=== PATIENT | male | born 1945 | race Caucasian/White ===

== ENCOUNTER → 2016-05-19 | Outpatient (CLI) | payer OTHER ==
[~2016-05-19] MED LIST: ALBU0.08 NEB; AMLO5TAB22 PO; BEDSMIS4; BISA10SU8 PR; CARV25TA PO; CLON0.2T PO; CORE25TA PO; DUONI NEB; FLEEENE3 RE; FURO1TAB62 PO; FURO20 PO; HYDR-3533 PO; LEVO500T3 PO; LISI-586 PO; LISI20TA PO; LOVA40TA PO; MEVA40TA PO; NEBULIZER1 MI1; OXYGENTANK NAS.CANULA; PERI8.6T PO; PRED20 PO; RIVA10 PO; TAMS0.4C67 PO; TIOT1AER2 INH
--- NOTE | 2016-05-21 12:08 | RSPPFT ---
DATE OF PROCEDURE: 05/19/16 COMMENTS: Spirometry shows FVC of 1.7 at 36% of predicted, FEV1 of 0.6 at 19%, FEV1/FVC ratio is decreased. Flow is decreased at FEF 25, FEF 50, FEF 75 and FEF 25-75. There is a good response after bronchodilator treatment. Lung volumes show residual volume is increased. TLC is normal. Diffusion capacity is decreased. Flow volume loop indicates an obstructive pattern. IMPRESSION: 1. Very severe obstructive lung disease. 2. Good response after bronchodilator treatment. 3. Lung volumes show hyperinflation. 4. Moderate loss in diffusion capacity.
== END ==
LOC: HRSP 09:28
PROVIDERS: ATTEND Internal Medicine Interventional Cardiology
DX: I50.1 Left ventricular failure, unspecified (principal); R07.9 Chest pain, unspecified; J44.9 Chronic obstructive pulmonary disease, unspecified
CPT/HCPCS: 94060; 94726; 94729

== ENCOUNTER 2016-06-07 15:30 | Inpatient (IN) | payer OTHER, MEDICARE ==
[~2016-06-07] VITALS: Ht 185.4 cm; Wt 145.0 kg
[2016-06-07] VITALS (9 sets, daily range): BP systolic 132–176; BP diastolic 72–98; PULSE 67–86; RESP 18–28; TEMP 97.1–98.3; O2SAT 87–97
[~2016-06-07 15:30] MED LIST changes: -ALBU0.08 NEB; -CARV25TA PO; -CLON0.2T PO; -FURO1TAB62 PO; -LEVO500T3 PO; -LISI20TA PO; -LOVA40TA PO; -NEBULIZER1 MI1; -OXYGENTANK NAS.CANULA; -TIOT1AER2 INH
[2016-06-07] MEDS ORDERED: methylPREDNISolone SOD SUCC 125 MG/2 ML VIAL IVP ONE (16:00)
[2016-06-07] MEDS ORDERED: CARV25TA PO (16:02)
[2016-06-07] MEDS ORDERED: FURO1TAB62 PO (16:02)
[2016-06-07] MEDS ORDERED: CLON0.2T PO (16:02)
[2016-06-07] MEDS ORDERED: LISI20TA PO (16:02)
[2016-06-07] MEDS ORDERED: LOVA40TA PO (16:02)
--- NOTE | 2016-06-07 16:06 | PD ---
HPI Chief Complaint: Respiratory Symptoms Time Seen by Provider: 15:48 Travel History International Travel<30 days: No Contact w/Intl Traveler<30days: No Traveled to known affect area: No History of Present Illness HPI 70-year-old male complains of shortness of breath. Patient states that he started having persistent cough congestion 2 weeks ago. Patient was seen by personal physician 4 days ago and was given prescription for Z-Dejan. Patient states that the cough got better with the medication. Patient however has increasing shortness of breath for the past 3 days. Patient states that he has wheezing also. Patient has history of COPD and has been using inhaler at home. Patient denies any headache. Patient denies any chest pain. Patient denies abdominal pain. Patient denies any nausea vomiting diarrhea. Patient denies any fever chills. Patient was seen by personal physician today and advised to go to ED for evaluation. PFSH Past Medical History Hx Anticoagulant Therapy: Yes AAA: Yes Arthritis: Yes Atrial Fibrillation: Yes Heart Rhythm Problems: Yes Cancer: No Cardiovascular Problems: Yes High Cholesterol: Yes COPD: Yes Coronary Artery Disease: Yes Diverticulitis: Yes Endocrine: No GERD: Yes Genitourinary: Yes (ENLARGED CKD STAGE II ) Hepatitis: No Hiatal Hernia: No Hypertension: Yes Immune Disorder: No Medical other: Yes (EDEMA,ED) Musculoskeletal: Yes (RIGHT HIP PAIN; ARTHRITIS ) Neurologic: No Psychiatric: No Reproductive: No Respiratory: Yes Myocardial Infarction: Yes Thyroid Disease: Yes Tetanus Vaccination: > 5 Years Influenza Vaccination: Yes Past Surgical History Abdominal Surgery: No AICD: No Body Medical Devices: JACKELIN KNEES; RIGHT HIP Cardiac Surgery: No Ear Surgery: No Endocrine Surgery: No Eye Surgery: Yes (JACKELIN CATARACT EXTRACTION WITH LENS IMPLANT ) Genitourinary Surgery: No Joint Replacement: Yes (JACKELIN KNEES; RIGHT HIP ) Oral Surgery: No Pacemaker: No Thoracic Surgery: No Other Surgery: Yes Social History Alcohol Use: No (FORMER) Tobacco Use: No (QUIT 2011) Substance Use: No Allergies-Medications (Allergen,Severity, Reaction): Coded Allergies: No Known Allergies (Verified , 06/07/16) Reported Meds & Prescriptions Reported Meds & Active Scripts Active Reported Carvedilol 25 Mg Tab 25 Mg PO BID Clonidine (Clonidine HCl) 0.2 Mg Tab 0.2 Mg PO BID Lasix (Furosemide) 20 Mg Tab 20 Mg PO DAILY Lovastatin 40 Mg Tab 40 Mg PO DAILY Lisinopril-Hctz 20-12.5 Mg Tab 1 Tab PO DAILY Review of Systems General / Constitutional: No: Fever Eyes: No: Visual changes HENT: No: Headaches Cardiovascular: No: Chest Pain or Discomfort Respiratory: Positive: Cough, Shortness of Breath, Wheezing Gastrointestinal: No: Abdominal Pain Genitourinary: No: Dysuria Musculoskeletal: No: Pain Skin: No Rash Neurologic: No: Weakness Psychiatric: No: Depression Endocrine: No: Polydipsia Hematologic/Lymphatic: No: Easy Bruising Physical Exam Narrative GENERAL: Well-nourished, well-developed patient. SKIN: Warm and dry. HEAD: Normocephalic. EYES: No scleral icterus. No injection or drainage. NECK: Supple, trachea midline. No JVD or lymphadenopathy. CARDIOVASCULAR: Regular rate and rhythm without murmurs, gallops, or rubs. RESPIRATORY: Diminished breath sounds bilaterally with mild expiratory wheezes bilaterally. Few rhonchi at the bases. GASTROINTESTINAL: Abdomen soft, non-tender, nondistended. MUSCULOSKELETAL: No cyanosis, or edema. BACK: Nontender without obvious deformity. No CVA tenderness. Data Data Last Documented VS Vital Signs Date Time Temp Pulse Resp B/P Pulse Ox O2 Delivery O2 Flow Rate FiO2 06/07/16 16:16 96 Nasal Cannula 2.00 06/07/16 16:00 86 26 170/98 06/07/16 15:37 98.3 Orders Electrocardiogram (06/07/16 15:58) Complete Blood Count With Diff (06/07/16 15:58) Comprehensive Metabolic Panel (06/07/16 15:58) Creatine Kinase (Cpk) (06/07/16 15:58) Troponin I (06/07/16 15:58) B-Type Natriuretic Peptide (06/07/16 15:58) Prothrombin Time / Inr (Pt) (06/07/16 15:58) Act Partial Throm Time (Ptt) (06/07/16 15:58) Blood Culture (06/07/16 15:58) Influenzae A/B Antigen (06/07/16 15:58) Chest, Single Ap (06/07/16 15:58) Iv Access Insert/Monitor (06/07/16 15:58) Ecg Monitoring (06/07/16 15:58) Oximetry (06/07/16 15:58) Methylprednisolone So Succ Inj (Solumedr (06/07/16 16:00) Albuterol-Ipratropium Neb (Duoneb Neb) (06/07/16 16:00) Labs Laboratory Tests Test 06/07/16 16:05 White Blood Count 14.0 TH/MM3 Red Blood Count 4.43 MIL/MM3 Hemoglobin 13.6 GM/DL Hematocrit 43.0 % Mean Corpuscular Volume 97.0 FL Mean Corpuscular Hemoglobin 30.6 PG Mean Corpuscular Hemoglobin 31.6 % Concent Red Cell Distribution Width 13.6 % Platelet Count 394 TH/MM3 Mean Platelet Volume 9.4 FL Neutrophils (%) (Auto) 76.5 % Lymphocytes (%) (Auto) 8.8 % Monocytes (%) (Auto) 10.5 % Eosinophils (%) (Auto) 0.7 % Basophils (%) (Auto) 3.5 % Neutrophils # (Auto) 10.7 TH/MM3 Lymphocytes # (Auto) 1.2 TH/MM3 Monocytes # (Auto) 1.5 TH/MM3 Eosinophils # (Auto) 0.1 TH/MM3 Basophils # (Auto) 0.5 TH/MM3 CBC Comment AUTO DIFF Differential Comment AUTO DIFF CONFIRMED Prothrombin Time 12.1 SEC Prothromb Time International 1.1 RATIO Ratio Activated Partial 31.1 SEC Thromboplast Time Sodium Level 135 MEQ/L Potassium Level 4.3 MEQ/L Chloride Level 96 MEQ/L Carbon Dioxide Level 31.4 MEQ/L Anion Gap 8 MEQ/L Blood Urea Nitrogen 28 MG/DL Creatinine 1.10 MG/DL Estimat Glomerular Filtration 67 ML/MIN Rate Random Glucose 107 MG/DL Calcium Level 8.8 MG/DL Total Bilirubin 0.6 MG/DL Aspartate Amino Transf 46 U/L (AST/SGOT) Alanine Aminotransferase 51 U/L (ALT/SGPT) Alkaline Phosphatase 206 U/L Total Creatine Kinase 123 U/L Troponin I 0.04 NG/ML B-Type Natriuretic Peptide 334 PG/ML Total Protein 7.8 GM/DL Albumin 3.2 GM/DL [facility] Medical Decision Making Medical Screen Exam Complete: Yes Emergency Medical Condition: Yes Interpretation(s) 1716 p.m. EKG shows sinus rhythm with PACs. Right bundle-branch block. Chest x-ray shows compensated cardiomegaly. CBC with WBC 14.0. Hemoglobin 13.6 hematocrit 43.0. 76 neutrophil. Sodium 135. BUN 28. Creatinine 1.10. AST 46. Alkaline phosphatase 206. BNP 334. Influenza AB antigen negative. Differential Diagnosis Differential diagnosis including acute exacerbation COPD, bronchitis, pneumonia , PE, pneumothorax. Narrative Course 70-year-old male with coughing shortness of breath wheezing. History of COPD. Albuterol with Atrovent unit dose treatment 3. Solu-Medrol 125 mg IV. Rocephin 1 g IV. Zithromax 500 mg IV. 1722 PM. Reexamination patient still has a lot of wheezes bilaterally. Diagnosis Primary Impression: COPD with acute exacerbation Admitting Information Admitting Physician Requests: Alonzo Lopez MD Jun 07, 2016 16:06
[2016-06-07] MEDS: RESP: ALBUTEROL 2.5 MG/IPRATROPIUM 0.5 MG NEB (SCH) INH ×2 (16:15→16:16)
[2016-06-07 16:24] LABS: CHLORIDE 96 MEQ/L (98-107); POTASSIUM 4.3 MEQ/L (3.5-5.1); SODIUM (NA) 135 MEQ/L (136-145)
[2016-06-07 16:28] LABS: ANION GAP 8 MEQ/L (5-15); APTT (PATIENT) 31.1 SEC (24.3-30.1); BICARBONATE 31.4 MEQ/L (21.0-32.0); BLOOD UREA NITROGEN 28 MG/DL (7-18); INTERNATIONAL NORMALIZED RATIO 1.1 RATIO; PROTHROMBIN TIME - PATIENT 12.1 SEC (9.8-11.6)
[2016-06-07 16:30] LABS: AUTOMATED NEUTROPHIL # 10.7 TH/MM3 (1.8-7.7); BASOPHIL # 0.5 TH/MM3 (0-0.2); BASOPHIL % 3.5 % (0.0-2.0); EOSINOPHIL # 0.1 TH/MM3 (0-0.4); EOSINOPHIL % 0.7 % (0.0-4.0); LYMPH % 8.8 % (9.0-44.0); LYMPHOCYTE # 1.2 TH/MM3 (1.0-4.8); MEAN CORPUSCULAR HEMOGLOBIN 30.6 PG (27.0-34.0); MEAN CORPUSCULAR HGB CONC 31.6 % (32.0-36.0); MONO % 10.5 % (0.0-8.0); NEUT % 76.5 % (16.0-70.0); PLATELET COUNT 394 TH/MM3 (150-450); RED BLOOD COUNT 4.43 MIL/MM3 (4.50-5.90); RED CELL DISTRIBUTION WIDTH 13.6 % (11.6-17.2)
[2016-06-07 16:31] LABS: ALT (GPT) 51 U/L (12-78); AST (GOT) 46 U/L (15-37); GLOMERULAR FILTRATION RATE 67 ML/MIN (>89)
[2016-06-07 16:33] LABS: HEMO FLAGS AUTO DIFF; TOTAL BILIRUBIN ADULT 0.6 MG/DL (0.2-1.0)
[2016-06-07 16:34] LABS: ALKALINE PHOSPHATASE 206 U/L (45-117); CREATINE KINASE 123 U/L (39-308)
--- NOTE | 2016-06-07 16:46 | RADHPO ---
EXAM DATE/TIME: 06/07/2016 16:15 [facility] COMPARISON: CHEST SINGLE AP, February 20, 2015, 13:29. INDICATIONS : Short of breath. MEDICAL HISTORY : Chronic obstructive pulmonary disease. SURGICAL HISTORY : None. ENCOUNTER: Initial ACUITY: >1 year PAIN SCORE: 0/10 LOCATION: Bilateral chest FINDINGS: The lungs are clear. The heart is minimally enlarged. The pulmonary vascularity is normal. There is n o evidence for infiltrate or failure. The portion of the bony skeleton visualized is unremarkable. CONCLUSION: Compensated cardiomegaly otherwise negative. Sid Bazan MD FACR on June 07, 2016 at 16:44 Board Certified Radiologist. This report was verified electronically.
[2016-06-07 16:55] LABS: SCAN/DIFF AUTO DIFF CONFIRMED
[2016-06-07] MEDS ORDERED: cefTRIAXone INJ 1,000 MG in SODIUM CHLORIDE 0.9% INJ 100 ML IV ONE (17:30)
[2016-06-07] MEDS ORDERED: AZITHROMYCIN INJ 500 MG in SODIUM CHLOR 0.9% 250 ML INJ 250 ML IV ONE (17:30)
[2016-06-07] MEDS ORDERED: ONDANSETRON HCL 4 MG/2 ML VIAL IV PRN (17:45)
[2016-06-07] MEDS ORDERED: RESP: ALBUTEROL 2.5 MG/IPRATROPIUM 0.5 MG NEB (PRN) NEB (17:45)
[2016-06-07] MEDS ORDERED: ACETAMINOPHEN 325 MG TAB PO PRN (17:45)
[2016-06-07] MEDS ORDERED: SODIUM CHLORIDE 0.9% FLUSH 5 ML FLUSH IVF PRN (17:45)
[2016-06-07] MEDS: RESP: ALBUTEROL 2.5 MG/IPRATROPIUM 0.5 MG NEB (SCH) NEB ×2 (20:00→23:55)
[2016-06-07] MEDS: CARVEDILOL 12.5 MG TAB PO SCH (22:14)
[2016-06-07] MEDS: cloNIDine HCL 0.2 MG TAB PO SCH ×2 (22:14→23:30)
[2016-06-07] MEDS: SODIUM CHLORIDE 0.9% FLUSH 5 ML FLUSH IVF SCH (22:15)
[2016-06-07] MEDS: methylPREDNISolone SOD SUCC 40 MG/1 ML VIAL IV PUSH SCH ×2 (22:15→23:53)
[2016-06-08] VITALS (7 sets, daily range): BP systolic 131–154; BP diastolic 62–71; PULSE 67–77; RESP 16–18; TEMP 96–97.8; O2SAT 92–96
[2016-06-08] MEDS: RESP: ALBUTEROL 2.5 MG/IPRATROPIUM 0.5 MG NEB (SCH) NEB ×4 (03:55→15:26)
[2016-06-08] MEDS: methylPREDNISolone SOD SUCC 40 MG/1 ML VIAL IV PUSH SCH ×3 (05:35→17:48)
[2016-06-08] MEDS ORDERED: FUROSEMIDE 20 MG TAB PO SCH (09:00)
[2016-06-08] MEDS: cloNIDine HCL 0.2 MG TAB PO SCH ×2 (09:00→09:20)
[2016-06-08] MEDS ORDERED: HYDROCHLOROTHIAZIDE 12.5 MG CAP PO SCH (09:00)
[2016-06-08] MEDS: LISINOPRIL 20 MG TAB PO SCH ×2 (09:19→09:27)
[2016-06-08] MEDS: CARVEDILOL 12.5 MG TAB PO SCH (09:20)
[2016-06-08] MEDS: SODIUM CHLORIDE 0.9% FLUSH 5 ML FLUSH IVF SCH (09:23)
[2016-06-08] MEDS ORDERED: PNEUMOCOCCAL POLYVALENT INJ 25 MCG/0.5 ML SYR IM ONE (10:00)
[2016-06-08] MEDS ORDERED: cloNIDine HCL 0.1 MG TAB PO PRN (11:17)
--- NOTE | 2016-06-08 14:59 | HHI.HP ---
[facility] Service [facility] Primary Care Physician Marcos Walton MD Admission Diagnosis acute exacerbation COPD Diagnoses: (1) COPD with acute exacerbation (2) Hypoxemia Travel History International Travel<30 Days: No Contact w/Intl Traveler <30 Da: No Traveled to Known Affected Are: No History of Present Illness This is a pleasant 70 year-old female who was recently diagnosed with COPD who presents to the ER last night complaining of shortness of breath, cough , congestion and wheezing. The patient states that he has been chronically short of breath for some time and had been seeing his paper mill superintendent Dr. Falk for this. He states he had a nuclear stress test which was negative and then she referred him for pulmonary function tests which diagnosed him with COPD. He does have a [id number] history of smoking tobacco and quit about 5 years ago. He has been referred to a digital pre press operator and will see Dr. Pablo mcfarland and about 10 days for the first time. The patient was prescribed a Z-Dejan by his primary care physician but did not improve with this. He was presented to the ER last night. He received Solu-Medrol multiple breathing treatments but was still wheezing. This morning the patient states that he feels "1000% better." Review of Systems Constitutional: DENIES: Fever, Chills Ears, nose, mouth, throat: DENIES: Throat pain, Hoarseness Respiratory: COMPLAINS OF: Cough, Sputum production, Shortness of breath Cardiovascular: COMPLAINS OF: Dyspnea on Exertion, DENIES: Chest pain, Palpitations, Syncope Gastrointestinal: DENIES: Abdominal pain, Vomiting Genitourinary: DENIES: Urgency, Dysuria Musculoskeletal: DENIES: Back pain, Neck pain Integumentary: DENIES: Rash Neurologic: DENIES: Abnormal gait, Headache Psychiatric: DENIES: Anxiety, Confusion Past Family Social History Past Medical History Hypertension COPD recently diagnosed History of postoperative A. fib for which she takes a baby aspirin daily. Hyperlipidemia Past Surgical History Bilateral knee replacements, right hip replacement and revision Reported Medications Allergies Coded Allergies Type Severity Reaction Last Updated Verified No Known Allergies 06/07/16 Yes Active Scripts Medications Dose Route/Sig Days Date Category Carvedilol 25 Mg Tab 25 Mg PO BID 06/07/16 Reported Clonidine (Clonidine HCl) 0.2 Mg Tab 0.2 Mg PO BID 06/07/16 Reported Lasix (Furosemide) 20 Mg Tab 20 Mg PO DAILY 06/07/16 Reported Lovastatin 40 Mg Tab 40 Mg PO DAILY 06/07/16 Reported Lisinopril-Hctz 20-12.5 Mg Tab 1 Tab PO DAILY 06/07/16 Reported Allergies: Coded Allergies: No Known Allergies (Verified , 06/07/16) Family History Negative for coronary artery disease Social History As per history of present illness. Physical Exam Vital Signs Vital Signs Date Time Temp Pulse Resp B/P Pulse Ox O2 Delivery O2 Flow Rate FiO2 06/08/16 12:05 96.0 77 16 154/71 94 06/08/16 08:15 96.4 68 17 151/67 92 06/08/16 07:19 96 Nasal Cannula 2.00 06/08/16 04:00 97.8 68 18 140/64 93 06/08/16 00:00 96.5 67 16 131/62 92 06/07/16 22:44 76 06/07/16 20:27 74 18 96 2 06/07/16 20:18 95 Nasal Cannula 2.00 06/07/16 20:18 97.1 78 20 176/84 95 06/07/16 20:06 74 18 141/78 06/07/16 19:05 72 18 132/72 96 Nasal Cannula 2 06/07/16 17:33 67 20 148/86 97 Nasal Cannula 2 06/07/16 16:16 96 Nasal Cannula 2.00 06/07/16 16:04 97 Nasal Cannula 2 06/07/16 16:00 86 26 170/98 97 Nasal Cannula 2 06/07/16 15:54 82 97 Nasal Cannula 2 06/07/16 15:37 98.3 80 28 148/98 87 Physical Exam GENERAL: Well-nourished, well-developed very pleasant obese male patient. SKIN: Warm and dry. HEAD: Normocephalic. EYES: No scleral icterus. No injection or drainage. NECK: Supple, trachea midline. No JVD or lymphadenopathy. CARDIOVASCULAR: Regular rate and rhythm without murmurs, gallops, or rubs. RESPIRATORY: Lung sounds are clear to auscultation bilaterally without wheezing. Nonlabored breathing on nasal cannula. GASTROINTESTINAL: Abdomen soft, non-tender, nondistended. EXTREMITIES: No cyanosis, or edema. NEUROLOGICAL: Awake, alert, and oriented x 3. Non-focal. Laboratory Laboratory Tests Test 06/07/16 16:05 White Blood Count 14.0 Red Blood Count 4.43 Hemoglobin 13.6 Hematocrit 43.0 Mean Corpuscular Volume 97.0 Mean Corpuscular Hemoglobin 30.6 Mean Corpuscular Hemoglobin 31.6 Concent Red Cell Distribution Width 13.6 Platelet Count 394 Mean Platelet Volume 9.4 Neutrophils (%) (Auto) 76.5 Lymphocytes (%) (Auto) 8.8 Monocytes (%) (Auto) 10.5 Eosinophils (%) (Auto) 0.7 Basophils (%) (Auto) 3.5 Neutrophils # (Auto) 10.7 Lymphocytes # (Auto) 1.2 Monocytes # (Auto) 1.5 Eosinophils # (Auto) 0.1 Basophils # (Auto) 0.5 CBC Comment AUTO DIFF Differential Comment AUTO DIFF CONFIRMED Prothrombin Time 12.1 Prothromb Time International 1.1 Ratio Activated Partial 31.1 Thromboplast Time Sodium Level 135 Potassium Level 4.3 Chloride Level 96 Carbon Dioxide Level 31.4 Anion Gap 8 Blood Urea Nitrogen 28 Creatinine 1.10 Estimat Glomerular Filtration 67 Rate Random Glucose 107 Calcium Level 8.8 Total Bilirubin 0.6 Aspartate Amino Transf 46 (AST/SGOT) Alanine Aminotransferase 51 (ALT/SGPT) Alkaline Phosphatase 206 Total Creatine Kinase 123 Troponin I 0.04 B-Type Natriuretic Peptide 334 Total Protein 7.8 Albumin 3.2 Date/Time Procedure Status Source Growth 06/07/16 16:15 Aerobic Blood Culture - Preliminary Resulted Blood Peripheral NO GROWTH IN 1 DAY 06/07/16 16:15 Anaerobic Blood Culture - Preliminary Resulted Blood Peripheral NO GROWTH IN 1 DAY 06/07/16 16:10 Influenza Types A,B Antigen (BROWN) - Final Complete Nasal Washing NEGATIVE FOR FLU A AND B ANTIGEN.... Result Diagram: 06/07/16 1605 06/07/16 1605 Imaging Last Impressions Chest X-Ray 06/07/16 6185 Signed Impressions: Service Date/Time: Tuesday, June 07, 2016 16:15 - CONCLUSION: Compensated cardiomegaly otherwise negative. Sid Bazan MD FACR Assessment and Plan Assessment and Plan -COPD exacerbation. Clinically much improved. He had not had a course of steroids as an outpatient. He states he feels much better today and would like to go home. He has no wheezing on exam. He does have an appointment to establish with a digital pre press operator Dr. Pablo Sears in about 10 days. He states gives a long-standing history of dyspnea. I will check a walk test and arrange home oxygen if needed. We will arrange a nebulizer machine. He can be discharged home with a prednisone taper. I will also initiate him on Spiriva and prescribed bronchodilators as well as Levaquin. He will follow-up with Dr. mcfarland in about 10 days. For his high blood pressure will continue his home medications. Riya Chaparro MD Jun 08, 2016 14:59
[2016-06-08] MEDS ORDERED: OXYGENTANK NAS.CANULA (15:23)
[2016-06-08] MEDS ORDERED: PRED20 PO (15:23)
[2016-06-08] MEDS ORDERED: NEBULIZER1 MI1 (15:23)
[2016-06-08] MEDS ORDERED: ALBU0.08 NEB (15:23)
[2016-06-08] MEDS ORDERED: TIOT1AER2 INH (15:23)
[2016-06-08] MEDS ORDERED: LEVO500T3 PO (15:23)
--- NOTE | 2016-06-08 17:41 | EKG ---
Date Performed: 06/07/2016 Time Performed: 16:18:32 PTAGE: 70 years EKG: Sinus rhythm with PAC(s) Left axis deviation RBBB with left anterior fascicular block Since previous tracing, no significant change noted Abnormal ECG PREVIOUS TRACING : 09/17/2004 10.09 DOCTOR: Saravanan Gardner Interpretating Date/Time 06/08/2016 17:39:47
[2016-06-08] MEDS ORDERED: DOCUSATE SODIUM 100 MG CAP PO SCH (21:00)
== END 2016-06-08 18:30 | disposition home or self-care (01) | DRG 192 ==
LOC: PHED 15:30 → PHEDA 17:35 → PH3A 20:18
PROVIDERS: ADMIT Hospitalist; ATTEND Hospitalist
PROC: 3E0F7GC Introduction of Other Therapeutic Substance into Respiratory Tract, Via Natural or Artificial Opening (ICD-10-PCS; principal; 2016-06-07)
DX: J44.1 Chronic obstructive pulmonary disease with (acute) exacerbation (principal); I48.91 Unspecified atrial fibrillation; I45.10 Unspecified right bundle-branch block; I25.10 Atherosclerotic heart disease of native coronary artery without angina pectoris; N18.2 Chronic kidney disease, stage 2 (mild); I12.9 Hypertensive chronic kidney disease with stage 1 through stage 4 chronic kidney disease, or unspecified chronic kidney disease; K21.9 Gastro-esophageal reflux disease without esophagitis; E78.00 Pure hypercholesterolemia, unspecified; M19.90 Unspecified osteoarthritis, unspecified site; I25.2 Old myocardial infarction; E07.9 Disorder of thyroid, unspecified; R09.02 Hypoxemia; E78.5 Hyperlipidemia, unspecified; I71.4 Abdominal aortic aneurysm, without rupture; Z87.891 Personal history of nicotine dependence; Z96.641 Presence of right artificial hip joint; Z96.653 Presence of artificial knee joint, bilateral; Z23 Encounter for immunization
CPT/HCPCS: 71010; 80053; 82550; 83880; 84484; 85025; 85610; 85730; 87040; 87804; 90471; 90732; 93005; 94620; 94640; 94664; 96374; 96375; G0009; J0456; J0696; J2920; J2930; J7050

== ENCOUNTER 2017-05-12 11:53 | Emergency (ER) | payer MEDICARE, OTHER ==
[~2017-05-12 11:53] MED LIST changes: +ALBU0.08 NEB; -AMLO5TAB22 PO; -BEDSMIS4; -BISA10SU8 PR; +CARV25TA PO; +CLON0.2T PO; -CORE25TA PO; -DUONI NEB; -FLEEENE3 RE; +FURO1TAB62 PO; -FURO20 PO; -HYDR-3533 PO; +LEVO500T3 PO; -LISI-586 PO; +LISI20TA PO; +LOVA40TA PO; -MEVA40TA PO; +NEBULIZER1 MI1; +OXYGENTANK NAS.CANULA; -PERI8.6T PO; -RIVA10 PO; -TAMS0.4C67 PO; +TIOT1AER2 INH
--- NOTE | 2017-05-12 11:59 | PD ---
HPI Chief Complaint: shortness of breath Time Seen by Provider: 11:56 Travel History International Travel<30 days: No Contact w/Intl Traveler<30days: No Traveled to known affect area: No History of Present Illness HPI 71-year-old male came to the emergency room brought by EMS for shortness of breath. Patient says he has been short of breath for many weeks but for past 4- 5 days is progressively worsening. Patient denies of any chest pain. He has history of COPD and requires 2 L of oxygen at home. She of fever or chills. He is not bringing out any expectorant. Patient was oxygen saturation of 91% on the 2 L of oxygen. He does appear to be in moderate distress. Patient is morbidly obese. Patient has seen industrial relations worker Dr. Garcia and has followed his recommendations for the shortness of breath but has not improved. [facility] Past Medical History Narrative Medical List of his past medical, surgical, social and family history is reviewed from the nursing note. Hx Anticoagulant Therapy: Yes AAA: Yes Arthritis: Yes Asthma: No Atrial Fibrillation: Yes Heart Rhythm Problems: Yes Cancer: No Cardiovascular Problems: Yes High Cholesterol: Yes Chest Pain: No Congestive Heart Failure: Yes COPD: Yes Coronary Artery Disease: Yes Diabetes: No Diverticulitis: Yes Endocrine: No GERD: No Genitourinary: Yes (ENLARGED CKD STAGE II ) Hepatitis: No Hiatal Hernia: No Hypertension: Yes Immune Disorder: No Kidney Stones: No Musculoskeletal: Yes (RIGHT HIP PAIN; ARTHRITIS ) Neurologic: No Psychiatric: No Reproductive: No Respiratory: Yes Myocardial Infarction: Yes Renal Failure: No Sleep Apnea: No Thyroid Disease: Yes Ulcer: No Past Surgical History Abdominal Surgery: No AICD: No Body Medical Devices: JACKELIN KNEES; RIGHT HIP Cardiac Surgery: No Ear Surgery: No Endocrine Surgery: No Eye Surgery: Yes (JACKELIN CATARACT EXTRACTION WITH LENS IMPLANT ) Genitourinary Surgery: No Joint Replacement: Yes (JACKELIN KNEES; RIGHT HIP ) Oral Surgery: No Pacemaker: No Thoracic Surgery: No Other Surgery: Yes Social History Alcohol Use: No (FORMER) Tobacco Use: No (QUIT 2011) Substance Use: No Allergies-Medications (Allergen,Severity, Reaction): Coded Allergies: No Known Allergies (Verified Adverse Reaction, Unknown, 05/12/17) Comments No known drug allergies. Reported Meds & Prescriptions Reported Meds & Active Scripts Active Oxygen tank (Oxygen) 1 Ea Tank 2 Liter [employer] CONTINUOUS Oxygen Concentrator Portable Gaseous 2 L/min via Nasal Cannula Continuous For 99 months Spiriva Respimat Inh (Tiotropium Inh) 1.25 Mcg/Act Aero 2 Puff INH DAILY 1.25 mcg = 1 inhalation Albuterol Neb (Albuterol Sulfate) 2.5 Mg/3 Ml Neb 2.5 Mg NEB Q4HR NEB PRN Reported Zyloprim (Allopurinol) 100 Mg Tab 100 Mg PO DAILY Carvedilol 25 Mg Tab 25 Mg PO BID Clonidine (Clonidine HCl) 0.2 Mg Tab 0.2 Mg PO BID Lasix (Furosemide) 20 Mg Tab 20 Mg PO DAILY Lovastatin 40 Mg Tab 40 Mg PO HS Lisinopril-Hctz 20-12.5 Mg Tab 1 Tab PO DAILY Narrative Medication List of his home medications reviewed from the nursing note. Review of Systems Except as stated in HPI: all other systems reviewed are Neg Respiratory: Positive: Shortness of Breath Physical Exam Narrative GENERAL: Awake, alert, morbidly obese, moderate distress SKIN: Focused skin assessment warm/dry. HEAD: Atraumatic. Normocephalic. EYES: Pupils equal and round. No scleral icterus. No injection or drainage. ENT: No nasal bleeding or discharge. Mucous membranes pink and moist. NECK: Trachea midline. No JVD. CARDIOVASCULAR: Regular rate and rhythm. No murmur appreciated. RESPIRATORY: Decreased air entry bilaterally, tachypnea, using accessory muscles of respiration. GASTROINTESTINAL: Abdomen soft, non-tender, nondistended. Hepatic and splenic margins not palpable. MUSCULOSKELETAL: No obvious deformities. No clubbing. No cyanosis. Bilateral pedal edema 2+. NEUROLOGICAL: Awake and alert. No obvious cranial nerve deficits. Motor grossly within normal limits. Normal speech. PSYCHIATRIC: Appropriate mood and affect; insight and judgment normal. Data Data Last Documented VS Vital Signs Date Time Temp Pulse Resp B/P (MAP) Pulse Ox O2 Delivery O2 Flow Rate FiO2 05/12/17 14:30 76 18 116/78 (91) 98 Nasal Cannula 2.00 05/12/17 12:10 98.3 Orders Orders Electrocardiogram (05/12/17 ) Complete Blood Count With Diff (05/12/17 12:11) Basic Metabolic Panel (Bmp) (05/12/17 12:11) B-Type Natriuretic Peptide (05/12/17 12:11) Prothrombin Time / Inr (Pt) (05/12/17 12:11) Troponin I (05/12/17 12:11) Iv Access Insert/Monitor (05/12/17 12:11) Ecg Monitoring (05/12/17 12:11) Oximetry (05/12/17 12:11) Oxygen Administration (05/12/17 12:11) Chest, Single Ap (05/12/17 12:11) Sodium Chloride 0.9% Flush (Ns Flush) (05/12/17 12:15) Methylprednisolone So Succ Inj (Solumedr (05/12/17 12:15) Albuterol-Ipratropium Neb (Duoneb Neb) (05/12/17 12:15) Labs Laboratory Tests Test 05/12/17 12:25 White Blood Count 9.1 TH/MM3 Red Blood Count 3.86 MIL/MM3 Hemoglobin 12.9 GM/DL Hematocrit 39.0 % Mean Corpuscular Volume 100.9 FL Mean Corpuscular Hemoglobin 33.5 PG Mean Corpuscular Hemoglobin Concent 33.2 % Red Cell Distribution Width 14.5 % Platelet Count 210 TH/MM3 Mean Platelet Volume 9.7 FL Neutrophils (%) (Auto) 78.5 % Lymphocytes (%) (Auto) 10.1 % Monocytes (%) (Auto) 9.8 % Eosinophils (%) (Auto) 1.1 % Basophils (%) (Auto) 0.5 % Neutrophils # (Auto) 7.2 TH/MM3 Lymphocytes # (Auto) 0.9 TH/MM3 Monocytes # (Auto) 0.9 TH/MM3 Eosinophils # (Auto) 0.1 TH/MM3 Basophils # (Auto) 0.0 TH/MM3 CBC Comment DIFF FINAL Differential Comment Prothrombin Time 12.0 SEC Prothromb Time International Ratio 1.2 RATIO Blood Urea Nitrogen 19 MG/DL Creatinine 1.26 MG/DL Random Glucose 98 MG/DL Calcium Level 9.0 MG/DL Sodium Level 131 MEQ/L Potassium Level 4.4 MEQ/L Chloride Level 89 MEQ/L Carbon Dioxide Level 38.3 MEQ/L Anion Gap 4 MEQ/L Estimat Glomerular Filtration Rate 57 ML/MIN Troponin I 0.05 NG/ML B-Type Natriuretic Peptide 184 PG/ML MDM Medical Decision Making Medical Screen Exam Complete: Yes Emergency Medical Condition: Yes Medical Record Reviewed: Yes Interpretation(s) Twelve-lead EKG was reviewed by me. Atrial fibrillation, flutter, right bundle branch block, left axis deviation. Heart rate of 79 bpm. Differential Diagnosis COPD exacerbation, pleural effusion, congestive heart failure Narrative Course 1:52 PM patient was given 3 duo nebs, IV Solumedrol and IV Lasix. Chest x-ray is read negative. Awaiting for blood test to be resulted. I'll reassess him in a bit. 2:18 PM patient's air entry slightly improved. However given the fact that this is progressively worsening at home and patient has been trying to take the bronchodilator without much relief I have decided to admit him. Also his A. fib is paroxysmal and he did not have it last time. Awaiting for the hospitalist call back. 2:48 PM I was told by the nurse that patient did not want to stay since he wanted to go to his room and didn't want to stay in the room in the emergency room. He is in full capacity to make decisions for himself. His is there as well. He understands the risks of leaving and the benefits of staying and getting treated. He will sign AMA. Procedures EKG Prior to Arrival: Yes Diagnosis Primary Impression: Respiratory distress Additional Impressions: COPD exacerbation Failure of outpatient treatment Morbid obesity Disposition: 07 AGAINST MEDICAL ADVICE Condition: Serious Jabari Payne MD May 12, 2017 11:59
[2017-05-12 12:05] VITALS: RESP 20; O2SAT 91
[2017-05-12 12:10] VITALS: BP 125/81; PULSE 79; RESP 16; TEMP 98.3; O2SAT 98
[2017-05-12] MEDS ORDERED: SODIUM CHLORIDE 0.9% FLUSH 10 ML FLUSH IVF PRN (12:15)
[2017-05-12] MEDS ORDERED: methylPREDNISolone SOD SUCC 125 MG/2 ML VIAL IV PUSH ONE (12:15)
[2017-05-12 12:20] VITALS: O2SAT 97
[2017-05-12] MEDS: RESP: ALBUTEROL 2.5 MG/IPRATROPIUM 0.5 MG NEB (SCH) INH ×2 (12:21→12:22)
[2017-05-12] MEDS ORDERED: ALLO100 PO (12:49)
[2017-05-12 13:14] LABS: AUTOMATED NEUTROPHIL # 7.2 TH/MM3 (1.8-7.7); BASOPHIL % 0.5 % (0.0-2.0); EOSINOPHIL # 0.1 TH/MM3 (0-0.4); EOSINOPHIL % 1.1 % (0.0-4.0); HEMOGLOBIN 12.9 GM/DL (13.0-17.0); LYMPH % 10.1 % (9.0-44.0); LYMPHOCYTE # 0.9 TH/MM3 (1.0-4.8); MEAN CELL VOLUME 100.9 FL (80.0-100.0); MEAN CORPUSCULAR HEMOGLOBIN 33.5 PG (27.0-34.0); MEAN CORPUSCULAR HGB CONC 33.2 % (32.0-36.0); MEAN PLATELET VOLUME 9.7 FL (7.0-11.0); MONO % 9.8 % (0.0-8.0); MONOCYTE # 0.9 TH/MM3 (0-0.9); NEUT % 78.5 % (16.0-70.0); PLATELET COUNT 210 TH/MM3 (150-450); RED BLOOD COUNT 3.86 MIL/MM3 (4.50-5.90); RED CELL DISTRIBUTION WIDTH 14.5 % (11.6-17.2); WHITE BLOOD COUNT 9.1 TH/MM3 (4.0-11.0)
--- NOTE | 2017-05-12 13:17 | RADRPT ---
EXAM DATE/TIME: 05/12/2017 13:04 [facility] COMPARISON: No previous studies available for comparison. INDICATIONS : Short of breath. MEDICAL HISTORY : Chronic obstructive pulmonary disease. Hypertension SURGICAL HISTORY : None. ENCOUNTER: Subsequent ACUITY: 2 days PAIN SCORE: 0/10 LOCATION: Bilateral chest FINDINGS: A single view of the chest demonstrates the lungs to be symmetrically aerated without evidence of mas s, infiltrate or effusion. The cardiomediastinal contours are unremarkable. Osseous structures are intact. CONCLUSION: Normal examination. Jim Drummond MD on May 12, 2017 at 13:16 Board Certified Radiologist. This report was verified electronically.
[2017-05-12 13:23] LABS: INTERNATIONAL NORMALIZED RATIO 1.2 RATIO
[2017-05-12 13:30] LABS: BICARBONATE 38.3 MEQ/L (21.0-32.0); CREATININE 1.26 MG/DL (0.60-1.30)
[2017-05-12 13:33] LABS: TROPONIN I 0.05 NG/ML (0.02-0.05)
[2017-05-12 14:30] VITALS: BP 116/78; PULSE 76; RESP 18; O2SAT 98
--- NOTE | 2017-05-13 16:30 | EKG ---
Date Performed: 05/12/2017 Time Performed: 13:05:18 PTAGE: 71 years EKG: ATRIAL FIBRILLATION MARKED LEFT AXIS DEVIATION RIGHT BUNDLE BRANCH BLOCK POSSIBLE ANTEROSEP YOUSUF MYOCARDIAL INFARCTION ABNORMAL ECG PREVIOUS TRACING : 06/07/2016 16.18 Since previous tracing, no significant change noted DOCTOR: Saravanan Gardner Interpretating Date/Time 05/13/2017 16:28:39
== END 2017-05-12 15:00 | disposition left against medical advice (07) ==
LOC: NEPE 11:53
DX: J44.1 Chronic obstructive pulmonary disease with (acute) exacerbation (principal); E66.01 Morbid (severe) obesity due to excess calories; R94.31 Abnormal electrocardiogram [ECG] [EKG]; I48.91 Unspecified atrial fibrillation; I13.0 Hypertensive heart and chronic kidney disease with heart failure and stage 1 through stage 4 chronic kidney disease, or unspecified chronic kidney disease; I50.9 Heart failure, unspecified; N18.2 Chronic kidney disease, stage 2 (mild); I25.10 Atherosclerotic heart disease of native coronary artery without angina pectoris; Z87.891 Personal history of nicotine dependence
CPT/HCPCS: 71045; 80048; 83880; 84484; 85025; 85610; 93005; 94640; 94664; 96374; 99285; J2930

== ENCOUNTER 2017-05-24 14:30 | Inpatient (IN) | payer OTHER, MEDICARE ==
[2017-05-24] VITALS (14 sets, daily range): BP systolic 156–204; BP diastolic 81–112; PULSE 90–138; RESP 24–36; TEMP 96.7–98.6; O2SAT 90–98
[~2017-05-24] VITALS: Ht 185.4 cm; Wt 151.7 kg
[~2017-05-24 14:30] MED LIST changes: +ALLO100 PO; -LEVO500T3 PO; -NEBULIZER1 MI1; -PRED20 PO
[2017-05-24] MEDS ORDERED: FUROSEMIDE 40 MG/4 ML VIAL IVP ONE (14:45)
[2017-05-24] MEDS ORDERED: SODIUM CHLORIDE 0.9% FLUSH 10 ML FLUSH IVF PRN (14:45)
[2017-05-24] MEDS ORDERED: SYMB160A INH (15:16)
--- NOTE | 2017-05-24 15:28 | RADRPT ---
EXAM DATE/TIME: 05/24/2017 14:57 [facility] COMPARISON: CHEST SINGLE AP, May 12, 2017, 13:04. INDICATIONS : Short of breath. Leg swelling. Unable to urinate. MEDICAL HISTORY : Chronic obstructive pulmonary disease. Hypertension SURGICAL HISTORY : None. ENCOUNTER: Subsequent ACUITY: 1 week PAIN SCORE: 0/10 LOCATION: Bilateral chest FINDINGS: Mild bibasilar airspace disease, left greater than right. Cardiomediastinal contours are stable. Bony thorax is intact. CONCLUSION: 1. Mild bibasilar airspace disease, left greater than right, presumably atelectasis. Jeyson Juarez MD on May 24, 2017 at 15:24 Board Certified Radiologist. This report was verified electronically.
[2017-05-24 15:44] LABS: AUTOMATED NEUTROPHIL # 10.4 TH/MM3 (1.8-7.7); BASOPHIL % 0.2 % (0.0-2.0); HEMATOCRIT 40.9 % (39.0-51.0); HEMOGLOBIN 13.3 GM/DL (13.0-17.0); LYMPH % 4.9 % (9.0-44.0); LYMPHOCYTE # 0.6 TH/MM3 (1.0-4.8); MEAN CELL VOLUME 100.2 FL (80.0-100.0); MEAN CORPUSCULAR HEMOGLOBIN 32.7 PG (27.0-34.0); MEAN CORPUSCULAR HGB CONC 32.6 % (32.0-36.0); MEAN PLATELET VOLUME 8.7 FL (7.0-11.0); MONO % 2.9 % (0.0-8.0); MONOCYTE # 0.3 TH/MM3 (0-0.9); PLATELET COUNT 251 TH/MM3 (150-450); RED BLOOD COUNT 4.08 MIL/MM3 (4.50-5.90); RED CELL DISTRIBUTION WIDTH 14.1 % (11.6-17.2); WHITE BLOOD COUNT 11.3 TH/MM3 (4.0-11.0)
[2017-05-24 15:59] LABS: INTERNATIONAL NORMALIZED RATIO 1.3 RATIO; PROTHROMBIN TIME - PATIENT 13.3 SEC (9.8-11.6)
[2017-05-24 16:08] LABS: ALBUMIN 3.9 GM/DL (3.4-5.0); AST (GOT) 21 U/L (15-37); BICARBONATE 34.9 MEQ/L (21.0-32.0); BLOOD UREA NITROGEN 24 MG/DL (7-18); CALCIUM 8.8 MG/DL (8.5-10.1); CHLORIDE 79 MEQ/L (98-107); CREATININE 1.12 MG/DL (0.60-1.30); GLOMERULAR FILTRATION RATE 65 ML/MIN (>89); GLUCOSE,RANDOM 120 MG/DL (74-106); SODIUM (NA) 125 MEQ/L (136-145)
[2017-05-24 16:13] LABS: ALKALINE PHOSPHATASE 89 U/L (45-117); ALT (GPT) 36 U/L (12-78); TOTAL BILIRUBIN ADULT 1.4 MG/DL (0.2-1.0); TROPONIN I 0.04 NG/ML (0.02-0.05)
--- NOTE | 2017-05-24 16:56 | PD ---
HPI Chief Complaint: Respiratory Distress Time Seen by Provider: 14:40 Travel History International Travel<30 days: No Contact w/Intl Traveler<30days: No Traveled to known affect area: No History of Present Illness HPI 71-year-old male day history of hypertension hyperlipidemia A. fib COPD CHF coronary artery disease complains of shortness of breath. He arrives by EMS. At home his O2 sat was in the 80s. He uses home oxygen 2 L as needed and for nebulizer treatments daily. EMS administered Solu-Medrol administered breathing treatments and the O2 sat increased to the mid 90s here. The patient denies chest pain or shortness of breath however reports swelling of the lower extremities associated with leakage of fluid. He reports compliance Lasix. PFSH Past Medical History Hx Anticoagulant Therapy: Yes AAA: Yes Arthritis: Yes Asthma: No Atrial Fibrillation: Yes Heart Rhythm Problems: Yes Cancer: No Cardiovascular Problems: Yes (HTN) High Cholesterol: Yes Chest Pain: No Congestive Heart Failure: Yes COPD: Yes Coronary Artery Disease: Yes Diabetes: No Diminished Hearing: No Diverticulitis: Yes Endocrine: No GERD: No Genitourinary: Yes (ENLARGED CKD STAGE II ) Hepatitis: No Hiatal Hernia: No Hypertension: Yes Immune Disorder: No Implanted Vascular Access Dvce: Yes Kidney Stones: No Musculoskeletal: Yes (RIGHT HIP PAIN; ARTHRITIS ) Neurologic: No Psychiatric: No Reproductive: No Respiratory: Yes (COPD) Myocardial Infarction: Yes Renal Failure: No Sleep Apnea: No Thyroid Disease: Yes Ulcer: No Tetanus Vaccination: Unknown Influenza Vaccination: Yes Past Surgical History Abdominal Surgery: No AICD: No Body Medical Devices: JACKELIN KNEES; RIGHT HIP Cardiac Surgery: No Ear Surgery: No Endocrine Surgery: No Eye Surgery: Yes (JACKELIN CATARACT EXTRACTION WITH LENS IMPLANT ) Genitourinary Surgery: No Joint Replacement: Yes (JACKELIN KNEES; RIGHT HIP ) Oral Surgery: No Pacemaker: No Thoracic Surgery: No Other Surgery: Yes Social History Alcohol Use: No (FORMER) Tobacco Use: No (QUIT 2011) Substance Use: No Allergies-Medications (Allergen,Severity, Reaction): Coded Allergies: No Known Allergies (Verified Adverse Reaction, Unknown, 05/24/17) Reported Meds & Prescriptions Reported Meds & Active Scripts Active Oxygen tank (Oxygen) 1 Ea Tank 2 Liter [employer] CONTINUOUS Oxygen Concentrator Portable Gaseous 2 L/min via Nasal Cannula Continuous For 99 months Spiriva Respimat Inh (Tiotropium Inh) 1.25 Mcg/Act Aero 2 Puff INH DAILY 1.25 mcg = 1 inhalation Albuterol Neb (Albuterol Sulfate) 2.5 Mg/3 Ml Neb 2.5 Mg NEB Q4HR NEB PRN Reported Symbicort Inh (Budesonide/Formoterol Fumarate) 160-4.5 Mcg/Act Aero 1 Puff INH Q12HR Zyloprim (Allopurinol) 100 Mg Tab 100 Mg PO DAILY Carvedilol 25 Mg Tab 25 Mg PO BID Clonidine (Clonidine HCl) 0.2 Mg Tab 0.2 Mg PO BID Lasix (Furosemide) 20 Mg Tab 20 Mg PO DAILY Lovastatin 40 Mg Tab 40 Mg PO HS Lisinopril-Hctz 20-12.5 Mg Tab 1 Tab PO DAILY Review of Systems Except as stated in HPI: all other systems reviewed are Neg Physical Exam Narrative GENERAL: 71-year-old male pleasant well-nourished well-developed SKIN: Warm and dry. HEAD: Atraumatic. Normocephalic. EYES: Pupils equal and round. No scleral icterus. No injection or drainage. ENT: No nasal bleeding or discharge. Mucous membranes pink and moist. NECK: Trachea midline. No JVD. CARDIOVASCULAR: Tachycardic to about 100 beats a minute. Irregular RESPIRATORY: Breath sounds are diminished throughout. There is significant work of breathing. GASTROINTESTINAL: Abdomen soft, non-tender, nondistended. Hepatic and splenic margins not palpable. MUSCULOSKELETAL: There is 3+ pitting edema of the bilateral lower extremities. The edema appears symmetric. No gross deformity. NEUROLOGICAL: Awake and alert. No obvious cranial nerve deficits. Motor grossly within normal limits. Five out of 5 muscle strength in the arms and legs. Normal speech. PSYCHIATRIC: Appropriate mood and affect; insight and judgment normal. Data Data Last Documented VS Vital Signs Date Time Temp Pulse Resp B/P (MAP) Pulse Ox O2 Delivery O2 Flow Rate FiO2 05/24/17 16:00 98 25 167/111 (129) Nasal Cannula 3.00 05/24/17 15:11 97 05/24/17 14:50 100 05/24/17 14:45 98.6 Orders Orders Complete Blood Count With Diff (05/24/17 14:40) Comprehensive Metabolic Panel (05/24/17 14:40) B-Type Natriuretic Peptide (05/24/17 14:40) Act Partial Throm Time (Ptt) (05/24/17 14:40) Prothrombin Time / Inr (Pt) (05/24/17 14:40) Magnesium (Mg) (05/24/17 14:40) Ckmb (Isoenzyme) Profile (05/24/17 14:40) Troponin I (05/24/17 14:40) Iv Access Insert/Monitor (05/24/17 14:40) Electrocardiogram (05/24/17 14:40) Ecg Monitoring (05/24/17 14:40) Oximetry (05/24/17 14:40) Oxygen Administration (05/24/17 14:40) Chest, Single Ap (05/24/17 14:40) Sodium Chloride 0.9% Flush (Ns Flush) (05/24/17 14:45) Furosemide Inj (Lasix Inj) (05/24/17 14:45) Admit Order (Ed Use Only) (05/24/17 ) Customer Experience Manager / Telemetry [email or web address] (05/24/17 17:02) Vital Signs (Adult) Q4H (05/24/17 17:02) Diet Heart Healthy (05/24/17 Dinner) Activity Bed Rest (05/24/17 17:02) Labs Laboratory Tests Test 05/24/17 15:05 White Blood Count 11.3 TH/MM3 Red Blood Count 4.08 MIL/MM3 Hemoglobin 13.3 GM/DL Hematocrit 40.9 % Mean Corpuscular Volume 100.2 FL Mean Corpuscular Hemoglobin 32.7 PG Mean Corpuscular Hemoglobin Concent 32.6 % Red Cell Distribution Width 14.1 % Platelet Count 251 TH/MM3 Mean Platelet Volume 8.7 FL Neutrophils (%) (Auto) 92.0 % Lymphocytes (%) (Auto) 4.9 % Monocytes (%) (Auto) 2.9 % Eosinophils (%) (Auto) 0.0 % Basophils (%) (Auto) 0.2 % Neutrophils # (Auto) 10.4 TH/MM3 Lymphocytes # (Auto) 0.6 TH/MM3 Monocytes # (Auto) 0.3 TH/MM3 Eosinophils # (Auto) 0.0 TH/MM3 Basophils # (Auto) 0.0 TH/MM3 CBC Comment DIFF FINAL Differential Comment Prothrombin Time 13.3 SEC Prothromb Time International Ratio 1.3 RATIO Activated Partial Thromboplast Time 26.4 SEC Blood Urea Nitrogen 24 MG/DL Creatinine 1.12 MG/DL Random Glucose 120 MG/DL Total Protein 7.0 GM/DL Albumin 3.9 GM/DL Calcium Level 8.8 MG/DL Magnesium Level 2.0 MG/DL Alkaline Phosphatase 89 U/L Aspartate Amino Transf (AST/SGOT) 21 U/L Alanine Aminotransferase (ALT/SGPT) 36 U/L Total Bilirubin 1.4 MG/DL Sodium Level 125 MEQ/L Potassium Level 4.7 MEQ/L Chloride Level 79 MEQ/L Carbon Dioxide Level 34.9 MEQ/L Anion Gap 11 MEQ/L Estimat Glomerular Filtration Rate 65 ML/MIN Total Creatine Kinase 75 U/L Troponin I 0.04 NG/ML B-Type Natriuretic Peptide 289 PG/ML MDM Medical Decision Making Medical Screen Exam Complete: Yes Emergency Medical Condition: Yes Medical Record Reviewed: Yes Differential Diagnosis COPD CHF renal failure anemia pneumonia Narrative Course CBC & BMP Diagram 05/24/17 15:05 Total Protein 7.0, Albumin 3.9, Calcium Level 8.8, Magnesium Level 2.0, Alkaline Phosphatase 89, Aspartate Amino Transf (AST/SGOT) 21, Alanine Aminotransferase (ALT/SGPT) 36, Total Bilirubin 1.4 H Troponin 0.04 BNP is 289 EKG shows atrial fibrillation with a rate of 93 left axis deviation is present widened QRS as noted overall morphology similar to approximately 11 months prior Last Impressions Chest X-Ray 05/24/17 1440 Signed Impressions: Service Date/Time: Wednesday, May 24, 2017 14:57 - CONCLUSION: 1. Mild bibasilar airspace disease, left greater than right, presumably atelectasis. Jeyson Juarez MD Patient reassessed at 4:30 PM and was found resting on the bed sitting upright with the facemask on at 6 L. The O2 sat was about 96%. I turned the oxygen off and the O2 sat decreased to about 90 and the patient became increasingly short of breath. After turning the oxygen back on 26 the O2 sat increased to 95. The patient has received 40 mg of IV Lasix however has yet to produce urine. Admission will be due to hypoxia presumably secondary to COPD exacerbation with or without CHF exacerbation. case d/w Dr Yeboah of [facility]. Critical Care Narrative Aggregate critical care time was 35 minutes. Time to perform other separately billable procedures was not included in the critical care time. My time did not include minutes spent treating any other patients simultaneously or on activities that did not directly contribute to the patient's treatment. The services I provided to this patient were to treat and/or prevent clinically significant deterioration that could result in: cardiopulmonary arrest I provided critical care services requiring my management, as noted below: Chart data review, documentation time, medication orders and management, vital sign assessments/reviewing monitor data, ordering and reviewing lab tests, ordering and interpreting/reviewing x-rays and diagnostic studies, care of the patient and discussion of the patient with the admitting physicians. Diagnosis Primary Impression: COPD with acute exacerbation Additional Impression: CHF (congestive heart failure) Qualified Codes: I50.9 - Heart failure, unspecified Admitting Information Admitting Physician Requests: Laurent Duval MD May 24, 2017 16:56
[2017-05-24] MEDS ORDERED: SODIUM CHLORIDE 0.9% FLUSH 10 ML FLUSH IV FLUSH PRN (17:45)
[2017-05-24] MEDS ORDERED: NALOXONE HCL 0.4 MG/ML AMP IV PUSH PRN (17:45)
--- NOTE | 2017-05-24 17:51 | HHI.HP ---
[facility] Marcos Walton MD Admission Diagnosis CHF, COPD, Hypoxia Diagnoses: Travel History International Travel<30 Days: No Contact w/Intl Traveler <30 Da: No Traveled to Known Affected Are: No History of Present Illness History of patient, ER physician to medication, and review of medical records. Patient's was also present at the bedside. The time of my arrival to emergency room, patient was in acute respiratory distress. RR 40s, BP 194/100 He was using respiratory accessory muscle, and is not able to complete sentences. Patient was immediately placed on BiPAP. History is obtained after placing him on BiPAP and talking to his at the bedside. Short of breath wirse in aweek no fever legs swelling - both, but worse on left could not walk, legs started oozing - never had that before no cough no sputum when he had attack of short of breath, had chest tightness, and took albuterol no fever no nasuea/ no vomiting no diarrhea no ruirnary symptoms no blood in urine or stool states now it is getting hard even to eat because of dyspnea was here last week on 05/12/17 with similar issues, but was so busy in ER that day, and was discharged home according to him and was told nothing was wrong with him on home oxygen 2L Review of Systems Except as stated in HPI: all other systems reviewed are Neg Past Family Social History Past Medical History htn obesity \ denies cad hx, chf- but sees DR Olson and as told he is canddiate for chf hx of afib per patient- but not on blood thinners now- was on coumadin prior- stopped a few years ago, but states it was because he was non compliant with blood tests and doc was mad copd on home oxygen hereditary tremors Past Surgical History knee replacement bilateral hip replacement right side 20ys ago, and redo last yr, right hip Allergies: Coded Allergies: No Known Allergies (Verified Adverse Reaction, Unknown, 05/24/17) Family History mom- copd/emphysema- at age 59 yo Social History used to smoke- quit 10-15yrs ago no etoh no drugs lives with , no longer driving Physical Exam Vital Signs Vital Signs Date Time Temp Pulse Resp B/P (MAP) Pulse Ox O2 Delivery O2 Flow Rate FiO2 05/24/17 16:00 98 25 167/111 (129) Nasal Cannula 3.00 05/24/17 15:11 97 156/93 (114) 97 Nasal Cannula 3.00 05/24/17 14:50 96 30 204/106 (138) 96 Aerosol Mask 100 05/24/17 14:45 96 Aerosol Mask 05/24/17 14:45 98.6 112 28 194/112 (139) 92 05/24/17 14:45 100 Aerosol Mask 100 05/24/17 14:45 98.6 138 32 194/112 (139) 96 Aerosol Mask 100 Physical Exam GENERAL: This is morbidly obese patient, was in acute respiratory distress at the time of my arrival. Using respiratory accessory muscles. Was trying to use the urinal with the help of his . SKIN: Had multiple superficial ecchymoses with superficial ulcerations and bilateral lower extremity due to severe edema in his legs. HEAD: Atraumatic. Normocephalic. No temporal or scalp tenderness. EYES: . No scleral icterus. No injection or drainage. ENT: Nose without bleeding, purulent drainage or septal hematoma. Airway patent. NECK: Trachea midline. No JVD Supple, nontender, no meningeal signs. CARDIOVASCULAR: Regular rate and rhythm without murmurs, gallops, or rubs. RESPIRATORY: Bilaterally decreased air entry. Tight air entry. No rales. GASTROINTESTINAL: Abdomen soft, non-tender, nondistended. No guarding. MUSCULOSKELETAL: Extremities without clubbing, cyanosis. No calf tenderness. Bilateral lower extremity 3+ pitting edema up to thighs. NEUROLOGICAL: Awake and alert. Motor and sensory grossly within normal limits. Normal speech. Laboratory Laboratory Tests Test 05/24/17 15:05 White Blood Count 11.3 Red Blood Count 4.08 Hemoglobin 13.3 Hematocrit 40.9 Mean Corpuscular Volume 100.2 Mean Corpuscular Hemoglobin 32.7 Mean Corpuscular Hemoglobin Concent 32.6 Red Cell Distribution Width 14.1 Platelet Count 251 Mean Platelet Volume 8.7 Neutrophils (%) (Auto) 92.0 Lymphocytes (%) (Auto) 4.9 Monocytes (%) (Auto) 2.9 Eosinophils (%) (Auto) 0.0 Basophils (%) (Auto) 0.2 Neutrophils # (Auto) 10.4 Lymphocytes # (Auto) 0.6 Monocytes # (Auto) 0.3 Eosinophils # (Auto) 0.0 Basophils # (Auto) 0.0 CBC Comment DIFF FINAL Differential Comment Prothrombin Time 13.3 Prothromb Time International Ratio 1.3 Activated Partial Thromboplast Time 26.4 Blood Urea Nitrogen 24 Creatinine 1.12 Random Glucose 120 Total Protein 7.0 Albumin 3.9 Calcium Level 8.8 Magnesium Level 2.0 Alkaline Phosphatase 89 Aspartate Amino Transf (AST/SGOT) 21 Alanine Aminotransferase (ALT/SGPT) 36 Total Bilirubin 1.4 Sodium Level 125 Potassium Level 4.7 Chloride Level 79 Carbon Dioxide Level 34.9 Anion Gap 11 Estimat Glomerular Filtration Rate 65 Total Creatine Kinase 75 Troponin I 0.04 B-Type Natriuretic Peptide 289 Result Diagram: 05/24/17 1505 05/24/17 1505 Imaging Last 48 hours Impressions Chest X-Ray 05/24/17 1440 Signed Impressions: Service Date/Time: Wednesday, May 24, 2017 14:57 - CONCLUSION: 1. Mild bibasilar airspace disease, left greater than right, presumably atelectasis. Jeyson Juarez MD Lower Extremity Ultrasound 05/24/17 0000 Signed Impressions: Service Date/Time: Wednesday, May 24, 2017 18:29 - CONCLUSION: 1. Negative for deep venous thrombosis. MD Amaury Ivan VTE Risk Assessment Caprini VTE Risk Assessment: Mod/High Risk (score >= 2) Caprini Risk Assessment Model Point Value = 1 Point Value = 2 Point Value = 3 Point Value = 5 Age 41-60 Minor surgery BMI > 25 kg/m2 Swollen legs Varicose veins or History of unexplained or recurrent spontaneous Oral contraceptives or hormone replacement Sepsis (< 1 month) Serious lung disease, including pneumonia (< 1 month) Abnormal pulmonary function Acute myocardial infarction Congestive heart failure (< 1 month) History of inflammatory bowel disease Medical patient at bed rest Age 61-74 Arthroscopic surgery Major open surgery (> 45 min) Laparoscopic surgery (> 45 min) Malignancy Confined to bed (> 72 hours) Immobilizing plaster cast Central venous access Age >= 75 History of VTE Family history of VTE Factor V Leiden Prothrombin [id number] Lupus anticoagulant Anticardiolipin antibodies Elevated serum homocysteine Heparin-induced thrombocytopenia Other congenital or acquired thrombophilia Stroke (< 1 month) Elective arthroplasty Hip, pelvis, or leg fracture Acute spinal cord injury (< 1 month) Prophylaxis Regimen Total Risk Factor Score Risk Level Prophylaxis Regimen 0-1 Low Early ambulation 2 Moderate Order ONE of the following: *Sequential Compression Device (SCD) *Heparin 5000 units SQ BID 3-4 Higher Order ONE of the following medications: *Heparin 5000 units SQ TID *Enoxaparin/Lovenox 40 mg SQ daily (WT < 150 kg, CrCl > 30 mL/min) *Enoxaparin/Lovenox 30 mg SQ daily (WT < 150 kg, CrCl > 10-29 mL/min) *Enoxaparin/Lovenox 30 mg SQ BID (WT < 150 kg, CrCl > 30 mL/min) AND/OR *Sequential Compression Device (SCD) 5 or more Highest Order ONE of the following medications: *Heparin 5000 units SQ TID (Preferred with Epidurals) *Enoxaparin/Lovenox 40 mg SQ daily (WT < 150 kg, CrCl > 30 mL/min) *Enoxaparin/Lovenox 30 mg SQ daily (WT < 150 kg, CrCl > 10-29 mL/min) *Enoxaparin/Lovenox 30 mg SQ BID (WT < 150 kg, CrCl > 30 mL/min) AND *Sequential Compression Device (SCD) Assessment and Plan Assessment and Plan Impression: Acute hypoxemic respiratory failure COPD exacerbation Suspects untreated sleep apnea Hypertensive emergency secondary to respiratory distress Chest pain. Likely secondary to respiratory problem. However patient is high risk. Therefore would rule out ACS. Plan: Stat BiPAP administration. Patient is much improved after the BiPAP. Solu-Medrol 125 mg IV stat. I was told that patient received Solu-Medrol by ambulance personnel as well. Continue Solu-Medrol at 40 mg IV every 6 hours. We'll taper off. Nebulizers scheduled and when necessary. Patient was given Lasix 40 mg IV. His respiratory status did not improve with that much. Echocardiogram in a.m. Ultrasound of bilateral lower extremity to rule out DVT. Start patient on heparin drip for both history of A. fib and possible DVT. Patient may not be able to undergo further testing with CT or ultrasound due to his respiratory status overnight. Consult patient's learning and development analyst Dr. Garcia for further recommendation. Patient likely needs C Pap at home. Consult patient's carton repairer Dr. Falk for further recommendations regarding anticoagulation. This patient is likely a candidate for Eliquis pending echo results. Resume home meds. DVT prophylaxis on heparin drip. GI prophylaxis on ranitidine Admit patient to ICU for close monitoring. Critical care time 40 minutes Discussed Condition With patient, , ER physician, nursing staff Physician Certification 2 Midnight Certification Type: Admission for Inpatient Services Order for Inpatient Services The services are ordered in accordance with Medicare regulations or non- Medicare payer requirements, as applicable. In the case of services not specified as inpatient-only, they are appropriately provided as inpatient services in accordance with the 2-midnight benchmark. Estimated LOS (days): 4 days is the estimated time the patient will need to remain in the hospital, assuming treatment plan goals are met and no additional complications. Post-Hospital Plan: Home Gilma Yeboah MD May 24, 2017 17:51
[2017-05-24] MEDS ORDERED: methylPREDNISolone SOD SUCC 125 MG/2 ML VIAL IV PUSH ONE (18:00)
[2017-05-24] MEDS ORDERED: HEPARIN SODIUM - IV 10,000 UNITS/10 ML VIAL IV PUSH ONE (18:30)
[2017-05-24] MEDS ORDERED: RESP: IPRATROPIUM 0.5 MG/2.5 ML NEB NEB PRN (18:45)
--- NOTE | 2017-05-24 19:24 | RADRPT ---
EXAM DATE/TIME: 05/24/2017 18:29 [facility] COMPARISON: No previous studies available for comparison. INDICATIONS : Bilateral leg swelling. MEDICAL HISTORY : Hypertension. Congestive heart failure. Aneurysm, abdominal. Thyroid disease. Hypercholestrolemia. An ticoagulant therapy. Atrial fibrillation. Hypertension. COPD. Dyspnea. Arthritis. SURGICAL HISTORY : Bilateral cataract surgery. Bilateral knee replacement. Right hip replacement. ENCOUNTER: Initial ACUITY: 4 - 6 months PAIN SCORE: 3/10 LOCATION: Bilateral legs. TECHNIQUE: Venous ultrasound of the left and right leg was performed from the inguinal ligament to the proximal calf. Real-time, color Doppler and spectral tracing, compression and augmentation techniques were us ed. FINDINGS: RIGHT LEG: There is normal compressibility of the deep venous system from the inguinal region to the proximal ca lf. No echogenic clot is seen in the lumen of the common femoral, femoral, popliteal, and posterior tibial veins. There is a normal response of the venous system to proximal and distal augmentation an d respiration. LEFT LEG: There is normal compressibility of the deep venous system from the inguinal region to the proximal ca lf. No echogenic clot is seen in the lumen of the common femoral, femoral, popliteal, and posterior tibial veins. There is a normal response of the venous system to proximal and distal augmentation an d respiration. CONCLUSION: 1. Negative for deep venous thrombosis. Arnie Oswald MD on May 24, 2017 at 19:21 Board Certified Radiologist. This report was verified electronically.
[2017-05-24] MEDS: HEPARIN-D5W 25,000 U/250 ML 250 ML IV PRN (19:44)
[2017-05-24] MEDS: RESP: IPRATROPIUM 0.5 MG/2.5 ML NEB NEB SCH (20:44)
[2017-05-24] MEDS ORDERED: CHLORHEXIDINE GLUCONATE 2 % 1 PACK (2 CLOTHS)(extra cloths) TOPICAL PRN (20:45)
[2017-05-24] MEDS ORDERED: CARVEDILOL 12.5 MG TAB PO SCH (21:00)
--- NOTE | 2017-05-24 21:29 | EKG ---
Date Performed: 05/24/2017 Time Performed: 15:03:51 PTAGE: 71 years EKG: ATRIAL FIBRILLATION MARKED LEFT AXIS DEVIATION RIGHT BUNDLE BRANCH BLOCK LAFB ABNORMAL ECG PREVIOUS TRACING : 05/12/2017 13.05 Since previous tracing, no significant change noted DOCTOR: Jannet Alonzo Interpretating Date/Time 05/24/2017 21:27:40
[2017-05-24] MEDS: FAMOTIDINE 20 MG TAB PO SCH (21:45)
[2017-05-24] MEDS: PRAVASTATIN SOD 40 MG TAB PO SCH (21:45)
[2017-05-24] MEDS: SODIUM CHLORIDE 0.9% FLUSH 10 ML FLUSH IV FLUSH SCH (21:46)
[2017-05-24] MEDS: cloNIDine HCL 0.2 MG TAB PO SCH (21:46)
[2017-05-24] MEDS: BUDESONIDE-FORMOTEROL 160/4.5 MCG INHALER INH SCH (23:10)
[2017-05-25] VITALS (25 sets, daily range): BP systolic 101–162; BP diastolic 58–120; PULSE 69–90; RESP 15–26; TEMP 97.6–98.7; O2SAT 87–98
[2017-05-25 00:03] LABS: TROPONIN I 0.06 NG/ML (0.02-0.05)
[2017-05-25] MEDS: methylPREDNISolone SOD SUCC 40 MG/1 ML VIAL IV PUSH SCH ×4 (00:43→18:24)
[2017-05-25] MEDS ORDERED: SODIUM CHLORID 0.9% 500 ML INJ 500 ML IV ONE (01:30)
[2017-05-25] MEDS: RESP: IPRATROPIUM 0.5 MG/2.5 ML NEB NEB SCH ×4 (03:50→20:37)
[2017-05-25] MEDS: CHLORHEXIDINE GLUCONATE 2 % 1 PACK (2 CLOTHS)(taper/protocol) TOPICAL SCH (04:00)
[2017-05-25 04:12] LABS: AUTOMATED NEUTROPHIL # 8.8 TH/MM3 (1.8-7.7); BASOPHIL % 0.2 % (0.0-2.0); HEMATOCRIT 38.3 % (39.0-51.0); HEMOGLOBIN 12.4 GM/DL (13.0-17.0); LYMPH % 3.6 % (9.0-44.0); LYMPHOCYTE # 0.3 TH/MM3 (1.0-4.8); MEAN CELL VOLUME 100.2 FL (80.0-100.0); MEAN CORPUSCULAR HEMOGLOBIN 32.6 PG (27.0-34.0); MEAN CORPUSCULAR HGB CONC 32.5 % (32.0-36.0); MEAN PLATELET VOLUME 8.8 FL (7.0-11.0); MONO % 1.1 % (0.0-8.0); MONOCYTE # 0.1 TH/MM3 (0-0.9); NEUT % 95.1 % (16.0-70.0); PLATELET COUNT 213 TH/MM3 (150-450); RED BLOOD COUNT 3.82 MIL/MM3 (4.50-5.90); WHITE BLOOD COUNT 9.2 TH/MM3 (4.0-11.0)
[2017-05-25 04:49] LABS: BICARBONATE 36.5 MEQ/L (21.0-32.0); CALCIUM 8.4 MG/DL (8.5-10.1); CREATININE 1.22 MG/DL (0.60-1.30)
[2017-05-25 04:52] LABS: TROPONIN I 0.06 NG/ML (0.02-0.05)
--- NOTE | 2017-05-25 08:17 | MB ---
cc: MAMTA RENO MD DATE OF CONSULTATION: 05/25/2017 REASON FOR CONSULTATION Atrial fibrillation. HISTORY OF PRESENT ILLNESS Mr. Brown is a 71-year-old man who does have a history of CHF, COPD and resolved cardiomyopathy, as well as atrial fibrillation. The patient reports that he has had 1 week of progressive weeping edema and shortness of breath. He subsequently sought assistance in the emergency room. He was found to be in acute respiratory distress with respiratory rate in the 40s and a blood pressure of 194/100. He was also in atrial fibrillation with RVR. PAST MEDICAL HISTORY Significant for: 1. Hypertension. 2. Hyperlipidemia. 3. Cardiomyopathy with an EF of 35% in 2010. He had a normal stress test with preserved LV function and perfusion in April of 2016. 4. He also has a history of COPD. 5. Gastroesophageal reflux disease. 6. Right bundle-branch block. 7. Morbid obesity. 8. Hyponatremia. 9. Noncompliance. PAST SURGICAL HISTORY His surgical history includes: 1. Bilateral knee replacement. 2. Hip replacement. FAMILY HISTORY COPD. ALLERGIES NO KNOWN DRUG ALLERGIES. SOCIAL HISTORY Former smoker. REVIEW OF SYSTEMS Except as mentioned in the HPI, all 12 systems are negative. PHYSICAL EXAMINATION VITAL SIGNS: Current vital signs are 97.6, 82, 26, 162/120. GENERAL: He is a morbidly obese man who is on BiPAP. He is in no apparent distress. NECK: His neck is difficult to assess. LUNGS: Markedly decreased and I can barely hear any air movement. CARDIOVASCULAR: He has a normal S1 and S2. The rhythm is irregularly, irregular. ABDOMEN: The abdomen is soft. EXTREMITIES: 1+ edema. LABORATORY DATA Lab values significant for a sodium of 126, BUN of 29 and a creatinine of 122. The serial troponins are 0.04/0.06/0.06. The BNP is 289. EKG Shows atrial fibrillation with a right bundle branch block and left anterior fascicular block. IMPRESSION CHF - the chest x-ray did not remark on any CHF. His BNP is under 300. This seems to be a predominantly respiratory event, though there is certainly a CHF component. This would be an acute on chronic and is likely to be diastolic dysfunction. We will have to get an echocardiogram particularly given his history. His lower extremity edema is likely multifactorial and I will add SCDs to help mobilize fluid as he does appear a bit intravascularly depleted. He has been on Coreg which I will switch to metoprolol given his severe COPD. We will consider changing to Cardizem if his COPD status does not improve. History of cardiomyopathy - as above. I will change him to metoprolol and keep the lisinopril. Will increase the lisinopril for his blood pressure. Hyponatremia - I am going to discontinue the hydrochlorothiazide at this point. Severe COPD - this is felt to be the predominant etiology to his current compromise. Atrial fibrillation - He did have some RVR which is likely secondary to his respiratory distress. We will reevaluate oral anticoagulation and likely will lean towards a new oral agent once he is stabilized and out of ICU. Mamta Reno M.D. WILIAM/TLL /7:32 AM /7:55 AM
[2017-05-25] MEDS ORDERED: FUROSEMIDE 20 MG TAB PO SCH (09:00)
[2017-05-25] MEDS ORDERED: RANITIDINE HCL SYRUP 150 MG/10 ML UDC PO SCH (09:00)
[2017-05-25] MEDS ORDERED: NON-FORMULARY DRUG (Lisinopril-Hctz 1 TAB) PO SCH (09:00)
[2017-05-25] MEDS ORDERED: LISINOPRIL 20 MG TAB PO SCH ×2 (09:00)
[2017-05-25] MEDS ORDERED: HYDROCHLOROTHIAZIDE 25 MG TAB PO SCH (09:00)
[2017-05-25] MEDS: cloNIDine HCL 0.2 MG TAB PO SCH ×2 (09:09→21:40)
[2017-05-25] MEDS: FAMOTIDINE 20 MG TAB PO SCH ×2 (09:10→21:40)
[2017-05-25] MEDS: FUROSEMIDE 20 MG/2 ML VIAL IV PUSH SCH ×2 (09:10→18:24)
[2017-05-25] MEDS: METOPROLOL TARTRATE 25 MG TAB PO SCH ×2 (09:10→21:40)
[2017-05-25] MEDS: ALLOPURINOL 100 MG TAB PO SCH (09:10)
[2017-05-25] MEDS: SODIUM CHLORIDE 0.9% FLUSH 10 ML FLUSH IV FLUSH SCH ×2 (09:11→21:40)
[2017-05-25] MEDS: BUDESONIDE-FORMOTEROL 160/4.5 MCG INHALER INH SCH ×2 (09:11→21:40)
--- NOTE | 2017-05-25 10:04 | HHI.PR ---
Subjective Remarks This is a pleasant 71 y/o Male who was brought in to ER due to respiratory distress, Hypertensive Urgency, Emergency placed on BiPAP, has Hypertension, Obesity, CHF by history followed by his Primary integrated marketing specialist Doctor Yuki Falk, history of A Fib, COPD on Home Oxygen, no signs of CHF, respiratory event as per Cardiology, recommended to continue Lasix, switched Coreg to Metoprolol, removed HCTZ due to Hyponatremia, Severe COPD followed by personal protection specialist, awaiting for Echocardiogram, BiPAP as needed, ABGs, Levaquin as infections precipitate COPD. Objective Vital Signs Date Time Temp Pulse Resp B/P (MAP) Pulse Ox O2 Delivery O2 Flow Rate FiO2 05/25/17 09:00 87 05/25/17 08:15 94 50 05/25/17 08:00 98.3 80 17 158/78 (104) 87 05/25/17 08:00 80 05/25/17 07:00 90 05/25/17 06:00 75 05/25/17 04:22 95 50 05/25/17 04:00 97.6 82 26 162/120 (134) 97 05/25/17 04:00 82 05/25/17 02:00 81 05/25/17 01:02 92 50 05/25/17 00:00 69 05/25/17 00:00 97.9 69 17 107/61 (76) 90 05/24/17 23:00 98 50 05/24/17 22:00 92 05/24/17 21:45 98 Nasal Cannula 10.00 05/24/17 21:00 94 05/24/17 21:00 96.7 94 27 159/81 (107) 90 05/24/17 20:17 05/24/17 20:00 92 50 05/24/17 19:53 97 45 05/24/17 19:07 90 24 161/87 (111) 97 BiPAP 45 05/24/17 18:00 97 40 05/24/17 17:54 96 BiPAP 45 05/24/17 17:00 103 36 194/104 (134) 96 Aerosol Mask 3.00 100 05/24/17 16:00 98 25 167/111 (129) Nasal Cannula 3.00 05/24/17 15:11 97 156/93 (114) 97 Nasal Cannula 3.00 05/24/17 14:50 96 30 204/106 (138) 96 Aerosol Mask 100 05/24/17 14:45 96 Aerosol Mask 05/24/17 14:45 98.6 112 28 194/112 (139) 92 05/24/17 14:45 100 Aerosol Mask 100 05/24/17 14:45 98.6 138 32 194/112 (139) 96 Aerosol Mask 100 I/O 05/24/17 05/24/17 05/24/17 05/25/17 05/25/17 05/25/17 07:00 15:00 23:00 07:00 15:00 23:00 Intake Total 980 ml Balance 980 ml Intake Oral 480 ml IV Total 500 ml # Voids 1 Result Diagram: 05/25/17 0323 05/25/17 0323 Imaging Last Impressions Chest X-Ray 05/24/17 1440 Signed Impressions: Service Date/Time: Wednesday, May 24, 2017 14:57 - CONCLUSION: 1. Mild bibasilar airspace disease, left greater than right, presumably atelectasis. Jeyson Juarez MD Lower Extremity Ultrasound 05/24/17 0000 Signed Impressions: Service Date/Time: Wednesday, May 24, 2017 18:29 - CONCLUSION: 1. Negative for deep venous thrombosis. Arnie Oswald MD Procedures BiPAP. Other Results Laboratory Tests Test 05/24/17 15:05 05/24/17 20:30 05/25/17 03:23 05/25/17 07:40 Prothrombin Time 13.3 SEC Prothromb Time International Ratio 1.3 RATIO Blood Urea Nitrogen 24 MG/DL 29 MG/DL Creatinine 1.12 MG/DL 1.22 MG/DL Random Glucose 120 MG/DL 130 MG/DL Total Protein 7.0 GM/DL Albumin 3.9 GM/DL Calcium Level 8.8 MG/DL 8.4 MG/DL Magnesium Level 2.0 MG/DL Alkaline Phosphatase 89 U/L Aspartate Amino Transf (AST/SGOT) 21 U/L Alanine Aminotransferase (ALT/SGPT) 36 U/L Total Bilirubin 1.4 MG/DL Sodium Level 125 MEQ/L 126 MEQ/L Potassium Level 4.7 MEQ/L 4.4 MEQ/L Chloride Level 79 MEQ/L 79 MEQ/L Carbon Dioxide Level 34.9 MEQ/L 36.5 MEQ/L B-Type Natriuretic Peptide 289 PG/ML Nasal Screen MRSA (PCR) MRSA NOT DETECTED White Blood Count 9.2 TH/MM3 Red Blood Count 3.82 MIL/MM3 Hemoglobin 12.4 GM/DL Hematocrit 38.3 % Mean Corpuscular Volume 100.2 FL Mean Corpuscular Hemoglobin 32.6 PG Mean Corpuscular Hemoglobin Concent 32.5 % Red Cell Distribution Width 14.0 % Platelet Count 213 TH/MM3 Mean Platelet Volume 8.8 FL Neutrophils (%) (Auto) 95.1 % Lymphocytes (%) (Auto) 3.6 % Monocytes (%) (Auto) 1.1 % Eosinophils (%) (Auto) 0.0 % Basophils (%) (Auto) 0.2 % Neutrophils # (Auto) 8.8 TH/MM3 Lymphocytes # (Auto) 0.3 TH/MM3 Monocytes # (Auto) 0.1 TH/MM3 Eosinophils # (Auto) 0.0 TH/MM3 Basophils # (Auto) 0.0 TH/MM3 CBC Comment DIFF FINAL Differential Comment Anion Gap 11 MEQ/L Estimat Glomerular Filtration Rate 59 ML/MIN Total Creatine Kinase 53 U/L Troponin I 0.06 NG/ML Activated Partial Thromboplast Time 29.9 SEC Objective Remarks GENERAL: Morbid Obesity. at this time on BiPAP. SKIN: Had multiple superficial ecchymoses with superficial ulcerations and bilateral lower extremity due to severe edema in his legs. HEAD: Atraumatic. Normocephalic. No temporal or scalp tenderness. EYES: . No scleral icterus. No injection or drainage. ENT: Nose without bleeding, purulent drainage or septal hematoma. Airway patent. NECK: Trachea midline. No JVD Supple, nontender, no meningeal signs. CARDIOVASCULAR: Regular rate and rhythm without murmurs, gallops, or rubs. RESPIRATORY: Bilaterally decreased air entry. Tight air entry. No rales. GASTROINTESTINAL: Abdomen soft, non-tender, nondistended. No guarding. MUSCULOSKELETAL: Extremities without clubbing, cyanosis. No calf tenderness. Bilateral lower extremity 3+ pitting edema up to thighs. NEUROLOGICAL: Awake and alert. Motor and sensory grossly within normal limits. Normal speech. Medications and IVs Current Medications Medications (Trade) Dose Ordered Sig/Pratima Route Start Time Stop Time Status Last Admin (NS Flush) 2 ml UNSCH PRN IV FLUSH 05/24/17 17:45 (NS Flush) 2 ml BID IV FLUSH 05/24/17 21:00 05/25/17 09:11 (Narcan Inj) 0.4 mg UNSCH PRN IV PUSH 05/24/17 17:45 (SoluMEDROL INJ) 40 mg Q6HR IV PUSH 05/25/17 00:00 05/25/17 05:34 (Zyloprim) 100 mg DAILY PO 05/25/17 09:00 05/25/17 09:10 (Symbicort 160-4.5 Mcg Inh) 1 puff Q12HR INH 05/24/17 21:00 05/25/17 09:11 (Catapres) 0.2 mg BID PO 05/24/17 21:00 05/25/17 09:09 (Pravachol) 40 mg HS PO 05/24/17 21:00 05/24/17 21:45 Heparin Sodium/ Dextrose 250 ml @ 18 mls/hr TITRATE PRN IV 05/24/17 18:30 05/24/17 19:44 (Atrovent Neb) 0.5 mg Q6HR NEB NEB 05/24/17 22:00 05/25/17 08:13 (Atrovent Neb) 0.5 mg Q2HR NEB PRN NEB 05/24/17 18:45 05/25/17 02:10 (Pepcid) 20 mg Q12HR PO 05/24/17 21:00 05/25/17 09:10 (Lasix Inj) 20 mg BID@18 IV PUSH 05/25/17 09:00 05/25/17 09:10 Miscellaneous Information Patient in critical care unit? Ass... Q361D .XX 05/24/17 20:45 05/24/17 20:45 (Chlorhexidine 2% Cloth) 3 pack DAILY@04 TOPICAL 05/25/17 04:00 05/29/17 04:01 05/25/17 04:00 (Chlorhexidine 2% Cloth) 3 pack UNSCH PRN TOPICAL 05/24/17 20:45 05/29/17 20:34 (Prinivil) 40 mg DAILY PO 05/25/17 09:00 05/25/17 09:10 (Lopressor) 75 mg Q12HR PO 05/25/17 09:00 05/25/17 09:10 A/P Assessment and Plan 1. Acute hypoxemic respiratory failure/Severe COPD exacerbation,followed by his Primary integrated marketing specialist Doctor Yuki Falk, history of A Fib, COPD on Home Oxygen, no signs of CHF, respiratory event as per Cardiology, recommended to continue Lasix, switched Coreg to Metoprolol, removed HCTZ due to Hyponatremia, Severe COPD followed by personal protection specialist, awaiting for Echocardiogram, BiPAP as needed, ABGs, Levaquin as infections precipitate COPD. Steroids. 2. Severe COPD exacerbation read #1 3. suspected sleep apnea will need outpatient Polysomnography 4. Hypertensive Emergency secondary to respiratory distress Improving. 5. Chest pain not found as ACS by integrated marketing specialist 6. Obesity strongly recommended diet and exercise. Resume home meds. DVT prophylaxis on heparin drip. GI prophylaxis on ranitidine Discussed Condition With Nurse Miss Brooks Discharge Planning Once cleared by Specialists. Sal Hammer MD May 25, 2017 10:04
--- NOTE | 2017-05-25 12:09 | EKG ---
Date Performed: 05/24/2017 Time Performed: 23:32:08 PTAGE: 71 years EKG: Atrial fibrillation Left axis deviation RBBB with left anterior fascicular block Lateral T wave changes are nonspecific Low QRS voltages in precordial leads Abnormal ECG Since the prior tracin g, there has been no significant change DOCTOR: Jannet Alonzo Interpretating Date/Time 05/25/2017 12:09:14
[2017-05-25] MEDS ORDERED: PANTOPRAZOLE SODIUM 40 MG VIAL IV PUSH SCH (13:15)
--- NOTE | 2017-05-25 13:31 | MB ---
cc: Amy HENRIQUEZ DATE OF CONSULTATION: 05/25/2017 HISTORY OF PRESENT ILLNESS Mr. Brown is a 71-year-old white male with a known history of very severe COPD, FEV-1 in the range of 35%. He has had gradually increasing lower extremity edema recently despite some adjustment in his diuretics and presented on the with respiratory distress requiring BiPAP. He has been stable on BiPAP but his nurse reports as soon as they take him off he desaturates and develops respiratory difficulty. In light of the marked edema he had ultrasounds on presentation, they were negative for DVT. His chest x-ray reveals some minimal basilar airspace disease. He has been afebrile. White count was mildly elevated at 11.3. He is on bronchodilators at home. He is also morbidly obese and suspected of having YUKI but has refused testing up to this point. He has a prior cardiac history. Dr. Falk has seen him during this hospital stay and there is an element of mild congestive heart failure. He denies chest pain. He has had no purulent sputum. ADDITIONAL PAST MEDICAL HISTORY 1. Hypertension. 2. Hyperlipidemia. 3. CHF. 4. Gastroesophageal reflux disease. 5. Bilateral knee replacements. 6. Hip replacement previously. 7. Atrial fibrillation. ALLERGIES None known. MEDICATION Medications reviewed in the EMR, Lasix has been started today. SOCIAL HISTORY Former smoker, has quit. No excessive alcohol use. and living with his . REVIEW OF SYSTEMS Review of systems other than that noted above, he has had no nausea or vomiting. No abdominal pain. No notable fever at home. Chronic dyspnea, worsening. PHYSICAL EXAMINATION VITAL SIGNS: 98 degrees, blood pressure is 100/60, respirations are 22, O2 sat is 93% on BiPAP. GENERAL: Obese white male, comfortable at rest on BiPAP. NECK: Neck veins are not distended. No palpable adenopathy in the neck. CHEST: Severely diminished throughout but no wheezes or rales. HEART: Distant heart sounds. No harsh murmur. No audible S3. ABDOMEN: Very obese abdomen. EXTREMITIES: [id number] plus peripheral edema with chronic venostasis changes. IMAGING STUDIES Chest x-ray shows mild bibasilar airspace disease. No microbiologic specimens have been obtained. White count today is 9200, hemoglobin 12, BUN is 29, creatinine of 1.2. BNP was 289. Sodium 126. MRSA nasal swab negative. DISCUSSION Mr. Brown presents with increasing shortness of breath, very severe underlying COPD, increasing edema probably cor pulmonale. Dr. Falk has ordered an echo. We will continue him on IV corticosteroids along with aerosolized bronchodilators and BiPAP. ABG has been ordered. In light of the severity of his underlying COPD I am going to put him on Levaquin as infections frequently precipitate these exacerbations. Further diagnostic and/or therapeutic intervention will depend on his ongoing clinical course and response to therapy. R. MD KASSI Ceron/BARB /1:04 PM /1:15 PM
[2017-05-25] MEDS: LEVOFLOXACIN 500 MG PREMIX INJ 100 ML IV SCH (14:44)
[2017-05-25] MEDS: HEPARIN-D5W 25,000 U/250 ML 250 ML IV PRN (18:26)
[2017-05-25] MEDS: PRAVASTATIN SOD 40 MG TAB PO SCH (21:40)
[2017-05-25 21:54] LABS: AMORPHOUS SEDIMENT, URINE RARE; BILIRUBIN, URINE NEG (NEG); BLOOD, URINE SMALL (NEG); GLUCOSE,URINE NEG (NEG); HYALINE CAST, URINE 39 /lpf (RARE); KETONE, URINE NEG (NEG); MUCUS URINE FEW /lpf (OCC); NITRITE,URINE NEG (NEG); PH, URINE 5.5 (5.0-8.5); SQUAMOUS EPITHELIAL CELL URINE 1 /hpf (0-5); URINE COLOR YELLOW (YELLW/STRAW); URINE LEUKOCYTE ESTERASE NEG (NEG)
[2017-05-26] VITALS (20 sets, daily range): BP systolic 87–145; BP diastolic 52–74; PULSE 63–85; RESP 18–25; TEMP 97.8–98.2; O2SAT 65–100
[2017-05-26] MEDS: methylPREDNISolone SOD SUCC 40 MG/1 ML VIAL IV PUSH SCH ×5 (00:11→23:46)
[2017-05-26] MEDS ORDERED: SODIUM CHLOR 0.9% 250 ML INJ 250 ML IV ONE (00:45)
[2017-05-26] MEDS: RESP: IPRATROPIUM 0.5 MG/2.5 ML NEB NEB SCH ×4 (03:41→23:12)
[2017-05-26] MEDS ORDERED: SODIUM CHLOR 0.9% 250 ML INJ 250 ML IV PRN (03:45)
[2017-05-26] MEDS: CHLORHEXIDINE GLUCONATE 2 % 1 PACK (2 CLOTHS)(taper/protocol) TOPICAL SCH (04:00)
--- NOTE | 2017-05-26 07:21 | PD.CARD.PN ---
Subjective Subjective Remarks Pt reports feeling better Objective Medications Current Medications Medications (Trade) Dose Ordered Sig/Pratima Route Start Time Stop Time Status Last Admin (NS Flush) 2 ml UNSCH PRN IV FLUSH 05/24/17 17:45 (NS Flush) 2 ml BID IV FLUSH 05/24/17 21:00 05/25/17 21:40 (Narcan Inj) 0.4 mg UNSCH PRN IV PUSH 05/24/17 17:45 (SoluMEDROL INJ) 40 mg Q6HR IV PUSH 05/25/17 00:00 05/26/17 05:42 (Zyloprim) 100 mg DAILY PO 05/25/17 09:00 05/25/17 09:10 (Symbicort 160-4.5 Mcg Inh) 1 puff Q12HR INH 05/24/17 21:00 05/25/17 21:40 (Catapres) 0.2 mg BID PO 05/24/17 21:00 05/25/17 21:40 (Pravachol) 40 mg HS PO 05/24/17 21:00 05/25/17 21:40 Heparin Sodium/ Dextrose 250 ml @ 18 mls/hr TITRATE PRN IV 05/24/17 18:30 05/25/17 18:26 (Atrovent Neb) 0.5 mg Q6HR NEB NEB 05/24/17 22:00 05/26/17 03:41 (Atrovent Neb) 0.5 mg Q2HR NEB PRN NEB 05/24/17 18:45 05/25/17 02:10 (Pepcid) 20 mg Q12HR PO 05/24/17 21:00 05/25/17 21:40 (Lasix Inj) 20 mg BID@ IV PUSH 05/25/17 09:00 05/25/17 18:24 Miscellaneous Information Patient in critical care unit? Ass... Q361D .XX 05/24/17 20:45 05/24/17 20:45 (Chlorhexidine 2% Cloth) 3 pack DAILY@04 TOPICAL 05/25/17 04:00 05/29/17 04:01 05/26/17 04:00 (Chlorhexidine 2% Cloth) 3 pack UNSCH PRN TOPICAL 05/24/17 20:45 05/29/17 20:34 (Prinivil) 40 mg DAILY PO 05/25/17 09:00 05/25/17 09:10 (Lopressor) 75 mg Q12HR PO 05/25/17 09:00 05/25/17 21:40 Levofloxacin/ Dextrose 100 ml @ 100 mls/hr Q24H IV 05/25/17 14:00 05/25/17 14:44 Sodium Chloride 250 ml @ 250 mls/hr BOLUS PRN IV 05/26/17 03:45 05/26/17 08:00 Vital Signs / I&O Vital Signs Date Time Temp Pulse Resp B/P (MAP) Pulse Ox O2 Delivery O2 Flow Rate FiO2 05/26/17 06:00 74 05/26/17 04:00 97.9 69 19 97/55 (69) 98 05/26/17 04:00 69 05/26/17 03:39 98 65 05/26/17 02:00 66 05/26/17 00:00 97.8 63 18 87/52 (64) 98 05/26/17 00:00 63 05/25/17 23:59 98 65 05/25/17 22:00 77 05/25/17 20:51 97 65 05/25/17 20:00 79 05/25/17 20:00 97.6 79 18 117/62 (80) 97 05/25/17 18:00 86 05/25/17 17:00 79 05/25/17 16:00 98.7 77 23 130/77 (94) 91 05/25/17 16:00 77 05/25/17 15:25 94 50 05/25/17 15:00 78 05/25/17 14:00 69 05/25/17 13:00 73 05/25/17 12:00 98.5 70 15 101/58 (72) 87 05/25/17 12:00 70 05/25/17 11:50 93 50 05/25/17 11:00 72 05/25/17 10:00 73 05/25/17 09:00 87 05/25/17 08:15 94 50 05/25/17 08:00 98.3 80 17 158/78 (104) 87 05/25/17 08:00 80 I/O 05/25/17 05/25/17 05/25/17 05/26/17 05/26/17 05/26/17 07:00 15:00 23:00 07:00 15:00 23:00 Intake Total 980 ml 1350 ml 970 ml Output Total 1550 ml 350 ml Balance 980 ml -200 ml 620 ml Intake Oral 480 ml 1000 ml 720 ml IV Total 500 ml 350 ml 250 ml Output Urine Total 1550 ml 350 ml Stool Total 0 ml # Voids 1 1 Physical Exam GENERAL: Well developed, well nourished. No acute distress. HEENT: Jugular venous pressure is normal. CHEST: Lungs very decreased clear to auscultation bilaterally. Unlabored respiratory effort. CARDIAC: Regular rate and rhythm without S3, S4, or murmur. ABDOMEN: Soft, nontender, no hepatosplenomegaly. Bowel sounds present. EXTREMITIES: No clubbing, cyanosis, + edema. Laboratory Laboratory Tests Test 05/25/17 07:40 05/25/17 14:00 05/25/17 16:19 05/25/17 18:00 Activated Partial Thromboplast Time 29.9 SEC 49.5 SEC Blood Gas Puncture Site LT RADIAL Blood Gas Patient Temperature 98.6 Blood Gas HCO3 36 mmol/L Blood Gas Base Excess 10.9 mmol/L Blood Gas Oxygen Saturation 91 % Arterial Blood pH 7.38 Arterial Blood Partial Pressure CO2 64 mmHg Arterial Blood Partial Pressure O2 72 mmHg Arterial Blood Oxygen Content 15.9 Vol % Arterial Blood Carboxyhemoglobin 1.4 % Arterial Blood Methemoglobin 1.2 % Blood Gas Hemoglobin 12.4 G/DL Oxygen Delivery Device BiPAP Blood Gas Inspired Oxygen 50 % Urine Color YELLOW Urine Turbidity CLEAR Urine pH 5.5 Urine Specific [place] 1.019 Urine Protein TRACE mg/dL Urine Glucose (UA) NEG mg/dL Urine Ketones NEG mg/dL Urine Occult Blood SMALL Urine Nitrite NEG Urine Bilirubin NEG Urine Urobilinogen LESS THAN 2.0 MG/DL Urine Leukocyte Esterase NEG Urine RBC 5 /hpf Urine WBC 4 /hpf Urine Squamous Epithelial Cells 1 /hpf Urine Amorphous Sediment RARE Urine Hyaline Casts 39 /lpf Urine Mucus FEW /lpf Microscopic Urinalysis Comment CATH-CULT NOT IND Test 05/25/17 22:22 05/26/17 03:47 Activated Partial Thromboplast Time 56.6 SEC 45.5 SEC Imaging Last 72 hours Impressions Chest X-Ray 05/24/17 1440 Signed Impressions: Service Date/Time: Wednesday, May 24, 2017 14:57 - CONCLUSION: 1. Mild bibasilar airspace disease, left greater than right, presumably atelectasis. Jeyson Juarez MD Lower Extremity Ultrasound 05/24/17 0000 Signed Impressions: Service Date/Time: Wednesday, May 24, 2017 18:29 - CONCLUSION: 1. Negative for deep venous thrombosis. Arnie Oswald MD Assessment and Plan Problem List: (1) Atrial fibrillation ICD Codes: I48.91 - Unspecified atrial fibrillation Plan: better rate control on metoprolol -on heparin for now (2) hypertension Status: Acute Plan: BP low over night- hold lisinopril today (3) COPD with acute exacerbation ICD Codes: J44.1 - Chronic obstructive pulmonary disease with (acute) exacerbation Status: Acute Plan: primary component of dyspnea (4) CHF (congestive heart failure) ICD Codes: I50.9 - Heart failure, unspecified Status: Acute Plan: ECHO and bmp pending -hold lasix until labs are available (5) Hyponatremia ICD Codes: E87.1 - Hypo-osmolality and hyponatremia Status: Acute Problem Qualifiers (1) CHF (congestive heart failure): Qualified Codes: I50.9 - Heart failure, unspecified Yuki Falk MD May 26, 2017 07:21
[2017-05-26] MEDS: SODIUM CHLORIDE 0.9% FLUSH 10 ML FLUSH IV FLUSH SCH ×2 (07:45→20:54)
[2017-05-26] MEDS: BUDESONIDE-FORMOTEROL 160/4.5 MCG INHALER INH SCH (07:45)
[2017-05-26] MEDS: ALLOPURINOL 100 MG TAB PO SCH (07:45)
[2017-05-26] MEDS: FAMOTIDINE 20 MG TAB PO SCH (07:45)
[2017-05-26] MEDS: cloNIDine HCL 0.2 MG TAB PO SCH ×2 (07:46→20:59)
[2017-05-26] MEDS: METOPROLOL TARTRATE 25 MG TAB PO SCH ×2 (07:46→20:59)
[2017-05-26 10:31] LABS: BICARBONATE 35.1 MEQ/L (21.0-32.0); CALCIUM 8.6 MG/DL (8.5-10.1); CREATININE 1.5 MG/DL (0.60-1.30)
[2017-05-26] MEDS: HEPARIN-D5W 25,000 U/250 ML 250 ML IV PRN (11:09)
[2017-05-26] MEDS: SODIUM CHLOR 0.9% 1000 ML INJ 1,000 ML IV SCH ×2 (12:00→23:48)
[2017-05-26] MEDS ORDERED: PHENYLEPHRINE INJ 160 MG in DEXTROSE 5% IN WATE 500 ML INJ 484 ML IV PRN ×2 (12:45)
[2017-05-26] MEDS ORDERED: TERBUTALINE INJ 1 MG/ML AMP SQ PRN ×2 (12:45→15:30)
[2017-05-26] MEDS ORDERED: ETOMIDATE 40 MG/20 ML VIAL IV PUSH ONE (12:45)
[2017-05-26] MEDS ORDERED: fentaNYL DRIP 250 ML IV PRN (12:45)
[2017-05-26] MEDS ORDERED: ROCURONIUM INJ 100 MG/10 ML VIAL IV ONE (12:45)
[2017-05-26] MEDS ORDERED: ROCURONIUM INJ 50 MG/5 ML VIAL ONE (12:56)
[2017-05-26] MEDS: NOREPINEPHRINE INJ 4 MG in SODIUM CHLOR 0.9% 250 ML INJ 246 ML IV PRN ×2 (13:00→17:55)
[2017-05-26] MEDS: LEVOFLOXACIN 500 MG PREMIX INJ 100 ML IV SCH (14:00)
--- NOTE | 2017-05-26 14:09 | RADRPT ---
EXAM DATE/TIME: 05/26/2017 12:44 [facility] COMPARISON: CHEST SINGLE AP, May 24, 2017, 14:57. INDICATIONS : Post intubation. MEDICAL HISTORY : Chronic obstructive pulmonary disease. Hypertension SURGICAL HISTORY : None. ENCOUNTER: Subsequent ACUITY: 2 weeks PAIN SCORE: Non-responsive. LOCATION: Bilateral chest FINDINGS: A single portable frontal view of the chest is blurred by preemie motion artifact. Tip of the endotra cheal tube is 10 cm proximal to the gurvinder. Patient is lordotic in position. A right lower lobe infil trate and small right effusion identified. Left lung base is grossly clear. Heart enlarged. CONCLUSION: 1. Tip of the endotracheal tube quite cephalad. 2. Unchanged right pleural effusion and right lower lobe infiltrate. 3. Unchanged cardiomegaly. Zia House Jr., MD on May 26, 2017 at 14:05 Board Certified Radiologist. This report was verified electronically.
--- NOTE | 2017-05-26 14:24 | RADRPT ---
EXAM DATE/TIME: 05/26/2017 13:13 [facility] COMPARISON: CHEST SINGLE AP, May 26, 2017, 12:44. INDICATIONS : Adjustment of ETT tube. MEDICAL HISTORY : Chronic obstructive pulmonary disease. Hypertension SURGICAL HISTORY : None. ENCOUNTER: Subsequent ACUITY: 2 weeks PAIN SCORE: Non-responsive. LOCATION: Bilateral chest FINDINGS: A single portable frontal view of the chest is blurred by breathing motion artifact. The endotracheal tube has been positioned further into the trachea. The tip is 6 cm from the gurvinder. A right pleural effusion right lower lobe infiltrate are unchanged. Cardiomegaly is unchanged. Left lung is clear. CONCLUSION: 1. Tip of the endotracheal tube 6 cm from the gurvinder. 2. Unchanged right pleural effusion and right lower lobe infiltrate. Zia House Jr., MD on May 26, 2017 at 14:20 Board Certified Radiologist. This report was verified electronically.
--- NOTE | 2017-05-26 14:37 | PD.PROCEDR ---
Procedure Note Procedure DATE: 05/26/2017 CENTRAL LINE PLACEMENT: Right Internal jugular vein. Ultrasound-guided INDICATION: Central venous access CONSENT Informed consent for procedure was obtained from . DESCRIPTION OF THE PROCEDURE The patient was placed in supine position. The skin was cleansed with Chloraprep. Additional barrier precautions included large sterile drape, sterile gloves, sterile gown, face mask, and hat. 1 % lidocaine was used for local anesthesia. Under direct ultrasound guidance and on each of 3 attempts, the vein was accessed with an introducer needle. The guide wire was advanced however critical back on itself all 3 times. An Angiocath was placed over the guidewire twice despite placing the guidewire from each direction unable to advance past 30 cm. The guidewire was removed and pressure place for 5 minutes. No active bleeding or hematoma was identified. Dr. Mcleod under direct ultrasound guidance and on second attempt, the right internal jugular vein was accessed with an introducer needle. The guidewire was advanced and the tract was dilated. Using Seldinger technique a 7 [place] 20 cm antimicrobial coated triple-lumen catheter was advanced to a depth of 17 centimeters. The guide wire was removed. All ports had good return of dark venous blood and flushed easily with saline. The central line was secured with 2.0 silk. A sterile dressing with antibiotic disc was applied. ESTIMATED BLOOD LOSS: Minimal COMPLICATIONS: No apparent complications. STAT chest x-ray pending at time of dictation Sanket Reilly MD May 26, 2017 14:37
--- NOTE | 2017-05-26 14:38 | PD.PROCEDR ---
Procedure Note Procedure DATE: 05/26/2017 PROCEDURE: Orotracheal intubation INDICATION: Acute hypercapnic respiratory failure DETAILS OF PROCEDURE The patient was placed in optimal position and preoxygenated with 100% FiO2 via bag valve mask. At the start oxygen saturation was 95%. The patient was administered 20 mg etomidate IV and 50 milligrams rocuronium IV. I entered the oropharynx with a size 4 Glidescope blade and obtained a grade 3 view of the airway. On single attempt a size 8.0 cuffed endotracheal tube was passed through the vocal cords. Correct tube location was confirmed with end tidal CO2 detector and by auscultating over bilateral lung ramsey. The endotracheal tube was secured with adhesive tape at a depth of 26 cm at the lips. The patient was connected to the ventilator. The patient tolerated the procedure well without any apparent complications. Oxygen saturations were maintained greater than 95% all times. STAT chest x-ray pending at time of dictation. Sanket Reilly MD May 26, 2017 14:38
--- NOTE | 2017-05-26 14:42 | PD.CONS ---
[facility] Service Critical Care Medicine Consult Requested By Dr. Rene Reason for Consult Acute hypercapnic respiratory failure Primary Care Physician Marcos Walton MD History of Present Illness This is a 71-year-old male. Date of admission 05/24/2017. Date of consultation 05/26/2017. Past medical history includes elevated BMI, hypertension, history of atrial fibrillation, history of COPD with FEV1 35%, right bundle branch block, gastroesophageal reflux disease and according to with likely obstructive sleep apnea. For the past week, patient prior to admission to [place] is complaining of increasing lower extremity edema, dyspnea on exertion with rest affecting his activities of daily life. The night of 05/24 patient was placed on BiPAP is intermittently been on and off this for the past 48 hours. Today, patient was placed on a nonrebreather mask became acutely hypoxic and dyspneic. When I evaluated the patient, he stated "I cannot breathe". Patient was noted be hypotensive. Patient was emergently intubated and placed on vasopressors to maintain a mean arterial pressure of 65. Central line was placed. Review of Systems ROS Limitations: Intubated Past Family Social History Allergies: Coded Allergies: No Known Allergies (Verified Allergy, Unknown, 05/24/17) Past Medical History Hypertension Elevated BMI History of right bundle branch block History of atrial fibrillation COPD with an FEV1 35% Cardiomyopathy with ejection fraction 35% Dyslipidemia Past Surgical History Bilateral total knee replacements Right total hip replacement Reported Medications Albuterol nebulized 2.5 mg 3 mL inhalation every 4 hours Tiotropium 18 mcg inhalation daily Lovastatin 40 mg by mouth daily Clonidine 0.2 mg by mouth twice a day Carvedilol 20 mg by mouth twice a day Lisinopril/hydrochlorothiazide 20/25 one tablet daily Furosemide 20 mg by mouth daily Budesonide/formoterol 160/4.5 2 puffs twice a day Allopurinol 100 mg by mouth daily Active Ordered Medications Reviewed in EMR Family History Mother from COPD/emphysema at age 59 Social History Rare alcohol use. Quit tobacco 15 years ago. No illicit drug use. Physical Exam Vital Signs Vital Signs Date Time Temp Pulse Resp B/P (MAP) Pulse Ox O2 Delivery O2 Flow Rate FiO2 05/26/17 12:25 95 70 05/26/17 12:25 94 BiPAP 70 05/26/17 11:29 100 Partial Rebreather 10.00 05/26/17 10:00 79 05/26/17 08:23 65 05/26/17 08:22 99 BiPAP 65 05/26/17 08:00 74 05/26/17 08:00 98.0 74 19 108/74 (85) 96 05/26/17 06:00 74 05/26/17 04:00 97.9 69 19 97/55 (69) 98 05/26/17 04:00 69 05/26/17 03:39 98 65 05/26/17 02:00 66 05/26/17 00:00 97.8 63 18 87/52 (64) 98 05/26/17 00:00 63 05/25/17 23:59 98 65 05/25/17 22:00 77 05/25/17 20:51 97 65 05/25/17 20:00 79 05/25/17 20:00 97.6 79 18 117/62 (80) 97 05/25/17 18:00 86 05/25/17 17:00 79 05/25/17 16:00 98.7 77 23 130/77 (94) 91 05/25/17 16:00 77 05/25/17 15:25 94 50 05/25/17 15:00 78 Physical Exam GENERAL: 71-year-old male currently orotracheally intubated SKIN: Warm and dry. No rash HEAD: Atraumatic. Normocephalic. EYES: Pupils equal and round about 3 mm bilaterally and reactive. No scleral icterus. No injection or drainage. ENT: No nasal bleeding or discharge. Mucous membranes pink and moist. NECK: Trachea midline. No JVD. CARDIOVASCULAR: IRR. S1, S2 no S4. Distant RESPIRATORY: Ms. breath sounds throughout. Distant. No wheezing GASTROINTESTINAL: Abdomen soft, non-tender, obese. Hypoactive bowel sounds appreciated MUSCULOSKELETAL: Extremities without any significant peripheral edema. No obvious deformities. NEUROLOGICAL: A arousable on the ventilator. Moves all 4 extremities spontaneously. Positive gag and corneal reflex. Laboratory Laboratory Tests Test 05/25/17 16:19 05/25/17 18:00 05/25/17 22:22 05/26/17 03:47 Activated Partial Thromboplast Time 49.5 56.6 45.5 Urine Color YELLOW Urine Turbidity CLEAR Urine pH 5.5 Urine Specific [place] 1.019 Urine Protein TRACE Urine Glucose (UA) NEG Urine Ketones NEG Urine Occult Blood SMALL Urine Nitrite NEG Urine Bilirubin NEG Urine Urobilinogen LESS THAN 2.0 Urine Leukocyte Esterase NEG Urine RBC 5 Urine WBC 4 Urine Squamous Epithelial Cells 1 Urine Amorphous Sediment RARE Urine Hyaline Casts 39 Urine Mucus FEW Microscopic Urinalysis Comment CATH-CULT NOT IND Test 05/26/17 09:40 Blood Urea Nitrogen 46 Creatinine 1.50 Random Glucose 120 Calcium Level 8.6 Sodium Level 118 Potassium Level 4.7 Chloride Level 76 Carbon Dioxide Level 35.1 Anion Gap 7 Estimat Glomerular Filtration Rate 46 Result Diagram: 05/25/17 0323 05/26/17 0940 Imaging Last Impressions Chest X-Ray 05/26/17 0000 Signed Impressions: Service Date/Time: May 13:13 - CONCLUSION: 1. Tip of the endotracheal tube 6 cm from the gurvinder. 2. Unchanged right pleural effusion and right lower lobe infiltrate. Zia House Jr., MD Lower Extremity Ultrasound 05/24/17 0000 Signed Impressions: Service Date/Time: Wednesday, May 24, 2017 18:29 - CONCLUSION: 1. Negative for deep venous thrombosis. Arnie Oswald MD Septic Shock Reassessment Septic shock perfusion: reassessment completed Assessment and Plan Assessment and Plan Neuro/Psych: Currently on propofol/fentanyl drips for sedation/analgesia while intubated Goal of RA SS -2 Daily sedation vacation Acetaminophen 650 mg by tube every 6 hours when necessary fever CV: History of cardiopathy ejection fraction 35% Right bundle-branch block Atrial fibrillation rate controlled Hypertension/essential Dyslipidemia Elevated troponin Evaluated by Dr. Falk/cardiology 2-D echocardiogram pending Currently on norepinephrine at 12 mics grams per minute to maintain mean arterial pressure greater than 65 Holding clonidine 0.2 mg twice a day and metoprolol 75 mg by mouth twice a day in light of hypotension Home medications clonidine 0.2 mg twice a day, carvedilol 25 mg twice a day, lisinopril/hydrochlorothiazide 20/25 one tablet daily Troponin 0.06. On lovastatin 40 mg by mouth daily at home for dyslipidemia. Currently on Pravachol Resp: Acute hypercapnic respiratory failure with CO2 retention NC COPD/oxygen dependent Likely YUKI PRVC 20/600/05/07/89 Ventilator bundle Albuterol aerosols 1.25 mg/ipratropium 0.5 mg nebs every 4 hours with ipratropium aerosols every 2 hours. Dyspnea per pulmonology - Dr. Garcia Methylprednisolone succinate 40 mg IV every 6 hours Follow-up ABG Home medications tiotropium 18 mcg daily held. Home medication budesonide/ formoterol 160/4.5 held while intubated GI: Elevated BMI Nepro goal 50 cc an hour Lansoprazole for GI prophylaxis Docusate sodium/senna 1 tablet twice a day for bowel regimen : Vance catheter for accurate I's and O's in a critically ill patient Endo: Sliding scale insulin Accu-Cheks every 6 hours to maintain euglycemia Novulin R medium regimen Check TSH Continue allopurinol 100 mg by mouth daily for elevated uric acid Renal: Acute kidney injury Check renal ultrasound, urine eosinophils and electrolytes Gentle hydration. Does not appear volume overloaded Heme: Macrocytic anemia Monitor CBC daily. Follow trends Continue with heparin drip for A. fib ID: Currently on vancomycin, piperacillin/tazobactam and levofloxacin for possible infectious etiology Pancultured including blood, sputum, urine, Legionella pneumococcal antigens and influenza. MSK: PT evaluate and treat FEN: Hyponatremia Serum/Urine osm, Cesar, TSH, cortisol, uric acid and triglycerides are pending Replace electrolytes as clinically indicated Serial sodiums every 6 hours. No Greater than 8 and 24 hours Access -Right IJ CVL day 1 Prophylaxis - GI - lansoprazole - DVT - SCD/heparin drip Critical Care: The total critical care time was 35 minutes. Time to perform other separately billable procedures was not included in the critical care time. Code Status Full code Discussed Condition With .. Plan discussed all questions answered. Sanket Reilly MD May 26, 2017 14:42
[2017-05-26] MEDS ORDERED: SODIUM CHLORIDE 0.9% FLUSH 10 ML FLUSH IV FLUSH PRN (14:45)
[2017-05-26] MEDS: PROPOFOL 1000 MG/100 ML INJ 100 ML IV PRN ×4 (15:07→22:48)
[2017-05-26] MEDS ORDERED: Vancomycin Consult Pharmacy 1 EA OTHER SCH (15:15)
--- NOTE | 2017-05-26 15:15 | HHI.PR ---
Subjective Remarks This is a pleasant 71 y/o Male who was brought in to ER due to respiratory distress, Hypertensive Urgency, Emergency placed on BiPAP, has Hypertension, Obesity, CHF by history followed by his Primary learning support specialist Doctor Yuki Falk, history of A Fib, COPD on Home Oxygen, no signs of CHF, respiratory event as per Cardiology, recommended to continue Lasix, switched Coreg to Metoprolol, removed HCTZ due to Hyponatremia, Severe COPD followed by mission assessment specialist, awaiting for Echocardiogram, BiPAP as needed, ABGs, Levaquin as infections precipitate COPD. 05/26: I have been called by nurse about his hyponatremia the patient, on my arrival is been [facility] and Doctor Sanket Reilly is at bedside, he is getting pressors and has Hypoxic respiratory failure with need for endotracheal intubation, Poor short term prognosis. Objective Vital Signs Date Time Temp Pulse Resp B/P (MAP) Pulse Ox O2 Delivery O2 Flow Rate FiO2 05/26/17 12:25 95 70 05/26/17 12:25 94 BiPAP 70 05/26/17 11:29 100 Partial Rebreather 10.00 05/26/17 10:00 79 05/26/17 08:23 65 05/26/17 08:22 99 BiPAP 65 05/26/17 08:00 74 05/26/17 08:00 98.0 74 19 108/74 (85) 96 05/26/17 06:00 74 05/26/17 04:00 97.9 69 19 97/55 (69) 98 05/26/17 04:00 69 05/26/17 03:39 98 65 05/26/17 02:00 66 05/26/17 00:00 97.8 63 18 87/52 (64) 98 05/26/17 00:00 63 05/25/17 23:59 98 65 05/25/17 22:00 77 05/25/17 20:51 97 65 05/25/17 20:00 79 05/25/17 20:00 97.6 79 18 117/62 (80) 97 05/25/17 18:00 86 05/25/17 17:00 79 05/25/17 16:00 98.7 77 23 130/77 (94) 91 05/25/17 16:00 77 05/25/17 15:25 94 50 I/O 05/25/17 05/25/17 05/25/17 05/26/17 05/26/17 05/26/17 06:59 14:59 22:59 06:59 14:59 22:59 Intake Total 980 ml 1350 ml 970 ml Output Total 1550 ml 350 ml Balance 980 ml -200 ml 620 ml Intake Oral 480 ml 1000 ml 720 ml IV Total 500 ml 350 ml 250 ml Output Urine Total 1550 ml 350 ml Stool Total 0 ml # Voids 1 1 Result Diagram: 05/25/17 0323 05/26/17 0940 Imaging Last Impressions Chest X-Ray 05/26/17 0000 Signed Impressions: Service Date/Time: May 13:13 - CONCLUSION: 1. Tip of the endotracheal tube 6 cm from the gurvinder. 2. Unchanged right pleural effusion and right lower lobe infiltrate. Zia House Jr., MD Lower Extremity Ultrasound 05/24/17 0000 Signed Impressions: Service Date/Time: Wednesday, May 24, 2017 18:29 - CONCLUSION: 1. Negative for deep venous thrombosis. Arnie Oswald MD Procedures BiPAP. Other Results Laboratory Tests Test 05/24/17 15:05 05/24/17 20:30 05/25/17 03:23 05/25/17 14:00 Prothrombin Time 13.3 SEC Prothromb Time International Ratio 1.3 RATIO Blood Urea Nitrogen 24 MG/DL Creatinine 1.12 MG/DL Random Glucose 120 MG/DL Total Protein 7.0 GM/DL Albumin 3.9 GM/DL Calcium Level 8.8 MG/DL Magnesium Level 2.0 MG/DL Alkaline Phosphatase 89 U/L Aspartate Amino Transf (AST/SGOT) 21 U/L Alanine Aminotransferase (ALT/SGPT) 36 U/L Total Bilirubin 1.4 MG/DL Sodium Level 125 MEQ/L Potassium Level 4.7 MEQ/L Chloride Level 79 MEQ/L Carbon Dioxide Level 34.9 MEQ/L B-Type Natriuretic Peptide 289 PG/ML Nasal Screen MRSA (PCR) MRSA NOT DETECTED White Blood Count 9.2 TH/MM3 Red Blood Count 3.82 MIL/MM3 Hemoglobin 12.4 GM/DL Hematocrit 38.3 % Mean Corpuscular Volume 100.2 FL Mean Corpuscular Hemoglobin 32.6 PG Mean Corpuscular Hemoglobin Concent 32.5 % Red Cell Distribution Width 14.0 % Platelet Count 213 TH/MM3 Mean Platelet Volume 8.8 FL Neutrophils (%) (Auto) 95.1 % Lymphocytes (%) (Auto) 3.6 % Monocytes (%) (Auto) 1.1 % Eosinophils (%) (Auto) 0.0 % Basophils (%) (Auto) 0.2 % Neutrophils # (Auto) 8.8 TH/MM3 Lymphocytes # (Auto) 0.3 TH/MM3 Monocytes # (Auto) 0.1 TH/MM3 Eosinophils # (Auto) 0.0 TH/MM3 Basophils # (Auto) 0.0 TH/MM3 CBC Comment DIFF FINAL Differential Comment Total Creatine Kinase 53 U/L Troponin I 0.06 NG/ML Blood Gas Puncture Site LT RADIAL Blood Gas Patient Temperature 98.6 Blood Gas HCO3 36 mmol/L Blood Gas Base Excess 10.9 mmol/L Blood Gas Oxygen Saturation 91 % Arterial Blood pH 7.38 Arterial Blood Partial Pressure CO2 64 mmHg Arterial Blood Partial Pressure O2 72 mmHg Arterial Blood Oxygen Content 15.9 Vol % Arterial Blood Carboxyhemoglobin 1.4 % Arterial Blood Methemoglobin 1.2 % Blood Gas Hemoglobin 12.4 G/DL Oxygen Delivery Device BiPAP Blood Gas Inspired Oxygen 50 % Test 05/25/17 18:00 05/26/17 03:47 05/26/17 09:40 Urine Color YELLOW Urine Turbidity CLEAR Urine pH 5.5 Urine Specific [place] 1.019 Urine Protein TRACE mg/dL Urine Glucose (UA) NEG mg/dL Urine Ketones NEG mg/dL Urine Occult Blood SMALL Urine Nitrite NEG Urine Bilirubin NEG Urine Urobilinogen LESS THAN 2.0 MG/DL Urine Leukocyte Esterase NEG Urine RBC 5 /hpf Urine WBC 4 /hpf Urine Squamous Epithelial Cells 1 /hpf Urine Amorphous Sediment RARE Urine Hyaline Casts 39 /lpf Urine Mucus FEW /lpf Microscopic Urinalysis Comment CATH-CULT NOT IND Activated Partial Thromboplast Time 45.5 SEC Blood Urea Nitrogen 46 MG/DL Creatinine 1.50 MG/DL Random Glucose 120 MG/DL Calcium Level 8.6 MG/DL Sodium Level 118 MEQ/L Potassium Level 4.7 MEQ/L Chloride Level 76 MEQ/L Carbon Dioxide Level 35.1 MEQ/L Anion Gap 7 MEQ/L Estimat Glomerular Filtration Rate 46 ML/MIN Objective Remarks GENERAL: Morbid Obesity. on BiPAP at the time of this evaluation. SKIN: Had multiple superficial ecchymoses with superficial ulcerations and bilateral lower extremity due to severe edema in his legs. HEAD: Atraumatic. Normocephalic. No temporal or scalp tenderness. EYES: . No scleral icterus. No injection or drainage. ENT: Nose without bleeding, purulent drainage or septal hematoma. Airway patent. NECK: Trachea midline. No JVD Supple, nontender, no meningeal signs. CARDIOVASCULAR: Regular rate and rhythm without murmurs, gallops, or rubs. RESPIRATORY: Decreased breath sounds bilateral, bilateral wheezing, no crackles. GASTROINTESTINAL: Abdomen soft, non-tender, nondistended. No guarding. MUSCULOSKELETAL: Extremities without clubbing, cyanosis.Edema 3+ NEUROLOGICAL: Lethargic. Medications and IVs Current Medications Medications (Trade) Dose Ordered Sig/Pratima Route Start Time Stop Time Status Last Admin (NS Flush) 2 ml UNSCH PRN IV FLUSH 05/24/17 17:45 (NS Flush) 2 ml BID IV FLUSH 05/24/17 21:00 05/26/17 07:45 (Narcan Inj) 0.4 mg UNSCH PRN IV PUSH 05/24/17 17:45 (SoluMEDROL INJ) 40 mg Q6HR IV PUSH 05/25/17 00:00 05/26/17 11:07 (Zyloprim) 100 mg DAILY PO 05/25/17 09:00 05/25/17 09:10 (Catapres) 0.2 mg BID PO 05/24/17 21:00 05/25/17 21:40 (Pravachol) 40 mg HS PO 05/24/17 21:00 05/25/17 21:40 Heparin Sodium/ Dextrose 250 ml @ 18 mls/hr TITRATE PRN IV 05/24/17 18:30 05/26/17 11:09 (Atrovent Neb) 0.5 mg Q2HR NEB PRN NEB 05/24/17 18:45 05/25/17 02:10 (Pepcid) 20 mg Q12HR PO 05/24/17 21:00 05/26/17 07:45 Miscellaneous Information Patient in critical care unit? Ass... [id number] .XX 05/24/17 20:45 05/24/17 20:45 (Chlorhexidine 2% Cloth) 3 pack DAILY@04 TOPICAL 05/25/17 04:00 05/29/17 04:01 05/26/17 04:00 (Chlorhexidine 2% Cloth) 3 pack UNSCH PRN TOPICAL 05/24/17 20:45 05/29/17 20:34 (Lopressor) 75 mg Q12HR PO 05/25/17 09:00 05/25/17 21:40 Levofloxacin/ Dextrose 100 ml @ 100 mls/hr Q24H IV 05/25/17 14:00 05/25/17 14:44 Sodium Chloride 1,000 ml @ 100 mls/hr Q10H IV 05/26/17 12:00 (Peridex 0.12% Liq) 15 ml BID@08,20 MT 05/26/17 20:00 Propofol 100 ml @ 4.89 mls/hr TITRATE PRN IV 05/26/17 12:45 Fentanyl Citrate 250 ml @ 5 mls/hr TITRATE PRN IV 05/26/17 12:45 Phenylephrine HCl 160 mg/Dextrose 500 ml @ 7.5 mls/hr TITRATE PRN IV 05/26/17 12:45 (Brethine Inj) 1 mg UNSCH PRN SQ 05/26/17 12:45 (Atrovent Neb) 0.5 mg Q4HR NEB NEB 05/26/17 16:00 (NS Flush) DAILY IV FLUSH 05/27/17 09:00 UNV (NS Flush) UNSCH PRN IV FLUSH 05/26/17 14:45 UNV A/P Assessment and Plan 1. Acute hypoxemic respiratory failure/Severe COPD exacerbation,followed by his Primary learning support specialist Doctor Yuki Falk, history of A Fib, COPD on Home Oxygen, no signs of CHF, respiratory event as per Cardiology, recommended to continue Lasix, switched Coreg to Metoprolol, removed HCTZ due to Hyponatremia, Severe COPD followed by mission assessment specialist, awaiting for Echocardiogram, BiPAP as needed, ABGs, Levaquin as infections precipitate COPD. Steroids. at this time blower insulator Doctor Sanket Reilly at bedside and the patient was started on Pressors and planning endotracheal intubation. 2. Severe COPD exacerbation read #1 3. suspected sleep apnea will need outpatient Polysomnography 4. Hypertensive Emergency secondary to respiratory distress Improving. now with Hypotension receiving pressors. 5. Chest pain not found as ACS by learning support specialist 6. Obesity strongly recommended diet and exercise. 7. Severe Hyponatremia Consulted Nephrology specialist 8. Morbid obesity weight loss is warranted. DVT prophylaxis on heparin drip. GI prophylaxis on ranitidine Discussed Condition With Nurse and nuclear operations specialist Doctor Sanket Reilly. Discharge Planning as per Attending physician now under the care of Credit Analysis Manager. Sal Hammer MD May 26, 2017 15:15
--- NOTE | 2017-05-26 15:37 | RADRPT ---
EXAM DATE/TIME: 05/26/2017 14:38 [facility] COMPARISON: CHEST SINGLE AP, May 26, 2017, 13:13. INDICATIONS : Central line placement. MEDICAL HISTORY : Chronic obstructive pulmonary disease. Hypertension SURGICAL HISTORY : None. ENCOUNTER: Initial ACUITY: 1 day PAIN SCORE: Non-responsive. LOCATION: Bilateral chest FINDINGS: 2 portable frontal views of the chest shows interval placement of a right internal jugular vein centr al venous line. The tip is within the superior vena cava. No pneumothorax. Tip of the endotracheal tu be approximately 4 cm cephalad to the gurvinder. Right pleural effusion and right lower lobe infiltrate unchanged. Cardiomegaly unchanged. Left lung is clear. CONCLUSION: Right-sided central line in good position without pneumothorax. Zia House Jr., MD on May 26, 2017 at 15:33 Board Certified Radiologist. This report was verified electronically.
[2017-05-26] MEDS ORDERED: ACETAMINOPHEN 650 MG/20.3 ML UDC PO PRN (15:45)
[2017-05-26] MEDS ORDERED: GLUCAGON 1 MG/ML VIAL OTHER PRN (15:45)
[2017-05-26] MEDS ORDERED: DEXTROSE 50% IN WATER 50 ML VIAL(D50) IV PUSH PRN (15:45)
[2017-05-26] MEDS: PIPERACIL-TAZO 4.5 GM PREMIX 100 ML IV SCH ×2 (16:00→20:59)
--- NOTE | 2017-05-26 17:01 | RADRPT ---
EXAM DATE/TIME: 05/26/2017 16:38 [facility] COMPARISON: US KIDNEY/RENAL/BLADDER, February 17, 2015, 17:09. EXTERNAL COMPARISON : [facility], US KIDNEY, BILATERAL, May 14, 2014 INDICATIONS : Increased BUN/creatinine. MEDICAL HISTORY : Myocardial infarction. Congestive heart failure. Aneurysm, abdominal. Thyroid disease. HTN. Coronary artery disease. Hypercholesterolemia. Afib. HTN. COPD. Emphysema. Dyspnea. Diverticulitis. Chronic ki dney disease Stage III. Arthritis. SURGICAL HISTORY : Bilateral cataract extraction with lens implants. Bilateral knee replacements. Right hip replacement. ENCOUNTER: Initial ACUITY: 1 day PAIN SCORE: Nonresponsive. LOCATION: Bilateral flank MEASUREMENTS: RIGHT KIDNEY: 10.5 x 5.8 x 5.8 cm LEFT KIDNEY: Nonvisualized FINDINGS: Multiple areas obscured due to patient body habitus. Right kidney is grossly within normal limits. No evidence of hydronephrosis. Left kidney is not visualized. Bladder is not visualized. Vance catheter in place. CONCLUSION: Left kidney nonvisualized. Right kidney unremarkable. Tulio Thomas MD on May 26, 2017 at 16:56 Board Certified Radiologist. This report was verified electronically.
[2017-05-26] MEDS: RESP: ALBUTEROL 1.25 MG/3 ML NEB (SCH) NEB ×3 (17:05→23:12)
--- NOTE | 2017-05-26 17:14 | PD.CONS ---
HPI Consult Requested By Reason for Consult Acute renal insufficiency, hyponatremia. Primary Care Physician Marcos Walton MD History of Present Illness This patient is a 71-year-old male apparently with a history of severe COPD, hypertension, CHF, atrial fibrillation presenting to this institution on May 24, 2016 with respiratory insufficiency, worsening edema. He also has a history of chronic hyponatremia predating this admission with serum sodium levels in the low 130s. On presentation to this institution serum sodium level was initially 125. Creatinine level I.12. According to cardiology the patient had a documented ejection fraction of 35% back in 2010. Echocardiogram this admission was pending at time of consultation. Patient subsequently developed increasing respiratory insufficiency requiring intubation and ventilatory support. Mention of hyponatremia also. Creatinine level deteriorating to 1.5 with a serum sodium level of 118 at time of presentation. Osmolality studies are pending. Patient currently receiving normal saline at 100 cc an hour. Review of Systems ROS Limitations: Clinical Condition, Unresponsive Past Family Social History Allergies: Coded Allergies: No Known Allergies (Verified Allergy, Unknown, 05/24/17) Past Medical History Hypertension Morbid obesity CHF Atrial fibrillation COPD Gastroesophageal reflux disease Mention of cardiomyopathy with ejection fraction of 35% by echocardiogram back in 2010. Chronic mild hyponatremia previously. Past Surgical History As above. Reported Medications Reported Meds & Active Scripts Active Oxygen tank (Oxygen) 1 Ea Tank 2 Liter DAMIEN.[employer] CONTINUOUS Oxygen Concentrator Portable Gaseous 2 L/min via Nasal Cannula Continuous For 99 months Spiriva Respimat Inh (Tiotropium Inh) 1.25 Mcg/Act Aero 2 Puff INH DAILY 1.25 mcg = 1 inhalation Albuterol Neb (Albuterol Sulfate) 2.5 Mg/3 Ml Neb 2.5 Mg NEB Q4HR NEB PRN Reported Symbicort Inh (Budesonide/Formoterol Fumarate) 160-4.5 Mcg/Act Aero 1 Puff INH Q12HR Zyloprim (Allopurinol) 100 Mg Tab 100 Mg PO DAILY Carvedilol 25 Mg Tab 25 Mg PO BID Clonidine (Clonidine HCl) 0.2 Mg Tab 0.2 Mg PO BID Lasix (Furosemide) 20 Mg Tab 20 Mg PO DAILY Lovastatin 40 Mg Tab 40 Mg PO HS Lisinopril-Hctz 20-12.5 Mg Tab 1 Tab PO DAILY Active Ordered Medications Current Medications Sodium Chloride (NS Flush) 2 ml UNSCH PRN IVF FLUSH AFTER USING IV ACCESS Last administered on 05/24/17at 15:03; Start 05/24/17 at 14:45; Stop 05/24/17 at 18:07 ; Status DC Furosemide (Lasix Inj) 40 mg ONCE ONCE IVP Last administered on 05/24/17at 15: 03; Start 05/24/17 at 14:45; Stop 05/24/17 at 14:46; Status DC Sodium Chloride (NS Flush) 2 ml UNSCH PRN IV FLUSH FLUSH AFTER USING IV ACCESS ; Start 05/24/17 at 17:45 Sodium Chloride (NS Flush) 2 ml BID IV FLUSH Last administered on 05/26/17at 07: 45; Start 05/24/17 at 21:00 Naloxone HCl (Narcan Inj) 0.4 mg UNSCH PRN IV PUSH SEE LABEL COMMENTS; Start at 17:45 Methylprednisolone Sodium Succinate (SoluMEDROL INJ) 125 mg ONCE ONCE IV PUSH Last administered on 05/24/17at 18:40; Start 05/24/17 at 18:00; Stop 05/24/17 at 18:08; Status DC Methylprednisolone Sodium Succinate (SoluMEDROL INJ) 40 mg Q6HR IV PUSH Last administered on 05/26/17at 11:07; Start 05/25/17 at 00:00 Allopurinol (Zyloprim) 100 mg DAILY PO Last administered on 05/25/17at 09:10; Start 05/25/17 at 09:00 Budesonide/ Formoterol Fumarate (Symbicort 160-4.5 Mcg Inh) 1 puff Q12HR INH Last administered on 05/26/17at 07:45; Start 05/24/17 at 21:00; Stop 05/26/17 at 13:08; Status DC Carvedilol (Coreg) 25 mg BID PO Last administered on 05/24/17at 21:45; Start at 21:00; Stop 05/25/17 at 07:42; Status DC Clonidine (Catapres) 0.2 mg BID PO Last administered on 05/25/17at 21:40; Start 05/24/17 at 21:00 Furosemide (Lasix) 20 mg DAILY PO ; Start 05/25/17 at 09:00; Stop 05/25/17 at 09 :00; Status DC Pravastatin Sodium (Pravachol) 40 mg HS PO Last administered on 05/25/17at 21:40 ; Start 05/24/17 at 21:00 Non-Formulary Medication 1 tab DAILY PO ; Start 05/25/17 at 09:00; Status UNV Heparin Sodium (Porcine) (Heparin Inj) 10,000 units ONCE ONCE IV PUSH Last administered on 05/24/17at 19:32; Start 05/24/17 at 18:30; Stop 05/24/17 at 18:42 ; Status DC Heparin Sodium/ Dextrose 250 ml @ 18 mls/hr TITRATE PRN IV Coagulation Management Last administered on 05/26/17at 11:09; Start 05/24/17 at 18:30 Ipratropium Jackson (Atrovent Neb) 0.5 mg Q6HR NEB NEB Last administered on at 03:41; Start 05/24/17 at 22:00; Stop 05/26/17 at 13:08; Status DC Ipratropium Jackson (Atrovent Neb) 0.5 mg Q2HR NEB PRN NEB wheezing Last administered on 05/25/17at 02:10; Start 05/24/17 at 18:45 Famotidine (Pepcid) 20 mg Q12HR PO Last administered on 05/26/17at 07:45; Start 05/24/17 at 21:00; Stop 05/26/17 at 15:10; Status DC Lisinopril (Prinivil) 20 mg DAILY PO ; Start 05/25/17 at 09:00; Stop 05/25/17 at 09:00; Status DC Hydrochlorothiazide (Hydrodiuril) 12.5 mg DAILY PO ; Start 05/25/17 at 09:00; Stop 05/25/17 at 09:00; Status DC Furosemide (Lasix Inj) 20 mg BID@,18 IV PUSH Last administered on 05/25/17at 18:24; Start 05/25/17 at 09:00; Stop 05/26/17 at 07:23; Status DC Miscellaneous Information Patient in critical care unit? Ass... [id number] .XX Last administered on 05/24/17at 20:45; Start 05/24/17 at 20:45 Chlorhexidine Gluconate (Chlorhexidine 2% Cloth) 3 pack DAILY@04 TOPICAL Last administered on 05/26/17at 04:00; Start 05/25/17 at 04:00; Stop 05/29/17 at 04:01 Chlorhexidine Gluconate (Chlorhexidine 2% Cloth) 3 pack UNSCH PRN TOPICAL HYGIENIC CARE; Start 05/24/17 at 20:45; Stop 05/29/17 at 20:34 Ranitidine HCl (Zantac Liq) 150 mg Q12HR PO ; Start 05/25/17 at 09:00; Status UNV Sodium Chloride 500 ml @ 500 mls/hr BOLUS ONCE IV Last administered on at 01:46; Start 05/25/17 at 01:30; Stop 05/25/17 at 02:29; Status DC Lisinopril (Prinivil) 40 mg DAILY PO Last administered on 05/25/17at 09:10; Start 05/25/17 at 09:00; Stop 05/26/17 at 07:23; Status DC Metoprolol Tartrate (Lopressor) 75 mg Q12HR PO Last administered on 05/25/17at 21:40; Start 05/25/17 at 09:00 Levofloxacin/ Dextrose 100 ml @ 100 mls/hr Q24H IV Last administered on at 14:44; Start 05/25/17 at 14:00 Pantoprazole Sodium (Protonix Inj) 40 mg Q24H IV PUSH ; Start 05/25/17 at 13:15 ; Stop 05/25/17 at 13:16; Status DC Sodium Chloride 250 ml @ 250 mls/hr BOLUS ONCE IV Last administered on at 00:51; Start 05/26/17 at 00:45; Stop 05/26/17 at 01:44; Status DC Sodium Chloride 250 ml @ 250 mls/hr BOLUS PRN IV MAP < 65; Start 05/26/17 at 03:45; Stop 05/26/17 at 08:00; Status DC Sodium Chloride 1,000 ml @ 100 mls/hr Q10H IV ; Start 05/26/17 at 12:00 Chlorhexidine Gluconate (Peridex 0.12% Liq) 15 ml BID@08,20 MT ; Start 05/26/17 at 20:00 Propofol 100 ml @ 4.89 mls/hr TITRATE PRN IV SEDATION Last administered on at 16:11; Start 05/26/17 at 12:45 Fentanyl Citrate 250 ml @ 5 mls/hr TITRATE PRN IV SEDATION; Start 05/26/17 at 12:45 Phenylephrine HCl 160 mg/Dextrose 500 ml @ 7.5 mls/hr TITRATE PRN IV Blood pressure management; Start 05/26/17 at 12:45 Terbutaline Sulfate (Brethine Inj) 1 mg UNSCH PRN SQ For Extravasation; Start 05/26/17 at 12:45; Stop 05/26/17 at 15:56; Status DC Etomidate (Amidate Inj) 40 mg ONCE ONCE IV PUSH ; Start 05/26/17 at 12:45; Stop 05/26/17 at 13:14; Status DC Rocuronium Jackson (Zemuron Inj) 100 mg BOLUS ONCE IV ; Start 05/26/17 at 12:45 ; Stop 05/26/17 at 13:18; Status DC Rocuronium Jackson (Zemuron Inj) 100 mg STK-MED ONCE .ROUTE ; Start 05/26/17 at 12:56; Stop 05/26/17 at 12:57; Status DC Ipratropium Jackson (Atrovent Neb) 0.5 mg Q4HR NEB NEB ; Start 05/26/17 at 16: 00 Sodium Chloride (NS Flush) DAILY IV FLUSH ; Start 05/27/17 at 09:00 Sodium Chloride (NS Flush) UNSCH PRN IV FLUSH SEE PROTOCOL; Start 05/26/17 at 14:45 Albuterol Sulfate (Albuterol Neb) 1.25 mg Q4HR NEB NEB ; Start 05/26/17 at 16: 00 Budesonide (Pulmicort Respule Neb) 0.5 mg Q12HR NEB NEB ; Start 05/26/17 at 20: 00 Artificial Tears (Tears Naturale Opth Soln) 1 drop Q8HR EACH EYE ; Start at 22:00 Lansoprazole (Prevacid Odt) 30 mg DAILY NG ; Start 05/27/17 at 09:00 Piperacillin Sod/ Tazobactam Sod 100 ml @ 200 mls/hr Q6H IV ; Start 05/26/17 at 16:00 Pharmacy Profile Note 0 ml @ 0 mls/hr UNSCH OTHER ; Start 05/26/17 at 15:15 Norepinephrine Bitartrate 4 mg/ Sodium Chloride 250 ml @ 7.5 mls/hr TITRATE PRN IV Blood pressure management; Start 05/26/17 at 16:00 Terbutaline Sulfate (Brethine Inj) 1 mg UNSCH PRN SQ For Extravasation; Start 05/26/17 at 15:30 Dextrose (D50w (Vial) Inj) 50 ml UNSCH PRN IV PUSH HYPOGLYCEMIA-SEE COMMENTS; Start 05/26/17 at 15:45 Glucagon (Glucagon Inj) 1 mg UNSCH PRN OTHER HYPOGLYCEMIA-SEE COMMENTS; Start 05/26/17 at 15:45 Insulin Human Regular (NovoLIN R SUPPLEMENTAL SCALE) 1 Q6HR SQ ; Start 05/26/17 at 18:00 Acetaminophen (Tylenol 650 Mg/ 20 ml Liq) 650 mg Q6H PRN PO fever; Start at 15:45 Vancomycin HCl 2250 mg/Sodium Chloride 522.5 ml @ 250 mls/hr Q24H IV ; Start at 18:00 Family History Unobtainable from patient. Social History Mention of previous tobacco usage discontinued. Physical Exam Vital Signs Vital Signs Date Time Temp Pulse Resp B/P (MAP) Pulse Ox O2 Delivery O2 Flow Rate FiO2 05/26/17 14:00 80 05/26/17 13:00 80 05/26/17 12:25 95 70 05/26/17 12:25 94 BiPAP 70 05/26/17 12:00 79 05/26/17 11:29 100 Partial Rebreather 10.00 05/26/17 10:00 79 05/26/17 08:23 65 05/26/17 08:22 99 BiPAP 65 05/26/17 08:00 74 05/26/17 08:00 98.0 74 19 108/74 (85) 96 05/26/17 06:00 74 05/26/17 04:00 97.9 69 19 97/55 (69) 98 05/26/17 04:00 69 05/26/17 03:39 98 65 05/26/17 02:00 66 05/26/17 00:00 97.8 63 18 87/52 (64) 98 05/26/17 00:00 63 05/25/17 23:59 98 65 05/25/17 22:00 77 05/25/17 20:51 97 65 05/25/17 20:00 79 05/25/17 20:00 97.6 79 18 117/62 (80) 97 05/25/17 18:00 86 Physical Exam GENERAL: Morbidly obese. ET tube in place patient on ventilatory support. SKIN: Warm and dry. HEAD: Normocephalic. EYES: No scleral icterus. No injection or drainage. NECK: Supple, trachea midline. No JVD or lymphadenopathy. CARDIOVASCULAR: Regular rate and rhythm without murmurs, gallops, or rubs. RESPIRATORY: Breath sounds equal bilaterally. No accessory muscle use. GASTROINTESTINAL: Abdomen soft, non-tender, obese with 2+ pitting edema of the lateral abdominal wall. MUSCULOSKELETAL: No cyanosis, 2-3+ edema involving lower extremities, hips, dependent torso. BACK: Nontender without obvious deformity. No CVA tenderness. Laboratory Laboratory Tests Test 05/25/17 18:00 05/25/17 22:22 05/26/17 03:47 05/26/17 09:40 Urine Color YELLOW Urine Turbidity CLEAR Urine pH 5.5 Urine Specific Labadie 1.019 Urine Protein TRACE Urine Glucose (UA) NEG Urine Ketones NEG Urine Occult Blood SMALL Urine Nitrite NEG Urine Bilirubin NEG Urine Urobilinogen LESS THAN 2.0 Urine Leukocyte Esterase NEG Urine RBC 5 Urine WBC 4 Urine Squamous Epithelial Cells 1 Urine Amorphous Sediment RARE Urine Hyaline Casts 39 Urine Mucus FEW Microscopic Urinalysis Comment CATH-CULT NOT IND Activated Partial Thromboplast Time 56.6 45.5 Blood Urea Nitrogen 46 Creatinine 1.50 Random Glucose 120 Calcium Level 8.6 Sodium Level 118 Potassium Level 4.7 Chloride Level 76 Carbon Dioxide Level 35.1 Anion Gap 7 Estimat Glomerular Filtration Rate 46 Test 05/26/17 15:41 Date/Time Source Procedure Growth Status 05/26/17 15:41 Blood Peripheral Aerobic Blood Culture Pending Received 05/26/17 15:41 Blood Peripheral Anaerobic Blood Culture Pending Received Result Diagram: 05/25/17 0323 05/26/17 0940 Imaging Last 48 hours Impressions Chest X-Ray 05/26/17 1435 Signed Impressions: Service Date/Time: May 14:38 - CONCLUSION: Right- sided central line in good position without pneumothorax. Zia House Jr., MD Chest X-Ray 05/26/17 0000 Signed Impressions: Service Date/Time: May 13:13 - CONCLUSION: 1. Tip of the endotracheal tube 6 cm from the gurvinder. 2. Unchanged right pleural effusion and right lower lobe infiltrate. Zia House Jr., MD Chest X-Ray 05/26/17 0000 Signed Impressions: Service Date/Time: May 12:44 - CONCLUSION: 1. Tip of the endotracheal tube quite cephalad. 2. Unchanged right pleural effusion and right lower lobe infiltrate. 3. Unchanged cardiomegaly. Zia House Jr., MD Assessment and Plan Problem List: (1) Acute kidney insufficiency ICD Codes: N28.9 - Disorder of kidney and ureter, unspecified Status: Acute Plan: Most likely related to cardiac decompensation. (2) Hyponatremia ICD Codes: E87.1 - Hypo-osmolality and hyponatremia Status: Acute Plan: Most likely multifactorial. Contributory factors include respiratory insufficiency and possible pneumonia. Also if the patient does have cardiac decompensation this also would be contributory secondary to a relative decrease in the intra-arterial volume with associated non-osmotic stimulation of antidiuretic hormone secretion. Cannot diagnose patient is having SIADH per se given the fact that he does have pretty significant edema involving lower extremities hips and torso. Checking thyroid as well as his renal function. Await results of urine and serum osmolality. At this point in time would reduce normal saline. Patient appears to be oliguric during the day will give 1 dose of furosemide. Continue to monitor sodium level. As indicated above patient's hyponatremia is acute on chronic. Goal will be to serum sodium level by about 8 or less each 24 hours. Permanent Comment: Acute on chronic hyponatremia. Last Edited By: Km Bach on May 26, 2017 17:10 (3) Edema ICD Codes: R60.9 - Edema, unspecified Plan: 2-D echocardiogram. Edema may be related in part to right sided cardiac decompensation in view of his history of severe COPD. (4) COPD with acute exacerbation ICD Codes: J44.1 - Chronic obstructive pulmonary disease with (acute) exacerbation Status: Acute Plan: Management per critical care. Problem Qualifiers (1) Edema: Qualified Codes: R60.0 - Localized edema Tala Bach MD May 26, 2017 17:14
[2017-05-26] MEDS ORDERED: FUROSEMIDE 40 MG/4 ML VIAL IV PUSH ONE (17:15)
[2017-05-26 17:52] LABS: CORTISOL 34.9 MCG/DL
[2017-05-26] MEDS: VANCOMYCIN INJ 2,250 MG in SODIUM CHLORID 0.9% 500 ML INJ 500 ML IV SCH (17:54)
[2017-05-26] MEDS: INSULIN NovoLIN REGULAR SUPPLEMENTAL SCALE SQ SCH ×2 (18:00→23:47)
--- NOTE | 2017-05-26 18:10 | ECHRPT ---
Indication: Heart failure, unspecified CONCLUSIONS The left ventricular systolic function is low normal with an estimated ejection fraction in the rang e of 50- 55%. Mild concentric left ventricular hypertrophy. Normal left ventricular size. The left atrial size is [id number] dilated. There is moderate tricuspid regurgitation. The estimated pulmonary arterial pressure is 45.8 mmHg. BP: 162 / 120 HR: 82 Rhythm: Other MEASUREMENTS (Male / Female) Normal Values Technical Quality:Fair 2D ECHO LV Diastolic Diameter PLAX 5.0 cm 4.2 - 5.9 / 3.9 - 5.3 cm LV Systolic Diameter PLAX 4.0 cm IVS Diastolic Thickness 1.5 cm 0.6 - 1.0 / 0.6 - 0.9 cm LVPW Diastolic Thickness 1.5 cm 0.6 - 1.0 / 0.6 - 0.9 cm LV Relative Wall Thickness 0.6 LVOT Diameter 2.6 cm M-MODE Aortic Root Diameter MM 3.3 cm LA Systolic Diameter MM 5.5 cm LA Ao Ratio MM 1.7 AV Cusp Separation MM 1.7 cm DOPPLER AV Peak Velocity 166.0 cm/s AV Peak Gradient 11.0 mmHg LVOT Peak Velocity 77.5 cm/s LVOT Peak Gradient 2.4 mmHg AV Area Cont Eq pk 2.5 cm LV E' Septal Velocity 7.7 cm/s TR Peak Velocity 299.0 cm/s TR Peak Gradient 35.8 mmHg Right Atrial Pressure 10.0 mmHg Pulmonary Artery Systolic Pressu 45.8 mmHg Right Ventricular Systolic Press 45.8 mmHg PV Peak Velocity 103.0 cm/s PV Peak Gradient 4.2 mmHg FINDINGS LEFT VENTRICLE The left ventricular systolic function is low normal with an estimated ejection fraction in the rang e of 50- 55%. Mild concentric left ventricular hypertrophy. Normal left ventricular size. RIGHT VENTRICLE Normal right ventricular size and systolic function. LEFT ATRIUM The left atrial size is vwyx-[id number] dilated. RIGHT ATRIUM The right atrial size is normal. ATRIAL SEPTUM Normal atrial septal thickness without atrial level shunting by limited color doppler interrogation. AORTA The aortic root and proximal ascending aorta are normal in size on limited imaging. MITRAL VALVE Structurally normal mitral valve. No mitral valve stenosis or regurgitation. AORTIC VALVE Trileaflet aortic valve. No aortic valve stenosis or regurgitation. TRICUSPID VALVE There is moderate tricuspid regurgitation. The estimated pulmonary arterial pressure is 45.8 mmHg. PULMONARY VALVE No pulmonary valve regurgitation or stenosis. VESSELS The inferior vena cava is normal in size. PERICARDIUM No pericardial effusion. Griffin Reynolds MD (Electronically Signed) Final Date:26 May 2017 18:09
[2017-05-26] MEDS: RESP: BUDESONIDE 0.5 MG/2 ML NEB NEB SCH (19:44)
[2017-05-26] MEDS: CHLORHEXIDINE 0.12% (ORAL KIT) 15 ML CUP MT SCH (20:00)
[2017-05-26] MEDS: ARTIFICIAL TEARS OPTH SOLN 15 ML BTL EACH EYE SCH (20:59)
[2017-05-26] MEDS: PRAVASTATIN SOD 40 MG TAB PO SCH (20:59)
[2017-05-27] VITALS (18 sets, daily range): BP systolic 107–141; BP diastolic 56–73; PULSE 63–84; RESP 16–26; TEMP 97.5–98.2; O2SAT 93–98
[2017-05-27 00:06] LABS: CREATININE, RANDOM URINE LESS THAN 5.0 MG/DL; SODIUM,RANDOM URINE 23 MEQ/L
[2017-05-27 00:11] LABS: OSMOLALITY,URINE 137 MOSM/KG (300-1300)
[2017-05-27] MEDS: PROPOFOL 1000 MG/100 ML INJ 100 ML IV PRN ×12 (00:45→23:48)
[2017-05-27 01:19] LABS: BICARBONATE 36.7 MEQ/L (21.0-32.0); CALCIUM 8.4 MG/DL (8.5-10.1); CREATININE 1.68 MG/DL (0.60-1.30)
[2017-05-27] MEDS: CHLORHEXIDINE GLUCONATE 2 % 1 PACK (2 CLOTHS)(taper/protocol) TOPICAL SCH (01:52)
[2017-05-27] MEDS: PIPERACIL-TAZO 4.5 GM PREMIX 100 ML IV SCH ×4 (03:02→19:38)
[2017-05-27] MEDS: RESP: IPRATROPIUM 0.5 MG/2.5 ML NEB NEB SCH ×6 (03:05→23:35)
[2017-05-27] MEDS: ARTIFICIAL TEARS OPTH SOLN 15 ML BTL EACH EYE SCH ×3 (05:04→19:38)
[2017-05-27] MEDS: methylPREDNISolone SOD SUCC 40 MG/1 ML VIAL IV PUSH SCH ×3 (05:04→17:39)
[2017-05-27] MEDS: INSULIN NovoLIN REGULAR SUPPLEMENTAL SCALE SQ SCH ×4 (05:05→23:56)
[2017-05-27 05:35] LABS: AUTOMATED NEUTROPHIL # 11.4 TH/MM3 (1.8-7.7); HEMOGLOBIN 12.6 GM/DL (13.0-17.0); LYMPHOCYTE # 0.2 TH/MM3 (1.0-4.8); MEAN CELL VOLUME 97.3 FL (80.0-100.0); MEAN CORPUSCULAR HEMOGLOBIN 32.3 PG (27.0-34.0); MEAN CORPUSCULAR HGB CONC 33.2 % (32.0-36.0); MEAN PLATELET VOLUME 9.4 FL (7.0-11.0); MONO % 5.3 % (0.0-8.0); MONOCYTE # 0.6 TH/MM3 (0-0.9); NEUT % 92.7 % (16.0-70.0); PLATELET COUNT 194 TH/MM3 (150-450); RED BLOOD COUNT 3.91 MIL/MM3 (4.50-5.90); RED CELL DISTRIBUTION WIDTH 13.7 % (11.6-17.2); WHITE BLOOD COUNT 12.3 TH/MM3 (4.0-11.0)
[2017-05-27 06:00] LABS: ALKALINE PHOSPHATASE 62 U/L (45-117); ALT (GPT) 23 U/L (12-78); AST (GOT) 17 U/L (15-37); BLOOD UREA NITROGEN 42 MG/DL (7-18); CALCIUM 8.2 MG/DL (8.5-10.1); CHLORIDE 82 MEQ/L (98-107); GLOMERULAR FILTRATION RATE 43 ML/MIN (>89); GLUCOSE,RANDOM 150 MG/DL (74-106); MAGNESIUM 2.2 MG/DL (1.5-2.5); PHOSPHORUS 2.5 MG/DL (2.5-4.9); SODIUM (NA) 129 MEQ/L (136-145); TOTAL BILIRUBIN ADULT 1.2 MG/DL (0.2-1.0); TOTAL PROTEIN 5.4 GM/DL (6.4-8.2)
[2017-05-27] MEDS: NOREPINEPHRINE INJ 4 MG in SODIUM CHLOR 0.9% 250 ML INJ 246 ML IV PRN (06:18)
[2017-05-27] MEDS: ALLOPURINOL 100 MG TAB PO SCH (07:58)
[2017-05-27] MEDS: LANSOPRAZOLE SOLUTAB 30 MG TAB NG SCH (07:58)
[2017-05-27] MEDS: SODIUM CHLORIDE 0.9% FLUSH 10 ML FLUSH IV FLUSH SCH ×3 (07:58→19:24)
[2017-05-27] MEDS: cloNIDine HCL 0.2 MG TAB PO SCH ×2 (07:59→19:38)
[2017-05-27] MEDS ORDERED: MAGNESIUM OXIDE 400 MG TAB PO PRN (08:00)
[2017-05-27] MEDS ORDERED: POTASSIUM CHLORIDE 25 MEQ EFFERVESCENT TAB PO PRN (08:00)
[2017-05-27] MEDS ORDERED: SODIUM PHOSPHATE INJ 30 MMOL in SODIUM CHLOR 0.9% 250 ML INJ 240 ML IV PRN (08:00)
[2017-05-27] MEDS ORDERED: MAGNESIUM SULFATE INJ 4 GM in SODIUM CHLORIDE 0.9% INJ 92 ML IV PRN (08:00)
[2017-05-27] MEDS: METOPROLOL TARTRATE 25 MG TAB PO SCH (08:00)
[2017-05-27] MEDS ORDERED: POTASSIUM PHOSPHATE INJ 30 MMOL in SODIUM CHLOR 0.9% 250 ML INJ 250 ML IV PRN (08:00)
[2017-05-27] MEDS: CHLORHEXIDINE 0.12% (ORAL KIT) 15 ML CUP MT SCH ×2 (08:00→19:23)
[2017-05-27] MEDS ORDERED: POTASSIUM PHOSPHATE MONOBASIC 500 MG TAB PO/TUBE PRN (08:00)
[2017-05-27] MEDS ORDERED: POTASSIUM CHLOR 20 MEQ PREMIX 100 ML IV PRN ×2 (08:00)
[2017-05-27] MEDS ORDERED: POTASSIUM CHLOR 40 MEQ PREMIX 100 ML IV PRN (08:00)
[2017-05-27] MEDS ORDERED: POTASSIUM PHOSPHATE MONOBASIC 500 MG TAB PO PRN (08:00)
[2017-05-27] MEDS ORDERED: MAGNESIUM SULFATE INJ 2 GM in SODIUM CHLORIDE 0.9% INJ 96 ML IV PRN (08:00)
--- NOTE | 2017-05-27 08:05 | PD.CARD.PN ---
Subjective Subjective Remarks Pt intubated Objective Medications Current Medications Medications (Trade) Dose Ordered Sig/Pratima Route Start Time Stop Time Status Last Admin (NS Flush) 2 ml UNSCH PRN IV FLUSH 05/24/17 17:45 (NS Flush) 2 ml BID IV FLUSH 05/24/17 21:00 05/27/17 07:58 (Narcan Inj) 0.4 mg UNSCH PRN IV PUSH 05/24/17 17:45 (SoluMEDROL INJ) 40 mg Q6HR IV PUSH 05/25/17 00:00 05/27/17 05:04 (Zyloprim) 100 mg DAILY PO 05/25/17 09:00 05/27/17 07:58 (Catapres) 0.2 mg BID PO 05/24/17 21:00 05/26/17 20:59 (Pravachol) 40 mg HS PO 05/24/17 21:00 05/26/17 20:59 Heparin Sodium/ Dextrose 250 ml @ 18 mls/hr TITRATE PRN IV 05/24/17 18:30 05/26/17 11:09 (Atrovent Neb) 0.5 mg Q2HR NEB PRN NEB 05/24/17 18:45 05/25/17 02:10 Miscellaneous Information Patient in critical care unit? Ass... [id number] .XX 05/24/17 20:45 05/24/17 20:45 (Chlorhexidine 2% Cloth) 3 pack DAILY@04 TOPICAL 05/25/17 04:00 05/29/17 04:01 05/27/17 01:52 (Chlorhexidine 2% Cloth) 3 pack UNSCH PRN TOPICAL 05/24/17 20:45 05/29/17 20:34 (Lopressor) 75 mg Q12HR PO 05/25/17 09:00 05/26/17 20:59 Levofloxacin/ Dextrose 100 ml @ 100 mls/hr Q24H IV 05/25/17 14:00 05/25/17 14:44 Sodium Chloride 1,000 ml @ 70 mls/hr [id number] IV 05/26/17 12:00 05/26/17 12:00 (Peridex 0.12% Liq) 15 ml BID@08,20 MT 05/26/17 20:00 05/26/17 20:00 Propofol 100 ml @ 4.89 mls/hr TITRATE PRN IV 05/26/17 12:45 05/27/17 07:01 Fentanyl Citrate 250 ml @ 5 mls/hr TITRATE PRN IV 05/26/17 12:45 Phenylephrine HCl 160 mg/Dextrose 500 ml @ 7.5 mls/hr TITRATE PRN IV 05/26/17 12:45 (Atrovent Neb) 0.5 mg Q4HR NEB NEB 05/26/17 16:00 05/27/17 03:05 (NS Flush) DAILY IV FLUSH 05/27/17 09:00 05/27/17 07:58 (NS Flush) UNSCH PRN IV FLUSH 05/26/17 14:45 (Albuterol Neb) 1.25 mg Q4HR NEB NEB 05/26/17 16:00 05/26/17 23:12 (Pulmicort Respule Neb) 0.5 mg Q12HR NEB NEB 05/26/17 20:00 05/26/17 19:44 (Tears Naturale Opth Soln) 1 drop Q8HR EACH EYE 05/26/17 22:00 05/27/17 07:58 (Prevacid Odt) 30 mg DAILY NG 05/27/17 09:00 05/27/17 07:58 Piperacillin Sod/ Tazobactam Sod 100 ml @ 200 mls/hr Q6H IV 05/26/17 16:00 05/27/17 03:02 Pharmacy Profile Note 0 ml @ 0 mls/hr UNSCH OTHER 05/26/17 15:15 Norepinephrine Bitartrate 4 mg/ Sodium Chloride 250 ml @ 7.5 mls/hr TITRATE PRN IV 05/26/17 16:00 05/27/17 06:18 (Brethine Inj) 1 mg UNSCH PRN SQ 05/26/17 15:30 (D50w (Vial) Inj) 50 ml UNSCH PRN IV PUSH 05/26/17 15:45 (Glucagon Inj) 1 mg UNSCH PRN OTHER 05/26/17 15:45 (NovoLIN R SUPPLEMENTAL SCALE) 1 Q6HR SQ 05/26/17 18:00 05/27/17 05:05 (Tylenol 650 Mg/ 20 ml Liq) 650 mg Q6H PRN PO 05/26/17 15:45 Vancomycin HCl 2250 mg/Sodium Chloride 522.5 ml @ 250 mls/hr Q24H IV 05/26/17 18:00 05/26/17 17:54 Vital Signs / I&O Vital Signs Date Time Temp Pulse Resp B/P (MAP) Pulse Ox O2 Delivery O2 Flow Rate FiO2 05/27/17 06:18 79 139/74 05/27/17 06:00 63 05/27/17 05:30 50 05/27/17 04:10 97 60 05/27/17 04:00 60 05/27/17 04:00 97.6 83 20 121/56 (77) 96 120/63 (82) 05/27/17 04:00 83 05/27/17 02:42 72 126/65 05/27/17 02:00 77 05/27/17 01:11 97 60 05/27/17 00:43 71 134/68 05/27/17 00:00 68 05/27/17 00:00 60 05/27/17 00:00 98.2 68 20 108/58 (75) 97 122/63 (82) 05/26/17 23:30 62 125/64 05/26/17 23:15 60 05/26/17 22:08 98 80 05/26/17 22:00 69 05/26/17 22:00 69 137/69 05/26/17 21:15 68 131/65 05/26/17 20:50 71 141/72 05/26/17 20:20 73 140/71 05/26/17 20:00 97.9 77 20 116/59 (78) 99 145/73 (97) 05/26/17 20:00 80 05/26/17 20:00 77 145/73 05/26/17 20:00 77 05/26/17 19:40 98 80 05/26/17 19:30 74 155/76 05/26/17 19:15 68 156/75 05/26/17 19:00 71 156/74 05/26/17 18:12 98 75 05/26/17 18:00 80 05/26/17 17:55 80 88/55 05/26/17 16:00 80 05/26/17 16:00 98.2 75 20 103/64 (77) 98 05/26/17 16:00 80 05/26/17 14:00 80 05/26/17 13:00 104 88/38 05/26/17 13:00 80 05/26/17 12:25 95 70 05/26/17 12:25 94 BiPAP 70 05/26/17 12:00 79 05/26/17 12:00 98.1 85 25 90/56 (67) 98 05/26/17 11:29 100 Partial Rebreather 10.00 05/26/17 10:00 79 05/26/17 08:23 65 05/26/17 08:22 99 BiPAP 65 I/O 05/26/17 05/26/17 05/26/17 05/27/17 05/27/17 05/27/17 07:00 15:00 23:00 07:00 15:00 23:00 Intake Total 970 ml 1402.5 ml 1136 ml Output Total 350 ml 650 ml 5800 ml Balance 620 ml 752.5 ml -4664 ml Intake Oral 720 ml 480 ml IV Total 250 ml 922.5 ml 930 ml Tube Feeding 206 ml Output Urine Total 350 ml 650 ml 5800 ml Stool Total 0 ml # Bowel Movements 0 Physical Exam GENERAL: Well developed, well nourished. No acute distress on vent HEENT: Jugular venous pressure is normal. CHEST: Lungs very decreased clear to auscultation bilaterally. Unlabored respiratory effort. CARDIAC: irregular rate and rhythm without S3, S4, or murmur. ABDOMEN: Soft, nontender, no hepatosplenomegaly. Bowel sounds present. EXTREMITIES: No clubbing, cyanosis, + edema. Laboratory Laboratory Tests Test 05/26/17 09:40 05/26/17 15:41 05/26/17 21:30 05/27/17 00:00 Blood Urea Nitrogen 46 MG/DL 44 MG/DL Creatinine 1.50 MG/DL 1.68 MG/DL Random Glucose 120 MG/DL 155 MG/DL Calcium Level 8.6 MG/DL 8.4 MG/DL Sodium Level 118 MEQ/L 124 MEQ/L Potassium Level 4.7 MEQ/L 3.7 MEQ/L Chloride Level 76 MEQ/L 79 MEQ/L Carbon Dioxide Level 35.1 MEQ/L 36.7 MEQ/L Anion Gap 7 MEQ/L 8 MEQ/L Estimat Glomerular Filtration Rate 46 ML/MIN 41 ML/MIN Serum Osmolality 278 MOSM/KG Uric Acid 7.7 MG/DL Troponin I 0.07 NG/ML Triglycerides Level 276 MG/DL Thyroid Stimulating Hormone 3rd Gen 0.535 uIU/ML Random Cortisol 34.9 MCG/DL Urine Eosinophils NONE SEEN /HPF Urine Osmolality 137 MOSM/KG Urine Random Creatinine LESS THAN 5.0 MG/DL Urine Random Sodium 23 MEQ/L Test 05/27/17 05:00 White Blood Count 12.3 TH/MM3 Red Blood Count 3.91 MIL/MM3 Hemoglobin 12.6 GM/DL Hematocrit 38.0 % Mean Corpuscular Volume 97.3 FL Mean Corpuscular Hemoglobin 32.3 PG Mean Corpuscular Hemoglobin Concent 33.2 % Red Cell Distribution Width 13.7 % Platelet Count 194 TH/MM3 Mean Platelet Volume 9.4 FL Neutrophils (%) (Auto) 92.7 % Lymphocytes (%) (Auto) 2.0 % Monocytes (%) (Auto) 5.3 % Eosinophils (%) (Auto) 0.0 % Basophils (%) (Auto) 0.0 % Neutrophils # (Auto) 11.4 TH/MM3 Lymphocytes # (Auto) 0.2 TH/MM3 Monocytes # (Auto) 0.6 TH/MM3 Eosinophils # (Auto) 0.0 TH/MM3 Basophils # (Auto) 0.0 TH/MM3 CBC Comment DIFF FINAL Differential Comment Activated Partial Thromboplast Time 67.1 SEC Blood Urea Nitrogen 42 MG/DL Creatinine 1.60 MG/DL Random Glucose 150 MG/DL Total Protein 5.4 GM/DL Albumin 3.0 GM/DL Calcium Level 8.2 MG/DL Phosphorus Level 2.5 MG/DL Magnesium Level 2.2 MG/DL Alkaline Phosphatase 62 U/L Aspartate Amino Transf (AST/SGOT) 17 U/L Alanine Aminotransferase (ALT/SGPT) 23 U/L Total Bilirubin 1.2 MG/DL Sodium Level 129 MEQ/L Potassium Level 3.3 MEQ/L Chloride Level 82 MEQ/L Carbon Dioxide Level 37.0 MEQ/L Anion Gap 10 MEQ/L Estimat Glomerular Filtration Rate 43 ML/MIN Imaging Last 72 hours Impressions Chest X-Ray 05/26/17 1435 Signed Impressions: Service Date/Time: May 14:38 - CONCLUSION: Right- sided central line in good position without pneumothorax. Zia House Jr., MD Renal Ultrasound 05/26/17 0000 Signed Impressions: Service Date/Time: May 16:38 - CONCLUSION: Left kidney nonvisualized. Right kidney unremarkable. Tulio Thomas MD Chest X-Ray 05/26/17 0000 Signed Impressions: Service Date/Time: May 13:13 - CONCLUSION: 1. Tip of the endotracheal tube 6 cm from the gurvinder. 2. Unchanged right pleural effusion and right lower lobe infiltrate. Zia House Jr., MD Chest X-Ray 05/26/17 0000 Signed Impressions: Service Date/Time: May 12:44 - CONCLUSION: 1. Tip of the endotracheal tube quite cephalad. 2. Unchanged right pleural effusion and right lower lobe infiltrate. 3. Unchanged cardiomegaly. Zia House Jr., MD Chest X-Ray 05/24/17 1440 Signed Impressions: Service Date/Time: Wednesday, May 24, 2017 14:57 - CONCLUSION: 1. Mild bibasilar airspace disease, left greater than right, presumably atelectasis. Jeyson Juarez MD Last 24 hours Impressions Chest X-Ray 05/26/17 1435 Signed Impressions: Service Date/Time: May 14:38 - CONCLUSION: Right- sided central line in good position without pneumothorax. Zia House Jr., MD Assessment and Plan Problem List: (1) Atrial fibrillation ICD Codes: I48.91 - Unspecified atrial fibrillation Plan: rate controlled, off metoprolol an on levo -consider change to cardizem once recovered secondary to severe COPD -on heparin (2) hypertension Status: Acute (3) COPD with acute exacerbation ICD Codes: J44.1 - Chronic obstructive pulmonary disease with (acute) exacerbation Status: Acute Plan: now intubated, per CCM (4) CHF (congestive heart failure) ICD Codes: I50.9 - Heart failure, unspecified Status: Acute Plan: minor component, now dry with Cr 1.7 EF normal on echo (5) Hyponatremia ICD Codes: E87.1 - Hypo-osmolality and hyponatremia Status: Acute Permanent Comment: Acute on chronic hyponatremia. Last Edited By: Km Bach on May 26, 2017 17:10 Problem Qualifiers (1) CHF (congestive heart failure): Qualified Codes: I50.9 - Heart failure, unspecified Frederick,Yuki A MD May 27, 2017 08:05
--- NOTE | 2017-05-27 08:07 | HHI.CCPN ---
Subjective Remarks/Hospital Course This is a 71-year-old male. Date of admission 05/24/2017. Date of consultation 05/26/2017. Past medical history includes elevated BMI, hypertension, history of atrial fibrillation, history of COPD with FEV1 35%, right bundle branch block, gastroesophageal reflux disease and according to with likely obstructive sleep apnea. For the past week, patient prior to admission to [facility] is complaining of increasing lower extremity edema, dyspnea on exertion with rest affecting his activities of daily life. The night of 05/24 patient was placed on BiPAP is intermittently been on and off this for the past 48 hours. Today, patient was placed on a nonrebreather mask became acutely hypoxic and dyspneic. When I evaluated the patient, he stated "I cannot breathe". Patient was noted be hypotensive. Patient was emergently intubated and placed on vasopressors to maintain a mean arterial pressure of 65. 05/27 Patient is sedated with Diprivan, intubated on Levophed 1 carmen and Heparin drip. Objective Vital Signs Date Time Temp Pulse Resp B/P (MAP) Pulse Ox O2 Delivery O2 Flow Rate FiO2 05/27/17 06:18 79 139/74 05/27/17 05:30 50 05/27/17 04:10 97 05/27/17 04:00 97.6 20 05/26/17 12:25 BiPAP 05/26/17 11:29 10.00 Intake and Output 05/27/17 05/27/17 05/28/17 08:00 16:00 00:00 Intake Total 1136 ml Output Total 5800 ml Balance -4664 ml Result Diagram: 05/27/17 0500 05/27/17 0500 Other Results Laboratory Tests Test 05/26/17 09:40 05/26/17 15:41 05/26/17 21:30 05/27/17 00:00 Blood Urea Nitrogen 46 MG/DL 44 MG/DL Creatinine 1.50 MG/DL 1.68 MG/DL Random Glucose 120 MG/DL 155 MG/DL Calcium Level 8.6 MG/DL 8.4 MG/DL Sodium Level 118 MEQ/L 124 MEQ/L Potassium Level 4.7 MEQ/L 3.7 MEQ/L Chloride Level 76 MEQ/L 79 MEQ/L Carbon Dioxide Level 35.1 MEQ/L 36.7 MEQ/L Anion Gap 7 MEQ/L 8 MEQ/L Estimat Glomerular Filtration Rate 46 ML/MIN 41 ML/MIN Serum Osmolality 278 MOSM/KG Uric Acid 7.7 MG/DL Troponin I 0.07 NG/ML Triglycerides Level 276 MG/DL Thyroid Stimulating Hormone 3rd Gen 0.535 uIU/ML Random Cortisol 34.9 MCG/DL Urine Eosinophils NONE SEEN /HPF Urine Osmolality 137 MOSM/KG Urine Random Creatinine LESS THAN 5.0 MG/DL Urine Random Sodium 23 MEQ/L Test 05/27/17 05:00 White Blood Count 12.3 TH/MM3 Red Blood Count 3.91 MIL/MM3 Hemoglobin 12.6 GM/DL Hematocrit 38.0 % Mean Corpuscular Volume 97.3 FL Mean Corpuscular Hemoglobin 32.3 PG Mean Corpuscular Hemoglobin Concent 33.2 % Red Cell Distribution Width 13.7 % Platelet Count 194 TH/MM3 Mean Platelet Volume 9.4 FL Neutrophils (%) (Auto) 92.7 % Lymphocytes (%) (Auto) 2.0 % Monocytes (%) (Auto) 5.3 % Eosinophils (%) (Auto) 0.0 % Basophils (%) (Auto) 0.0 % Neutrophils # (Auto) 11.4 TH/MM3 Lymphocytes # (Auto) 0.2 TH/MM3 Monocytes # (Auto) 0.6 TH/MM3 Eosinophils # (Auto) 0.0 TH/MM3 Basophils # (Auto) 0.0 TH/MM3 CBC Comment DIFF FINAL Differential Comment Activated Partial Thromboplast Time 67.1 SEC Blood Urea Nitrogen 42 MG/DL Creatinine 1.60 MG/DL Random Glucose 150 MG/DL Total Protein 5.4 GM/DL Albumin 3.0 GM/DL Calcium Level 8.2 MG/DL Phosphorus Level 2.5 MG/DL Magnesium Level 2.2 MG/DL Alkaline Phosphatase 62 U/L Aspartate Amino Transf (AST/SGOT) 17 U/L Alanine Aminotransferase (ALT/SGPT) 23 U/L Total Bilirubin 1.2 MG/DL Sodium Level 129 MEQ/L Potassium Level 3.3 MEQ/L Chloride Level 82 MEQ/L Carbon Dioxide Level 37.0 MEQ/L Anion Gap 10 MEQ/L Estimat Glomerular Filtration Rate 43 ML/MIN Imaging Last Impressions Chest X-Ray 05/26/17 9360 Signed Impressions: Service Date/Time: May 14:38 - CONCLUSION: Right- sided central line in good position without pneumothorax. Zia House Jr., MD Renal Ultrasound 05/26/17 0000 Signed Impressions: Service Date/Time: May 16:38 - CONCLUSION: Left kidney nonvisualized. Right kidney unremarkable. Tulio Thomas MD Lower Extremity Ultrasound 05/24/17 0000 Signed Impressions: Service Date/Time: Wednesday, May 24, 2017 18:29 - CONCLUSION: 1. Negative for deep venous thrombosis. Arnie Oswald MD Objective Remarks GENERAL: 71-year-old male currently orotracheally intubated SKIN: Warm and dry. No rash HEAD: Atraumatic. Normocephalic. EYES: Pupils equal and round about 3 mm bilaterally and reactive. No scleral icterus. No injection or drainage. ENT: No nasal bleeding or discharge. Mucous membranes pink and moist. NECK: Trachea midline. No JVD. CARDIOVASCULAR: IRR. S1, S2 no S4. Distant RESPIRATORY: Ms. breath sounds throughout. Distant. No wheezing GASTROINTESTINAL: Abdomen soft, non-tender, obese. Hypoactive bowel sounds appreciated MUSCULOSKELETAL: Extremities without any significant peripheral edema. No obvious deformities. NEUROLOGICAL: A arousable on the ventilator. Moves all 4 extremities spontaneously. Positive gag and corneal reflex. A/P Assessment and Plan Neuro/Psych: Currently on propofol drip for sedation. Daily sedation vacation. Goal of RA SS -2 Acetaminophen 650 mg by tube every 6 hours when necessary fever CV: History of cardiomyopathy Right bundle-branch block Atrial fibrillation rate controlled Hypertension/essential Dyslipidemia Elevated troponin Evaluated by Dr. Falk/cardiology Echo showed EF 50-55% Levophed down 1 carmen monitor HR and BP keep MAP>65mmHg Home medications clonidine 0.2 mg twice a day, carvedilol 25 mg twice a day, lisinopril/hydrochlorothiazide 20/25 one tablet daily On lovastatin 40 mg by mouth daily at home for dyslipidemia. Currently on Pravachol Resp: Acute hypercapnic respiratory failure with CO2 retention NC COPD/oxygen dependent Likely YUKI PRVC 20/600/05/07/89 Ventilator bundle. Check ABG Albuterol aerosols 1.25 mg/ipratropium 0.5 mg nebs every 4 hours with ipratropium aerosols every 2 hours. Dyspnea per pulmonology - Dr. Garcia SBT daily as jenny Home medications tiotropium 18 mcg daily held. Home medication budesonide/ formoterol 160/4.5 held while intubated GI: Elevated BMI Change tube feeds- Glucerna 1.5 with goal rate 55ml/hr Lansoprazole for GI prophylaxis Docusate sodium/senna 1 tablet twice a day for bowel regimen : TARA Hyponatremia Monitor renal function, electrolytes replacement as needed. Will need K replacement today Avoid nephrotoxins, Cr: 1.60 from 1.68 Renal is following- Dr. Bach Endo: Sliding scale insulin Accu-Cheks every 6 hours to maintain euglycemia Novulin R medium regimen TSH:0.53 Continue allopurinol 100 mg by mouth daily for elevated uric acid Heme: Macrocytic anemia Monitor CBC daily. Follow trends Continue with heparin drip for A. fib ID: Currently on vancomycin, piperacillin/tazobactam and levofloxacin for possible infectious etiology Monitor for signs of infections ( Fever, WBC) Pancultured including blood, sputum, urine, Legionella pneumococcal antigens and influenza..pending MSK: PT evaluate and treat Endo: SSI for glycemic control Cortisol level: 34.9 Access -Right IJ CVL day 1 Prophylaxis - GI - lansoprazole - DVT - SCD/heparin drip Critical Care: The total critical care time was 30 mins Bela Burns MD May 27, 2017 08:07
[2017-05-27] MEDS: RESP: BUDESONIDE 0.5 MG/2 ML NEB NEB SCH ×2 (08:12→19:24)
[2017-05-27] MEDS: RESP: ALBUTEROL 1.25 MG/3 ML NEB (SCH) NEB ×6 (08:13→23:35)
[2017-05-27] MEDS: HEPARIN-D5W 25,000 U/250 ML 250 ML IV PRN (09:10)
[2017-05-27] MEDS: LEVOFLOXACIN 500 MG PREMIX INJ 100 ML IV SCH (14:32)
--- NOTE | 2017-05-27 17:13 | HHI.NPPN ---
Subjective History of Present Illness This patient is a 71-year-old male apparently with a history of severe COPD, hypertension, CHF, atrial fibrillation presenting to this institution on May 24, 2016 with respiratory insufficiency, worsening edema. He also has a history of chronic hyponatremia predating this admission with serum sodium levels in the low 130s. On presentation to this institution serum sodium level was initially 125. Creatinine level I.12. According to cardiology the patient had a documented ejection fraction of 35% back in 2010. Echocardiogram this admission was pending at time of consultation. Patient subsequently developed increasing respiratory insufficiency requiring intubation and ventilatory support. Mention of hyponatremia also. Creatinine level deteriorating to 1.5 with a serum sodium level of 118 at time of presentation. Osmolality studies are pending. Patient currently receiving normal saline at 100 cc an hour. Interval History Intubated and sedated and son present during interview. (Dariela Scott) Review of Systems General General Remarks Unable to obtain (Dariela Scott) Objective Data Data 05/27/17 05/28/17 19:00 07:00 Intake Total 1032 ml Balance 1032 ml IV Total 1032 ml Vital Signs Date Time Temp Pulse Resp B/P (MAP) Pulse Ox O2 Delivery O2 Flow Rate FiO2 05/27/17 16:59 96 40 05/27/17 16:00 70 05/27/17 16:00 98.0 70 16 107/57 (74) 98 112/65 (81) 05/27/17 16:00 40 05/27/17 14:00 81 05/27/17 12:11 98 40 05/27/17 12:00 84 05/27/17 12:00 98.0 84 26 113/72 (86) 93 05/27/17 12:00 40 05/27/17 10:00 75 05/27/17 08:15 95 50 05/27/17 08:15 95 Ventilator 50 05/27/17 08:00 40 05/27/17 08:00 97.9 78 20 119/57 (77) 96 132/70 (90) 05/27/17 08:00 78 05/27/17 06:18 79 139/74 05/27/17 06:00 63 05/27/17 05:30 50 05/27/17 04:10 97 60 05/27/17 04:00 60 05/27/17 04:00 97.6 83 20 121/56 (77) 96 120/63 (82) 05/27/17 04:00 83 05/27/17 02:42 72 126/65 05/27/17 02:00 77 05/27/17 01:11 97 60 05/27/17 00:43 71 134/68 05/27/17 00:00 68 05/27/17 00:00 60 05/27/17 00:00 98.2 68 20 108/58 (75) 97 122/63 (82) 05/26/17 23:30 62 125/64 05/26/17 23:15 60 05/26/17 22:08 98 80 05/26/17 22:00 69 05/26/17 22:00 69 137/69 05/26/17 21:15 68 131/65 05/26/17 20:50 71 141/72 05/26/17 20:20 73 140/71 05/26/17 20:00 97.9 77 20 116/59 (78) 99 145/73 (97) 05/26/17 20:00 80 05/26/17 20:00 77 145/73 05/26/17 20:00 77 05/26/17 19:40 98 80 05/26/17 19:30 74 155/76 05/26/17 19:15 68 156/75 05/26/17 19:00 71 156/74 05/26/17 18:12 98 75 05/26/17 18:00 80 05/26/17 17:55 80 88/55 (Dariela Scott) -: 05/27/17 0500 05/27/17 1201 Microbiology 05/26/17 Legionella Antigen - Final, Complete PRESUMPTIVE NEGATIVE FOR LEGIONELLA P... 05/26/17 Streptococcus pneumoniae Antigen (M - Final, Complete PRESUMPTIVE NEGATIVE FOR STREPTOCOCCU... Imaging Last Impressions Chest X-Ray 05/26/17 1435 Signed Impressions: Service Date/Time: May 14:38 - CONCLUSION: Right- sided central line in good position without pneumothorax. Zia House Jr., MD Renal Ultrasound 05/26/17 0000 Signed Impressions: Service Date/Time: May 16:38 - CONCLUSION: Left kidney nonvisualized. Right kidney unremarkable. Tulio Thomas MD Lower Extremity Ultrasound 05/24/17 0000 Signed Impressions: Service Date/Time: Wednesday, May 24, 2017 18:29 - CONCLUSION: 1. Negative for deep venous thrombosis. Arnie Oswald MD Medication Review Current Medications Medications (Trade) Dose Ordered Sig/Pratima Route Start Time Stop Time Status Last Admin (NS Flush) 2 ml UNSCH PRN IV FLUSH 05/24/17 17:45 (NS Flush) 2 ml BID IV FLUSH 05/24/17 21:00 05/27/17 07:58 (Narcan Inj) 0.4 mg UNSCH PRN IV PUSH 05/24/17 17:45 (Zyloprim) 100 mg DAILY PO 05/25/17 09:00 05/27/17 07:58 (Catapres) 0.2 mg BID PO 05/24/17 21:00 05/26/17 20:59 (Pravachol) 40 mg HS PO 05/24/17 21:00 05/26/17 20:59 Heparin Sodium/ Dextrose 250 ml @ 18 mls/hr TITRATE PRN IV 05/24/17 18:30 05/27/17 09:10 (Atrovent Neb) 0.5 mg Q2HR NEB PRN NEB 05/24/17 18:45 05/25/17 02:10 Miscellaneous Information Patient in critical care unit? Ass... [id number] .XX 05/24/17 20:45 05/24/17 20:45 (Chlorhexidine 2% Cloth) 3 pack DAILY@04 TOPICAL 05/25/17 04:00 05/29/17 04:01 05/27/17 01:52 (Chlorhexidine 2% Cloth) 3 pack UNSCH PRN TOPICAL 05/24/17 20:45 05/29/17 20:34 Levofloxacin/ Dextrose 100 ml @ 100 mls/hr Q24H IV 05/25/17 14:00 05/27/17 14:32 (Peridex 0.12% Liq) 15 ml BID@08,20 MT 05/26/17 20:00 05/26/17 20:00 Propofol 100 ml @ 4.89 mls/hr TITRATE PRN IV 05/26/17 12:45 05/27/17 16:04 Fentanyl Citrate 250 ml @ 5 mls/hr TITRATE PRN IV 05/26/17 12:45 Phenylephrine HCl 160 mg/Dextrose 500 ml @ 7.5 mls/hr TITRATE PRN IV 05/26/17 12:45 (Atrovent Neb) 0.5 mg Q4HR NEB NEB 05/26/17 16:00 05/27/17 16:58 (NS Flush) DAILY IV FLUSH 05/27/17 09:00 05/27/17 07:58 (NS Flush) UNSCH PRN IV FLUSH 05/26/17 14:45 (Albuterol Neb) 1.25 mg Q4HR NEB NEB 05/26/17 16:00 05/27/17 16:58 (Pulmicort Respule Neb) 0.5 mg Q12HR NEB NEB 05/26/17 20:00 05/27/17 08:12 (Tears Naturale Opth Soln) 1 drop Q8HR EACH EYE 05/26/17 22:00 05/27/17 07:58 (Prevacid Odt) 30 mg DAILY NG 05/27/17 09:00 05/27/17 07:58 Piperacillin Sod/ Tazobactam Sod 100 ml @ 200 mls/hr Q6H IV 05/26/17 16:00 05/27/17 14:32 Pharmacy Profile Note 0 ml @ 0 mls/hr UNSCH OTHER 05/26/17 15:15 Norepinephrine Bitartrate 4 mg/ Sodium Chloride 250 ml @ 7.5 mls/hr TITRATE PRN IV 05/26/17 16:00 05/27/17 06:18 (Brethine Inj) 1 mg UNSCH PRN SQ 05/26/17 15:30 (D50w (Vial) Inj) 50 ml UNSCH PRN IV PUSH 05/26/17 15:45 (Glucagon Inj) 1 mg UNSCH PRN OTHER 05/26/17 15:45 (NovoLIN R SUPPLEMENTAL SCALE) 1 Q6HR SQ 05/26/17 18:00 05/27/17 11:17 (Tylenol 650 Mg/ 20 ml Liq) 650 mg Q6H PRN PO 05/26/17 15:45 Vancomycin HCl 2250 mg/Sodium Chloride 522.5 ml @ 250 mls/hr Q24H IV 1/25/18 18:00 05/26/17 17:54 Potassium Chloride 100 ml @ 50 mls/hr Q2H PRN IV 05/27/17 08:00 Potassium Chloride 100 ml @ 50 mls/hr Q2H PRN IV 05/27/17 08:00 (K-Lyte Cl Eff) 50 meq UNSCH PRN PO 05/27/17 08:00 Potassium Chloride 100 ml @ 25 mls/hr UNSCH PRN IV 05/27/17 08:00 05/27/17 10:51 Potassium Chloride 100 ml @ 50 mls/hr Q2H PRN IV 05/27/17 08:00 Magnesium Sulfate 4 gm/Sodium Chloride 100 ml @ 50 mls/hr UNSCH PRN IV 05/27/17 08:00 (Mag-Ox) 800 mg UNSCH PRN PO 05/27/17 08:00 Magnesium Sulfate 2 gm/Sodium Chloride 100 ml @ 50 mls/hr UNSCH PRN IV 05/27/17 08:00 (K-Phos) 2,000 mg Q4H PRN PO 05/27/17 08:00 Sodium Phosphate 30 mmol/Sodium Chloride 250 ml @ 42 mls/hr UNSCH PRN IV 05/27/17 08:00 (K-Phos) 2,000 mg UNSCH PRN PO/TUBE 05/27/17 08:00 Potassium Phosphate 30 mmol/ Sodium Chloride 260 ml @ 42 mls/hr UNSCH PRN IV 05/27/17 08:00 Miscellaneous Information SPECIFIC LAB TO BE DRAWN:VANCOMYCIN TROUGH DATE TO... ONCE ONCE .XX 05/29/17 17:45 05/29/17 17:46 (SoluMEDROL INJ) 40 mg Q8H IV PUSH 05/27/17 18:00 (Dariela Scott) Physical Exam General Appearance: Comfortable (Dariela Scott) Neck Neck Exam: Trachea Midline (Dariela Scott) Pulmonary Resp Exam: Diminished Breath Sounds (Dariela Scott) Cardiology CV Exam: Irregular (Dariela Scott) Gastrointestinal/Abdomen GI Exam: Soft, Distended (Dariela Scott) Genitourinary Exam: Clear Urine (Dariela Scott) Integumentary Skin Exam: Clear, Warm (Dariela Scott) Extremeties Extremities Exam: Moderate Edema, Dependent Edema (generalized, but improved from 05/26) (Dariela Scott) Neurologic Neuro Exam: Sedated (Dariela Scott) Assessment/Plan Problem List: (1) Acute kidney insufficiency ICD Codes: N28.9 - Disorder of kidney and ureter, unspecified Status: Acute Plan: Most likely related to cardiac decompensation. Renal functions improved slightly (2) Hyponatremia ICD Codes: E87.1 - Hypo-osmolality and hyponatremia Status: Acute Plan: Most likely multifactorial. Contributory factors include respiratory insufficiency and possible pneumonia. Also if the patient does have cardiac decompensation this also would be contributory secondary to a relative decrease in the intra-arterial volume with associated non-osmotic stimulation of antidiuretic hormone secretion. Diuresed significantly with Furosemide and is now auto-diuresing. K+ repletion ordered by CC Sodium improving nicely. Will follow in the AM Permanent Comment: Acute on chronic hyponatremia. Last Edited By: Km Bach on May 26, 2017 17:10 (3) Edema ICD Codes: R60.9 - Edema, unspecified Plan: 2-D echocardiogram. Edema may be related in part to right sided cardiac decompensation in view of his history of severe COPD. (4) COPD with acute exacerbation ICD Codes: J44.1 - Chronic obstructive pulmonary disease with (acute) exacerbation Status: Acute Plan: Management per critical care. (Dariela Scott) Plan The exam, history, and the medical decision-making described in the above note were completed with the assistance of the PA-C. I reviewed and agree with the findings presented. I attest that I had a [id number] encounter with the patient on the same day, and personally performed and documented my assessment and findings in the medical record. (Tala Bach MD) Problem Qualifiers (1) Edema: Qualified Codes: R60.0 - Localized edema Dariela Scott May 27, 2017 17:13 Tala Bach MD May 28, 2017 16:26
[2017-05-27] MEDS: VANCOMYCIN INJ 2,250 MG in SODIUM CHLORID 0.9% 500 ML INJ 500 ML IV SCH (18:14)
[2017-05-27] MEDS: PRAVASTATIN SOD 40 MG TAB PO SCH (19:38)
[2017-05-28] VITALS (20 sets, daily range): BP systolic 75–118; BP diastolic 39–71; PULSE 58–101; RESP 14–18; TEMP 97.1–98.3; O2SAT 95–99
[2017-05-28 01:39] LABS: PHOSPHORUS 3.1 MG/DL (2.5-4.9)
[2017-05-28] MEDS: methylPREDNISolone SOD SUCC 40 MG/1 ML VIAL IV PUSH SCH ×3 (01:50→18:07)
[2017-05-28] MEDS: PROPOFOL 1000 MG/100 ML INJ 100 ML IV PRN ×5 (01:50→22:00)
[2017-05-28] MEDS: RESP: IPRATROPIUM 0.5 MG/2.5 ML NEB NEB SCH ×6 (03:36→23:39)
[2017-05-28] MEDS: RESP: ALBUTEROL 1.25 MG/3 ML NEB (SCH) NEB ×6 (03:36→23:10)
[2017-05-28] MEDS: PIPERACIL-TAZO 4.5 GM PREMIX 100 ML IV SCH ×4 (03:42→21:59)
[2017-05-28] MEDS: CHLORHEXIDINE GLUCONATE 2 % 1 PACK (2 CLOTHS)(taper/protocol) TOPICAL SCH (03:43)
[2017-05-28] MEDS: HEPARIN-D5W 25,000 U/250 ML 250 ML IV PRN ×2 (03:44→22:03)
[2017-05-28 04:51] LABS: AUTOMATED NEUTROPHIL # 13.3 TH/MM3 (1.8-7.7); LYMPH % 1.3 % (9.0-44.0); LYMPHOCYTE # 0.2 TH/MM3 (1.0-4.8); MEAN CELL VOLUME 97.3 FL (80.0-100.0); MEAN CORPUSCULAR HEMOGLOBIN 32.3 PG (27.0-34.0); MEAN CORPUSCULAR HGB CONC 33.2 % (32.0-36.0); MEAN PLATELET VOLUME 9.8 FL (7.0-11.0); MONO % 5.5 % (0.0-8.0); MONOCYTE # 0.8 TH/MM3 (0-0.9); NEUT % 93.2 % (16.0-70.0); PLATELET COUNT 187 TH/MM3 (150-450); RED BLOOD COUNT 4.01 MIL/MM3 (4.50-5.90); RED CELL DISTRIBUTION WIDTH 14.3 % (11.6-17.2); WHITE BLOOD COUNT 14.3 TH/MM3 (4.0-11.0)
[2017-05-28] MEDS: INSULIN NovoLIN REGULAR SUPPLEMENTAL SCALE SQ SCH ×3 (05:01→18:00)
[2017-05-28] MEDS: ARTIFICIAL TEARS OPTH SOLN 15 ML BTL EACH EYE SCH ×3 (05:01→21:59)
[2017-05-28 05:13] LABS: BICARBONATE 37.8 MEQ/L (21.0-32.0); CALCIUM 8.3 MG/DL (8.5-10.1); CREATININE 1.27 MG/DL (0.60-1.30); MAGNESIUM 2.4 MG/DL (1.5-2.5); PHOSPHORUS 3.1 MG/DL (2.5-4.9)
[2017-05-28] MEDS: POTASSIUM CHLOR 40 MEQ PREMIX 100 ML IV PRN ×2 (05:52→09:21)
--- NOTE | 2017-05-28 07:02 | HHI.CCPN ---
Subjective Remarks/Hospital Course This is a 71-year-old male. Date of admission 05/24/2017. Date of consultation 05/26/2017. Past medical history includes elevated BMI, hypertension, history of atrial fibrillation, history of COPD with FEV1 35%, right bundle branch block, gastroesophageal reflux disease and according to with likely obstructive sleep apnea. For the past week, patient prior to admission to [place] is complaining of increasing lower extremity edema, dyspnea on exertion with rest affecting his activities of daily life. The night of 05/24 patient was placed on BiPAP is intermittently been on and off this for the past 48 hours. Today, patient was placed on a nonrebreather mask became acutely hypoxic and dyspneic. When I evaluated the patient, he stated "I cannot breathe". Patient was noted be hypotensive. Patient was emergently intubated and placed on vasopressors to maintain a mean arterial pressure of 65. 05/27 Patient is sedated with Diprivan, intubated on Levophed 1 carmen and Heparin drip. 05/28 No events overnight. Off Levophed, on Diprivan drip for sedation. Afebrile. On Heparin drip. Objective Vital Signs Date Time Temp Pulse Resp B/P (MAP) Pulse Ox O2 Delivery O2 Flow Rate FiO2 05/28/17 06:00 87 05/28/17 05:54 117/62 05/28/17 04:04 98 40 05/28/17 04:00 97.8 18 05/27/17 08:15 Ventilator 05/26/17 11:29 10.00 Intake and Output 05/28/17 05/28/17 05/29/17 08:00 16:00 00:00 Intake Total 1543 ml Output Total 1400 ml Balance 143 ml Result Diagram: 05/28/17 0358 05/28/17 0358 Other Results Laboratory Tests Test 05/27/17 08:24 05/27/17 12:01 05/28/17 00:00 05/28/17 03:58 Blood Gas Puncture Site ART LINE Blood Gas Patient Temperature 98.6 Blood Gas HCO3 35 mmol/L Blood Gas Base Excess 12.1 mmol/L Blood Gas Oxygen Saturation 95 % Arterial Blood pH 7.60 Arterial Blood Partial Pressure CO2 36 mmHg Arterial Blood Partial Pressure O2 80 mmHg Arterial Blood Oxygen Content 16.5 Vol % Arterial Blood Carboxyhemoglobin 0.8 % Arterial Blood Methemoglobin 1.3 % Blood Gas Hemoglobin 12.4 G/DL Oxygen Delivery Device VENTILATOR Blood Gas Ventilator Setting 600/20/+6/1.0 Blood Gas Inspired Oxygen 50 % Sodium Level 128 MEQ/L 132 MEQ/L 131 MEQ/L Phosphorus Level 3.1 MG/DL 3.1 MG/DL White Blood Count 14.3 TH/MM3 Red Blood Count 4.01 MIL/MM3 Hemoglobin 13.0 GM/DL Hematocrit 39.0 % Mean Corpuscular Volume 97.3 FL Mean Corpuscular Hemoglobin 32.3 PG Mean Corpuscular Hemoglobin Concent 33.2 % Red Cell Distribution Width 14.3 % Platelet Count 187 TH/MM3 Mean Platelet Volume 9.8 FL Neutrophils (%) (Auto) 93.2 % Lymphocytes (%) (Auto) 1.3 % Monocytes (%) (Auto) 5.5 % Eosinophils (%) (Auto) 0.0 % Basophils (%) (Auto) 0.0 % Neutrophils # (Auto) 13.3 TH/MM3 Lymphocytes # (Auto) 0.2 TH/MM3 Monocytes # (Auto) 0.8 TH/MM3 Eosinophils # (Auto) 0.0 TH/MM3 Basophils # (Auto) 0.0 TH/MM3 CBC Comment DIFF FINAL Differential Comment Activated Partial Thromboplast Time 63.0 SEC Blood Urea Nitrogen 34 MG/DL Creatinine 1.27 MG/DL Random Glucose 151 MG/DL Calcium Level 8.3 MG/DL Magnesium Level 2.4 MG/DL Potassium Level 3.2 MEQ/L Chloride Level 86 MEQ/L Carbon Dioxide Level 37.8 MEQ/L Anion Gap 7 MEQ/L Estimat Glomerular Filtration Rate 56 ML/MIN Imaging Last Impressions Chest X-Ray 05/26/17 1435 Signed Impressions: Service Date/Time: May 14:38 - CONCLUSION: Right- sided central line in good position without pneumothorax. Zia House Jr., MD Renal Ultrasound 05/26/17 0000 Signed Impressions: Service Date/Time: May 16:38 - CONCLUSION: Left kidney nonvisualized. Right kidney unremarkable. Tulio Thomas MD Lower Extremity Ultrasound 05/24/17 0000 Signed Impressions: Service Date/Time: Wednesday, May 24, 2017 18:29 - CONCLUSION: 1. Negative for deep venous thrombosis. Arnie Oswald MD Objective Remarks GENERAL: 71-year-old male currently orotracheally intubated SKIN: Warm and dry. No rash HEAD: Atraumatic. Normocephalic. EYES: Pupils equal and round about 3 mm bilaterally and reactive. No scleral icterus. No injection or drainage. ENT: No nasal bleeding or discharge. Mucous membranes pink and moist. NECK: Trachea midline. No JVD. CARDIOVASCULAR: IRR. S1, S2 no S4. Distant RESPIRATORY: Ms. breath sounds throughout. Distant. No wheezing GASTROINTESTINAL: Abdomen soft, non-tender, obese. Hypoactive bowel sounds appreciated MUSCULOSKELETAL: Extremities without any significant peripheral edema. No obvious deformities. NEUROLOGICAL: A arousable on the ventilator. Moves all 4 extremities spontaneously. Positive gag and corneal reflex. A/P Assessment and Plan Neuro/Psych: Currently on propofol drip for sedation. Daily sedation vacation. Goal of RA SS -2 Acetaminophen 650 mg by tube every 6 hours when necessary fever CV: History of cardiomyopathy Right bundle-branch block Atrial fibrillation rate controlled Hypertension/essential Dyslipidemia Elevated troponin Evaluated by Dr. Falk/cardiology Echo showed EF 50-55% Off Levophed, monitor HR and BP keep MAP>65mmHg Home medications clonidine 0.2 mg twice a day, carvedilol 25 mg twice a day, lisinopril/hydrochlorothiazide 20/25 one tablet daily On lovastatin 40 mg by mouth daily at home for dyslipidemia. Currently on Pravachol Resp: Acute hypercapnic respiratory failure with CO2 retention NC COPD/oxygen dependent Likely YUKI PRVC 16/600///40 Ventilator bundle, on Solumederol 40mg Q8 Albuterol aerosols 1.25 mg/ipratropium 0.5 mg nebs every 4 hours with ipratropium aerosols every 2 hours. Dyspnea per pulmonology - Dr. Garcia SBT daily as jenny Home medications tiotropium 18 mcg daily held. Home medication budesonide/ formoterol 160/4.5 held while intubated GI: Elevated BMI Change tube feeds- Glucerna 1.5 with goal rate 55ml/hr Lansoprazole for GI prophylaxis Docusate sodium/senna 1 tablet twice a day for bowel regimen : TARA- resolving Hyponatremia Monitor renal function, electrolytes replacement as needed. Will need K replacement today Renal function is improving with Cr: 1.27 from 1.67 , Renal is following- Dr. Bach Endo: Sliding scale insulin Accu-Cheks every 6 hours to maintain euglycemia Novulin R medium regimen TSH:0.53 Continue allopurinol 100 mg by mouth daily for elevated uric acid Heme: Macrocytic anemia Monitor CBC daily. Continue with heparin drip for A. fib ID: Currently on vancomycin, piperacillin/tazobactam and levofloxacin for possible infectious etiology Monitor for signs of infections ( Fever, WBC) sputum cx: normal resp jay, Legionella, pneumococcal antigens negative MSK: PT evaluate and treat Endo: SSI for glycemic control Cortisol level: 34.9 Access -Right IJ CVL placed 05/26 Prophylaxis - GI - lansoprazole - DVT - SCD/heparin drip Level 3 Bela Burns MD May 28, 2017 07:02
[2017-05-28] MEDS: RESP: BUDESONIDE 0.5 MG/2 ML NEB NEB SCH ×2 (07:20→20:00)
[2017-05-28] MEDS: CHLORHEXIDINE 0.12% (ORAL KIT) 15 ML CUP MT SCH ×2 (08:00→20:00)
[2017-05-28] MEDS: ALLOPURINOL 100 MG TAB PO SCH (09:23)
[2017-05-28] MEDS: SODIUM CHLORIDE 0.9% FLUSH 10 ML FLUSH IV FLUSH SCH ×3 (09:23→21:59)
[2017-05-28] MEDS: LANSOPRAZOLE SOLUTAB 30 MG TAB NG SCH (09:24)
--- NOTE | 2017-05-28 12:35 | HHI.NPPN ---
Subjective History of Present Illness This patient is a 71-year-old male apparently with a history of severe COPD, hypertension, CHF, atrial fibrillation presenting to this institution on May 24, 2016 with respiratory insufficiency, worsening edema. He also has a history of chronic hyponatremia predating this admission with serum sodium levels in the low 130s. On presentation to this institution serum sodium level was initially 125. Creatinine level I.12. According to cardiology the patient had a documented ejection fraction of 35% back in 2010. Echocardiogram this admission was pending at time of consultation. Patient subsequently developed increasing respiratory insufficiency requiring intubation and ventilatory support. Mention of hyponatremia also. Creatinine level deteriorating to 1.5 with a serum sodium level of 118 at time of presentation. Osmolality studies are pending. Patient currently receiving normal saline at 100 cc an hour. Interval History Remains intubated and on sedation. Opens eyes Off Levo No family present (Dariela Scott) Review of Systems General General Remarks Unable to obtain (Dariela Scott) Objective Data Data Vital Signs Date Time Temp Pulse Resp B/P (MAP) Pulse Ox O2 Delivery O2 Flow Rate FiO2 05/28/17 11:06 96 40 05/28/17 09:45 40 05/28/17 08:00 87 05/28/17 07:21 99 40 05/28/17 06:00 87 05/28/17 05:54 85 117/62 05/28/17 04:04 98 40 05/28/17 04:00 77 05/28/17 04:00 40 05/28/17 04:00 97.8 77 18 113/61 (78) 99 05/28/17 02:00 75 05/28/17 01:04 97 40 05/28/17 01:00 83 05/28/17 00:00 77 05/28/17 00:00 40 05/28/17 00:00 97.7 77 16 118/71 (87) 95 05/27/17 22:00 81 05/27/17 20:00 97.5 76 16 141/73 (95) 95 126/69 (88) 05/27/17 20:00 76 05/27/17 20:00 40 05/27/17 19:25 96 40 05/27/17 18:00 79 05/27/17 16:59 96 40 1/26/18 16:00 70 05/27/17 16:00 98.0 70 16 107/57 (74) 98 112/65 (81) 05/27/17 16:00 40 05/27/17 14:00 81 (Dariela Scott) -: 05/28/17 0358 05/28/17 0358 Imaging Last Impressions Chest X-Ray 05/26/17 1435 Signed Impressions: Service Date/Time: May 14:38 - CONCLUSION: Right- sided central line in good position without pneumothorax. Zia House Jr., MD Renal Ultrasound 05/26/17 0000 Signed Impressions: Service Date/Time: May 16:38 - CONCLUSION: Left kidney nonvisualized. Right kidney unremarkable. Tulio Thomas MD Lower Extremity Ultrasound 05/24/17 0000 Signed Impressions: Service Date/Time: Wednesday, May 24, 2017 18:29 - CONCLUSION: 1. Negative for deep venous thrombosis. Arnie Oswald MD Medication Review Current Medications Medications (Trade) Dose Ordered Sig/Pratima Route Start Time Stop Time Status Last Admin (NS Flush) 2 ml UNSCH PRN IV FLUSH 05/24/17 17:45 (NS Flush) 2 ml BID IV FLUSH 05/24/17 21:00 05/28/17 09:23 (Narcan Inj) 0.4 mg UNSCH PRN IV PUSH 05/24/17 17:45 (Zyloprim) 100 mg DAILY PO 05/25/17 09:00 05/28/17 09:23 (Pravachol) 40 mg HS PO 05/24/17 21:00 05/27/17 19:38 Heparin Sodium/ Dextrose 250 ml @ 18 mls/hr TITRATE PRN IV 05/24/17 18:30 05/28/17 03:44 (Atrovent Neb) 0.5 mg Q2HR NEB PRN NEB 05/24/17 18:45 05/25/17 02:10 Miscellaneous Information Patient in critical care unit? Ass... Q361D .XX 05/24/17 20:45 05/24/17 20:45 (Chlorhexidine 2% Cloth) 3 pack DAILY@04 TOPICAL 05/25/17 04:00 05/29/17 04:01 05/28/17 03:43 (Chlorhexidine 2% Cloth) 3 pack UNSCH PRN TOPICAL 05/24/17 20:45 05/29/17 20:34 Levofloxacin/ Dextrose 100 ml @ 100 mls/hr Q24H IV 05/25/17 14:00 05/27/17 14:32 (Peridex 0.12% Liq) 15 ml BID@08,20 MT 05/26/17 20:00 05/26/17 20:00 Propofol 100 ml @ 4.89 mls/hr TITRATE PRN IV 05/26/17 12:45 05/28/17 09:22 Fentanyl Citrate 250 ml @ 5 mls/hr TITRATE PRN IV 05/26/17 12:45 (Atrovent Neb) 0.5 mg Q4HR NEB NEB 05/26/17 16:00 05/28/17 11:05 (NS Flush) DAILY IV FLUSH 05/27/17 09:00 05/28/17 09:23 (NS Flush) UNSCH PRN IV FLUSH 05/26/17 14:45 (Albuterol Neb) 1.25 mg Q4HR NEB NEB 05/26/17 16:00 05/28/17 11:05 (Pulmicort Respule Neb) 0.5 mg Q12HR NEB NEB 05/26/17 20:00 05/28/17 07:20 (Tears Naturale Opth Soln) 1 drop Q8HR EACH EYE 05/26/17 22:00 05/28/17 05:01 (Prevacid Odt) 30 mg DAILY NG 05/27/17 09:00 05/28/17 09:24 Piperacillin Sod/ Tazobactam Sod 100 ml @ 200 mls/hr Q6H IV 05/26/17 16:00 05/28/17 09:23 Pharmacy Profile Note 0 ml @ 0 mls/hr UNSCH OTHER 05/26/17 15:15 (Brethine Inj) 1 mg UNSCH PRN SQ 05/26/17 15:30 (D50w (Vial) Inj) 50 ml UNSCH PRN IV PUSH 05/26/17 15:45 (Glucagon Inj) 1 mg UNSCH PRN OTHER 05/26/17 15:45 (NovoLIN R SUPPLEMENTAL SCALE) 1 Q6HR SQ 05/26/17 18:00 05/28/17 05:01 (Tylenol 650 Mg/ 20 ml Liq) 650 mg Q6H PRN PO 05/26/17 15:45 Vancomycin HCl 2250 mg/Sodium Chloride 522.5 ml @ 250 mls/hr Q24H IV 05/26/17 18:00 05/27/17 18:14 Potassium Chloride 100 ml @ 50 mls/hr Q2H PRN IV 05/27/17 08:00 05/28/17 09:21 Potassium Chloride 100 ml @ 50 mls/hr Q2H PRN IV 05/27/17 08:00 (K-Lyte Cl Eff) 50 meq UNSCH PRN PO 05/27/17 08:00 Potassium Chloride 100 ml @ 25 mls/hr UNSCH PRN IV 05/27/17 08:00 05/27/17 10:51 Potassium Chloride 100 ml @ 50 mls/hr Q2H PRN IV 05/27/17 08:00 Magnesium Sulfate 4 gm/Sodium Chloride 100 ml @ 50 mls/hr UNSCH PRN IV 05/27/17 08:00 (Mag-Ox) 800 mg UNSCH PRN PO 05/27/17 08:00 Magnesium Sulfate 2 gm/Sodium Chloride 100 ml @ 50 mls/hr UNSCH PRN IV 05/27/17 08:00 (K-Phos) 2,000 mg Q4H PRN PO 05/27/17 08:00 Sodium Phosphate 30 mmol/Sodium Chloride 250 ml @ 42 mls/hr UNSCH PRN IV 05/27/17 08:00 (K-Phos) 2,000 mg UNSCH PRN PO/TUBE 05/27/17 08:00 Potassium Phosphate 30 mmol/ Sodium Chloride 260 ml @ 42 mls/hr UNSCH PRN IV 05/27/17 08:00 Miscellaneous Information SPECIFIC LAB TO BE DRAWN:VANCOMYCIN TROUGH DATE TO... ONCE ONCE .XX 05/29/17 17:45 05/29/17 17:46 (SoluMEDROL INJ) 40 mg Q8H IV PUSH 05/27/17 18:00 05/28/17 09:23 (Dariela Scott) Physical Exam General Appearance: Comfortable (Dariela Scott) Neck Neck Exam: Trachea Midline (Dariela Scott) Pulmonary Resp Exam: Diminished Breath Sounds (Dariela Scott) Cardiology CV Exam: Irregular (Dariela Scott) Gastrointestinal/Abdomen GI Exam: Soft, Distended (Dariela Scott) Genitourinary Exam: Clear Urine (Dariela Scott) Integumentary Skin Exam: Clear, Warm (Dariela Scott) Extremeties Extremities Exam: Moderate Edema, Dependent Edema (generalized, but improved from 05/26) (Dariela Scott) Neurologic Neuro Exam: Sedated (Dariela Scott) Assessment/Plan Problem List: (1) Acute kidney insufficiency ICD Codes: N28.9 - Disorder of kidney and ureter, unspecified Status: Acute Plan: Most likely related to cardiac decompensation. Renal functions improving daily UOP brisk K+ being repleted by CC (2) Hyponatremia ICD Codes: E87.1 - Hypo-osmolality and hyponatremia Status: Acute Plan: Most likely multifactorial. Contributory factors include respiratory insufficiency and possible pneumonia. Also if the patient does have cardiac decompensation this also would be contributory secondary to a relative decrease in the intra-arterial volume with associated non-osmotic stimulation of antidiuretic hormone secretion. UOP is quite good and is not on any diuretics. Na levels have continued to improve Permanent Comment: Acute on chronic hyponatremia. Last Edited By: Km Bach on May 26, 2017 17:10 (3) Edema ICD Codes: R60.9 - Edema, unspecified Plan: 2-D echocardiogram 05/26/17 showed an estimated ejection fraction in the range of 50-55%. Mild concentric left ventricular hypertrophy. Normal left ventricular size. The left atrial size is [id number] dilated. There is moderate tricuspid regurgitation. The estimated pulmonary arterial pressure is 45.8 mmHg. Edema improving but still significant. Continue to monitor at the present as he is auto-diuresing. (4) COPD with acute exacerbation ICD Codes: J44.1 - Chronic obstructive pulmonary disease with (acute) exacerbation Status: Acute Plan: Management per critical care. (Dariela Scott) Plan Patient's renal indices have improved significantly. Fairly good urine output but still with significant edema. I will give 1 dose of furosemide today. Patient will be seen when necessary in view of improvement in renal indices. Please call if any questions. The exam, history, and the medical decision-making described in the above note were completed with the assistance of the PA-Callie. I reviewed and agree with the findings presented. I attest that I had a [id number] encounter with the patient on the same day, and personally performed and documented my assessment and findings in the medical record. (Tala Bach MD) Problem Qualifiers (1) Edema: Qualified Codes: R60.0 - Localized edema Dariela Scott May 28, 2017 12:35 Tala Bach MD May 28, 2017 17:29
--- NOTE | 2017-05-28 12:41 | PD.CARD.PN ---
Subjective Subjective Remarks No events overnight Off vasopressors Intubated, CPAP trial, waking up but still lethargic Objective Medications Current Medications Medications (Trade) Dose Ordered Sig/Pratima Route Start Time Stop Time Status Last Admin (NS Flush) 2 ml UNSCH PRN IV FLUSH 05/24/17 17:45 (NS Flush) 2 ml BID IV FLUSH 05/24/17 21:00 05/28/17 09:23 (Narcan Inj) 0.4 mg UNSCH PRN IV PUSH 05/24/17 17:45 (Zyloprim) 100 mg DAILY PO 05/25/17 09:00 05/28/17 09:23 (Pravachol) 40 mg HS PO 05/24/17 21:00 05/27/17 19:38 Heparin Sodium/ Dextrose 250 ml @ 18 mls/hr TITRATE PRN IV 05/24/17 18:30 05/28/17 03:44 (Atrovent Neb) 0.5 mg Q2HR NEB PRN NEB 05/24/17 18:45 05/25/17 02:10 Miscellaneous Information Patient in critical care unit? Ass... Q361D .XX 05/24/17 20:45 05/24/17 20:45 (Chlorhexidine 2% Cloth) 3 pack DAILY@04 TOPICAL 05/25/17 04:00 05/29/17 04:01 05/28/17 03:43 (Chlorhexidine 2% Cloth) 3 pack UNSCH PRN TOPICAL 05/24/17 20:45 05/29/17 20:34 Levofloxacin/ Dextrose 100 ml @ 100 mls/hr Q24H IV 05/25/17 14:00 05/27/17 14:32 (Peridex 0.12% Liq) 15 ml BID@08,20 MT 05/26/17 20:00 05/26/17 20:00 Propofol 100 ml @ 4.89 mls/hr TITRATE PRN IV 05/26/17 12:45 05/28/17 09:22 Fentanyl Citrate 250 ml @ 5 mls/hr TITRATE PRN IV 05/26/17 12:45 (Atrovent Neb) 0.5 mg Q4HR NEB NEB 05/26/17 16:00 05/28/17 11:05 (NS Flush) DAILY IV FLUSH 05/27/17 09:00 05/28/17 09:23 (NS Flush) UNSCH PRN IV FLUSH 05/26/17 14:45 (Albuterol Neb) 1.25 mg Q4HR NEB NEB 05/26/17 16:00 05/28/17 11:05 (Pulmicort Respule Neb) 0.5 mg Q12HR NEB NEB 05/26/17 20:00 05/28/17 07:20 (Tears Naturale Opth Soln) 1 drop Q8HR EACH EYE 05/26/17 22:00 05/28/17 05:01 (Prevacid Odt) 30 mg DAILY NG 05/27/17 09:00 05/28/17 09:24 Piperacillin Sod/ Tazobactam Sod 100 ml @ 200 mls/hr Q6H IV 05/26/17 16:00 05/28/17 09:23 Pharmacy Profile Note 0 ml @ 0 mls/hr UNSCH OTHER 05/26/17 15:15 (Brethine Inj) 1 mg UNSCH PRN SQ 05/26/17 15:30 (D50w (Vial) Inj) 50 ml UNSCH PRN IV PUSH 05/26/17 15:45 (Glucagon Inj) 1 mg UNSCH PRN OTHER 05/26/17 15:45 (NovoLIN R SUPPLEMENTAL SCALE) 1 Q6HR SQ 05/26/17 18:00 05/28/17 05:01 (Tylenol 650 Mg/ 20 ml Liq) 650 mg Q6H PRN PO 05/26/17 15:45 Vancomycin HCl 2250 mg/Sodium Chloride 522.5 ml @ 250 mls/hr Q24H IV 05/26/17 18:00 05/27/17 18:14 Potassium Chloride 100 ml @ 50 mls/hr Q2H PRN IV 05/27/17 08:00 05/28/17 09:21 Potassium Chloride 100 ml @ 50 mls/hr Q2H PRN IV 05/27/17 08:00 (K-Lyte Cl Eff) 50 meq UNSCH PRN PO 05/27/17 08:00 Potassium Chloride 100 ml @ 25 mls/hr UNSCH PRN IV 05/27/17 08:00 05/27/17 10:51 Potassium Chloride 100 ml @ 50 mls/hr Q2H PRN IV 05/27/17 08:00 Magnesium Sulfate 4 gm/Sodium Chloride 100 ml @ 50 mls/hr UNSCH PRN IV 05/27/17 08:00 (Mag-Ox) 800 mg UNSCH PRN PO 05/27/17 08:00 Magnesium Sulfate 2 gm/Sodium Chloride 100 ml @ 50 mls/hr UNSCH PRN IV 05/27/17 08:00 (K-Phos) 2,000 mg Q4H PRN PO 05/27/17 08:00 Sodium Phosphate 30 mmol/Sodium Chloride 250 ml @ 42 mls/hr UNSCH PRN IV 05/27/17 08:00 (K-Phos) 2,000 mg UNSCH PRN PO/TUBE 05/27/17 08:00 Potassium Phosphate 30 mmol/ Sodium Chloride 260 ml @ 42 mls/hr UNSCH PRN IV 05/27/17 08:00 Miscellaneous Information SPECIFIC LAB TO BE DRAWN:VANCOMYCIN TROUGH DATE TO... ONCE ONCE .XX 05/29/17 17:45 05/29/17 17:46 (SoluMEDROL INJ) 40 mg Q8H IV PUSH 05/27/17 18:00 05/28/17 09:23 Vital Signs / I&O Vital Signs Date Time Temp Pulse Resp B/P (MAP) Pulse Ox O2 Delivery O2 Flow Rate FiO2 05/28/17 12:00 87 05/28/17 11:06 96 40 05/28/17 10:00 98 05/28/17 09:45 40 05/28/17 08:00 97.3 79 18 75/39 (51) 98 102/59 (73) 05/28/17 08:00 40 05/28/17 08:00 87 05/28/17 07:21 99 40 05/28/17 06:00 87 05/28/17 05:54 85 117/62 05/28/17 04:04 98 40 05/28/17 04:00 77 05/28/17 04:00 40 05/28/17 04:00 97.8 77 18 113/61 (78) 99 05/28/17 02:00 75 05/28/17 01:04 97 40 05/28/17 01:00 83 05/28/17 00:00 77 05/28/17 00:00 40 05/28/17 00:00 97.7 77 16 118/71 (87) 95 05/27/17 22:00 81 05/27/17 20:00 97.5 76 16 141/73 (95) 95 126/69 (88) 05/27/17 20:00 76 05/27/17 20:00 40 05/27/17 19:25 96 40 05/27/17 18:00 79 05/27/17 16:59 96 40 05/27/17 16:00 70 05/27/17 16:00 98.0 70 16 107/57 (74) 98 112/65 (81) 05/27/17 16:00 40 05/27/17 14:00 81 I/O 05/27/17 05/27/17 05/27/17 05/28/17 05/28/17 05/28/17 07:00 15:00 23:00 07:00 15:00 23:00 Intake Total 1136 ml 836 ml 1218.5 ml 1543 ml Output Total 5800 ml 2250 ml 1400 ml Balance -4664 ml 836 ml -1031.5 ml 143 ml IV Total 930 ml 836 ml 818.5 ml 948 ml Tube Feeding 206 ml 400 ml 595 ml Output Urine Total 5800 ml 2250 ml 1400 ml # Bowel Movements 0 Physical Exam GENERAL: Mild lethargy SKIN: Warm and dry. HEAD: Atraumatic. Normocephalic. EYES: Pupils equal and round. No scleral icterus. No injection or drainage. ENT: No nasal bleeding or discharge. Mucous membranes pink and moist. NECK: Trachea midline. No JVD. CARDIOVASCULAR: Regular rate and rhythm. RESPIRATORY: No accessory muscle use. Decreased breath sounds bilaterally GASTROINTESTINAL: Abdomen soft, non-tender, nondistended. Hepatic and splenic margins not palpable. MUSCULOSKELETAL: Mild edema NEUROLOGICAL: Intubated Laboratory Laboratory Tests Test 05/28/17 00:00 05/28/17 03:58 05/28/17 08:21 Sodium Level 132 MEQ/L 131 MEQ/L Phosphorus Level 3.1 MG/DL 3.1 MG/DL White Blood Count 14.3 TH/MM3 Red Blood Count 4.01 MIL/MM3 Hemoglobin 13.0 GM/DL Hematocrit 39.0 % Mean Corpuscular Volume 97.3 FL Mean Corpuscular Hemoglobin 32.3 PG Mean Corpuscular Hemoglobin Concent 33.2 % Red Cell Distribution Width 14.3 % Platelet Count 187 TH/MM3 Mean Platelet Volume 9.8 FL Neutrophils (%) (Auto) 93.2 % Lymphocytes (%) (Auto) 1.3 % Monocytes (%) (Auto) 5.5 % Eosinophils (%) (Auto) 0.0 % Basophils (%) (Auto) 0.0 % Neutrophils # (Auto) 13.3 TH/MM3 Lymphocytes # (Auto) 0.2 TH/MM3 Monocytes # (Auto) 0.8 TH/MM3 Eosinophils # (Auto) 0.0 TH/MM3 Basophils # (Auto) 0.0 TH/MM3 CBC Comment DIFF FINAL Differential Comment Activated Partial Thromboplast Time 63.0 SEC Blood Urea Nitrogen 34 MG/DL Creatinine 1.27 MG/DL Random Glucose 151 MG/DL Calcium Level 8.3 MG/DL Magnesium Level 2.4 MG/DL Potassium Level 3.2 MEQ/L Chloride Level 86 MEQ/L Carbon Dioxide Level 37.8 MEQ/L Anion Gap 7 MEQ/L Estimat Glomerular Filtration Rate 56 ML/MIN Blood Gas Puncture Site TINA Blood Gas Patient Temperature 98.6 Blood Gas HCO3 36 mmol/L Blood Gas Base Excess 11.2 mmol/L Blood Gas Oxygen Saturation 97 % Arterial Blood pH 7.45 Arterial Blood Partial Pressure CO2 52 mmHg Arterial Blood Partial Pressure O2 134 mmHg Arterial Blood Oxygen Content 17.4 Vol % Arterial Blood Carboxyhemoglobin 0.5 % Arterial Blood Methemoglobin 1.3 % Blood Gas Hemoglobin 12.6 G/DL Oxygen Delivery Device VENTILATOR Blood Gas Ventilator Setting SEE COMMENTS Blood Gas Inspired Oxygen 40 % Assessment and Plan Problem List: (1) Atrial fibrillation ICD Codes: I48.91 - Unspecified atrial fibrillation (2) hypertension Status: Acute (3) COPD with acute exacerbation ICD Codes: J44.1 - Chronic obstructive pulmonary disease with (acute) exacerbation Status: Acute (4) CHF (congestive heart failure) ICD Codes: I50.9 - Heart failure, unspecified Status: Acute (5) Hyponatremia ICD Codes: E87.1 - Hypo-osmolality and hyponatremia Status: Acute Permanent Comment: Acute on chronic hyponatremia. Last Edited By: Km Bach on May 26, 2017 17:10 Assessment and Plan 1) Respiratory failure with CO2 retention Vent per critical care team 2) CHF Most likely small component of multi-factorial respiratory failure 3) Afib Most likely change BB to Cardizem once stabilized Problem Qualifiers (1) CHF (congestive heart failure): Qualified Codes: I50.9 - Heart failure, unspecified Chema Hogue DO May 28, 2017 12:41
[2017-05-28] MEDS: LEVOFLOXACIN 500 MG PREMIX INJ 100 ML IV SCH (16:05)
[2017-05-28] MEDS ORDERED: FUROSEMIDE 20 MG/2 ML VIAL IV PUSH ONE (17:30)
[2017-05-28] MEDS: VANCOMYCIN INJ 2,250 MG in SODIUM CHLORID 0.9% 500 ML INJ 500 ML IV SCH (18:06)
[2017-05-28] MEDS: PRAVASTATIN SOD 40 MG TAB PO SCH (21:59)
[2017-05-29] VITALS (18 sets, daily range): BP systolic 101–147; BP diastolic 53–78; PULSE 60–102; RESP 14–21; TEMP 97.9–99.3; O2SAT 95–98
[2017-05-29] MEDS: methylPREDNISolone SOD SUCC 40 MG/1 ML VIAL IV PUSH SCH ×3 (02:13→23:08)
[2017-05-29] MEDS: PIPERACIL-TAZO 4.5 GM PREMIX 100 ML IV SCH ×4 (02:14→23:08)
[2017-05-29] MEDS: PROPOFOL 1000 MG/100 ML INJ 100 ML IV PRN ×5 (02:19→23:09)
[2017-05-29] MEDS: RESP: IPRATROPIUM 0.5 MG/2.5 ML NEB NEB SCH ×6 (03:01→23:47)
[2017-05-29] MEDS: RESP: ALBUTEROL 1.25 MG/3 ML NEB (SCH) NEB ×6 (03:18→23:46)
[2017-05-29] MEDS: CHLORHEXIDINE GLUCONATE 2 % 1 PACK (2 CLOTHS)(taper/protocol) TOPICAL SCH (04:00)
--- NOTE | 2017-05-29 04:45 | RADRPT ---
EXAM DATE/TIME: 05/29/2017 03:31 [facility] COMPARISON: CHEST SINGLE AP, May 26, 2017, 14:38. INDICATIONS : Shortness of breath, possible pulmonary disease. MEDICAL HISTORY : Chronic obstructive pulmonary disease. Hypertension SURGICAL HISTORY : None. ENCOUNTER: Subsequent ACUITY: 3 days PAIN SCORE: Non-responsive. LOCATION: Bilateral chest FINDINGS: ET tube tip is 1.5 cm from the gurvinder in a low position. The NG tube is directed into the stomach. A right internal jugular central lines were placed. The heart size is enlarged. There is hazy density a t the bases bilaterally with silhouetting the hemidiaphragms. CONCLUSION: 1. Cardiomegaly. 2. Hazy density at the bases likely related to a combination of effusions, atelectasis and/or consoli dation. Harsha Arauz MD on May 29, 2017 at 4:42 Board Certified Radiologist. This report was verified electronically.
[2017-05-29] MEDS: ARTIFICIAL TEARS OPTH SOLN 15 ML BTL EACH EYE SCH ×2 (05:36→13:36)
[2017-05-29] MEDS: INSULIN NovoLIN REGULAR SUPPLEMENTAL SCALE SQ SCH ×5 (05:38→23:12)
[2017-05-29 06:09] LABS: AUTOMATED NEUTROPHIL # 13.1 TH/MM3 (1.8-7.7); BASOPHIL % 0.1 % (0.0-2.0); HEMATOCRIT 38.3 % (39.0-51.0); HEMOGLOBIN 12.3 GM/DL (13.0-17.0); LYMPH % 1.3 % (9.0-44.0); LYMPHOCYTE # 0.2 TH/MM3 (1.0-4.8); MEAN CELL VOLUME 98.8 FL (80.0-100.0); MEAN CORPUSCULAR HEMOGLOBIN 31.8 PG (27.0-34.0); MEAN CORPUSCULAR HGB CONC 32.2 % (32.0-36.0); MONO % 6.3 % (0.0-8.0); MONOCYTE # 0.9 TH/MM3 (0-0.9); NEUT % 92.3 % (16.0-70.0); PLATELET COUNT 181 TH/MM3 (150-450); RED BLOOD COUNT 3.87 MIL/MM3 (4.50-5.90); RED CELL DISTRIBUTION WIDTH 14.6 % (11.6-17.2); WHITE BLOOD COUNT 14.2 TH/MM3 (4.0-11.0)
[2017-05-29 06:18] LABS: BICARBONATE 38.4 MEQ/L (21.0-32.0); CALCIUM 8.3 MG/DL (8.5-10.1); CREATININE 1.31 MG/DL (0.60-1.30)
[2017-05-29] MEDS: RESP: BUDESONIDE 0.5 MG/2 ML NEB NEB SCH ×2 (07:24→19:33)
[2017-05-29] MEDS: CHLORHEXIDINE 0.12% (ORAL KIT) 15 ML CUP MT SCH ×2 (08:00→20:00)
[2017-05-29] MEDS: ALLOPURINOL 100 MG TAB PO SCH (09:13)
[2017-05-29] MEDS: LANSOPRAZOLE SOLUTAB 30 MG TAB NG SCH (09:14)
[2017-05-29] MEDS: SODIUM CHLORIDE 0.9% FLUSH 10 ML FLUSH IV FLUSH SCH ×3 (09:14→23:10)
--- NOTE | 2017-05-29 10:22 | PD.CARD.PN ---
Subjective Subjective Remarks No events overnight CPAP trial this morning, doing well, wakes up when spoken to Objective Medications Current Medications Medications (Trade) Dose Ordered Sig/Pratima Route Start Time Stop Time Status Last Admin (NS Flush) 2 ml UNSCH PRN IV FLUSH 05/24/17 17:45 (NS Flush) 2 ml BID IV FLUSH 05/24/17 21:00 05/29/17 09:14 (Narcan Inj) 0.4 mg UNSCH PRN IV PUSH 05/24/17 17:45 (Zyloprim) 100 mg DAILY PO 05/25/17 09:00 05/29/17 09:13 (Pravachol) 40 mg HS PO 05/24/17 21:00 05/28/17 21:59 Heparin Sodium/ Dextrose 250 ml @ 18 mls/hr TITRATE PRN IV 05/24/17 18:30 05/28/17 22:03 (Atrovent Neb) 0.5 mg Q2HR NEB PRN NEB 05/24/17 18:45 05/25/17 02:10 Miscellaneous Information Patient in critical care unit? Ass... [id number] .XX 05/24/17 20:45 05/24/17 20:45 (Chlorhexidine 2% Cloth) 3 pack UNSCH PRN TOPICAL 05/24/17 20:45 05/29/17 20:34 Levofloxacin/ Dextrose 100 ml @ 100 mls/hr Q24H IV 05/25/17 14:00 05/28/17 16:05 (Peridex 0.12% Liq) 15 ml BID@08,20 MT 05/26/17 20:00 05/29/17 08:00 Propofol 100 ml @ 4.89 mls/hr TITRATE PRN IV 05/26/17 12:45 05/29/17 09:13 Fentanyl Citrate 250 ml @ 5 mls/hr TITRATE PRN IV 05/26/17 12:45 (Atrovent Neb) 0.5 mg Q4HR NEB NEB 05/26/17 16:00 05/29/17 07:24 (NS Flush) DAILY IV FLUSH 05/27/17 09:00 05/29/17 09:14 (NS Flush) UNSCH PRN IV FLUSH 05/26/17 14:45 (Albuterol Neb) 1.25 mg Q4HR NEB NEB 05/26/17 16:00 05/29/17 03:18 (Pulmicort Respule Neb) 0.5 mg Q12HR NEB NEB 05/26/17 20:00 05/29/17 07:24 (Tears Naturale Opth Soln) 1 drop Q8HR EACH EYE 05/26/17 22:00 05/29/17 05:36 (Prevacid Odt) 30 mg DAILY NG 05/27/17 09:00 05/29/17 09:14 Piperacillin Sod/ Tazobactam Sod 100 ml @ 200 mls/hr Q6H IV 05/26/17 16:00 05/29/17 09:16 Pharmacy Profile Note 0 ml @ 0 mls/hr UNSCH OTHER 05/26/17 15:15 (Brethine Inj) 1 mg UNSCH PRN SQ 05/26/17 15:30 (D50w (Vial) Inj) 50 ml UNSCH PRN IV PUSH 05/26/17 15:45 (Glucagon Inj) 1 mg UNSCH PRN OTHER 05/26/17 15:45 (NovoLIN R SUPPLEMENTAL SCALE) 1 Q6HR SQ 05/26/17 18:00 05/29/17 05:38 (Tylenol 650 Mg/ 20 ml Liq) 650 mg Q6H PRN PO 05/26/17 15:45 Vancomycin HCl 2250 mg/Sodium Chloride 522.5 ml @ 250 mls/hr Q24H IV 05/26/17 18:00 05/28/17 18:06 Potassium Chloride 100 ml @ 50 mls/hr Q2H PRN IV 05/27/17 08:00 05/28/17 09:21 Potassium Chloride 100 ml @ 50 mls/hr Q2H PRN IV 05/27/17 08:00 (K-Lyte Cl Eff) 50 meq UNSCH PRN PO 05/27/17 08:00 Potassium Chloride 100 ml @ 25 mls/hr UNSCH PRN IV 05/27/17 08:00 05/27/17 10:51 Potassium Chloride 100 ml @ 50 mls/hr Q2H PRN IV 05/27/17 08:00 Magnesium Sulfate 4 gm/Sodium Chloride 100 ml @ 50 mls/hr UNSCH PRN IV 05/27/17 08:00 (Mag-Ox) 800 mg UNSCH PRN PO 05/27/17 08:00 Magnesium Sulfate 2 gm/Sodium Chloride 100 ml @ 50 mls/hr UNSCH PRN IV 05/27/17 08:00 (K-Phos) 2,000 mg Q4H PRN PO 05/27/17 08:00 Sodium Phosphate 30 mmol/Sodium Chloride 250 ml @ 42 mls/hr UNSCH PRN IV 05/27/17 08:00 (K-Phos) 2,000 mg UNSCH PRN PO/TUBE 05/27/17 08:00 Potassium Phosphate 30 mmol/ Sodium Chloride 260 ml @ 42 mls/hr UNSCH PRN IV 05/27/17 08:00 Miscellaneous Information SPECIFIC LAB TO BE DRAWN:VANCOMYCIN TROUGH DATE TO... ONCE ONCE .XX 05/29/17 17:45 05/29/17 17:46 (SoluMEDROL INJ) 40 mg Q8H IV PUSH 05/27/17 18:00 05/29/17 09:21 Vital Signs / I&O Vital Signs Date Time Temp Pulse Resp B/P (MAP) Pulse Ox O2 Delivery O2 Flow Rate FiO2 05/29/17 07:25 40 05/29/17 07:25 96 40 05/29/17 06:00 62 05/29/17 04:00 99.3 67 16 108/57 (74) 96 111/55 (73) 05/29/17 04:00 67 05/29/17 04:00 40 05/29/17 03:21 97 40 05/29/17 02:00 63 05/29/17 00:00 99.3 75 14 101/53 (69) 95 119/64 (82) 05/29/17 00:00 40 05/29/17 00:00 75 05/28/17 23:39 96 40 05/28/17 22:00 70 05/28/17 20:00 98.3 58 16 82/47 (59) 95 101/55 (70) 05/28/17 20:00 58 05/28/17 20:00 40 05/28/17 19:53 96 40 05/28/17 18:00 64 05/28/17 16:00 97.1 75 16 89/53 (65) 97 108/61 (77) 05/28/17 16:00 75 05/28/17 16:00 40 05/28/17 15:03 97 40 05/28/17 14:00 101 05/28/17 12:00 87 05/28/17 12:00 98.0 87 14 98/45 (62) 97 116/67 (83) 05/28/17 12:00 40 05/28/17 11:06 96 40 I/O 05/28/17 05/28/17 05/28/17 05/29/17 05/29/17 05/29/17 07:00 15:00 23:00 07:00 15:00 23:00 Intake Total 1543 ml 979 ml 939 ml Output Total 1400 ml 1400 ml 1350 ml Balance 143 ml -421 ml -411 ml IV Total 948 ml 350 ml 350 ml Tube Feeding 595 ml 629 ml 589 ml Output Urine Total 1400 ml 1400 ml 1350 ml # Bowel Movements 1 0 Physical Exam GENERAL: Mild lethargy SKIN: Warm and dry. HEAD: Atraumatic. Normocephalic. EYES: Pupils equal and round. No scleral icterus. No injection or drainage. ENT: No nasal bleeding or discharge. Mucous membranes pink and moist. NECK: Trachea midline. No JVD. CARDIOVASCULAR: Regular rate and rhythm. RESPIRATORY: No accessory muscle use. Decreased breath sounds bilaterally GASTROINTESTINAL: Abdomen soft, non-tender, nondistended. Hepatic and splenic margins not palpable. MUSCULOSKELETAL: Mild edema NEUROLOGICAL: Intubated Laboratory Laboratory Tests Test 05/28/17 15:35 05/29/17 04:15 Potassium Level 4.3 MEQ/L 4.1 MEQ/L White Blood Count 14.2 TH/MM3 Red Blood Count 3.87 MIL/MM3 Hemoglobin 12.3 GM/DL Hematocrit 38.3 % Mean Corpuscular Volume 98.8 FL Mean Corpuscular Hemoglobin 31.8 PG Mean Corpuscular Hemoglobin Concent 32.2 % Red Cell Distribution Width 14.6 % Platelet Count 181 TH/MM3 Mean Platelet Volume 10.0 FL Neutrophils (%) (Auto) 92.3 % Lymphocytes (%) (Auto) 1.3 % Monocytes (%) (Auto) 6.3 % Eosinophils (%) (Auto) 0.0 % Basophils (%) (Auto) 0.1 % Neutrophils # (Auto) 13.1 TH/MM3 Lymphocytes # (Auto) 0.2 TH/MM3 Monocytes # (Auto) 0.9 TH/MM3 Eosinophils # (Auto) 0.0 TH/MM3 Basophils # (Auto) 0.0 TH/MM3 CBC Comment DIFF FINAL Differential Comment Activated Partial Thromboplast Time 46.7 SEC Blood Urea Nitrogen 40 MG/DL Creatinine 1.31 MG/DL Random Glucose 148 MG/DL Calcium Level 8.3 MG/DL Sodium Level 136 MEQ/L Chloride Level 92 MEQ/L Carbon Dioxide Level 38.4 MEQ/L Anion Gap 6 MEQ/L Estimat Glomerular Filtration Rate 54 ML/MIN Imaging Last 24 hours Impressions Chest X-Ray 05/29/17 0000 Signed Impressions: Service Date/Time: Monday, May 29, 2017 03:31 - CONCLUSION: 1. Cardiomegaly. 2. Hazy density at the bases likely related to a combination of effusions, atelectasis and/or consolidation. Harsha Arauz MD Assessment and Plan Problem List: (1) Atrial fibrillation ICD Codes: I48.91 - Unspecified atrial fibrillation (2) hypertension Status: Acute (3) COPD with acute exacerbation ICD Codes: J44.1 - Chronic obstructive pulmonary disease with (acute) exacerbation Status: Acute (4) CHF (congestive heart failure) ICD Codes: I50.9 - Heart failure, unspecified Status: Acute (5) Hyponatremia ICD Codes: E87.1 - Hypo-osmolality and hyponatremia Status: Acute Permanent Comment: Acute on chronic hyponatremia. Last Edited By: Km Bach on May 26, 2017 17:10 Assessment and Plan 1) Respiratory failure with CO2 retention Vent per critical care team 2) CHF Most likely small component of multi-factorial respiratory failure EF 50-55% 3) Afib Most likely change BB to Cardizem once stabilized CHADS-VASc = 3, most likely place on anti-coagulation before discharge, will need to discuss with patient further after extubation Problem Qualifiers (1) CHF (congestive heart failure): Qualified Codes: I50.9 - Heart failure, unspecified Chema Hogue DO May 29, 2017 10:22
[2017-05-29] MEDS: LEVOFLOXACIN 500 MG PREMIX INJ 100 ML IV SCH (13:36)
--- NOTE | 2017-05-29 16:38 | HHI.CCPN ---
Subjective Remarks/Hospital Course This is a 71-year-old male. Date of admission 05/24/2017. Date of consultation 05/26/2017. Past medical history includes elevated BMI, hypertension, history of atrial fibrillation, history of COPD with FEV1 35%, right bundle branch block, gastroesophageal reflux disease and according to with likely obstructive sleep apnea. For the past week, patient prior to admission to [place] is complaining of increasing lower extremity edema, dyspnea on exertion with rest affecting his activities of daily life. The night of 05/24 patient was placed on BiPAP is intermittently been on and off this for the past 48 hours. Today, patient was placed on a nonrebreather mask became acutely hypoxic and dyspneic. When I evaluated the patient, he stated "I cannot breathe". Patient was noted be hypotensive. Patient was emergently intubated and placed on vasopressors to maintain a mean arterial pressure of 65. 05/27 Patient is sedated with Diprivan, intubated on Levophed 1 carmen and Heparin drip. 05/28 No events overnight. Off Levophed, on Diprivan drip for sedation. Afebrile. On Heparin drip. Subjective 05/29: Afebrile. Off norepinephrine drip. On propofol drip at 20 mics grams per kilogram per minute. Remains on heparin drip at 1400 units an hour. Follows commands on sedation vacation. Objective Vital Signs Date Time Temp Pulse Resp B/P (MAP) Pulse Ox O2 Delivery O2 Flow Rate FiO2 05/29/17 14:55 97 40 05/29/17 12:00 97.9 102 21 139/73 (95) 141/74 (96) 05/27/17 08:15 Ventilator 05/26/17 11:29 10.00 Intake and Output 05/29/17 05/29/17 05/30/17 08:00 16:00 00:00 Intake Total 939 ml Output Total 1350 ml Balance -411 ml Result Diagram: 05/29/17 0415 05/29/17 0415 Other Results Microbiology Date/Time Source Procedure Growth Status 05/26/17 15:41 Blood Peripheral Aerobic Blood Culture - Preliminary NO GROWTH IN 3 DAYS Resulted 05/26/17 15:41 Blood Peripheral Anaerobic Blood Culture - Preliminary NO GROWTH IN 3 DAYS Resulted 05/26/17 15:45 Sputum Endotracheal Gram Stain - Final Complete 05/26/17 15:45 Sputum Endotracheal Sputum Culture - Final HEAVY GROWTH NORMAL RESPIRATORY JAY Complete 05/26/17 21:30 Urine Catheterized Urine Legionella Antigen - Final PRESUMPTIVE NEGATIVE FOR LEGIONELLA P... Complete 05/26/17 21:30 Urine Catheterized Urine Streptococcus pneumoniae Antigen (M - Final PRESUMPTIVE NEGATIVE FOR STREPTOCOCCU... Complete Imaging Last Impressions Chest X-Ray 05/29/17 0000 Signed Impressions: Service Date/Time: Monday, May 29, 2017 03:31 - CONCLUSION: 1. Cardiomegaly. 2. Hazy density at the bases likely related to a combination of effusions, atelectasis and/or consolidation. Harsha Arauz MD Renal Ultrasound 05/26/17 0000 Signed Impressions: Service Date/Time: May 16:38 - CONCLUSION: Left kidney nonvisualized. Right kidney unremarkable. Tulio Thomas MD Lower Extremity Ultrasound 05/24/17 0000 Signed Impressions: Service Date/Time: Wednesday, May 24, 2017 18:29 - CONCLUSION: 1. Negative for deep venous thrombosis. Arnie Oswald MD Objective Remarks GENERAL: 71-year-old male currently orotracheally intubated SKIN: Warm and dry. No rash HEAD: Atraumatic. Normocephalic. EYES: Pupils equal and round about 3 mm bilaterally and reactive. No scleral icterus. No injection or drainage. ENT: No nasal bleeding or discharge. Mucous membranes pink and moist. NECK: Trachea midline. No JVD. CARDIOVASCULAR: IRR. S1, S2 no S4. Distant RESPIRATORY: Ms. breath sounds throughout. Distant. No wheezing GASTROINTESTINAL: Abdomen soft, non-tender, obese. Hypoactive bowel sounds appreciated MUSCULOSKELETAL: Extremities without any significant peripheral edema. No obvious deformities. NEUROLOGICAL: A arousable on the ventilator. Moves all 4 extremities spontaneously. Positive gag and corneal reflex. Urinary Catheter: Yes Assessment to: Continue Vance insert reason: Prolonged Immobilization Vascular Central Line Catheter: Yes Assessment to: Continue Date of Insertion: May 26, 2017 Line: Central Venous Catheter Side: Right Location: Internal, Jugular A/P Assessment and Plan Neuro/Psych: Currently on propofol drip at 20 mics grams per kilogram per minute for sedation. Daily sedation vacation. Goal of RA SS -2 Acetaminophen 650 mg by tube every 6 hours when necessary fever CV: History of cardiomyopathy Right bundle-branch block Atrial fibrillation rate controlled Hypertension/essential Dyslipidemia Elevated troponin Evaluated by Dr. Falk/cardiology Echo showed EF 50-55% Off Levophed, monitor HR and BP keep MAP>65mmHg Home medications clonidine 0.2 mg twice a day, carvedilol 25 mg twice a day, lisinopril/hydrochlorothiazide 20/25 one tablet daily On lovastatin 40 mg by mouth daily at home for dyslipidemia. Currently on Pravachol 40 mg daily Resp: Acute hypercapnic respiratory failure with CO2 retention NC COPD/oxygen dependent Likely YUKI PRVC 16/600/05/07/39 Ventilator bundle, on Solumederol 40mg Q8 Albuterol aerosols 1.25 mg/ipratropium 0.5 mg nebs every 4 hours with ipratropium aerosols every 2 hours. Dyspnea per pulmonology - Dr. Garcia SBT daily as jenny Home medications tiotropium 18 mcg daily held. Home medication budesonide/ formoterol 160/4.5 held while intubated GI: Elevated BMI Change tube feeds- Glucerna 1.5 with goal rate 55ml/hr Lansoprazole 3 mg daily for GI prophylaxis Docusate sodium 100 mg twice a day, senna 8.8 mg twice a day 1 tablet twice a day for bowel regimen : TARA- resolving Monitor renal function, electrolytes replacement as needed. Will need K replacement today Renal function is stabilized Renal is following- Dr. Bach Endo: Sliding scale insulin Accu-Cheks every 6 hours to maintain euglycemia Novulin R medium regimen TSH:0.53 Continue allopurinol 100 mg by mouth daily for elevated uric acid Heme: Macrocytic anemia Leukocytosis Monitor CBC daily. Continue with heparin drip for A. fib ID: Currently on vancomycin, piperacillin/tazobactam and levofloxacin for possible infectious etiology Monitor for signs of infections ( Fever, WBC) sputum cx: normal resp jay, Legionella, pneumococcal antigens negative MSK: PT evaluate and treat Access -Right IJ CVL placed 05/26 Prophylaxis - GI - lansoprazole - DVT - SCD/heparin drip Level 2 Sanket Reilly MD May 29, 2017 16:38
[2017-05-29] MEDS: HEPARIN-D5W 25,000 U/250 ML 250 ML IV PRN (17:42)
[2017-05-29] MEDS ORDERED: PHARMACY ORDERED LAB ONE (17:45)
[2017-05-29] MEDS: VANCOMYCIN INJ 2,250 MG in SODIUM CHLORID 0.9% 500 ML INJ 500 ML IV SCH (17:48)
[2017-05-29] MEDS ORDERED: RESP: ALBUTEROL 1.25 MG/3 ML NEB (SCH) NEB (20:00)
[2017-05-29] MEDS: SENNOSIDES SYRUP 8.8 MG/5 ML CUP NG SCH (23:08)
[2017-05-29] MEDS: PRAVASTATIN SOD 40 MG TAB PO SCH (23:08)
[2017-05-29] MEDS: DOCUSATE SODIUM 100 MG/10 ML UDC PO SCH (23:08)
[2017-05-30] VITALS (22 sets, daily range): BP systolic 102–167; BP diastolic 52–98; PULSE 57–110; RESP 16–24; TEMP 97.5–98.7; O2SAT 94–99
[2017-05-30] MEDS: RESP: ALBUTEROL 1.25 MG/3 ML NEB (SCH) NEB ×6 (03:31→23:43)
[2017-05-30] MEDS: RESP: IPRATROPIUM 0.5 MG/2.5 ML NEB NEB SCH ×6 (03:31→23:43)
[2017-05-30 04:44] LABS: AUTOMATED NEUTROPHIL # 12.7 TH/MM3 (1.8-7.7); BASOPHIL % 0.1 % (0.0-2.0); HEMOGLOBIN 12.6 GM/DL (13.0-17.0); LYMPHOCYTE # 0.3 TH/MM3 (1.0-4.8); MEAN CELL VOLUME 99.3 FL (80.0-100.0); MEAN CORPUSCULAR HEMOGLOBIN 32.9 PG (27.0-34.0); MEAN CORPUSCULAR HGB CONC 33.1 % (32.0-36.0); MEAN PLATELET VOLUME 10.5 FL (7.0-11.0); MONO % 6.1 % (0.0-8.0); MONOCYTE # 0.8 TH/MM3 (0-0.9); NEUT % 91.8 % (16.0-70.0); PLATELET COUNT 177 TH/MM3 (150-450); RED BLOOD COUNT 3.82 MIL/MM3 (4.50-5.90); WHITE BLOOD COUNT 13.9 TH/MM3 (4.0-11.0)
[2017-05-30 05:04] LABS: ALBUMIN 2.7 GM/DL (3.4-5.0); AST (GOT) 11 U/L (15-37); BLOOD UREA NITROGEN 45 MG/DL (7-18); CALCIUM 8.1 MG/DL (8.5-10.1); CHLORIDE 93 MEQ/L (98-107); CREATININE 1.29 MG/DL (0.60-1.30); GLOMERULAR FILTRATION RATE 55 ML/MIN (>89); GLUCOSE,RANDOM 159 MG/DL (74-106); MAGNESIUM 2.7 MG/DL (1.5-2.5); SODIUM (NA) 137 MEQ/L (136-145)
[2017-05-30 05:07] LABS: ALKALINE PHOSPHATASE 56 U/L (45-117); ALT (GPT) 22 U/L (12-78); PHOSPHORUS 3.2 MG/DL (2.5-4.9); TOTAL BILIRUBIN ADULT 0.8 MG/DL (0.2-1.0); TOTAL PROTEIN 5.6 GM/DL (6.4-8.2)
[2017-05-30] MEDS: PIPERACIL-TAZO 4.5 GM PREMIX 100 ML IV SCH ×4 (05:45→21:51)
[2017-05-30] MEDS: INSULIN NovoLIN REGULAR SUPPLEMENTAL SCALE SQ SCH ×3 (05:45→17:53)
[2017-05-30] MEDS: ARTIFICIAL TEARS OPTH SOLN 15 ML BTL EACH EYE SCH ×4 (05:46→22:00)
[2017-05-30] MEDS: RESP: BUDESONIDE 0.5 MG/2 ML NEB NEB SCH ×2 (07:39→19:35)
[2017-05-30] MEDS: PROPOFOL 1000 MG/100 ML INJ 100 ML IV PRN (07:50)
[2017-05-30] MEDS: CHLORHEXIDINE 0.12% (ORAL KIT) 15 ML CUP MT SCH ×2 (08:00→20:00)
[2017-05-30] MEDS: ALLOPURINOL 100 MG TAB PO SCH (08:35)
[2017-05-30] MEDS: methylPREDNISolone SOD SUCC 40 MG/1 ML VIAL IV PUSH SCH ×2 (08:35→20:15)
[2017-05-30] MEDS: DOCUSATE SODIUM 100 MG/10 ML UDC PO SCH ×2 (08:35→20:15)
[2017-05-30] MEDS: LANSOPRAZOLE SOLUTAB 30 MG TAB NG SCH (08:35)
[2017-05-30] MEDS: SODIUM CHLORIDE 0.9% FLUSH 10 ML FLUSH IV FLUSH SCH ×3 (08:36→20:15)
[2017-05-30] MEDS: SENNOSIDES SYRUP 8.8 MG/5 ML CUP NG SCH ×2 (08:36→20:15)
[2017-05-30] MEDS ORDERED: LABETALOL HCL 100 MG/20 ML VIAL IV PUSH PRN (09:45)
[2017-05-30] MEDS ORDERED: NITROGLYCERIN 2% OINT 1 GM PACKET TOPICAL PRN (09:45)
[2017-05-30] MEDS: CARVEDILOL 12.5 MG TAB PO SCH ×2 (10:25→20:16)
[2017-05-30] MEDS: cloNIDine HCL 0.1 MG TAB PO SCH ×2 (10:25→20:15)
[2017-05-30] MEDS: HEPARIN-D5W 25,000 U/250 ML 250 ML IV PRN (12:27)
--- NOTE | 2017-05-30 12:27 | HHI.CCPN ---
Subjective Remarks/Hospital Course This is a 71-year-old male. Date of admission 05/24/2017. Date of consultation 05/26/2017. Past medical history includes elevated BMI, hypertension, history of atrial fibrillation, history of COPD with FEV1 35%, right bundle branch block, gastroesophageal reflux disease and according to with likely obstructive sleep apnea. For the past week, patient prior to admission to [place] is complaining of increasing lower extremity edema, dyspnea on exertion with rest affecting his activities of daily life. The night of 05/24 patient was placed on BiPAP is intermittently been on and off this for the past 48 hours. Today, patient was placed on a nonrebreather mask became acutely hypoxic and dyspneic. When I evaluated the patient, he stated "I cannot breathe". Patient was noted be hypotensive. Patient was emergently intubated and placed on vasopressors to maintain a mean arterial pressure of 65. 05/27 Patient is sedated with Diprivan, intubated on Levophed 1 carmen and Heparin drip. 05/28 No events overnight. Off Levophed, on Diprivan drip for sedation. Afebrile. On Heparin drip. 05/29: Afebrile. Off norepinephrine drip. On propofol drip at 20 mics grams per kilogram per minute. Remains on heparin drip at 1400 units an hour. Follows commands on sedation vacation. Subjective 05/30: Afebrile. Off all vasopressors. Currently a PSV trial and appears very couple. Tolerating tube feeding. Objective Vital Signs Date Time Temp Pulse Resp B/P (MAP) Pulse Ox O2 Delivery O2 Flow Rate FiO2 05/30/17 12:00 40 05/30/17 12:00 98.7 84 19 145/69 (94) 96 Arterial Line 05/27/17 08:15 Ventilator 05/26/17 11:29 10.00 Intake and Output 05/30/17 05/30/17 05/30/17 07:59 15:59 23:59 Intake Total 866 ml 326 ml Output Total 1100 ml Balance -234 ml 326 ml Result Diagram: 05/30/1721405/30/17214 Other Results Microbiology Date/Time Source Procedure Growth Status 05/26/17 15:41 Blood Peripheral Aerobic Blood Culture - Preliminary NO GROWTH IN 4 DAYS Resulted 05/26/17 15:41 Blood Peripheral Anaerobic Blood Culture - Preliminary NO GROWTH IN 4 DAYS Resulted 05/26/17 15:45 Sputum Endotracheal Gram Stain - Final Complete 05/26/17 15:45 Sputum Endotracheal Sputum Culture - Final HEAVY GROWTH NORMAL RESPIRATORY JAY Complete 05/26/17 21:30 Urine Catheterized Urine Legionella Antigen - Final PRESUMPTIVE NEGATIVE FOR LEGIONELLA P... Complete 05/26/17 21:30 Urine Catheterized Urine Streptococcus pneumoniae Antigen (M - Final PRESUMPTIVE NEGATIVE FOR STREPTOCOCCU... Complete Imaging Last Impressions Chest X-Ray 05/29/17 0000 Signed Impressions: Service Date/Time: Monday, May 29, 2017 03:31 - CONCLUSION: 1. Cardiomegaly. 2. Hazy density at the bases likely related to a combination of effusions, atelectasis and/or consolidation. Harsha Arauz MD Renal Ultrasound 05/26/17 0000 Signed Impressions: Service Date/Time: May 16:38 - CONCLUSION: Left kidney nonvisualized. Right kidney unremarkable. Tulio Thomas MD Lower Extremity Ultrasound 05/24/17 0000 Signed Impressions: Service Date/Time: Wednesday, May 24, 2017 18:29 - CONCLUSION: 1. Negative for deep venous thrombosis. Arnie Oswald MD Objective Remarks GENERAL: 71-year-old male currently orotracheally intubated SKIN: Warm and dry. No rash HEAD: Atraumatic. Normocephalic. EYES: Pupils equal and round about 3 mm bilaterally and reactive. No scleral icterus. No injection or drainage. ENT: No nasal bleeding or discharge. Mucous membranes pink and moist. NECK: Trachea midline. No JVD. CARDIOVASCULAR: IRR. S1, S2 no S4. Distant RESPIRATORY: Ms. breath sounds throughout. Distant. No wheezing GASTROINTESTINAL: Abdomen soft, non-tender, obese. Hypoactive bowel sounds appreciated MUSCULOSKELETAL: Extremities nonpitting peripheral edema. No obvious deformities. NEUROLOGICAL: A arousable on the ventilator. Follows simple commands. Moves all 4 extremities spontaneously. Positive gag and corneal reflex. Urinary Catheter: Yes Assessment to: Continue Vance insert reason: ICU Pt Getting Diuretics Vascular Central Line Catheter: Yes Assessment to: Continue Date of Insertion: May 26, 2017 Line: Central Venous Catheter Side: Right Location: Internal, Jugular A/P Assessment and Plan Neuro/Psych: Currently on propofol drip at 20 mics grams per kilogram per minute for sedation. Daily sedation vacation. Goal of RA SS -2 Acetaminophen 650 mg by tube every 6 hours when necessary fever CV: History of cardiomyopathy Right bundle-branch block Atrial fibrillation rate controlled CHADS VASc 3 Hypertension/essential Dyslipidemia Elevated troponin Evaluated by Dr. Falk/cardiology Echo showed EF 50-55% Off Levophed, monitor HR and BP keep MAP>65mmHg Home medications clonidine 0.2 mg twice a day, carvedilol 25 mg twice a day, lisinopril/hydrochlorothiazide 20/25 one tablet daily Currently on clonidine 0.1 mg twice a day, carvedilol 12.5 milligrams twice a day Anticoagulant choice extubated decision between patient and in home aide On lovastatin 40 mg by mouth daily at home for dyslipidemia. Currently on Pravachol 40 mg daily Resp: Acute hypercapnic respiratory failure with CO2 retention NC COPD/oxygen dependent Likely YUKI PRVC 16/600///40/currently a PSV trial Ventilator bundle, on Solumederol 40mg Q8 Albuterol aerosols 1.25 mg/ipratropium 0.5 mg nebs every 4 hours with ipratropium aerosols every 2 hours. Dyspnea per pulmonology - Dr. Garcia SBT daily as jenny Home medications tiotropium 18 mcg daily held. Home medication budesonide/ formoterol 160/4.5 held while intubated GI: Elevated BMI Change tube feeds- Glucerna 1.5 with goal rate 55ml/hr Lansoprazole 30 mg daily for GI prophylaxis Docusate sodium 100 mg twice a day, senna 8.8 mg twice a day 1 tablet twice a day for bowel regimen : TARA- resolving Monitor renal function, electrolytes replacement as needed. Will need K replacement today Renal function is stabilized Renal has followed- Dr. Bach Endo: Sliding scale insulin Accu-Cheks every 6 hours to maintain euglycemia Novulin R medium regimen TSH:0.53 Continue allopurinol 100 mg by mouth daily for elevated uric acid Heme: Macrocytic anemia Leukocytosis Monitor CBC daily. Continue with heparin drip for A. fib ID: Currently on vancomycin, piperacillin/tazobactam and levofloxacin for possible infectious etiology Monitor for signs of infections ( Fever, WBC) sputum cx: normal resp jay, Legionella, pneumococcal antigens negative MSK: PT evaluate and treat Access -Right IJ CVL placed 05/26 Prophylaxis - GI - lansoprazole - DVT - SCD/heparin drip Level 2 Sanket Reilly MD May 30, 2017 12:27
--- NOTE | 2017-05-30 12:36 | PD.CARD.PN ---
Subjective Subjective Remarks No events overnight CPAP trial this morning, doing well, wakes up when spoken to Objective Medications Current Medications Medications (Trade) Dose Ordered Sig/Pratima Route Start Time Stop Time Status Last Admin (NS Flush) 2 ml UNSCH PRN IV FLUSH 05/24/17 17:45 (NS Flush) 2 ml BID IV FLUSH 05/24/17 21:00 05/30/17 08:36 (Narcan Inj) 0.4 mg UNSCH PRN IV PUSH 05/24/17 17:45 (Zyloprim) 100 mg DAILY PO 05/25/17 09:00 05/30/17 08:35 (Pravachol) 40 mg HS PO 05/24/17 21:00 05/29/17 23:08 Heparin Sodium/ Dextrose 250 ml @ 18 mls/hr TITRATE PRN IV 05/24/17 18:30 05/30/17 12:27 (Atrovent Neb) 0.5 mg Q2HR NEB PRN NEB 05/24/17 18:45 05/25/17 02:10 Miscellaneous Information Patient in critical care unit? Ass... Q361D .XX 05/24/17 20:45 05/24/17 20:45 Levofloxacin/ Dextrose 100 ml @ 100 mls/hr Q24H IV 05/25/17 14:00 05/29/17 13:36 (Peridex 0.12% Liq) 15 ml BID@08,20 MT 05/26/17 20:00 05/30/17 08:00 Propofol 100 ml @ 4.89 mls/hr TITRATE PRN IV 05/26/17 12:45 05/30/17 07:50 Fentanyl Citrate 250 ml @ 5 mls/hr TITRATE PRN IV 05/26/17 12:45 (Atrovent Neb) 0.5 mg Q4HR NEB NEB 05/26/17 16:00 05/30/17 11:12 (NS Flush) DAILY IV FLUSH 05/27/17 09:00 05/30/17 08:36 (NS Flush) UNSCH PRN IV FLUSH 05/26/17 14:45 (Pulmicort Respule Neb) 0.5 mg Q12HR NEB NEB 05/26/17 20:00 05/30/17 07:39 (Tears Naturale Opth Soln) 1 drop Q8HR EACH EYE 05/26/17 22:00 05/30/17 05:46 (Prevacid Odt) 30 mg DAILY NG 05/27/17 09:00 05/30/17 08:35 Piperacillin Sod/ Tazobactam Sod 100 ml @ 200 mls/hr Q6H IV 05/26/17 16:00 05/30/17 08:36 Pharmacy Profile Note 0 ml @ 0 mls/hr UNSCH OTHER 05/26/17 15:15 (Brethine Inj) 1 mg UNSCH PRN SQ 05/26/17 15:30 (D50w (Vial) Inj) 50 ml UNSCH PRN IV PUSH 05/26/17 15:45 (Glucagon Inj) 1 mg UNSCH PRN OTHER 05/26/17 15:45 (NovoLIN R SUPPLEMENTAL SCALE) 1 Q6HR SQ 05/26/17 18:00 05/29/17 05:38 (Tylenol 650 Mg/ 20 ml Liq) 650 mg Q6H PRN PO 05/26/17 15:45 Vancomycin HCl 2250 mg/Sodium Chloride 522.5 ml @ 250 mls/hr Q24H IV 05/26/17 18:00 05/29/17 17:48 Potassium Chloride 100 ml @ 50 mls/hr Q2H PRN IV 05/27/17 08:00 05/28/17 09:21 Potassium Chloride 100 ml @ 50 mls/hr Q2H PRN IV 05/27/17 08:00 (K-Lyte Cl Eff) 50 meq UNSCH PRN PO 05/27/17 08:00 Potassium Chloride 100 ml @ 25 mls/hr UNSCH PRN IV 05/27/17 08:00 05/27/17 10:51 Potassium Chloride 100 ml @ 50 mls/hr Q2H PRN IV 05/27/17 08:00 Magnesium Sulfate 4 gm/Sodium Chloride 100 ml @ 50 mls/hr UNSCH PRN IV 05/27/17 08:00 (Mag-Ox) 800 mg UNSCH PRN PO 05/27/17 08:00 Magnesium Sulfate 2 gm/Sodium Chloride 100 ml @ 50 mls/hr UNSCH PRN IV 05/27/17 08:00 (K-Phos) 2,000 mg Q4H PRN PO 05/27/17 08:00 Sodium Phosphate 30 mmol/Sodium Chloride 250 ml @ 42 mls/hr UNSCH PRN IV 05/27/17 08:00 (K-Phos) 2,000 mg UNSCH PRN PO/TUBE 05/27/17 08:00 Potassium Phosphate 30 mmol/ Sodium Chloride 260 ml @ 42 mls/hr UNSCH PRN IV 05/27/17 08:00 (SoluMEDROL INJ) 40 mg BID IV PUSH 05/29/17 21:00 05/30/17 08:35 (Albuterol Neb) 1.25 mg Q4HR NEB NEB 05/29/17 20:00 05/30/17 11:12 (Colace Liq) 100 mg Q12HR PO 05/29/17 21:00 05/30/17 08:35 (Senna Liq) 8.8 mg BID NG 05/29/17 21:00 05/30/17 08:36 Miscellaneous Information SPECIFIC LAB TO BE DRAWN: VANCO TROUGH DATE TO BE DR... ONCE ONCE .XX 05/31/17 17:45 05/31/17 17:46 (Catapres) 0.1 mg Q12HR PO 05/30/17 11:00 05/30/17 10:25 (Coreg) 12.5 mg Q12HR PO 05/30/17 11:00 05/30/17 10:25 (Trandate Inj) 10 mg Q1HR PRN IV PUSH 05/30/17 09:45 05/30/17 10:43 (Apresoline Inj) 10 mg Q1HR PRN IV PUSH 05/30/17 09:45 (Nitroglycerin 2% Oint) 2 inch Q6HR PRN TOPICAL 05/30/17 09:45 Vital Signs / I&O Vital Signs Date Time Temp Pulse Resp B/P (MAP) Pulse Ox O2 Delivery O2 Flow Rate FiO2 05/30/17 12:00 40 05/30/17 12:00 98.7 84 19 145/69 (94) 96 Arterial Line 05/30/17 12:00 84 05/30/17 11:12 96 40 05/30/17 10:00 110 05/30/17 08:05 40 05/30/17 08:00 98.3 86 20 165/69 (101) 97 167/83 (111) 05/30/17 08:00 86 05/30/17 08:00 40 05/30/17 07:57 40 05/30/17 07:39 96 40 05/30/17 06:00 79 05/30/17 04:09 95 40 05/30/17 04:00 40 05/30/17 04:00 61 05/30/17 04:00 97.5 61 16 134/52 (79) 95 132/64 (86) 05/30/17 02:00 76 05/30/17 00:00 57 05/30/17 00:00 98.5 57 19 102/58 (73) 95 116/59 (78) 05/30/17 00:00 40 05/29/17 23:30 95 40 05/29/17 22:00 76 05/29/17 20:00 98.6 85 17 133/62 (85) 98 141/74 (96) 05/29/17 20:00 85 05/29/17 20:00 40 05/29/17 19:30 97 40 05/29/17 18:00 60 05/29/17 16:00 40 05/29/17 16:00 77 05/29/17 16:00 98.4 77 16 107/58 (74) 98 114/61 (78) 05/29/17 14:55 97 40 05/29/17 14:00 101 I/O 05/29/17 05/29/17 05/29/17 05/30/17 05/30/17 05/30/17 07:00 15:00 23:00 07:00 15:00 23:00 Intake Total 939 ml 259 ml 1191 ml 1016 ml 526 ml Output Total 1350 ml 750 ml 1100 ml Balance -411 ml 259 ml 441 ml -84 ml 526 ml IV Total 350 ml 259 ml 604 ml 350 ml 200 ml Tube Feeding 589 ml 587 ml 666 ml 206 ml Tube Irrigant 120 ml Output Urine Total 1350 ml 750 ml 1100 ml # Bowel Movements 0 0 0 Physical Exam GENERAL: Mild lethargy SKIN: Warm and dry. HEAD: Atraumatic. Normocephalic. EYES: Pupils equal and round. No scleral icterus. No injection or drainage. ENT: No nasal bleeding or discharge. Mucous membranes pink and moist. NECK: Trachea midline. No JVD. CARDIOVASCULAR: Regular rate and rhythm. RESPIRATORY: No accessory muscle use. Decreased breath sounds bilaterally GASTROINTESTINAL: Abdomen soft, non-tender, nondistended. Hepatic and splenic margins not palpable. MUSCULOSKELETAL: Mild edema NEUROLOGICAL: Intubated Laboratory Laboratory Tests Test 05/29/17 17:30 05/30/17 02:15 05/30/17 08:55 Vancomycin Level Trough 14.7 MCG/ML White Blood Count 13.9 TH/MM3 Red Blood Count 3.82 MIL/MM3 Hemoglobin 12.6 GM/DL Hematocrit 38.0 % Mean Corpuscular Volume 99.3 FL Mean Corpuscular Hemoglobin 32.9 PG Mean Corpuscular Hemoglobin Concent 33.1 % Red Cell Distribution Width 15.0 % Platelet Count 177 TH/MM3 Mean Platelet Volume 10.5 FL Neutrophils (%) (Auto) 91.8 % Lymphocytes (%) (Auto) 2.0 % Monocytes (%) (Auto) 6.1 % Eosinophils (%) (Auto) 0.0 % Basophils (%) (Auto) 0.1 % Neutrophils # (Auto) 12.7 TH/MM3 Lymphocytes # (Auto) 0.3 TH/MM3 Monocytes # (Auto) 0.8 TH/MM3 Eosinophils # (Auto) 0.0 TH/MM3 Basophils # (Auto) 0.0 TH/MM3 CBC Comment AUTO DIFF Differential Comment AUTO DIFF CONFIRMED Blood Urea Nitrogen 45 MG/DL Creatinine 1.29 MG/DL Random Glucose 159 MG/DL Total Protein 5.6 GM/DL Albumin 2.7 GM/DL Calcium Level 8.1 MG/DL Phosphorus Level 3.2 MG/DL Magnesium Level 2.7 MG/DL Alkaline Phosphatase 56 U/L Aspartate Amino Transf (AST/SGOT) 11 U/L Alanine Aminotransferase (ALT/SGPT) 22 U/L Total Bilirubin 0.8 MG/DL Sodium Level 137 MEQ/L Potassium Level 4.2 MEQ/L Chloride Level 93 MEQ/L Carbon Dioxide Level 36.0 MEQ/L Anion Gap 8 MEQ/L Estimat Glomerular Filtration Rate 55 ML/MIN Activated Partial Thromboplast Time 50.6 SEC Assessment and Plan Problem List: (1) Atrial fibrillation ICD Codes: I48.91 - Unspecified atrial fibrillation (2) hypertension Status: Acute (3) COPD with acute exacerbation ICD Codes: J44.1 - Chronic obstructive pulmonary disease with (acute) exacerbation Status: Acute (4) CHF (congestive heart failure) ICD Codes: I50.9 - Heart failure, unspecified Status: Acute (5) Hyponatremia ICD Codes: E87.1 - Hypo-osmolality and hyponatremia Status: Acute Permanent Comment: Acute on chronic hyponatremia. Last Edited By: Km Bach on May 26, 2017 17:10 Assessment and Plan 1) Respiratory failure with CO2 retention Vent per critical care team 2) CHF Most likely small component of multi-factorial respiratory failure EF 50-55% 3) Afib Controlled on current medications CHADS-VASc = 3, most likely place on anti-coagulation before discharge, will need to discuss with patient further after extubation Con't heparin drip 4) Possible extubation today 5) HTN Restarted on BP medications Problem Qualifiers (1) CHF (congestive heart failure): Qualified Codes: I50.9 - Heart failure, unspecified Chema Hogue DO May 30, 2017 12:36
[2017-05-30] MEDS: LEVOFLOXACIN 500 MG PREMIX INJ 100 ML IV SCH (14:19)
--- NOTE | 2017-05-30 14:30 | HHI.NPPN ---
Subjective History of Present Illness This patient is a 71-year-old male apparently with a history of severe COPD, hypertension, CHF, atrial fibrillation presenting to this institution on May 24, 2016 with respiratory insufficiency, worsening edema. He also has a history of chronic hyponatremia predating this admission with serum sodium levels in the low 130s. On presentation to this institution serum sodium level was initially 125. Creatinine level I.12. According to cardiology the patient had a documented ejection fraction of 35% back in 2010. Echocardiogram this admission was pending at time of consultation. Patient subsequently developed increasing respiratory insufficiency requiring intubation and ventilatory support. Mention of hyponatremia also. Creatinine level deteriorating to 1.5 with a serum sodium level of 118 at time of presentation. Osmolality studies are pending. Patient currently receiving normal saline at 100 cc an hour. Interval History Pt tolerating CPAP and plans for extubation today. Is awake (Dariela Scott) Review of Systems General General Remarks Unable to obtain (Dariela Scott) Objective Data Data 05/30/17 05/31/17 19:00 07:00 Intake Total 876 ml Balance 876 ml IV Total 550 ml Tube Feeding 206 ml Tube Irrigant 120 ml Vital Signs Date Time Temp Pulse Resp B/P (MAP) Pulse Ox O2 Delivery O2 Flow Rate FiO2 05/30/17 12:00 40 05/30/17 12:00 98.7 84 19 145/69 (94) 96 Arterial Line 05/30/17 12:00 84 05/30/17 11:12 96 40 05/30/17 10:00 110 05/30/17 08:05 40 05/30/17 08:00 98.3 86 20 165/69 (101) 97 167/83 (111) 05/30/17 08:00 86 05/30/17 08:00 40 05/30/17 07:57 40 05/30/17 07:39 96 40 05/30/17 06:00 79 05/30/17 04:09 95 40 05/30/17 04:00 40 05/30/17 04:00 61 05/30/17 04:00 97.5 61 16 134/52 (79) 95 132/64 (86) 05/30/17 02:00 76 05/30/17 00:00 57 05/30/17 00:00 98.5 57 19 102/58 (73) 95 116/59 (78) 05/30/17 00:00 40 05/29/17 23:30 95 40 05/29/17 22:00 76 05/29/17 20:00 98.6 85 17 133/62 (85) 98 141/74 (96) 05/29/17 20:00 85 05/29/17 20:00 40 05/29/17 19:30 97 40 05/29/17 18:00 60 05/29/17 16:00 40 05/29/17 16:00 77 05/29/17 16:00 98.4 77 16 107/58 (74) 98 114/61 (78) 05/29/17 14:55 97 40 (Dariela Scott) -: 05/30/17 0215 05/30/17 021 Imaging Last Impressions Chest X-Ray 05/29/17 0000 Signed Impressions: Service Date/Time: Monday, May 29, 2017 03:31 - CONCLUSION: 1. Cardiomegaly. 2. Hazy density at the bases likely related to a combination of effusions, atelectasis and/or consolidation. Harsha Arauz MD Renal Ultrasound 05/26/17 0000 Signed Impressions: Service Date/Time: May 16:38 - CONCLUSION: Left kidney nonvisualized. Right kidney unremarkable. Tulio Thomas MD Lower Extremity Ultrasound 05/24/17 0000 Signed Impressions: Service Date/Time: Wednesday, May 24, 2017 18:29 - CONCLUSION: 1. Negative for deep venous thrombosis. Arnie Oswald MD Medication Review Current Medications Medications (Trade) Dose Ordered Sig/Pratima Route Start Time Stop Time Status Last Admin (NS Flush) 2 ml UNSCH PRN IV FLUSH 05/24/17 17:45 (NS Flush) 2 ml BID IV FLUSH 05/24/17 21:00 05/30/17 08:36 (Narcan Inj) 0.4 mg UNSCH PRN IV PUSH 05/24/17 17:45 (Zyloprim) 100 mg DAILY PO 05/25/17 09:00 05/30/17 08:35 (Pravachol) 40 mg HS PO 05/24/17 21:00 05/29/17 23:08 Heparin Sodium/ Dextrose 250 ml @ 18 mls/hr TITRATE PRN IV 05/24/17 18:30 05/30/17 12:27 (Atrovent Neb) 0.5 mg Q2HR NEB PRN NEB 05/24/17 18:45 05/25/17 02:10 Miscellaneous Information Patient in critical care unit? Ass... Q361D .XX 05/24/17 20:45 05/24/17 20:45 Levofloxacin/ Dextrose 100 ml @ 100 mls/hr Q24H IV 05/25/17 14:00 05/30/17 14:19 (Peridex 0.12% Liq) 15 ml BID@08,20 MT 05/26/17 20:00 05/30/17 08:00 Propofol 100 ml @ 4.89 mls/hr TITRATE PRN IV 05/26/17 12:45 05/30/17 07:50 Fentanyl Citrate 250 ml @ 5 mls/hr TITRATE PRN IV 05/26/17 12:45 (Atrovent Neb) 0.5 mg Q4HR NEB NEB 05/26/17 16:00 05/30/17 11:12 (NS Flush) DAILY IV FLUSH 05/27/17 09:00 05/30/17 08:36 (NS Flush) UNSCH PRN IV FLUSH 05/26/17 14:45 (Pulmicort Respule Neb) 0.5 mg Q12HR NEB NEB 05/26/17 20:00 05/30/17 07:39 (Tears Naturale Opth Soln) 1 drop Q8HR EACH EYE 05/26/17 22:00 05/30/17 05:46 (Prevacid Odt) 30 mg DAILY NG 05/27/17 09:00 05/30/17 08:35 Piperacillin Sod/ Tazobactam Sod 100 ml @ 200 mls/hr Q6H IV 05/26/17 16:00 05/30/17 08:36 Pharmacy Profile Note 0 ml @ 0 mls/hr UNSCH OTHER 05/26/17 15:15 (Brethine Inj) 1 mg UNSCH PRN SQ 05/26/17 15:30 (D50w (Vial) Inj) 50 ml UNSCH PRN IV PUSH 05/26/17 15:45 (Glucagon Inj) 1 mg UNSCH PRN OTHER 05/26/17 15:45 (NovoLIN R SUPPLEMENTAL SCALE) 1 Q6HR SQ 05/26/17 18:00 05/29/17 05:38 (Tylenol 650 Mg/ 20 ml Liq) 650 mg Q6H PRN PO 05/26/17 15:45 Vancomycin HCl 2250 mg/Sodium Chloride 522.5 ml @ 250 mls/hr Q24H IV 05/26/17 18:00 05/29/17 17:48 Potassium Chloride 100 ml @ 50 mls/hr Q2H PRN IV 05/27/17 08:00 05/28/17 09:21 Potassium Chloride 100 ml @ 50 mls/hr Q2H PRN IV 05/27/17 08:00 (K-Lyte Cl Eff) 50 meq UNSCH PRN PO 05/27/17 08:00 Potassium Chloride 100 ml @ 25 mls/hr UNSCH PRN IV 05/27/17 08:00 05/27/17 10:51 Potassium Chloride 100 ml @ 50 mls/hr Q2H PRN IV 05/27/17 08:00 Magnesium Sulfate 4 gm/Sodium Chloride 100 ml @ 50 mls/hr UNSCH PRN IV 05/27/17 08:00 (Mag-Ox) 800 mg UNSCH PRN PO 05/27/17 08:00 Magnesium Sulfate 2 gm/Sodium Chloride 100 ml @ 50 mls/hr UNSCH PRN IV 05/27/17 08:00 (K-Phos) 2,000 mg Q4H PRN PO 05/27/17 08:00 Sodium Phosphate 30 mmol/Sodium Chloride 250 ml @ 42 mls/hr UNSCH PRN IV 05/27/17 08:00 (K-Phos) 2,000 mg UNSCH PRN PO/TUBE 05/27/17 08:00 Potassium Phosphate 30 mmol/ Sodium Chloride 260 ml @ 42 mls/hr UNSCH PRN IV 05/27/17 08:00 (SoluMEDROL INJ) 40 mg BID IV PUSH 05/29/17 21:00 05/30/17 08:35 (Albuterol Neb) 1.25 mg Q4HR NEB NEB 05/29/17 20:00 05/30/17 11:12 (Colace Liq) 100 mg Q12HR PO 05/29/17 21:00 05/30/17 08:35 (Senna Liq) 8.8 mg BID NG 05/29/17 21:00 05/30/17 08:36 Miscellaneous Information SPECIFIC LAB TO BE DRAWN: VANCO TROUGH DATE TO BE DRTao.. ONCE ONCE .XX 05/31/17 17:45 05/31/17 17:46 (Catapres) 0.1 mg Q12HR PO 05/30/17 11:00 05/30/17 10:25 (Coreg) 12.5 mg Q12HR PO 05/30/17 11:00 05/30/17 10:25 (Trandate Inj) 10 mg Q1HR PRN IV PUSH 05/30/17 09:45 05/30/17 10:43 (Apresoline Inj) 10 mg Q1HR PRN IV PUSH 05/30/17 09:45 (Nitroglycerin 2% Oint) 2 inch Q6HR PRN TOPICAL 05/30/17 09:45 (Dariela Scott) Physical Exam General Appearance: Comfortable (Dariela Scott) Neck Neck Exam: Trachea Midline (Dariela Scott) Pulmonary Resp Exam: Diminished Breath Sounds (Dariela Scott) Cardiology CV Exam: Irregular (Dariela Scott) Gastrointestinal/Abdomen GI Exam: Soft, Distended (Dariela Scott) Genitourinary Exam: Clear Urine (Dariela Scott PA) Integumentary Skin Exam: Clear, Warm (Dariela Scott) Extremeties Extremities Exam: Moderate Edema, Dependent Edema (generalized pitting) (Dariela Scott) Neurologic Neuro Exam: Alert, Awake, Sedated (Dariela Scott) Assessment/Plan Problem List: (1) Acute kidney insufficiency ICD Codes: N28.9 - Disorder of kidney and ureter, unspecified Status: Acute Plan: Most likely related to cardiac decompensation. Renal functions improving daily UOP good, but has slowed down. Will give dose of Lasix today to help improve volume status. (2) Hyponatremia ICD Codes: E87.1 - Hypo-osmolality and hyponatremia Status: Acute Plan: Most likely multifactorial. Contributory factors include respiratory insufficiency and possible pneumonia. Also if the patient does have cardiac decompensation this also would be contributory secondary to a relative decrease in the intra-arterial volume with associated non-osmotic stimulation of antidiuretic hormone secretion. UOP is quite good and is not on any diuretics. Na levels have continued to improve Permanent Comment: Acute on chronic hyponatremia. Last Edited By: Km Bach on May 26, 2017 17:10 (3) Edema ICD Codes: R60.9 - Edema, unspecified Plan: 2-D echocardiogram 05/26/17 showed an estimated ejection fraction in the range of 50-55%. Mild concentric left ventricular hypertrophy. Normal left ventricular size. The left atrial size is [id number] dilated. There is moderate tricuspid regurgitation. The estimated pulmonary arterial pressure is 45.8 mmHg. Edema improving but still significant. (4) COPD with acute exacerbation ICD Codes: J44.1 - Chronic obstructive pulmonary disease with (acute) exacerbation Status: Acute Plan: Management per critical care. (Dariela Scott) Plan Patient much more alert with possible extubation today. Furosemide administered as indicated above to improve fluid retention. Creatinine level within normal range. We will continue to see the patient when necessary. The exam, history, and the medical decision-making described in the above note were completed with the assistance of the PA-C. I reviewed and agree with the findings presented. I attest that I had a [id number] encounter with the patient on the same day, and personally performed and documented my assessment and findings in the medical record. (Tala Bach MD) Problem Qualifiers (1) Edema: Qualified Codes: R60.0 - Localized edema Dariela Soctt May 30, 2017 14:30 Tala Bach MD May 30, 2017 15:51
[2017-05-30] MEDS ORDERED: FUROSEMIDE 40 MG/4 ML VIAL IV PUSH ONE (15:00)
[2017-05-30] MEDS: VANCOMYCIN INJ 2,250 MG in SODIUM CHLORID 0.9% 500 ML INJ 500 ML IV SCH (17:53)
[2017-05-30] MEDS: PRAVASTATIN SOD 40 MG TAB PO SCH (20:16)
[2017-05-31] VITALS (22 sets, daily range): BP systolic 150–175; BP diastolic 69–111; PULSE 86–103; RESP 16–30; TEMP 97–98.1; O2SAT 93–99
[2017-05-31] MEDS: PIPERACIL-TAZO 4.5 GM PREMIX 100 ML IV SCH ×4 (03:24→20:29)
--- NOTE | 2017-05-31 03:46 | RADRPT ---
EXAM DATE/TIME: 05/31/2017 02:12 [facility] COMPARISON: CHEST SINGLE AP, May 29, 2017, 3:31. INDICATIONS : Short of breath. MEDICAL HISTORY : Chronic obstructive pulmonary disease. Hypertension SURGICAL HISTORY : None. ENCOUNTER: Subsequent ACUITY: 1 week PAIN SCORE: 0/10 LOCATION: Bilateral chest FINDINGS: Right central line in superior vena cava. Patient has been extubated and NG tube has been removed sin ce May 29. Basilar airspace disease and pleural fluid slightly improved from May 29. CONCLUSION: 1. Improvement in basilar airspace disease and pleural fluid since May 29. Arnie Oswald MD on May 31, 2017 at 3:41 Board Certified Radiologist. This report was verified electronically.
[2017-05-31] MEDS: RESP: ALBUTEROL 1.25 MG/3 ML NEB (SCH) NEB ×6 (04:14→23:44)
[2017-05-31] MEDS: RESP: IPRATROPIUM 0.5 MG/2.5 ML NEB NEB SCH ×6 (04:14→23:44)
[2017-05-31 04:42] LABS: AUTOMATED NEUTROPHIL # 15.4 TH/MM3 (1.8-7.7); HEMATOCRIT 40.6 % (39.0-51.0); HEMOGLOBIN 13.7 GM/DL (13.0-17.0); LYMPH % 2.1 % (9.0-44.0); LYMPHOCYTE # 0.4 TH/MM3 (1.0-4.8); MEAN CELL VOLUME 99.3 FL (80.0-100.0); MEAN CORPUSCULAR HEMOGLOBIN 33.4 PG (27.0-34.0); MEAN CORPUSCULAR HGB CONC 33.7 % (32.0-36.0); MEAN PLATELET VOLUME 9.5 FL (7.0-11.0); MONO % 8.2 % (0.0-8.0); MONOCYTE # 1.4 TH/MM3 (0-0.9); NEUT % 89.7 % (16.0-70.0); PLATELET COUNT 184 TH/MM3 (150-450); RED BLOOD COUNT 4.09 MIL/MM3 (4.50-5.90); RED CELL DISTRIBUTION WIDTH 14.7 % (11.6-17.2); WHITE BLOOD COUNT 17.1 TH/MM3 (4.0-11.0)
[2017-05-31 05:22] LABS: ALKALINE PHOSPHATASE 52 U/L (45-117); ALT (GPT) 26 U/L (12-78); AST (GOT) 16 U/L (15-37); BICARBONATE 38.5 MEQ/L (21.0-32.0); BLOOD UREA NITROGEN 55 MG/DL (7-18); CALCIUM 8.2 MG/DL (8.5-10.1); CHLORIDE 93 MEQ/L (98-107); CREATININE 1.46 MG/DL (0.60-1.30); GLOMERULAR FILTRATION RATE 48 ML/MIN (>89); GLUCOSE,RANDOM 128 MG/DL (74-106); PHOSPHORUS 5.7 MG/DL (2.5-4.9); SODIUM (NA) 137 MEQ/L (136-145); TOTAL BILIRUBIN ADULT 1.3 MG/DL (0.2-1.0); TOTAL PROTEIN 6.2 GM/DL (6.4-8.2)
[2017-05-31] MEDS: INSULIN NovoLIN REGULAR SUPPLEMENTAL SCALE SQ SCH ×4 (05:27→18:00)
[2017-05-31] MEDS: ARTIFICIAL TEARS OPTH SOLN 15 ML BTL EACH EYE SCH ×3 (06:00→20:30)
[2017-05-31] MEDS: hydrALAZINE HCL 20 MG/ML VIAL IV PUSH PRN ×2 (06:20→20:29)
[2017-05-31 07:11] LABS: BANDS 2 % (0-6); LYMPHOCYTES 1 % (9-44); MONOCYTES 7 % (0-8); MYELOCYTES 3 % (0-0); NEUTROPHIL # MANUAL DIFF 15.7 TH/MM3 (1.8-7.7); POLYS (SEG NEUTROPHILS) 87 % (16-70)
[2017-05-31 07:13] LABS: SPHEROCYTES OCC (NORMAL)
--- NOTE | 2017-05-31 07:31 | HHI.CCPN ---
Subjective Remarks/Hospital Course This is a 71-year-old male. Date of admission 05/24/2017. Date of consultation 05/26/2017. Past medical history includes elevated BMI, hypertension, history of atrial fibrillation, history of COPD with FEV1 35%, right bundle branch block, gastroesophageal reflux disease and according to with likely obstructive sleep apnea. For the past week, patient prior to admission to [place] is complaining of increasing lower extremity edema, dyspnea on exertion with rest affecting his activities of daily life. The night of 05/24 patient was placed on BiPAP is intermittently been on and off this for the past 48 hours. Today, patient was placed on a nonrebreather mask became acutely hypoxic and dyspneic. When I evaluated the patient, he stated "I cannot breathe". Patient was noted be hypotensive. Patient was emergently intubated and placed on vasopressors to maintain a mean arterial pressure of 65. 05/27 Patient is sedated with Diprivan, intubated on Levophed 1 carmen and Heparin drip. 05/28 No events overnight. Off Levophed, on Diprivan drip for sedation. Afebrile. On Heparin drip. 05/29: Afebrile. Off norepinephrine drip. On propofol drip at 20 mics grams per kilogram per minute. Remains on heparin drip at 1400 units an hour. Follows commands on sedation vacation. Subjective 05/30: Afebrile. Off all vasopressors. Currently a PSV trial and appears very couple. Tolerating tube feeding. 05/31 Patient s/p extubation yesterday on BIPAP intermittently overnight now on 4L oxygen. Objective Vital Signs Date Time Temp Pulse Resp B/P (MAP) Pulse Ox O2 Delivery O2 Flow Rate FiO2 05/31/17 06:46 95 35 05/31/17 06:00 101 05/31/17 04:45 Nasal Cannula 4.00 05/31/17 04:00 98.1 21 Intake and Output 05/31/17 05/31/17 06/01/17 08:00 16:00 00:00 Intake Total 460 ml Output Total 1000 ml Balance -540 ml Result Diagram: 05/31/17 0425 05/31/17 0425 Other Results Laboratory Tests Test 05/30/17 08:55 05/30/17 14:18 05/31/17 04:25 Activated Partial Thromboplast Time 50.6 SEC 58.5 SEC Blood Gas Puncture Site LT RADIAL Blood Gas Patient Temperature 98.6 Blood Gas HCO3 38 mmol/L Blood Gas Base Excess 12.3 mmol/L Blood Gas Oxygen Saturation 95 % Arterial Blood pH 7.38 Arterial Blood Partial Pressure CO2 66 mmHg Arterial Blood Partial Pressure O2 103 mmHg Arterial Blood Oxygen Content 18.7 Vol % Arterial Blood Carboxyhemoglobin 0.7 % Arterial Blood Methemoglobin 1.3 % Blood Gas Hemoglobin 13.9 G/DL Oxygen Delivery Device VENTILATOR Blood Gas Ventilator Setting CPAP/PS5/PEEP5 Blood Gas Inspired Oxygen 40 % White Blood Count 17.1 TH/MM3 Red Blood Count 4.09 MIL/MM3 Hemoglobin 13.7 GM/DL Hematocrit 40.6 % Mean Corpuscular Volume 99.3 FL Mean Corpuscular Hemoglobin 33.4 PG Mean Corpuscular Hemoglobin Concent 33.7 % Red Cell Distribution Width 14.7 % Platelet Count 184 TH/MM3 Mean Platelet Volume 9.5 FL Neutrophils (%) (Auto) 89.7 % Lymphocytes (%) (Auto) 2.1 % Monocytes (%) (Auto) 8.2 % Eosinophils (%) (Auto) 0.0 % Basophils (%) (Auto) 0.0 % Neutrophils # (Auto) 15.4 TH/MM3 Lymphocytes # (Auto) 0.4 TH/MM3 Monocytes # (Auto) 1.4 TH/MM3 Eosinophils # (Auto) 0.0 TH/MM3 Basophils # (Auto) 0.0 TH/MM3 CBC Comment AUTO DIFF Differential Total Cells Counted 100 Neutrophils % (Manual) 87 % Band Neutrophils % 2 % Lymphocytes % 1 % Monocytes % 7 % Neutrophils # (Manual) 15.7 TH/MM3 Myelocytes 3 % Differential Comment FINAL DIFF MANUAL Platelet Estimate NORMAL Platelet Morphology Comment NORMAL Spherocytes OCC Blood Urea Nitrogen 55 MG/DL Creatinine 1.46 MG/DL Random Glucose 128 MG/DL Total Protein 6.2 GM/DL Albumin 3.0 GM/DL Calcium Level 8.2 MG/DL Phosphorus Level 5.7 MG/DL Magnesium Level 3.0 MG/DL Alkaline Phosphatase 52 U/L Aspartate Amino Transf (AST/SGOT) 16 U/L Alanine Aminotransferase (ALT/SGPT) 26 U/L Total Bilirubin 1.3 MG/DL Sodium Level 137 MEQ/L Potassium Level 4.5 MEQ/L Chloride Level 93 MEQ/L Carbon Dioxide Level 38.5 MEQ/L Anion Gap 6 MEQ/L Estimat Glomerular Filtration Rate 48 ML/MIN Imaging Last Impressions Chest X-Ray 05/31/17 0600 Signed Impressions: Service Date/Time: Wednesday, May 31, 2017 02:12 - CONCLUSION: 1. Improvement in basilar airspace disease and pleural fluid since May 29. Arnie Oswald MD Renal Ultrasound 05/26/17 0000 Signed Impressions: Service Date/Time: May 16:38 - CONCLUSION: Left kidney nonvisualized. Right kidney unremarkable. Tulio Thomas MD Lower Extremity Ultrasound 05/24/17 0000 Signed Impressions: Service Date/Time: Wednesday, May 24, 2017 18:29 - CONCLUSION: 1. Negative for deep venous thrombosis. Arnie Oswald MD Objective Remarks GENERAL: 71-year-old male lying in bed in NAD SKIN: Warm and dry. No rash HEAD: Atraumatic. Normocephalic. EYES: Pupils equal and round about 3 mm bilaterally and reactive. No scleral icterus. No injection or drainage. ENT: No nasal bleeding or discharge. Mucous membranes pink and moist. NECK: Trachea midline. No JVD. CARDIOVASCULAR: IRR. S1, S2 no S4. Distant RESPIRATORY: B/l equal air entry, Distant. No wheezing GASTROINTESTINAL: Abdomen soft, non-tender, obese. Hypoactive bowel sounds appreciated MUSCULOSKELETAL: Extremities nonpitting peripheral edema. No obvious deformities. NEUROLOGICAL: Awake. Date of Insertion: May 26, 2017 Line: Central Venous Catheter Side: Right Location: Internal, Jugular A/P Assessment and Plan Neuro/Psych: Monitor neuro status avoid sedatives Acetaminophen 650 mg by tube every 6 hours when necessary fever CV: History of cardiomyopathy Right bundle-branch block Atrial fibrillation rate controlled CHADS VASc 3 Hypertension/essential Dyslipidemia Elevated troponin Evaluated by Dr. Falk/cardiology Echo showed EF 50-55% Monitor HR and BP keep MAP>65mmHg Home medications clonidine 0.2 mg twice a day, carvedilol 25 mg twice a day, lisinopril/hydrochlorothiazide 20/25 one tablet daily Currently on clonidine 0.1 mg twice a day, carvedilol 12.5 milligrams twice a day On lovastatin 40 mg by mouth daily at home for dyslipidemia. Currently on Pravachol 40 mg daily On Heparin drip for Afib Resp: Acute hypercapnic respiratory failure with CO2 retention NC COPD/oxygen dependent Likely YUKI Continue with oxygen keep sat >92% Bronchodilators, Solumederol 40mg BID Albuterol aerosols 1.25 mg/ipratropium 0.5 mg nebs every 4 hours with ipratropium aerosols every 2 hours. Dyspnea Pulmonology - Dr. Garcia Resume tiotropium 18 mcg daily CXR today showed improvements in basilar airspace disease GI: Elevated BMI On PO heart healthy diet Lansoprazole 30 mg daily for GI prophylaxis Docusate sodium 100 mg twice a day, senna 8.8 mg twice a day 1 tablet twice a day for bowel regimen : TARA- resolving Monitor renal function, electrolytes replacement as needed. Cr: 1.46 today from 1.29 Renal has followed- Dr. Bach Endo: Sliding scale insulin Accu-Cheks every 6 hours to maintain euglycemia Novulin R medium regimen TSH:0.53 Continue allopurinol 100 mg by mouth daily for elevated uric acid Heme: Macrocytic anemia Leukocytosis Monitor CBC daily. Continue with heparin drip for A. fib, Monitor PTT. ID: Currently on vancomycin, piperacillin/tazobactam and levofloxacin for possible infectious etiology Monitor for signs of infections ( Fever, WBC) sputum cx: normal resp jay, Legionella, pneumococcal antigens negative MSK: PT evaluate and treat Access -Right IJ CVL placed 05/26 Prophylaxis - GI - lansoprazole - DVT - SCD/heparin drip Level 2 Bela Burns MD May 31, 2017 07:31
[2017-05-31] MEDS: RESP: BUDESONIDE 0.5 MG/2 ML NEB NEB SCH ×2 (07:40→19:16)
[2017-05-31] MEDS: CHLORHEXIDINE 0.12% (ORAL KIT) 15 ML CUP MT SCH ×2 (08:00→20:00)
[2017-05-31] MEDS: TIOTROPIUM BROMIDE 18 MCG INH INH SCH (09:00)
[2017-05-31] MEDS: SENNOSIDES SYRUP 8.8 MG/5 ML CUP NG SCH ×2 (09:00→20:29)
[2017-05-31] MEDS: DOCUSATE SODIUM 100 MG/10 ML UDC PO SCH ×2 (09:00→20:30)
[2017-05-31] MEDS: LANSOPRAZOLE SOLUTAB 30 MG TAB NG SCH (10:24)
[2017-05-31] MEDS: methylPREDNISolone SOD SUCC 40 MG/1 ML VIAL IV PUSH SCH (10:24)
[2017-05-31] MEDS: ALLOPURINOL 100 MG TAB PO SCH (10:24)
[2017-05-31] MEDS: CARVEDILOL 12.5 MG TAB PO SCH ×2 (10:24→20:29)
[2017-05-31] MEDS: cloNIDine HCL 0.1 MG TAB PO SCH ×2 (10:24→20:29)
[2017-05-31] MEDS: SODIUM CHLORIDE 0.9% FLUSH 10 ML FLUSH IV FLUSH SCH ×3 (10:25→20:29)
[2017-05-31] MEDS: LEVOFLOXACIN 500 MG PREMIX INJ 100 ML IV SCH (13:30)
[2017-05-31] MEDS ORDERED: PHARMACY ORDERED LAB ONE (17:45)
[2017-05-31] MEDS: VANCOMYCIN INJ 2,250 MG in SODIUM CHLORID 0.9% 500 ML INJ 500 ML IV SCH (18:25)
[2017-05-31] MEDS: PRAVASTATIN SOD 40 MG TAB PO SCH (20:29)
--- NOTE | 2017-05-31 23:49 | PD.CARD.PN ---
Subjective Subjective Remarks Patient was seen earlier today, late entry note No events overnight Extubated, doing well overall Objective Medications Current Medications Medications (Trade) Dose Ordered Sig/Pratima Route Start Time Stop Time Status Last Admin (NS Flush) 2 ml UNSCH PRN IV FLUSH 05/24/17 17:45 (NS Flush) 2 ml BID IV FLUSH 05/24/17 21:00 05/31/17 20:29 (Narcan Inj) 0.4 mg UNSCH PRN IV PUSH 05/24/17 17:45 (Zyloprim) 100 mg DAILY PO 05/25/17 09:00 05/31/17 10:24 (Pravachol) 40 mg HS PO 05/24/17 21:00 05/31/17 20:29 Heparin Sodium/ Dextrose 250 ml @ 18 mls/hr TITRATE PRN IV 05/24/17 18:30 05/30/17 12:27 (Atrovent Neb) 0.5 mg Q2HR NEB PRN NEB 05/24/17 18:45 05/25/17 02:10 Miscellaneous Information Patient in critical care unit? Ass... [id number] .XX 05/24/17 20:45 05/24/17 20:45 Levofloxacin/ Dextrose 100 ml @ 100 mls/hr Q24H IV 05/25/17 14:00 05/31/17 13:30 (Peridex 0.12% Liq) 15 ml BID@08,20 MT 05/26/17 20:00 05/30/17 08:00 (Atrovent Neb) 0.5 mg Q4HR NEB NEB 05/26/17 16:00 05/31/17 23:44 (NS Flush) DAILY IV FLUSH 05/27/17 09:00 05/31/17 10:25 (NS Flush) UNSCH PRN IV FLUSH 05/26/17 14:45 (Pulmicort Respule Neb) 0.5 mg Q12HR NEB NEB 05/26/17 20:00 05/31/17 19:16 (Tears Naturale Opth Soln) 1 drop Q8HR EACH EYE 05/26/17 22:00 05/31/17 20:30 (Prevacid Odt) 30 mg DAILY NG 05/27/17 09:00 05/31/17 10:24 Piperacillin Sod/ Tazobactam Sod 100 ml @ 200 mls/hr Q6H IV 05/26/17 16:00 05/31/17 20:29 Pharmacy Profile Note 0 ml @ 0 mls/hr UNSCH OTHER 05/26/17 15:15 (Brethine Inj) 1 mg UNSCH PRN SQ 05/26/17 15:30 (D50w (Vial) Inj) 50 ml UNSCH PRN IV PUSH 05/26/17 15:45 (Glucagon Inj) 1 mg UNSCH PRN OTHER 05/26/17 15:45 (NovoLIN R SUPPLEMENTAL SCALE) 1 Q6HR SQ 05/26/17 18:00 05/29/17 05:38 (Tylenol 650 Mg/ 20 ml Liq) 650 mg Q6H PRN PO 05/26/17 15:45 Vancomycin HCl 2250 mg/Sodium Chloride 522.5 ml @ 250 mls/hr Q24H IV 05/26/17 18:00 05/31/17 18:25 Potassium Chloride 100 ml @ 50 mls/hr Q2H PRN IV 05/27/17 08:00 05/28/17 09:21 Potassium Chloride 100 ml @ 50 mls/hr Q2H PRN IV 05/27/17 08:00 (K-Lyte Cl Eff) 50 meq UNSCH PRN PO 05/27/17 08:00 Potassium Chloride 100 ml @ 25 mls/hr UNSCH PRN IV 05/27/17 08:00 05/27/17 10:51 Potassium Chloride 100 ml @ 50 mls/hr Q2H PRN IV 05/27/17 08:00 Magnesium Sulfate 4 gm/Sodium Chloride 100 ml @ 50 mls/hr UNSCH PRN IV 05/27/17 08:00 (Mag-Ox) 800 mg UNSCH PRN PO 05/27/17 08:00 Magnesium Sulfate 2 gm/Sodium Chloride 100 ml @ 50 mls/hr UNSCH PRN IV 05/27/17 08:00 (K-Phos) 2,000 mg Q4H PRN PO 05/27/17 08:00 Sodium Phosphate 30 mmol/Sodium Chloride 250 ml @ 42 mls/hr UNSCH PRN IV 05/27/17 08:00 (K-Phos) 2,000 mg UNSCH PRN PO/TUBE 05/27/17 08:00 Potassium Phosphate 30 mmol/ Sodium Chloride 260 ml @ 42 mls/hr UNSCH PRN IV 05/27/17 08:00 (Albuterol Neb) 1.25 mg Q4HR NEB NEB 05/29/17 20:00 05/31/17 23:44 (Colace Liq) 100 mg Q12HR PO 05/29/17 21:00 05/30/17 08:35 (Senna Liq) 8.8 mg BID NG 05/29/17 21:00 05/30/17 08:36 (Catapres) 0.1 mg Q12HR PO 05/30/17 11:00 05/31/17 20:29 (Coreg) 12.5 mg Q12HR PO 05/30/17 11:00 05/31/17 20:29 (Trandate Inj) 10 mg Q1HR PRN IV PUSH 05/30/17 09:45 05/30/17 10:43 (Apresoline Inj) 10 mg Q1HR PRN IV PUSH 05/30/17 09:45 05/31/17 20:29 (Nitroglycerin 2% Oint) 2 inch Q6HR PRN TOPICAL 05/30/17 09:45 (Spiriva Inh) 18 mcg DAILY INH 05/31/17 09:00 (SoluMEDROL INJ) 40 mg DAILY IV PUSH 06/01/17 09:00 Vital Signs / I&O Vital Signs Date Time Temp Pulse Resp B/P (MAP) Pulse Ox O2 Delivery O2 Flow Rate FiO2 05/31/17 22:00 100 30 153/83 (106) 94 05/31/17 22:00 95 05/31/17 21:30 94 Bi-Pap 05/31/17 21:00 99 25 95 05/31/17 20:00 97.8 97 26 172/111 (131) 98 05/31/17 20:00 97 05/31/17 20:00 Nasal Cannula 4.00 05/31/17 19:17 96 35 05/31/17 18:00 89 05/31/17 16:00 97.0 87 25 150/91 (110) 97 05/31/17 16:00 87 05/31/17 14:00 90 05/31/17 12:00 97.9 88 22 151/85 (107) 96 05/31/17 12:00 88 05/31/17 10:56 95 35 05/31/17 10:00 100 05/31/17 09:55 96 Nasal Cannula 4.00 05/31/17 08:00 103 05/31/17 08:00 98.0 103 25 175/69 (104) 98 05/31/17 08:00 103 05/31/17 07:00 97 Nasal Cannula 4.00 05/31/17 06:46 95 35 05/31/17 06:00 101 05/31/17 04:45 96 Nasal Cannula 4.00 05/31/17 04:44 98 Nasal Cannula 4.00 05/31/17 04:15 93 35 05/31/17 04:00 89 05/31/17 04:00 98.1 89 21 96 05/31/17 02:26 96 35 05/31/17 02:00 97 Bi-Pap 35 05/31/17 02:00 90 05/31/17 00:02 96 Nasal Cannula 4.00 05/31/17 00:00 99 Nasal Cannula 4.00 05/31/17 00:00 98.0 86 21 99 05/31/17 00:00 86 I/O 05/31/17 05/31/17 05/31/17 06/01/17 06/01/17 06/01/17 07:00 15:00 23:00 07:00 15:00 23:00 Intake Total 460 ml 100 ml 1550 ml Output Total 1000 ml 1000 ml Balance -540 ml 100 ml 550 ml Intake Oral 360 ml 750 ml IV Total 100 ml 100 ml 800 ml Output Urine Total 1000 ml 1000 ml # Bowel Movements 2 3 Physical Exam GENERAL: NAD SKIN: Warm and dry. HEAD: Atraumatic. Normocephalic. EYES: Pupils equal and round. No scleral icterus. No injection or drainage. ENT: No nasal bleeding or discharge. Mucous membranes pink and moist. NECK: Trachea midline. No JVD. CARDIOVASCULAR: Regular rate and rhythm. RESPIRATORY: No accessory muscle use. Decreased breath sounds bilaterally GASTROINTESTINAL: Abdomen soft, non-tender, nondistended. Hepatic and splenic margins not palpable. MUSCULOSKELETAL: Mild edema NEUROLOGICAL: No focal deficits Laboratory Laboratory Tests Test 05/31/17 04:25 05/31/17 18:00 White Blood Count 17.1 TH/MM3 Red Blood Count 4.09 MIL/MM3 Hemoglobin 13.7 GM/DL Hematocrit 40.6 % Mean Corpuscular Volume 99.3 FL Mean Corpuscular Hemoglobin 33.4 PG Mean Corpuscular Hemoglobin Concent 33.7 % Red Cell Distribution Width 14.7 % Platelet Count 184 TH/MM3 Mean Platelet Volume 9.5 FL Neutrophils (%) (Auto) 89.7 % Lymphocytes (%) (Auto) 2.1 % Monocytes (%) (Auto) 8.2 % Eosinophils (%) (Auto) 0.0 % Basophils (%) (Auto) 0.0 % Neutrophils # (Auto) 15.4 TH/MM3 Lymphocytes # (Auto) 0.4 TH/MM3 Monocytes # (Auto) 1.4 TH/MM3 Eosinophils # (Auto) 0.0 TH/MM3 Basophils # (Auto) 0.0 TH/MM3 CBC Comment AUTO DIFF Differential Total Cells Counted 100 Neutrophils % (Manual) 87 % Band Neutrophils % 2 % Lymphocytes % 1 % Monocytes % 7 % Neutrophils # (Manual) 15.7 TH/MM3 Myelocytes 3 % Differential Comment FINAL DIFF MANUAL Platelet Estimate NORMAL Platelet Morphology Comment NORMAL Spherocytes OCC Activated Partial Thromboplast Time 58.5 SEC Blood Urea Nitrogen 55 MG/DL Creatinine 1.46 MG/DL Random Glucose 128 MG/DL Total Protein 6.2 GM/DL Albumin 3.0 GM/DL Calcium Level 8.2 MG/DL Phosphorus Level 5.7 MG/DL Magnesium Level 3.0 MG/DL Alkaline Phosphatase 52 U/L Aspartate Amino Transf (AST/SGOT) 16 U/L Alanine Aminotransferase (ALT/SGPT) 26 U/L Total Bilirubin 1.3 MG/DL Sodium Level 137 MEQ/L Potassium Level 4.5 MEQ/L Chloride Level 93 MEQ/L Carbon Dioxide Level 38.5 MEQ/L Anion Gap 6 MEQ/L Estimat Glomerular Filtration Rate 48 ML/MIN Vancomycin Level Trough 18.4 MCG/ML Imaging Last 24 hours Impressions Chest X-Ray 05/31/17 0600 Signed Impressions: Service Date/Time: Wednesday, May 31, 2017 02:12 - CONCLUSION: 1. Improvement in basilar airspace disease and pleural fluid since May 29. Arnie Oswald MD Assessment and Plan Problem List: (1) Atrial fibrillation ICD Codes: I48.91 - Unspecified atrial fibrillation (2) hypertension Status: Acute (3) COPD with acute exacerbation ICD Codes: J44.1 - Chronic obstructive pulmonary disease with (acute) exacerbation Status: Acute (4) CHF (congestive heart failure) ICD Codes: I50.9 - Heart failure, unspecified Status: Acute (5) Hyponatremia ICD Codes: E87.1 - Hypo-osmolality and hyponatremia Status: Acute Permanent Comment: Acute on chronic hyponatremia. Last Edited By: Km Bach on May 26, 2017 17:10 Assessment and Plan 1) Respiratory failure with CO2 retention Extubated 2) CHF Most likely small component of multi-factorial respiratory failure EF 50-55% 3) Afib Controlled on current medications CHADS-VASc = 3 Discussed with the patient this morning, he stated he wanted to stay on ASA... of note, I was called by the nurse later today, and apparently after discussion with his , he wants to be on AC Will reevaluate in the morning when I can speak with the patient again 4) HTN Restarted on BP medications Problem Qualifiers (1) CHF (congestive heart failure): Qualified Codes: I50.9 - Heart failure, unspecified Chema Hogue DO May 31, 2017 23:49
[2017-06-01] VITALS (26 sets, daily range): BP systolic 63–146; BP diastolic 42–85; PULSE 77–106; RESP 14–22; TEMP 98–98.9; O2SAT 92–100
[2017-06-01] MEDS: RESP: IPRATROPIUM 0.5 MG/2.5 ML NEB NEB SCH ×5 (03:25→20:00)
[2017-06-01] MEDS: RESP: ALBUTEROL 1.25 MG/3 ML NEB (SCH) NEB ×5 (03:25→19:56)
[2017-06-01 03:54] LABS: AUTOMATED NEUTROPHIL # 13.6 TH/MM3 (1.8-7.7); BASOPHIL % 0.1 % (0.0-2.0); HEMATOCRIT 40.6 % (39.0-51.0); HEMOGLOBIN 13.2 GM/DL (13.0-17.0); LYMPHOCYTE # 0.3 TH/MM3 (1.0-4.8); MEAN CELL VOLUME 99.8 FL (80.0-100.0); MEAN CORPUSCULAR HEMOGLOBIN 32.5 PG (27.0-34.0); MEAN CORPUSCULAR HGB CONC 32.6 % (32.0-36.0); MONO % 10.5 % (0.0-8.0); MONOCYTE # 1.6 TH/MM3 (0-0.9); NEUT % 87.4 % (16.0-70.0); PLATELET COUNT 176 TH/MM3 (150-450); RED BLOOD COUNT 4.07 MIL/MM3 (4.50-5.90); RED CELL DISTRIBUTION WIDTH 14.9 % (11.6-17.2); WHITE BLOOD COUNT 15.6 TH/MM3 (4.0-11.0)
[2017-06-01 04:14] LABS: BICARBONATE 35.9 MEQ/L (21.0-32.0); CALCIUM 8.5 MG/DL (8.5-10.1); CREATININE 1.04 MG/DL (0.60-1.30)
[2017-06-01] MEDS: PIPERACIL-TAZO 4.5 GM PREMIX 100 ML IV SCH ×4 (04:54→20:36)
[2017-06-01] MEDS: INSULIN NovoLIN REGULAR SUPPLEMENTAL SCALE SQ SCH ×5 (06:00→20:37)
[2017-06-01] MEDS: RESP: BUDESONIDE 0.5 MG/2 ML NEB NEB SCH ×2 (07:24→19:56)
[2017-06-01] MEDS: CHLORHEXIDINE 0.12% (ORAL KIT) 15 ML CUP MT SCH ×2 (08:00→20:00)
[2017-06-01] MEDS: cloNIDine HCL 0.1 MG TAB PO SCH ×2 (08:32→20:36)
[2017-06-01] MEDS: ALLOPURINOL 100 MG TAB PO SCH (08:32)
[2017-06-01] MEDS: LANSOPRAZOLE SOLUTAB 30 MG TAB NG SCH (08:32)
[2017-06-01] MEDS: SODIUM CHLORIDE 0.9% FLUSH 10 ML FLUSH IV FLUSH SCH ×3 (08:33→20:37)
[2017-06-01] MEDS: SENNOSIDES SYRUP 8.8 MG/5 ML CUP NG SCH ×2 (08:34→20:37)
[2017-06-01] MEDS: DOCUSATE SODIUM 100 MG/10 ML UDC PO SCH ×2 (08:34→20:37)
[2017-06-01] MEDS: CARVEDILOL 12.5 MG TAB PO SCH ×2 (08:34→20:36)
[2017-06-01] MEDS ORDERED: methylPREDNISolone SOD SUCC 40 MG/1 ML VIAL IV PUSH SCH (09:00)
[2017-06-01] MEDS: TIOTROPIUM BROMIDE 18 MCG INH INH SCH (09:00)
[2017-06-01 09:03] LABS: BANDS 3 % (0-6); LYMPHOCYTES 5 % (9-44); METAMYELOCYTES 2 % (0-1); MONOCYTES 8 % (0-8); MYELOCYTES 1 % (0-0); NEUTROPHIL # MANUAL DIFF 13.6 TH/MM3 (1.8-7.7); POLYS (SEG NEUTROPHILS) 81 % (16-70)
[2017-06-01] MEDS ORDERED: ALTEPLASE RECOMBINANT 2 MG VIAL INTRACATH ONE (11:00)
--- NOTE | 2017-06-01 11:53 | HHI.CCPN ---
Subjective Remarks/Hospital Course This is a 71-year-old male. Date of admission 05/24/2017. Date of consultation 05/26/2017. Past medical history includes elevated BMI, hypertension, history of atrial fibrillation, history of COPD with FEV1 35%, right bundle branch block, gastroesophageal reflux disease and according to with likely obstructive sleep apnea. For the past week, patient prior to admission to [place] is complaining of increasing lower extremity edema, dyspnea on exertion with rest affecting his activities of daily life. The night of 05/24 patient was placed on BiPAP is intermittently been on and off this for the past 48 hours. Today, patient was placed on a nonrebreather mask became acutely hypoxic and dyspneic. When I evaluated the patient, he stated "I cannot breathe". Patient was noted be hypotensive. Patient was emergently intubated and placed on vasopressors to maintain a mean arterial pressure of 65. 05/27 Patient is sedated with Diprivan, intubated on Levophed 1 carmen and Heparin drip. 05/28 No events overnight. Off Levophed, on Diprivan drip for sedation. Afebrile. On Heparin drip. 05/29: Afebrile. Off norepinephrine drip. On propofol drip at 20 mics grams per kilogram per minute. Remains on heparin drip at 1400 units an hour. Follows commands on sedation vacation. 05/30: Afebrile. Off all vasopressors. Currently a PSV trial and appears very couple. Tolerating tube feeding. 05/31 Patient s/p extubation yesterday on BIPAP intermittently overnight now on 4L oxygen. Subjective 06/01: Resting in bed in no acute distress. Currently on BiPAP. Heparin drip held due to bleeding from removal of arterial line yesterday. Tolerating diet. No bowel movement. Objective Vital Signs Date Time Temp Pulse Resp B/P (MAP) Pulse Ox O2 Delivery O2 Flow Rate FiO2 06/01/17 10:00 80 06/01/17 09:50 96 35 06/01/17 08:31 Nasal Cannula 4.00 06/01/17 08:00 98.8 20 136/73 (94) Intake and Output 06/01/17 06/01/17/05/19 08:00 16:00 00:00 Intake Total 580 ml Output Total 1000 ml Balance -420 ml Result Diagram: 06/01/17 0345 06/01/17 0345 Other Results Microbiology Date/Time Source Procedure Growth Status 05/26/17 15:41 Blood Peripheral Aerobic Blood Culture - Final NO GROWTH IN 5 DAYS Complete 05/26/17 15:41 Blood Peripheral Anaerobic Blood Culture - Final NO GROWTH IN 5 DAYS Complete 05/26/17 15:45 Sputum Endotracheal Gram Stain - Final Complete 05/26/17 15:45 Sputum Endotracheal Sputum Culture - Final HEAVY GROWTH NORMAL RESPIRATORY JAY Complete 05/26/17 21:30 Urine Catheterized Urine Legionella Antigen - Final PRESUMPTIVE NEGATIVE FOR LEGIONELLA P... Complete 05/26/17 21:30 Urine Catheterized Urine Streptococcus pneumoniae Antigen (M - Final PRESUMPTIVE NEGATIVE FOR STREPTOCOCCU... Complete Imaging Last Impressions Chest X-Ray 05/31/17 0600 Signed Impressions: Service Date/Time: Wednesday, May 31, 2017 02:12 - CONCLUSION: 1. Improvement in basilar airspace disease and pleural fluid since May 29. Arnie Oswald MD Renal Ultrasound 05/26/17 0000 Signed Impressions: Service Date/Time: May 16:38 - CONCLUSION: Left kidney nonvisualized. Right kidney unremarkable. Tulio Thomas MD Lower Extremity Ultrasound 05/24/17 0000 Signed Impressions: Service Date/Time: Wednesday, May 24, 2017 18:29 - CONCLUSION: 1. Negative for deep venous thrombosis. Arnie Oswald MD Objective Remarks GENERAL: 71-year-old male lying in bed in NAD SKIN: Warm and dry. No rash HEAD: Atraumatic. Normocephalic. EYES: Pupils equal and round about 3 mm bilaterally and reactive. No scleral icterus. No injection or drainage. ENT: No nasal bleeding or discharge. Mucous membranes pink and moist. NECK: Trachea midline. No JVD. CARDIOVASCULAR: IRR. S1, S2 no S4. Distant RESPIRATORY: B/l equal air entry, Distant. No wheezing GASTROINTESTINAL: Abdomen soft, non-tender, obese. Hypoactive bowel sounds appreciated MUSCULOSKELETAL: Extremities 1-2+ peripheral above the ankles below the knees edema. No obvious deformities. NEUROLOGICAL: Awake. Cranial nerves II through XII grossly intact. Strength equal symmetric. Normal sensation Urinary Catheter: No Assessment to: Continue Vascular Central Line Catheter: Yes Assessment to: Remove Date of Insertion: May 26, 2017 Line: Central Venous Catheter Side: Right Location: Internal, Jugular A/P Assessment and Plan Neuro/Psych: Monitor neuro status avoid sedatives Acetaminophen 650 mg by tube every 6 hours when necessary fever CV: History of cardiomyopathy Right bundle-branch block Atrial fibrillation rate controlled [id number] VASc 3 Hypertension/essential Dyslipidemia Elevated troponin Evaluated by Dr. Falk/cardiology Echo showed EF 50-55% Monitor HR and BP keep MAP>65mmHg Home medications clonidine 0.2 mg twice a day, carvedilol 25 mg twice a day, lisinopril/hydrochlorothiazide 20/25 one tablet daily Currently on clonidine 0.1 mg twice a day, carvedilol 12.5 milligrams twice a day On lovastatin 40 mg by mouth daily at home for dyslipidemia. Currently on Pravachol 40 mg daily Heparin drip held yesterday as patient does not wish to be on systemic anticoagulation with VKA or NOAC. No fits and risks discussed. At higher risk for CVA however has history of prior bleeding does not want this to recur. On aspirin 81 mg daily clopidogrel 75 mg daily Resp: Acute hypercapnic respiratory failure with CO2 retention NC COPD/oxygen dependent Likely YUKI Int BiPAP 15/5 Continue with oxygen keep sat >92% Albuterol aerosols 1.25 mg/ipratropium 0.5 mg nebs every 4 hours with ipratropium aerosols every 2 hours. Dyspnea Pulmonology - Dr. Garcia GI: Elevated BMI On PO heart healthy diet Pantoprazole 40 mg daily for GI prophylaxis Docusate sodium 100 mg twice a day, senna 8.8 mg twice a day 1 tablet twice a day for bowel regimen : TARA- resolving Monitor renal function, electrolytes replacement as needed. Cr: 1..0 Renal has followed- Dr. Bach Endo: Sliding scale insulin Accu-Cheks every 6 hours to maintain euglycemia Novulin R medium regimen TSH:0.53 Continue allopurinol 100 mg by mouth daily for elevated uric acid Heme: Leukocytosis Monitor CBC daily. ID: Currently on vancomycin, piperacillin/tazobactam and levofloxacin for possible infectious etiology Likely de-escalate with the next 24-48 hours Monitor for signs of infections ( Fever, WBC) sputum cx: normal resp jay, Legionella, pneumococcal antigens negative MSK: Elevated BMI Weight loss encouraged PT evaluate and treat Access -Right IJ CVL placed 1/25 - 06/01 Prophylaxis - GI -pantoprazole - DVT - SCD/heparin subcutaneous Level 2 follow-up Sanket Reilly MD Jun 01, 2017 11:53
[2017-06-01] MEDS: ARTIFICIAL TEARS OPTH SOLN 15 ML BTL EACH EYE SCH ×2 (14:00→20:37)
[2017-06-01] MEDS: HEPARIN SODIUM - SQ 10,000 UNITS/ML VIAL SQ SCH ×2 (14:14→20:37)
[2017-06-01] MEDS: LEVOFLOXACIN 500 MG PREMIX INJ 100 ML IV SCH (14:14)
--- NOTE | 2017-06-01 17:03 | PD.CARD.PN ---
Subjective Subjective Remarks Patient was seen earlier today, late entry note No events overnight Extubated, doing well overall Objective Medications Current Medications Medications (Trade) Dose Ordered Sig/Pratima Route Start Time Stop Time Status Last Admin (NS Flush) 2 ml UNSCH PRN IV FLUSH 05/24/17 17:45 (NS Flush) 2 ml BID IV FLUSH 05/24/17 21:00 06/01/17 08:33 (Narcan Inj) 0.4 mg UNSCH PRN IV PUSH 05/24/17 17:45 (Zyloprim) 100 mg DAILY PO 05/25/17 09:00 06/01/17 08:32 (Pravachol) 40 mg HS PO 05/24/17 21:00 05/31/17 20:29 (Atrovent Neb) 0.5 mg Q2HR NEB PRN NEB 05/24/17 18:45 05/25/17 02:10 Miscellaneous Information Patient in critical care unit? Ass... Q361D .XX 05/24/17 20:45 05/24/17 20:45 Levofloxacin/ Dextrose 100 ml @ 100 mls/hr Q24H IV 05/25/17 14:00 06/01/17 14:14 (Peridex 0.12% Liq) 15 ml BID@08,20 MT 05/26/17 20:00 05/30/17 08:00 (Atrovent Neb) 0.5 mg Q4HR NEB NEB 05/26/17 16:00 06/01/17 14:43 (NS Flush) DAILY IV FLUSH 05/27/17 09:00 06/01/17 08:33 (NS Flush) UNSCH PRN IV FLUSH 05/26/17 14:45 (Pulmicort Respule Neb) 0.5 mg Q12HR NEB NEB 05/26/17 20:00 06/01/17 07:24 (Tears Naturale Opth Soln) 1 drop Q8HR EACH EYE 05/26/17 22:00 05/31/17 20:30 Piperacillin Sod/ Tazobactam Sod 100 ml @ 200 mls/hr Q6H IV 05/26/17 16:00 06/01/17 10:59 Pharmacy Profile Note 0 ml @ 0 mls/hr UNSCH OTHER 05/26/17 15:15 (Brethine Inj) 1 mg UNSCH PRN SQ 05/26/17 15:30 (D50w (Vial) Inj) 50 ml UNSCH PRN IV PUSH 05/26/17 15:45 (Glucagon Inj) 1 mg UNSCH PRN OTHER 05/26/17 15:45 (Tylenol 650 Mg/ 20 ml Liq) 650 mg Q6H PRN PO 05/26/17 15:45 Vancomycin HCl 2250 mg/Sodium Chloride 522.5 ml @ 250 mls/hr Q24H IV 05/26/17 18:00 05/31/17 18:25 Potassium Chloride 100 ml @ 50 mls/hr Q2H PRN IV 05/27/17 08:00 05/28/17 09:21 Potassium Chloride 100 ml @ 50 mls/hr Q2H PRN IV 05/27/17 08:00 (K-Lyte Cl Eff) 50 meq UNSCH PRN PO 05/27/17 08:00 Potassium Chloride 100 ml @ 25 mls/hr UNSCH PRN IV 05/27/17 08:00 05/27/17 10:51 Potassium Chloride 100 ml @ 50 mls/hr Q2H PRN IV 05/27/17 08:00 Magnesium Sulfate 4 gm/Sodium Chloride 100 ml @ 50 mls/hr UNSCH PRN IV 05/27/17 08:00 (Mag-Ox) 800 mg UNSCH PRN PO 05/27/17 08:00 Magnesium Sulfate 2 gm/Sodium Chloride 100 ml @ 50 mls/hr UNSCH PRN IV 05/27/17 08:00 (K-Phos) 2,000 mg Q4H PRN PO 05/27/17 08:00 Sodium Phosphate 30 mmol/Sodium Chloride 250 ml @ 42 mls/hr UNSCH PRN IV 05/27/17 08:00 (K-Phos) 2,000 mg UNSCH PRN PO/TUBE 05/27/17 08:00 Potassium Phosphate 30 mmol/ Sodium Chloride 260 ml @ 42 mls/hr UNSCH PRN IV 05/27/17 08:00 (Albuterol Neb) 1.25 mg Q4HR NEB NEB 05/29/17 20:00 06/01/17 14:43 (Colace Liq) 100 mg Q12HR PO 05/29/17 21:00 05/30/17 08:35 (Senna Liq) 8.8 mg BID NG 05/29/17 21:00 05/30/17 08:36 (Catapres) 0.1 mg Q12HR PO 05/30/17 11:00 06/01/17 08:32 (Coreg) 12.5 mg Q12HR PO 05/30/17 11:00 06/01/17 08:34 (Trandate Inj) 10 mg Q1HR PRN IV PUSH 05/30/17 09:45 05/30/17 10:43 (Apresoline Inj) 10 mg Q1HR PRN IV PUSH 05/30/17 09:45 05/31/17 20:29 (Nitroglycerin 2% Oint) 2 inch Q6HR PRN TOPICAL 05/30/17 09:45 Miscellaneous Information SPECIFIC LAB TO BE [facility]... ONCE ONCE .XX 06/02/17 17:45 06/02/17 17:46 (Protonix) 40 mg DAILY PO 06/02/17 09:00 (NovoLIN R SUPPLEMENTAL SCALE) 1 ACHS SQ 06/01/17 17:00 (Aspirin Chew) 81 mg DAILY CHEW 06/02/17 09:00 (Heparin Inj) 5,000 units Q8HR SQ 06/01/17 14:00 06/01/17 14:14 (Plavix) 75 mg DAILY PO 06/02/17 09:00 (SoluMEDROL INJ) 20 mg DAILY IV PUSH 06/02/17 09:00 Vital Signs / I&O Vital Signs Date Time Temp Pulse Resp B/P (MAP) Pulse Ox O2 Delivery O2 Flow Rate FiO2 06/01/17 16:00 87 06/01/17 14:50 94 35 06/01/17 14:00 98 06/01/17 12:45 92 Nasal Cannula 4.00 06/01/17 12:00 98.9 84 15 115/81 (92) 98 06/01/17 12:00 84 06/01/17 10:00 80 06/01/17 09:50 96 35 06/01/17 08:40 95 40 06/01/17 08:31 93 Nasal Cannula 4.00 06/01/17 08:00 98.8 97 20 136/73 (94) 95 06/01/17 08:00 98 06/01/17 07:20 98 35 06/01/17 07:00 98 Bi-Pap 06/01/17 06:00 90 06/01/17 04:01 97 35 06/01/17 04:00 77 06/01/17 04:00 92 16 87/53 (64) 98 06/01/17 03:01 87 15 63/42 (49) 98 06/01/17 02:01 86 14 93/52 (66) 98 06/01/17 02:00 77 06/01/17 01:02 96 40 06/01/17 01:01 85 15 120/56 (77) 98 06/01/17 00:24 95 Bi-Pap 06/01/17 00:00 96 06/01/17 00:00 98.0 99 22 126/75 (92) 100 05/31/17 23:46 94 Nasal Cannula 4.00 05/31/17 23:00 93 16 96 05/31/17 22:00 100 30 153/83 (106) 94 05/31/17 22:00 95 05/31/17 21:30 94 Bi-Pap 05/31/17 21:00 99 25 95 05/31/17 20:00 97.8 97 26 172/111 (131) 98 05/31/17 20:00 97 05/31/17 20:00 Nasal Cannula 4.00 05/31/17 19:17 96 35 05/31/17 18:00 89 I/O 05/31/17 05/31/17 05/31/17 06/01/17 06/01/17 06/01/17 07:00 15:00 23:00 07:00 15:00 23:00 Intake Total 460 ml 100 ml 1550 ml 580 ml Output Total 1000 ml 1000 ml 1000 ml Balance -540 ml 100 ml 550 ml -420 ml Intake Oral 360 ml 750 ml 480 ml IV Total 100 ml 100 ml 800 ml 100 ml Output Urine Total 1000 ml 1000 ml 1000 ml # Bowel Movements 2 3 0 Physical Exam GENERAL: NAD SKIN: Warm and dry. HEAD: Atraumatic. Normocephalic. EYES: Pupils equal and round. No scleral icterus. No injection or drainage. ENT: No nasal bleeding or discharge. Mucous membranes pink and moist. NECK: Trachea midline. No JVD. CARDIOVASCULAR: Regular rate and rhythm. RESPIRATORY: No accessory muscle use. Decreased breath sounds bilaterally GASTROINTESTINAL: Abdomen soft, non-tender, nondistended. Hepatic and splenic margins not palpable. MUSCULOSKELETAL: Mild edema NEUROLOGICAL: No focal deficits Laboratory Laboratory Tests Test 05/31/17 18:00 06/01/17 03:45 06/01/17 14:46 Vancomycin Level Trough 18.4 MCG/ML White Blood Count 15.6 TH/MM3 Red Blood Count 4.07 MIL/MM3 Hemoglobin 13.2 GM/DL Hematocrit 40.6 % Mean Corpuscular Volume 99.8 FL Mean Corpuscular Hemoglobin 32.5 PG Mean Corpuscular Hemoglobin Concent 32.6 % Red Cell Distribution Width 14.9 % Platelet Count 176 TH/MM3 Mean Platelet Volume 9.0 FL Neutrophils (%) (Auto) 87.4 % Lymphocytes (%) (Auto) 2.0 % Monocytes (%) (Auto) 10.5 % Eosinophils (%) (Auto) 0.0 % Basophils (%) (Auto) 0.1 % Neutrophils # (Auto) 13.6 TH/MM3 Lymphocytes # (Auto) 0.3 TH/MM3 Monocytes # (Auto) 1.6 TH/MM3 Eosinophils # (Auto) 0.0 TH/MM3 Basophils # (Auto) 0.0 TH/MM3 CBC Comment AUTO DIFF Differential Total Cells Counted 100 Neutrophils % (Manual) 81 % Band Neutrophils % 3 % Lymphocytes % 5 % Monocytes % 8 % Neutrophils # (Manual) 13.6 TH/MM3 Metamyelocytes 2 % Myelocytes 1 % Differential Comment FINAL DIFF MANUAL Platelet Estimate NORMAL Platelet Morphology Comment NORMAL Red Cell Morphology Comment NORMAL Blood Urea Nitrogen 51 MG/DL Creatinine 1.04 MG/DL Random Glucose 103 MG/DL Calcium Level 8.5 MG/DL Sodium Level 138 MEQ/L Potassium Level 4.5 MEQ/L Chloride Level 96 MEQ/L Carbon Dioxide Level 35.9 MEQ/L Anion Gap 6 MEQ/L Estimat Glomerular Filtration Rate 71 ML/MIN Blood Gas Puncture Site LT RADIAL Blood Gas Patient Temperature 98.6 Blood Gas HCO3 36 mmol/L Blood Gas Base Excess 10.0 mmol/L Blood Gas Oxygen Saturation 87 % Arterial Blood pH 7.37 Arterial Blood Partial Pressure CO2 62 mmHg Arterial Blood Partial Pressure O2 63 mmHg Arterial Blood Oxygen Content 16.5 Vol % Arterial Blood Carboxyhemoglobin 1.2 % Arterial Blood Methemoglobin 1.2 % Blood Gas Hemoglobin 13.4 G/DL Oxygen Delivery Device NASAL CANNULA Blood Gas Liter Flow 4 L/M Assessment and Plan Problem List: (1) Atrial fibrillation ICD Codes: I48.91 - Unspecified atrial fibrillation (2) hypertension Status: Acute (3) COPD with acute exacerbation ICD Codes: J44.1 - Chronic obstructive pulmonary disease with (acute) exacerbation Status: Acute (4) CHF (congestive heart failure) ICD Codes: I50.9 - Heart failure, unspecified Status: Acute (5) Hyponatremia ICD Codes: E87.1 - Hypo-osmolality and hyponatremia Status: Acute Permanent Comment: Acute on chronic hyponatremia. Last Edited By: Km Bach on May 26, 2017 17:10 Assessment and Plan 1) Respiratory failure with CO2 retention Extubated 2) CHF Most likely small component of multi-factorial respiratory failure EF 50-55% 3) Afib Controlled on current medications CHADS-VASc = 3 Discussed with him this morning, after discussing with his wants to be on anti-coagulation, will plan to place on before discharge 4) HTN Restarted on BP medications Problem Qualifiers (1) CHF (congestive heart failure): Qualified Codes: I50.9 - Heart failure, unspecified Chema Hogue DO Jun 01, 2017 17:03
[2017-06-01] MEDS: VANCOMYCIN INJ 2,250 MG in SODIUM CHLORID 0.9% 500 ML INJ 500 ML IV SCH (18:51)
[2017-06-01] MEDS: PRAVASTATIN SOD 40 MG TAB PO SCH (20:36)
[2017-06-02] VITALS (17 sets, daily range): BP systolic 96–160; BP diastolic 51–84; PULSE 73–104; RESP 15–23; TEMP 98–99; O2SAT 94–100
[2017-06-02] MEDS: RESP: IPRATROPIUM 0.5 MG/2.5 ML NEB NEB SCH ×6 (00:04→20:00)
[2017-06-02] MEDS: RESP: ALBUTEROL 1.25 MG/3 ML NEB (SCH) NEB ×6 (00:04→20:00)
[2017-06-02] MEDS: PIPERACIL-TAZO 4.5 GM PREMIX 100 ML IV SCH ×2 (03:52→10:40)
[2017-06-02 04:29] LABS: AUTOMATED NEUTROPHIL # 11.9 TH/MM3 (1.8-7.7); BASOPHIL % 0.1 % (0.0-2.0); EOSINOPHIL % 0.1 % (0.0-4.0); HEMATOCRIT 39.7 % (39.0-51.0); HEMOGLOBIN 12.9 GM/DL (13.0-17.0); LYMPH % 2.5 % (9.0-44.0); LYMPHOCYTE # 0.3 TH/MM3 (1.0-4.8); MEAN CELL VOLUME 101.3 FL (80.0-100.0); MEAN CORPUSCULAR HEMOGLOBIN 32.9 PG (27.0-34.0); MEAN CORPUSCULAR HGB CONC 32.5 % (32.0-36.0); MEAN PLATELET VOLUME 9.6 FL (7.0-11.0); MONO % 12.1 % (0.0-8.0); MONOCYTE # 1.7 TH/MM3 (0-0.9); NEUT % 85.2 % (16.0-70.0); PLATELET COUNT 181 TH/MM3 (150-450); RED BLOOD COUNT 3.92 MIL/MM3 (4.50-5.90); RED CELL DISTRIBUTION WIDTH 14.9 % (11.6-17.2)
[2017-06-02 04:53] LABS: ALBUMIN 2.9 GM/DL (3.4-5.0); BICARBONATE 37.7 MEQ/L (21.0-32.0); CREATININE 1.1 MG/DL (0.60-1.30); MAGNESIUM 2.8 MG/DL (1.5-2.5)
[2017-06-02 05:26] LABS: PHOSPHORUS 3.9 MG/DL (2.5-4.9)
[2017-06-02] MEDS: ARTIFICIAL TEARS OPTH SOLN 15 ML BTL EACH EYE SCH ×3 (06:00→20:56)
[2017-06-02] MEDS: HEPARIN SODIUM - SQ 10,000 UNITS/ML VIAL SQ SCH ×3 (06:00→20:55)
[2017-06-02] MEDS: RESP: BUDESONIDE 0.5 MG/2 ML NEB NEB SCH ×2 (07:26→20:00)
[2017-06-02] MEDS: INSULIN NovoLIN REGULAR SUPPLEMENTAL SCALE SQ SCH ×4 (08:00→20:55)
[2017-06-02 08:01] LABS: LYMPHOCYTES 2 % (9-44); MONOCYTES 10 % (0-8); MYELOCYTES 1 % (0-0); NEUTROPHIL # MANUAL DIFF 12.3 TH/MM3 (1.8-7.7); POLYS (SEG NEUTROPHILS) 87 % (16-70)
[2017-06-02] MEDS ORDERED: methylPREDNISolone SOD SUCC 40 MG/1 ML VIAL IV PUSH SCH (09:00)
[2017-06-02] MEDS: ALLOPURINOL 100 MG TAB PO SCH (09:07)
[2017-06-02] MEDS: CARVEDILOL 12.5 MG TAB PO SCH ×2 (09:07→20:55)
[2017-06-02] MEDS: SODIUM CHLORIDE 0.9% FLUSH 10 ML FLUSH IV FLUSH SCH ×3 (09:07→20:55)
[2017-06-02] MEDS: SENNOSIDES SYRUP 8.8 MG/5 ML CUP NG SCH ×2 (09:07→20:55)
[2017-06-02] MEDS: PANTOPRAZOLE SOD 40 MG DELAYED RELEASE TAB PO SCH (09:07)
[2017-06-02] MEDS: DOCUSATE SODIUM 100 MG/10 ML UDC PO SCH ×2 (09:08→20:56)
[2017-06-02] MEDS: CLOPIDOGREL 75 MG TAB PO SCH (09:08)
[2017-06-02] MEDS: cloNIDine HCL 0.1 MG TAB PO SCH ×2 (09:08→20:55)
[2017-06-02] MEDS: ASPIRIN 81 MG CHEW TAB CHEW SCH (09:08)
[2017-06-02] MEDS: CHLORHEXIDINE 0.12% (ORAL KIT) 15 ML CUP MT SCH ×2 (09:19→20:00)
[2017-06-02] MEDS: FUROSEMIDE 20 MG TAB PO SCH (14:19)
[2017-06-02] MEDS: LEVOFLOXACIN 500 MG PREMIX INJ 100 ML IV SCH (14:20)
[2017-06-02] MEDS ORDERED: PHARMACY ORDERED LAB ONE (17:45)
--- NOTE | 2017-06-02 19:03 | HHI.CCPN ---
Subjective Remarks/Hospital Course This is a 71-year-old male. Date of admission 05/24/2017. Date of consultation 05/26/2017. Past medical history includes elevated BMI, hypertension, history of atrial fibrillation, history of COPD with FEV1 35%, right bundle branch block, gastroesophageal reflux disease and according to with likely obstructive sleep apnea. For the past week, patient prior to admission to [facility] is complaining of increasing lower extremity edema, dyspnea on exertion with rest affecting his activities of daily life. The night of 05/24 patient was placed on BiPAP is intermittently been on and off this for the past 48 hours. Today, patient was placed on a nonrebreather mask became acutely hypoxic and dyspneic. When I evaluated the patient, he stated "I cannot breathe". Patient was noted be hypotensive. Patient was emergently intubated and placed on vasopressors to maintain a mean arterial pressure of 65. 05/27 Patient is sedated with Diprivan, intubated on Levophed 1 carmen and Heparin drip. 05/28 No events overnight. Off Levophed, on Diprivan drip for sedation. Afebrile. On Heparin drip. 05/29: Afebrile. Off norepinephrine drip. On propofol drip at 20 mics grams per kilogram per minute. Remains on heparin drip at 1400 units an hour. Follows commands on sedation vacation. 05/30: Afebrile. Off all vasopressors. Currently a PSV trial and appears very couple. Tolerating tube feeding. 05/31 Patient s/p extubation yesterday on BIPAP intermittently overnight now on 4L oxygen. 06/01: Resting in bed in no acute distress. Currently on BiPAP. Heparin drip held due to bleeding from removal of arterial line yesterday. Tolerating diet. No bowel movement. Subjective 06/02: Tmax 99. Currently resting in bed in no acute distress. On 4 L nasal cannula. Tolerated BiPAP last night. Tolerating diet. Objective Vital Signs Date Time Temp Pulse Resp B/P (MAP) Pulse Ox O2 Delivery O2 Flow Rate FiO2 06/02/17 18:00 99 06/02/17 16:00 99.0 15 136/84 (101) 98 06/02/17 08:59 Nasal Cannula 3.00 06/02/17 07:26 35 Intake and Output 06/02/17 06/02/17 06/03/17 08:00 16:00 00:00 Intake Total 622.5 ml 350 ml Output Total 850 ml 1000 ml Balance -227.5 ml -650 ml Result Diagram: 06/02/17 0345 06/02/17 0345 Other Results Microbiology Date/Time Source Procedure Growth Status 05/26/17 15:41 Blood Peripheral Aerobic Blood Culture - Final NO GROWTH IN 5 DAYS Complete 05/26/17 15:41 Blood Peripheral Anaerobic Blood Culture - Final NO GROWTH IN 5 DAYS Complete 05/26/17 15:45 Sputum Endotracheal Gram Stain - Final Complete 05/26/17 15:45 Sputum Endotracheal Sputum Culture - Final HEAVY GROWTH NORMAL RESPIRATORY JAY Complete 05/26/17 21:30 Urine Catheterized Urine Legionella Antigen - Final PRESUMPTIVE NEGATIVE FOR LEGIONELLA P... Complete 05/26/17 21:30 Urine Catheterized Urine Streptococcus pneumoniae Antigen (M - Final PRESUMPTIVE NEGATIVE FOR STREPTOCOCCU... Complete Imaging Last Impressions Chest X-Ray 05/31/17 0600 Signed Impressions: Service Date/Time: Wednesday, May 31, 2017 02:12 - CONCLUSION: 1. Improvement in basilar airspace disease and pleural fluid since May 29. Arnie Oswald MD Renal Ultrasound 05/26/17 0000 Signed Impressions: Service Date/Time: May 16:38 - CONCLUSION: Left kidney nonvisualized. Right kidney unremarkable. Tulio Thomas MD Lower Extremity Ultrasound 05/24/17 0000 Signed Impressions: Service Date/Time: Wednesday, May 24, 2017 18:29 - CONCLUSION: 1. Negative for deep venous thrombosis. Arnie Oswald MD Objective Remarks GENERAL: 71-year-old male lying in bed in [facility] SKIN: Warm and dry. No rash HEAD: Atraumatic. Normocephalic. EYES: Pupils equal and round about 3 mm bilaterally and reactive. No scleral icterus. No injection or drainage. ENT: No nasal bleeding or discharge. Mucous membranes pink and moist. NECK: Trachea midline. No JVD. CARDIOVASCULAR: IRR. S1, S2 no S4. Distant RESPIRATORY: B/l equal air entry, Distant. No wheezing GASTROINTESTINAL: Abdomen soft, non-tender, obese. Hypoactive bowel sounds appreciated MUSCULOSKELETAL: Extremities 1-2+ peripheral above the ankles below the knees edema. No obvious deformities. NEUROLOGICAL: Awake. Cranial nerves II through XII grossly intact. Strength equal symmetric. Normal sensation Urinary Catheter: Yes Assessment to: Continue Vance insert reason: Prolonged Immobilization Vascular Central Line Catheter: Yes Assessment to: Continue Date of Insertion: May 26, 2017 Line: Central Venous Catheter Side: Right Location: Internal, Jugular A/P Assessment and Plan Neuro/Psych: Monitor neuro status Acetaminophen 650 mg by mouth every 6 hours when necessary fever CV: History of cardiomyopathy Right bundle-branch block Atrial fibrillation rate controlled [id number] VASc 3 Hypertension/essential Dyslipidemia Elevated troponin Evaluated by Dr. Falk/cardiology Echo showed EF 50-55% Monitor HR and BP keep MAP>65mmHg Home medications clonidine 0.2 mg twice a day, carvedilol 25 mg twice a day, lisinopril/hydrochlorothiazide 20/25 one tablet daily Currently on clonidine 0.1 mg twice a day, carvedilol 12.5 milligrams twice a day On lovastatin 40 mg by mouth daily at home for dyslipidemia. Currently on Pravachol 40 mg daily Heparin drip held as patient does not wish to be on systemic anticoagulation with VKA or NOAC. No fits and risks discussed. At higher risk for CVA however has history of prior bleeding does not want this to recur. On aspirin 81 mg daily clopidogrel 75 mg daily Resp: Acute hypercapnic respiratory failure with CO2 retention NC COPD/oxygen dependent Likely YUKI Int BiPAP 15/5 Continue with oxygen keep sat >92% Albuterol aerosols 1.25 mg/ipratropium 0.5 mg nebs every 4 hours with ipratropium aerosols every 2 hours. Dyspnea Pulmonology - Dr. Garcia On low-dose prednisone 20 mg by mouth daily GI: Elevated BMI On PO heart healthy diet Pantoprazole 40 mg daily for GI prophylaxis Docusate sodium 100 mg twice a day, senna 8.8 mg twice a day 1 tablet twice a day for bowel regimen : TARA- resolving Monitor renal function, electrolytes replacement as needed. Cr: 1..0 Renal has followed- Dr. Bach And furosemide 20 mg by mouth daily Endo: Sliding scale insulin Accu-Cheks every 6 hours to maintain euglycemia Novulin R medium regimen TSH:0.53 Continue allopurinol 100 mg by mouth daily for elevated uric acid Heme: Leukocytosis Normocytic anemia Monitor CBC daily. Follow trends ID: Currently on vancomycin, piperacillin/tazobactam and levofloxacin for possible infectious etiology Likely de-escalate with the next 24-48 hours Monitor for signs of infections ( Fever, WBC) sputum cx: normal resp jay, Legionella, pneumococcal antigens negative MSK: Elevated BMI Weight loss encouraged PT evaluate and treat Access -Right IJ CVL placed 05/26 - 06/01 Prophylaxis - GI -pantoprazole - DVT - SCD/heparin subcutaneous Level 2 follow-up Sanket Reilly MD Jun 02, 2017 19:03
--- NOTE | 2017-06-02 19:33 | PD.CARD.PN ---
Subjective Subjective Remarks Patient was seen earlier today, late entry note No events overnight Extubated, doing well overall although still with SOB Objective Medications Current Medications Medications (Trade) Dose Ordered Sig/Pratima Route Start Time Stop Time Status Last Admin (NS Flush) 2 ml UNSCH PRN IV FLUSH 05/24/17 17:45 (NS Flush) 2 ml BID IV FLUSH 05/24/17 21:00 06/02/17 09:07 (Narcan Inj) 0.4 mg UNSCH PRN IV PUSH 05/24/17 17:45 (Zyloprim) 100 mg DAILY PO 05/25/17 09:00 06/02/17 09:07 (Pravachol) 40 mg HS PO 05/24/17 21:00 06/01/17 20:36 (Atrovent Neb) 0.5 mg Q2HR NEB PRN NEB 05/24/17 18:45 05/25/17 02:10 Miscellaneous Information Patient in critical care unit? Ass... Q361D .XX 05/24/17 20:45 05/24/17 20:45 Levofloxacin/ Dextrose 100 ml @ 100 mls/hr Q24H IV 05/25/17 14:00 06/02/17 14:20 (Peridex 0.12% Liq) 15 ml BID@08,20 MT 05/26/17 20:00 05/30/17 08:00 (Atrovent Neb) 0.5 mg Q4HR NEB NEB 05/26/17 16:00 06/02/17 14:49 (NS Flush) DAILY IV FLUSH 05/27/17 09:00 06/02/17 09:07 (NS Flush) UNSCH PRN IV FLUSH 05/26/17 14:45 (Pulmicort Respule Neb) 0.5 mg Q12HR NEB NEB 05/26/17 20:00 06/02/17 07:26 (Tears Naturale Opth Soln) 1 drop Q8HR EACH EYE 05/26/17 22:00 05/31/17 20:30 (Brethine Inj) 1 mg UNSCH PRN SQ 05/26/17 15:30 (D50w (Vial) Inj) 50 ml UNSCH PRN IV PUSH 05/26/17 15:45 (Glucagon Inj) 1 mg UNSCH PRN OTHER 05/26/17 15:45 (Tylenol 650 Mg/ 20 ml Liq) 650 mg Q6H PRN PO 05/26/17 15:45 Potassium Chloride 100 ml @ 50 mls/hr Q2H PRN IV 05/27/17 08:00 05/28/17 09:21 Potassium Chloride 100 ml @ 50 mls/hr Q2H PRN IV 05/27/17 08:00 (K-Lyte Cl Eff) 50 meq UNSCH PRN PO 05/27/17 08:00 Potassium Chloride 100 ml @ 25 mls/hr UNSCH PRN IV 05/27/17 08:00 05/27/17 10:51 Potassium Chloride 100 ml @ 50 mls/hr Q2H PRN IV 05/27/17 08:00 Magnesium Sulfate 4 gm/Sodium Chloride 100 ml @ 50 mls/hr UNSCH PRN IV 05/27/17 08:00 (Mag-Ox) 800 mg UNSCH PRN PO 05/27/17 08:00 Magnesium Sulfate 2 gm/Sodium Chloride 100 ml @ 50 mls/hr UNSCH PRN IV 05/27/17 08:00 (K-Phos) 2,000 mg Q4H PRN PO 05/27/17 08:00 Sodium Phosphate 30 mmol/Sodium Chloride 250 ml @ 42 mls/hr UNSCH PRN IV 05/27/17 08:00 (K-Phos) 2,000 mg UNSCH PRN PO/TUBE 05/27/17 08:00 Potassium Phosphate 30 mmol/ Sodium Chloride 260 ml @ 42 mls/hr UNSCH PRN IV 05/27/17 08:00 (Colace Liq) 100 mg Q12HR PO 05/29/17 21:00 05/30/17 08:35 (Senna Liq) 8.8 mg BID NG 05/29/17 21:00 05/30/17 08:36 (Catapres) 0.1 mg Q12HR PO 05/30/17 11:00 06/02/17 09:08 (Coreg) 12.5 mg Q12HR PO 05/30/17 11:00 06/02/17 09:07 (Trandate Inj) 10 mg Q1HR PRN IV PUSH 05/30/17 09:45 05/30/17 10:43 (Apresoline Inj) 10 mg Q1HR PRN IV PUSH 05/30/17 09:45 05/31/17 20:29 (Nitroglycerin 2% Oint) 2 inch Q6HR PRN TOPICAL 05/30/17 09:45 (Protonix) 40 mg DAILY PO 06/02/17 09:00 06/02/17 09:07 (NovoLIN R SUPPLEMENTAL SCALE) 1 ACHS SQ 06/01/17 17:00 (Aspirin Chew) 81 mg DAILY CHEW 06/02/17 09:00 06/02/17 09:08 (Heparin Inj) 5,000 units Q8HR SQ 06/01/17 14:00 06/02/17 14:21 (Plavix) 75 mg DAILY PO 06/02/17 09:00 06/02/17 09:08 (Albuterol Neb) 1.25 mg Q4HR NEB NEB 06/02/17 12:00 06/02/17 14:50 (Deltasone) 20 mg DAILY PO 06/03/17 09:00 (Lasix) 20 mg DAILY PO 06/02/17 12:00 06/02/17 14:19 Vital Signs / I&O Vital Signs Date Time Temp Pulse Resp B/P (MAP) Pulse Ox O2 Delivery O2 Flow Rate FiO2 06/02/17 18:00 99 06/02/17 16:00 99.0 94 15 136/84 (101) 98 06/02/17 16:00 94 06/02/17 14:00 93 06/02/17 12:00 86 06/02/17 12:00 98.9 86 22 136/65 (88) 98 06/02/17 10:00 99 06/02/17 08:59 98 Nasal Cannula 3.00 06/02/17 08:00 98.0 96 22 141/66 (91) 100 06/02/17 08:00 96 06/02/17 07:26 98 35 06/02/17 07:00 95 Bi-Pap 06/02/17 06:00 79 06/02/17 04:01 96 35 06/02/17 04:00 98 06/02/17 04:00 98.7 98 22 109/70 (83) 94 06/02/17 02:00 73 06/02/17 01:05 97 35 06/02/17 00:00 98.5 76 16 96/51 (66) 96 06/02/17 00:00 76 1/31/18 22:05 94 35 06/01/17 22:00 101 06/01/17 20:01 93 Nasal Cannula 4.00 06/01/17 20:00 98.3 106 22 146/85 (105) 97 06/01/17 20:00 106 I/O 06/01/17 06/01/17 06/01/17 06/02/17 06/02/17 06/02/17 07:00 15:00 23:00 07:00 15:00 23:00 Intake Total 580 ml 100 ml 550 ml 622.5 ml 100 ml 450 ml Output Total 1000 ml 1250 ml 850 ml 1000 ml Balance -420 ml 100 ml -700 ml -227.5 ml 100 ml -550 ml Intake Oral 480 ml 250 ml 350 ml IV Total 100 ml 100 ml 300 ml 622.5 ml 100 ml 100 ml Output Urine Total 1000 ml 1250 ml 850 ml 1000 ml # Bowel Movements 0 2 1 1 Physical Exam GENERAL: NAD SKIN: Warm and dry. HEAD: Atraumatic. Normocephalic. EYES: Pupils equal and round. No scleral icterus. No injection or drainage. ENT: No nasal bleeding or discharge. Mucous membranes pink and moist. NECK: Trachea midline. No JVD. CARDIOVASCULAR: Regular rate and rhythm. RESPIRATORY: No accessory muscle use. Decreased breath sounds bilaterally GASTROINTESTINAL: Abdomen soft, non-tender, nondistended. Hepatic and splenic margins not palpable. MUSCULOSKELETAL: Mild edema NEUROLOGICAL: No focal deficits Laboratory Laboratory Tests Test 06/02/17 03:45 White Blood Count 14.0 TH/MM3 Red Blood Count 3.92 MIL/MM3 Hemoglobin 12.9 GM/DL Hematocrit 39.7 % Mean Corpuscular Volume 101.3 FL Mean Corpuscular Hemoglobin 32.9 PG Mean Corpuscular Hemoglobin Concent 32.5 % Red Cell Distribution Width 14.9 % Platelet Count 181 TH/MM3 Mean Platelet Volume 9.6 FL Neutrophils (%) (Auto) 85.2 % Lymphocytes (%) (Auto) 2.5 % Monocytes (%) (Auto) 12.1 % Eosinophils (%) (Auto) 0.1 % Basophils (%) (Auto) 0.1 % Neutrophils # (Auto) 11.9 TH/MM3 Lymphocytes # (Auto) 0.3 TH/MM3 Monocytes # (Auto) 1.7 TH/MM3 Eosinophils # (Auto) 0.0 TH/MM3 Basophils # (Auto) 0.0 TH/MM3 CBC Comment AUTO DIFF Differential Total Cells Counted 100 Neutrophils % (Manual) 87 % Lymphocytes % 2 % Monocytes % 10 % Neutrophils # (Manual) 12.3 TH/MM3 Myelocytes 1 % Differential Comment FINAL DIFF MANUAL Platelet Estimate NORMAL Platelet Morphology Comment NORMAL Blood Urea Nitrogen 46 MG/DL Creatinine 1.10 MG/DL Random Glucose 103 MG/DL Albumin 2.9 GM/DL Calcium Level 9.0 MG/DL Phosphorus Level 3.9 MG/DL Magnesium Level 2.8 MG/DL Sodium Level 137 MEQ/L Potassium Level 4.7 MEQ/L Chloride Level 96 MEQ/L Carbon Dioxide Level 37.7 MEQ/L Anion Gap 3 MEQ/L Estimat Glomerular Filtration Rate 66 ML/MIN Assessment and Plan Problem List: (1) Atrial fibrillation ICD Codes: I48.91 - Unspecified atrial fibrillation (2) hypertension Status: Acute (3) COPD with acute exacerbation ICD Codes: J44.1 - Chronic obstructive pulmonary disease with (acute) exacerbation Status: Acute (4) CHF (congestive heart failure) ICD Codes: I50.9 - Heart failure, unspecified Status: Acute (5) Hyponatremia ICD Codes: E87.1 - Hypo-osmolality and hyponatremia Status: Acute Permanent Comment: Acute on chronic hyponatremia. Last Edited By: Km Bach on May 26, 2017 17:10 Assessment and Plan 1) Respiratory failure with CO2 retention Extubated 2) CHF Most likely small component of multi-factorial respiratory failure EF 50-55% 3) Afib Controlled on current medications CHADS-VASc = 3 Once again discussed with the patient and now with his , he is afraid of bleeding as he had problems before on Coumadin Wants to continue ASA/Plavix as before, and once stable will further discuss outpatient with Dr. MCKEON 4) HTN Restarted on BP medications Problem Qualifiers (1) CHF (congestive heart failure): Qualified Codes: I50.9 - Heart failure, unspecified Chema Hogue DO Jun 02, 2017 19:33
[2017-06-02] MEDS: PRAVASTATIN SOD 40 MG TAB PO SCH (20:55)
[2017-06-03] VITALS (21 sets, daily range): BP systolic 110–174; BP diastolic 60–114; PULSE 80–102; RESP 14–23; TEMP 97.2–98.6; O2SAT 93–100
[2017-06-03] MEDS: RESP: ALBUTEROL 1.25 MG/3 ML NEB (SCH) NEB ×7 (01:43→23:00)
[2017-06-03] MEDS: RESP: IPRATROPIUM 0.5 MG/2.5 ML NEB NEB SCH ×7 (01:43→23:01)
[2017-06-03] MEDS: ARTIFICIAL TEARS OPTH SOLN 15 ML BTL EACH EYE SCH ×3 (04:21→20:19)
[2017-06-03 04:53] LABS: HEMATOCRIT 37.8 % (39.0-51.0); HEMOGLOBIN 12.4 GM/DL (13.0-17.0); MEAN CELL VOLUME 101.1 FL (80.0-100.0); MEAN CORPUSCULAR HEMOGLOBIN 33.3 PG (27.0-34.0); MEAN CORPUSCULAR HGB CONC 32.9 % (32.0-36.0); MEAN PLATELET VOLUME 9.6 FL (7.0-11.0); PLATELET COUNT 157 TH/MM3 (150-450); RED BLOOD COUNT 3.74 MIL/MM3 (4.50-5.90); RED CELL DISTRIBUTION WIDTH 14.8 % (11.6-17.2); WHITE BLOOD COUNT 10.9 TH/MM3 (4.0-11.0)
[2017-06-03 05:14] LABS: BICARBONATE 35.7 MEQ/L (21.0-32.0); CALCIUM 8.8 MG/DL (8.5-10.1); CREATININE 0.96 MG/DL (0.60-1.30); MAGNESIUM 2.7 MG/DL (1.5-2.5)
[2017-06-03 05:16] LABS: PHOSPHORUS 3.9 MG/DL (2.5-4.9)
[2017-06-03] MEDS: HEPARIN SODIUM - SQ 10,000 UNITS/ML VIAL SQ SCH ×3 (06:13→20:18)
[2017-06-03] MEDS: RESP: BUDESONIDE 0.5 MG/2 ML NEB NEB SCH ×2 (07:33→19:34)
[2017-06-03] MEDS: CHLORHEXIDINE 0.12% (ORAL KIT) 15 ML CUP MT SCH ×2 (07:54→20:00)
[2017-06-03] MEDS: INSULIN NovoLIN REGULAR SUPPLEMENTAL SCALE SQ SCH ×4 (08:00→20:23)
[2017-06-03] MEDS: FUROSEMIDE 20 MG TAB PO SCH (08:05)
[2017-06-03] MEDS: ALLOPURINOL 100 MG TAB PO SCH (08:05)
[2017-06-03] MEDS: CLOPIDOGREL 75 MG TAB PO SCH (08:05)
[2017-06-03] MEDS: CARVEDILOL 12.5 MG TAB PO SCH ×2 (08:05→20:20)
[2017-06-03] MEDS: PANTOPRAZOLE SOD 40 MG DELAYED RELEASE TAB PO SCH (08:06)
[2017-06-03] MEDS: ASPIRIN 81 MG CHEW TAB CHEW SCH (08:06)
[2017-06-03] MEDS: cloNIDine HCL 0.1 MG TAB PO SCH ×2 (08:06→20:20)
[2017-06-03] MEDS: SODIUM CHLORIDE 0.9% FLUSH 10 ML FLUSH IV FLUSH SCH ×3 (08:13→20:20)
[2017-06-03] MEDS: hydrALAZINE HCL 20 MG/ML VIAL IV PUSH PRN (08:13)
[2017-06-03] MEDS: SENNOSIDES SYRUP 8.8 MG/5 ML CUP NG SCH ×2 (08:17→20:21)
[2017-06-03] MEDS: DOCUSATE SODIUM 100 MG/10 ML UDC PO SCH ×2 (08:17→20:14)
[2017-06-03] MEDS ORDERED: predniSONE 20 MG TAB PO SCH (09:00)
--- NOTE | 2017-06-03 09:18 | HHI.CCPN ---
Subjective Remarks/Hospital Course This is a 71-year-old male. Date of admission 05/24/2017. Date of consultation 05/26/2017. Past medical history includes elevated BMI, hypertension, history of atrial fibrillation, history of COPD with FEV1 35%, right bundle branch block, gastroesophageal reflux disease and according to with likely obstructive sleep apnea. For the past week, patient prior to admission to [facility] is complaining of increasing lower extremity edema, dyspnea on exertion with rest affecting his activities of daily life. The night of 05/24 patient was placed on BiPAP is intermittently been on and off this for the past 48 hours. Today, patient was placed on a nonrebreather mask became acutely hypoxic and dyspneic. When I evaluated the patient, he stated "I cannot breathe". Patient was noted be hypotensive. Patient was emergently intubated and placed on vasopressors to maintain a mean arterial pressure of 65. 05/27 Patient is sedated with Diprivan, intubated on Levophed 1 carmen and Heparin drip. 05/28 No events overnight. Off Levophed, on Diprivan drip for sedation. Afebrile. On Heparin drip. 05/29: Afebrile. Off norepinephrine drip. On propofol drip at 20 mics grams per kilogram per minute. Remains on heparin drip at 1400 units an hour. Follows commands on sedation vacation. 05/30: Afebrile. Off all vasopressors. Currently a PSV trial and appears very couple. Tolerating tube feeding. 05/31 Patient s/p extubation yesterday on BIPAP intermittently overnight now on 4L oxygen. 06/01: Resting in bed in no acute distress. Currently on BiPAP. Heparin drip held due to bleeding from removal of arterial line yesterday. Tolerating diet. No bowel movement. 06/02: Tmax 99. Currently resting in bed in no acute distress. On 4 L nasal cannula. Tolerated BiPAP last night. Tolerating diet. Subjective 06/03: Afebrile. Resting in bed in no acute distress. Currently in 4 L nasal cannula. Tolerated BiPAP last night. Tolerating diet. Removing Vance catheter today. Objective Vital Signs Date Time Temp Pulse Resp B/P (MAP) Pulse Ox O2 Delivery O2 Flow Rate FiO2 06/03/17 07:37 100 Nasal Cannula 4.00 06/03/17 06:00 83 06/03/17 04:00 98.5 18 145/97 (113) 06/03/17 03:46 40 Intake and Output 06/03/17 06/03/17 06/04/17 08:00 16:00 00:00 Intake Total 240 ml Output Total 400 ml Balance -160 ml Result Diagram: 06/03/17 0324 06/03/17 0324 Other Results Microbiology Date/Time Source Procedure Growth Status 05/26/17 15:41 Blood Peripheral Aerobic Blood Culture - Final NO GROWTH IN 5 DAYS Complete 05/26/17 15:41 Blood Peripheral Anaerobic Blood Culture - Final NO GROWTH IN 5 DAYS Complete 05/26/17 15:45 Sputum Endotracheal Gram Stain - Final Complete 05/26/17 15:45 Sputum Endotracheal Sputum Culture - Final HEAVY GROWTH NORMAL RESPIRATORY JAY Complete 05/26/17 21:30 Urine Catheterized Urine Legionella Antigen - Final PRESUMPTIVE NEGATIVE FOR LEGIONELLA P... Complete 05/26/17 21:30 Urine Catheterized Urine Streptococcus pneumoniae Antigen (M - Final PRESUMPTIVE NEGATIVE FOR STREPTOCOCCU... Complete Imaging Last Impressions Chest X-Ray 05/31/17 0600 Signed Impressions: Service Date/Time: Wednesday, May 31, 2017 02:12 - CONCLUSION: 1. Improvement in basilar airspace disease and pleural fluid since May 29. Arnie Oswald MD Renal Ultrasound 05/26/17 0000 Signed Impressions: Service Date/Time: May 16:38 - CONCLUSION: Left kidney nonvisualized. Right kidney unremarkable. Tulio Thomas MD Lower Extremity Ultrasound 05/24/17 0000 Signed Impressions: Service Date/Time: Wednesday, May 24, 2017 18:29 - CONCLUSION: 1. Negative for deep venous thrombosis. Arnie Oswald MD Objective Remarks GENERAL: 71-year-old male lying in bed in NAD SKIN: Warm and dry. No rash HEAD: Atraumatic. Normocephalic. EYES: Pupils equal and round about 3 mm bilaterally and reactive. No scleral icterus. No injection or drainage. ENT: No nasal bleeding or discharge. Mucous membranes pink and moist. NECK: Trachea midline. No JVD. CARDIOVASCULAR: IRR. S1, S2 no S4. Distant RESPIRATORY: B/l equal air entry, Distant. No wheezing GASTROINTESTINAL: Abdomen soft, non-tender, obese. Hypoactive bowel sounds appreciated MUSCULOSKELETAL: Extremities 1-2+ peripheral above the ankles below the knees edema. No obvious deformities. NEUROLOGICAL: Awake. Cranial nerves II through XII grossly intact. Strength equal symmetric. Normal sensation Urinary Catheter: Yes Assessment to: Remove Date of Insertion: May 26, 2017 Date of Removal: Jun 02, 2017 Line: Central Venous Catheter Side: Right Location: Internal, Jugular A/P Assessment and Plan Neuro/Psych: Monitor neuro status Acetaminophen 650 mg by mouth every 6 hours when necessary fever CV: History of cardiomyopathy Right bundle-branch block Atrial fibrillation rate controlled [id number] VASc 3 Hypertension/essential Dyslipidemia Elevated troponin Evaluated by Dr. Falk/cardiology Echo showed EF 50-55% Monitor HR and BP keep MAP>65mmHg Home medications clonidine 0.2 mg twice a day, carvedilol 25 mg twice a day, lisinopril/hydrochlorothiazide 20/25 one tablet daily Currently on clonidine 0.1 mg twice a day, carvedilol 12.5 milligrams twice a day On lovastatin 40 mg by mouth daily at home for dyslipidemia. Currently on Pravachol 40 mg daily Heparin drip held on 05/31 as patient does not wish to be on systemic anticoagulation with VKA or NOAC. No fits and risks discussed. At higher risk for CVA however has history of prior bleeding does not want this to recur. On aspirin 81 mg daily clopidogrel 75 mg daily Resp: Acute hypercapnic respiratory failure with CO2 retention NC COPD/oxygen dependent Likely YUKI Int BiPAP 15/5 at night Continue with oxygen keep sat >92% Albuterol aerosols 1.25 mg/ipratropium 0.5 mg nebs every 4 hours with ipratropium aerosols every 2 hours. Dyspnea Pulmonology - Dr. Garcia On low-dose prednisone 20 mg by mouth daily 1 dose of acetazolamide 20 mg IV 1 today. Furosemide 20 mg by mouth daily Dr. Colindres has been consulted for home BiPAP per Dr. Garcia/pulmonology GI: Elevated BMI On PO heart healthy diet Pantoprazole 40 mg daily for GI prophylaxis Docusate sodium 100 mg twice a day, senna 8.8 mg twice a day 1 tablet twice a day for bowel regimen : TARA- resolving Monitor renal function, electrolytes replacement as needed. Cr: 1..0 Renal has followed- Dr. Bach Currently on furosemide 20 mg by mouth daily Endo: Sliding scale insulin Accu-Cheks every before meals/at bedtime to maintain euglycemia Novulin R medium regimen TSH:0.53 Continue allopurinol 100 mg by mouth daily for elevated uric acid Heme: Macrocytic anemia Monitor CBC daily. Follow trends ID: Currently on levofloxacin for possible infectious etiology. Discontinue vancomycin and piperacillin/tazobactam Stop date of levothyroxine 06/07 Monitor for signs of infections ( Fever, WBC) sputum cx: normal resp jay, Legionella, pneumococcal antigens negative MSK: Elevated BMI Weight loss encouraged PT evaluate and treat Access -Right IJ CVL placed 05/26 - 06/01 Prophylaxis - GI -pantoprazole - DVT - SCD/heparin subcutaneous Level 2 follow-up Stable from critical care medicine standpoint. Assign care to hospitalist in a.m. 06/04. Transfer to floor Sanket Reilly MD Jun 03, 2017 09:18
--- NOTE | 2017-06-03 13:01 | PD.CARD.PN ---
Subjective Subjective Remarks No events overnight SOB somewhat better today Objective Medications Current Medications Medications (Trade) Dose Ordered Sig/Pratima Route Start Time Stop Time Status Last Admin (NS Flush) 2 ml UNSCH PRN IV FLUSH 05/24/17 17:45 (NS Flush) 2 ml BID IV FLUSH 05/24/17 21:00 06/03/17 08:13 (Narcan Inj) 0.4 mg UNSCH PRN IV PUSH 05/24/17 17:45 (Zyloprim) 100 mg DAILY PO 05/25/17 09:00 06/03/17 08:05 (Pravachol) 40 mg HS PO 05/24/17 21:00 06/02/17 20:55 (Atrovent Neb) 0.5 mg Q2HR NEB PRN NEB 05/24/17 18:45 05/25/17 02:10 Miscellaneous Information Patient in critical care unit? Ass... Q361D .XX 05/24/17 20:45 05/24/17 20:45 (Peridex 0.12% Liq) 15 ml BID@08,20 MT 05/26/17 20:00 05/30/17 08:00 (Atrovent Neb) 0.5 mg Q4HR NEB NEB 05/26/17 16:00 06/03/17 11:49 (NS Flush) DAILY IV FLUSH 05/27/17 09:00 06/02/17 09:07 (NS Flush) UNSCH PRN IV FLUSH 05/26/17 14:45 (Pulmicort Respule Neb) 0.5 mg Q12HR NEB NEB 05/26/17 20:00 06/03/17 07:33 (Tears Naturale Opth Soln) 1 drop Q8HR EACH EYE 05/26/17 22:00 05/31/17 20:30 (Brethine Inj) 1 mg UNSCH PRN SQ 05/26/17 15:30 (D50w (Vial) Inj) 50 ml UNSCH PRN IV PUSH 05/26/17 15:45 (Glucagon Inj) 1 mg UNSCH PRN OTHER 05/26/17 15:45 (Tylenol 650 Mg/ 20 ml Liq) 650 mg Q6H PRN PO 05/26/17 15:45 (Colace Liq) 100 mg Q12HR PO 05/29/17 21:00 05/30/17 08:35 (Senna Liq) 8.8 mg BID NG 05/29/17 21:00 05/30/17 08:36 (Catapres) 0.1 mg Q12HR PO 05/30/17 11:00 06/03/17 08:06 (Coreg) 12.5 mg Q12HR PO 05/30/17 11:00 06/03/17 08:05 (Trandate Inj) 10 mg Q1HR PRN IV PUSH 05/30/17 09:45 05/30/17 10:43 (Apresoline Inj) 10 mg Q1HR PRN IV PUSH 05/30/17 09:45 06/03/17 08:13 (Nitroglycerin 2% Oint) 2 inch Q6HR PRN TOPICAL 05/30/17 09:45 (Protonix) 40 mg DAILY PO 06/02/17 09:00 06/03/17 08:06 (NovoLIN R SUPPLEMENTAL SCALE) 1 ACHS SQ 06/01/17 17:00 (Aspirin Chew) 81 mg DAILY CHEW 06/02/17 09:00 06/03/17 08:06 (Heparin Inj) 5,000 units Q8HR SQ 06/01/17 14:00 06/03/17 06:13 (Plavix) 75 mg DAILY PO 06/02/17 09:00 06/03/17 08:05 (Albuterol Neb) 1.25 mg Q4HR NEB NEB 06/02/17 12:00 06/03/17 11:49 (Deltasone) 20 mg DAILY PO 06/03/17 09:00 06/03/17 08:13 (Lasix) 20 mg DAILY PO 06/02/17 12:00 06/03/17 08:05 (Levaquin) 500 mg Q24H PO 06/03/17 14:00 Vital Signs / I&O Vital Signs Date Time Temp Pulse Resp B/P (MAP) Pulse Ox O2 Delivery O2 Flow Rate FiO2 06/03/17 12:00 97.2 100 20 113/68 (83) 94 06/03/17 11:50 4.00 06/03/17 11:01 94 19 150/72 (98) 100 06/03/17 10:00 85 14 110/68 (82) 100 06/03/17 09:05 94 23 122/68 (86) 100 06/03/17 09:01 96 15 147/114 (125) 100 06/03/17 08:22 97 20 160/67 (98) 99 06/03/17 08:16 99 22 170/81 (110) 100 06/03/17 08:06 98 19 174/110 (131) 100 06/03/17 08:00 96 22 164/112 (129) 100 06/03/17 08:00 96 06/03/17 07:37 100 Nasal Cannula 4.00 06/03/17 07:00 98 Nasal Cannula 4.00 40 06/03/17 06:00 83 06/03/17 04:00 98.5 84 18 145/97 (113) 98 06/03/17 04:00 84 06/03/17 03:46 99 40 06/03/17 02:00 84 06/03/17 01:43 96 40 06/03/17 00:00 80 06/03/17 00:00 98.6 80 14 140/62 (88) 98 06/02/17 23:00 99 40 06/02/17 22:00 102 06/02/17 20:00 94 Nasal Cannula 4.00 06/02/17 20:00 96 Nasal Cannula 4.00 06/02/17 20:00 104 06/02/17 20:00 98.7 104 23 160/76 (104) 97 06/02/17 18:00 99 06/02/17 16:00 99.0 94 15 136/84 (101) 98 06/02/17 16:00 94 06/02/17 14:00 93 I/O 06/02/17 06/02/17 06/02/17 06/03/17 06/03/17 06/03/17 07:00 15:00 23:00 07:00 15:00 23:00 Intake Total 622.5 ml 100 ml 450 ml 240 ml Output Total 850 ml 1000 ml 400 ml Balance -227.5 ml 100 ml -550 ml -160 ml Intake Oral 350 ml 240 ml IV Total 622.5 ml 100 ml 100 ml Output Urine Total 850 ml 1000 ml 400 ml # Bowel Movements 1 1 1 Physical Exam GENERAL: NAD SKIN: Warm and dry. HEAD: Atraumatic. Normocephalic. EYES: Pupils equal and round. No scleral icterus. No injection or drainage. ENT: No nasal bleeding or discharge. Mucous membranes pink and moist. NECK: Trachea midline. No JVD. CARDIOVASCULAR: Regular rate and rhythm. RESPIRATORY: No accessory muscle use. Decreased breath sounds bilaterally GASTROINTESTINAL: Abdomen soft, non-tender, nondistended. Hepatic and splenic margins not palpable. MUSCULOSKELETAL: Mild edema NEUROLOGICAL: No focal deficits Laboratory Laboratory Tests Test 06/03/17 03:24 White Blood Count 10.9 TH/MM3 Red Blood Count 3.74 MIL/MM3 Hemoglobin 12.4 GM/DL Hematocrit 37.8 % Mean Corpuscular Volume 101.1 FL Mean Corpuscular Hemoglobin 33.3 PG Mean Corpuscular Hemoglobin Concent 32.9 % Red Cell Distribution Width 14.8 % Platelet Count 157 TH/MM3 Mean Platelet Volume 9.6 FL Blood Urea Nitrogen 44 MG/DL Creatinine 0.96 MG/DL Random Glucose 99 MG/DL Calcium Level 8.8 MG/DL Phosphorus Level 3.9 MG/DL Magnesium Level 2.7 MG/DL Sodium Level 136 MEQ/L Potassium Level 4.7 MEQ/L Chloride Level 95 MEQ/L Carbon Dioxide Level 35.7 MEQ/L Anion Gap 5 MEQ/L Estimat Glomerular Filtration Rate 78 ML/MIN Assessment and Plan Problem List: (1) Atrial fibrillation ICD Codes: I48.91 - Unspecified atrial fibrillation (2) hypertension Status: Acute (3) COPD with acute exacerbation ICD Codes: J44.1 - Chronic obstructive pulmonary disease with (acute) exacerbation Status: Acute (4) CHF (congestive heart failure) ICD Codes: I50.9 - Heart failure, unspecified Status: Acute (5) Hyponatremia ICD Codes: E87.1 - Hypo-osmolality and hyponatremia Status: Acute Permanent Comment: Acute on chronic hyponatremia. Last Edited By: Km Bach on May 26, 2017 17:10 Assessment and Plan 1) Respiratory failure with CO2 retention Extubated 2) CHF Most likely small component of multi-factorial respiratory failure EF 50-55% 3) Afib Controlled on current medications CHADS-VASc = 3 Once again discussed with the patient and now with his , he is afraid of bleeding as he had problems before on Coumadin Wants to continue ASA/Plavix as before, and once stable will further discuss outpatient with Dr. MCKEON 4) HTN Restarted on BP medications 5) No further cardiovascular work up at this time Can follow up with Dr. Falk on discharge Problem Qualifiers (1) CHF (congestive heart failure): Qualified Codes: I50.9 - Heart failure, unspecified Chema Hogue DO Jun 03, 2017 13:01
[2017-06-03] MEDS: LEVOFLOXACIN 500 MG TAB PO SCH (14:33)
--- NOTE | 2017-06-03 15:17 | MB ---
cc: BERNADINE COLINDRES M.D. DATE OF CONSULTATION: 06/03/2017. REASON FOR CONSULTATION: Hypoxic hypercarbic respiratory failure, obstructive sleep apnea suspect. HISTORY OF PRESENT ILLNESS: Mr. Brown is a 71-year-old male with known history of COPD, obesity, atrial fibrillation, cardiomyopathy, ejection fraction of 35% admitted with exacerbation of COPD, question of congestive heart failure, significant hypoxemia requiring BiPAP therapy to maintain adequate oxygenation. I have been asked to see the patient at this time to arrange for therapy for underlying hypoxic and hypercarbic respiratory failure and possible underlying obstructive sleep apnea. PAST MEDICAL HISTORY: His past medical history is that of: 1. COPD. 2. Congestive heart failure with an ejection fraction of 35%. 3. Right bundle-branch block. 4. Atrial fibrillation. 5. Hyperlipidemia. MEDICATIONS: His medications include: 1. Nebulized albuterol and Ipratropium. 2. Lovastatin. 3. Clonidine. 4. Carvedilol. 5. Lisinopril. 6. Lasix. 7. Allopurinol. ALLERGIES: NONE KNOWN TO MEDICATIONS. FAMILY HISTORY: Positive for chronic obstructive lung disease. SOCIAL HISTORY: Smoked a pack a day for over thirty years and stopped about fifteen years ago. Drinks alcohol on occasion. Does not use drugs. REVIEW OF SYSTEMS: A twelve-point review of systems is as per the history of present illness and past history, otherwise negative. PHYSICAL EXAMINATION: GENERAL: On exam, the patient is alert. VITAL SIGNS: Temperature 98, pulse 80, respirations 18, blood pressure 110/70. Oxygen saturation 94% on four liters oxygen nasal cannula. HEAD, EYES, EARS, NOSE, THROAT: Unremarkable. Eyes without icterus. NECK: Without adenopathy, thyroid enlargement, central trachea. CHEST: Without dullness to percussion. Clear to auscultation. A few scattered rhonchi on auscultation. ABDOMEN: Obese. Lax. Bowel sounds audible. EXTREMITIES: 2+ edema. IMAGING STUDIES: Chest x-ray done May 31 with improvement in aeration of both lung bases and decrease in bibasilar effusions. LABORATORY DATA: White count 10,000 today, hemoglobin 12.4, hematocrit 37, platelets 57,000. Sodium 136, potassium 4.7, BUN 44, creatinine 0.9. Arterial blood gas June 01: pH 7.37, pCO2 62, pO2 63. IMPRESSION: 1. Hypoxic hypercarbic respiratory failure. 2. Morbid obesity. 3. Congestive heart failure. 4. COPD. 5. Atrial fibrillation. 6. Right bundle-branch block. PLAN: 1. The patient is on oxygen therapy as well as bronchodilator therapy which would be maintained. 2. He is on BiPAP therapy which he is tolerating well. 3. He needs polysomnographic evaluation to assess severity of sleep disordered breathing, which I have discussed and the patient had previously same; however, seems agreeable at this point. 4. The patient remains edematous and __ for underlying congestive heart failure is being undertaken. 5. Meanwhile will maintain on BiPAP therapy and will arrange for discharge on BiPAP as well until further evaluation is concluded. I do thank you for asking me to partake in Mr. Brown's care. Bernadine Colindres MD WWW/Callie /2:45 PM /3:03 PM
[2017-06-03] MEDS: PRAVASTATIN SOD 40 MG TAB PO SCH (20:20)
[2017-06-04] VITALS (11 sets, daily range): BP systolic 109–150; BP diastolic 59–84; PULSE 73–108; RESP 20; TEMP 97.1–98.8; O2SAT 94–98
[2017-06-04] MEDS: RESP: ALBUTEROL 1.25 MG/3 ML NEB (SCH) NEB ×5 (03:19→20:33)
[2017-06-04] MEDS: RESP: IPRATROPIUM 0.5 MG/2.5 ML NEB NEB SCH ×5 (03:19→20:33)
--- NOTE | 2017-06-04 05:17 | RADRPT ---
EXAM DATE/TIME: 06/04/2017 04:26 [facility] COMPARISON: Chest single AP radiograph May 31, 2017 0212 hrs.. INDICATIONS : Pneumonia. MEDICAL HISTORY : Chronic obstructive pulmonary disease. Hypertension SURGICAL HISTORY : None. ENCOUNTER: Subsequent ACUITY: 1 week PAIN SCORE: 0/10 LOCATION: Bilateral chest FINDINGS: Cardiomegaly, lower lobe consolidation and small bilateral effusions identified. Osseous structures a re intact. CONCLUSION: No significant change has occurred. Car Fletcher MD on June 04, 2017 at 5:14 Board Certified Radiologist. This report was verified electronically.
[2017-06-04] MEDS: ARTIFICIAL TEARS OPTH SOLN 15 ML BTL EACH EYE SCH ×3 (06:00→21:24)
[2017-06-04] MEDS: HEPARIN SODIUM - SQ 10,000 UNITS/ML VIAL SQ SCH ×3 (06:34→21:16)
[2017-06-04] MEDS: CHLORHEXIDINE 0.12% (ORAL KIT) 15 ML CUP MT SCH ×2 (08:00→20:00)
[2017-06-04] MEDS: SODIUM CHLORIDE 0.9% FLUSH 10 ML FLUSH IV FLUSH SCH ×3 (08:00→21:18)
[2017-06-04] MEDS: INSULIN NovoLIN REGULAR SUPPLEMENTAL SCALE SQ SCH (08:00)
[2017-06-04] MEDS: RESP: BUDESONIDE 0.5 MG/2 ML NEB NEB SCH ×2 (08:03→20:33)
[2017-06-04 08:08] LABS: HEMATOCRIT 39.7 % (39.0-51.0); HEMOGLOBIN 12.9 GM/DL (13.0-17.0); MEAN CELL VOLUME 101.2 FL (80.0-100.0); MEAN CORPUSCULAR HGB CONC 32.6 % (32.0-36.0); MEAN PLATELET VOLUME 9.3 FL (7.0-11.0); PLATELET COUNT 167 TH/MM3 (150-450); RED BLOOD COUNT 3.92 MIL/MM3 (4.50-5.90); RED CELL DISTRIBUTION WIDTH 14.5 % (11.6-17.2); WHITE BLOOD COUNT 12.9 TH/MM3 (4.0-11.0)
[2017-06-04 08:27] LABS: BICARBONATE 35.1 MEQ/L (21.0-32.0); CALCIUM 9.2 MG/DL (8.5-10.1); CREATININE 1.04 MG/DL (0.60-1.30)
[2017-06-04] MEDS: SENNOSIDES SYRUP 8.8 MG/5 ML CUP NG SCH ×2 (09:00→21:00)
[2017-06-04] MEDS: DOCUSATE SODIUM 100 MG/10 ML UDC PO SCH ×2 (09:00→21:00)
[2017-06-04] MEDS: PANTOPRAZOLE SOD 40 MG DELAYED RELEASE TAB PO SCH (09:52)
[2017-06-04] MEDS: ALLOPURINOL 100 MG TAB PO SCH (09:52)
[2017-06-04] MEDS: cloNIDine HCL 0.1 MG TAB PO SCH ×2 (09:52→21:16)
[2017-06-04] MEDS: FUROSEMIDE 20 MG TAB PO SCH (09:53)
[2017-06-04] MEDS: CLOPIDOGREL 75 MG TAB PO SCH (09:53)
[2017-06-04] MEDS: ASPIRIN 81 MG CHEW TAB CHEW SCH (09:53)
[2017-06-04] MEDS: CARVEDILOL 12.5 MG TAB PO SCH ×2 (09:53→21:16)
[2017-06-04] MEDS: predniSONE 10 MG TAB PO SCH (09:53)
--- NOTE | 2017-06-04 11:07 | HHI.PR ---
Subjective Remarks The patient was resting in bed. He said he wanted to get up out of bed and work with therapy. He said that he was still swollen throughout his body. He had a little bit of breakfast. He has been having bowel movements. Discussed with nursing. Objective Vitals Vital Signs Date Time Temp Pulse Resp B/P (MAP) Pulse Ox O2 Delivery O2 Flow Rate FiO2 06/04/17 08:05 98 Nasal Cannula 4.00 06/04/17 08:00 108 06/04/17 08:00 97.1 88 20 120/59 (79) 96 06/04/17 08:00 Nasal Cannula 4.00 06/04/17 04:10 98 40 06/04/17 04:00 78 06/04/17 04:00 98.5 73 20 123/74 (90) 96 06/04/17 01:30 98 40 06/04/17 00:00 98.8 93 20 127/78 (94) 95 06/04/17 00:00 99 06/03/17 22:03 98 40 06/03/17 20:15 98 Bi-Pap 6.00 40 06/03/17 20:15 100 06/03/17 20:00 97.4 91 20 156/83 (107) 96 06/03/17 19:34 93 Nasal Cannula 4.00 06/03/17 16:00 97.4 102 20 124/60 (81) 96 06/03/17 14:00 Nasal Cannula 4.00 06/03/17 12:00 97.2 100 20 113/68 (83) 94 06/03/17 11:50 4.00 I/O 06/03/17 06/03/17 06/03/17 06/04/17 06/04/17 06/04/17 07:00 15:00 23:00 07:00 15:00 23:00 Intake Total 240 ml 240 ml 200 ml Output Total 400 ml Balance -160 ml 240 ml 200 ml Intake Oral 240 ml 240 ml 200 ml Output Urine Total 400 ml # Voids 4 5 # Bowel Movements 1 1 Result Diagram: 06/04/17 0656 06/04/17 0656 Imaging Last Impressions Chest X-Ray 06/04/17 0600 Signed Impressions: Service Date/Time: Sunday, June 04, 2017 04:26 - CONCLUSION: No significant change has occurred. Car Fletcher MD Renal Ultrasound 05/26/17 0000 Signed Impressions: Service Date/Time: May 16:38 - CONCLUSION: Left kidney nonvisualized. Right kidney unremarkable. Tulio Thomas MD Lower Extremity Ultrasound 05/24/17 0000 Signed Impressions: Service Date/Time: Wednesday, May 24, 2017 18:29 - CONCLUSION: 1. Negative for deep venous thrombosis. Arnie Oswald MD Objective Remarks GENERAL: Obese male in NAD. SKIN: Warm and dry. No rash HEAD: Atraumatic. Normocephalic. EYES: Pupils equal and round about 3 mm bilaterally and reactive. No scleral icterus. No injection or drainage. ENT: No nasal bleeding or discharge. Mucous membranes pink and moist. NECK: Trachea midline. No JVD. CARDIOVASCULAR: IRR. S1, S2 no S4. RESPIRATORY: B/l equal air entry, distant. No wheezing GASTROINTESTINAL: Abdomen soft, non-tender, obese. Hypoactive bowel sounds appreciated MUSCULOSKELETAL: General anasarca. No obvious deformities. NEUROLOGICAL: Awake. Cranial nerves II through XII grossly intact. Strength equal symmetric. Normal sensation. Procedures Intubation/ extubation Medications and IVs Current Medications Medications (Trade) Dose Ordered Sig/Pratima Route Start Time Stop Time Status Last Admin (NS Flush) 2 ml UNSCH PRN IV FLUSH 05/24/17 17:45 (NS Flush) 2 ml BID IV FLUSH 05/24/17 21:00 06/04/17 09:53 (Narcan Inj) 0.4 mg UNSCH PRN IV PUSH 05/24/17 17:45 (Zyloprim) 100 mg DAILY PO 05/25/17 09:00 06/04/17 09:52 (Pravachol) 40 mg HS PO 05/24/17 21:00 06/03/17 20:20 (Atrovent Neb) 0.5 mg Q2HR NEB PRN NEB 05/24/17 18:45 05/25/17 02:10 Miscellaneous Information Patient in critical care unit? Ass... Q361D .XX 05/24/17 20:45 05/24/17 20:45 (Peridex 0.12% Liq) 15 ml BID@08,20 MT 05/26/17 20:00 05/30/17 08:00 (Atrovent Neb) 0.5 mg Q4HR NEB NEB 05/26/17 16:00 06/04/17 08:03 (NS Flush) DAILY IV FLUSH 05/27/17 09:00 06/02/17 09:07 (NS Flush) UNSCH PRN IV FLUSH 05/26/17 14:45 (Pulmicort Respule Neb) 0.5 mg Q12HR NEB NEB 05/26/17 20:00 06/04/17 08:03 (Tears Naturale Opth Soln) 1 drop Q8HR EACH EYE 05/26/17 22:00 06/04/17 06:00 (Brethine Inj) 1 mg UNSCH PRN SQ 05/26/17 15:30 (D50w (Vial) Inj) 50 ml UNSCH PRN IV PUSH 05/26/17 15:45 (Glucagon Inj) 1 mg UNSCH PRN OTHER 05/26/17 15:45 (Tylenol 650 Mg/ 20 ml Liq) 650 mg Q6H PRN PO 05/26/17 15:45 (Colace Liq) 100 mg Q12HR PO 05/29/17 21:00 06/03/17 20:14 (Senna Liq) 8.8 mg BID NG 05/29/17 21:00 05/30/17 08:36 (Catapres) 0.1 mg Q12HR PO 05/30/17 11:00 06/04/17 09:52 (Coreg) 12.5 mg Q12HR PO 05/30/17 11:00 06/04/17 09:53 (Trandate Inj) 10 mg Q1HR PRN IV PUSH 05/30/17 09:45 05/30/17 10:43 (Apresoline Inj) 10 mg Q1HR PRN IV PUSH 05/30/17 09:45 06/03/17 08:13 (Nitroglycerin 2% Oint) 2 inch Q6HR PRN TOPICAL 05/30/17 09:45 (Protonix) 40 mg DAILY PO 06/02/17 09:00 06/04/17 09:52 (NovoLIN R SUPPLEMENTAL SCALE) 1 ACHS SQ 06/01/17 17:00 (Aspirin Chew) 81 mg DAILY CHEW 06/02/17 09:00 06/04/17 09:53 (Heparin Inj) 5,000 units Q8HR SQ 06/01/17 14:00 06/04/17 06:34 (Plavix) 75 mg DAILY PO 06/02/17 09:00 06/04/17 09:53 (Albuterol Neb) 1.25 mg Q4HR NEB NEB 06/02/17 12:00 06/04/17 08:03 (Lasix) 20 mg DAILY PO 06/02/17 12:00 06/04/17 09:53 (Levaquin) 500 mg Q24H PO 06/03/17 14:00 06/03/17 14:33 (Deltasone) 10 mg DAILY PO 06/04/17 09:00 06/04/17 09:53 Date of Insertion: May 26, 2017 Date of Removal: Jun 02, 2017 Line: Central Venous Catheter Side: Right Location: Internal, Jugular A/P Assessment and Plan Acute systolic CHF Evaluated by Dr. Falk/cardiology. Echo showed EF 50-55%. Currently still with anasarca. - Currently on clonidine 0.1 mg twice a day, carvedilol 12.5 milligrams twice a day (Home medications clonidine 0.2 mg twice a day, carvedilol 25 mg twice a day , lisinopril/hydrochlorothiazide 20/25 one tablet daily). - Heparin drip held on 05/31 as patient does not wish to be on systemic anticoagulation with VKA or NOAC. No fits and risks discussed. At higher risk for CVA however has history of prior bleeding does not want this to recur. On aspirin 81 mg daily clopidogrel 75 mg daily. - continue Lasix. - follow up with cardiology. - telemetry. Acute hypercapnic respiratory failure/ COPD exacerbation S/p intubation. Likely has YUKI. Pulmonology consult appreciated. - BiPAP 15/5 at night. - Continue with oxygen keep sat >92%. - Albuterol aerosols 1.25 mg/ipratropium 0.5 mg nebs every 4 hours with ipratropium aerosols every 2 hours. - On low-dose prednisone 10 mg by mouth daily. - PT/ OT. - IS. Acute renal failure resolving Renal has been following. Creatinine improved. - Currently on furosemide 20 mg by mouth daily. - follow up with nephrology. PNA Currently on levofloxacin for possible infectious etiology. Discontinued vancomycin and piperacillin/tazobactam. Sputum culture with normal jay. - Stop date of Levaquin 06/07. PPx: SCD/heparin subcutaneous Javad Brito DO Jun 04, 2017 11:07
[2017-06-04] MEDS: LEVOFLOXACIN 500 MG TAB PO SCH (15:07)
--- NOTE | 2017-06-04 15:24 | HHI.PR ---
Subjective Remarks alert no distress sat 95% on o2 N/C Objective Vital Signs Date Time Temp Pulse Resp B/P (MAP) Pulse Ox O2 Delivery O2 Flow Rate FiO2 06/04/17 12:00 98.3 100 20 109/69 (82) 95 06/04/17 11:53 Nasal Cannula 4.00 06/04/17 08:05 98 Nasal Cannula 4.00 06/04/17 08:00 108 06/04/17 08:00 97.1 88 20 120/59 (79) 96 06/04/17 08:00 Nasal Cannula 4.00 06/04/17 04:10 98 40 06/04/17 04:00 78 06/04/17 04:00 98.5 73 20 123/74 (90) 96 06/04/17 01:30 98 40 06/04/17 00:00 98.8 93 20 127/78 (94) 95 06/04/17 00:00 99 06/03/17 22:03 98 40 06/03/17 20:15 98 Bi-Pap 6.00 40 06/03/17 20:15 100 06/03/17 20:00 97.4 91 20 156/83 (107) 96 06/03/17 19:34 93 Nasal Cannula 4.00 06/03/17 16:00 97.4 102 20 124/60 (81) 96 I/O 06/03/17 06/03/17 06/03/17 06/04/17 06/04/17 06/04/17 07:00 15:00 23:00 07:00 15:00 23:00 Intake Total 240 ml 240 ml 200 ml Output Total 400 ml Balance -160 ml 240 ml 200 ml Intake Oral 240 ml 240 ml 200 ml Output Urine Total 400 ml # Voids 4 5 # Bowel Movements 1 1 Result Diagram: 06/04/17 0656 06/04/17 0656 Procedures BiPAP. Objective Remarks GENERAL: SKIN: Warm and dry. HEAD: Atraumatic. Normocephalic. EYES: Pupils equal and round. No scleral icterus. No injection or drainage. ENT: No nasal bleeding or discharge. Mucous membranes pink and moist. NECK: Trachea midline. No JVD. CARDIOVASCULAR: Regular rate and rhythm. RESPIRATORY: No accessory muscle use. Clear to auscultation. Breath sounds equal bilaterally. GASTROINTESTINAL: Abdomen soft, non-tender, nondistended. Hepatic and splenic margins not palpable. MUSCULOSKELETAL: Extremities without clubbing, cyanosis, or edema. No obvious deformities. NEUROLOGICAL: Awake and alert. No obvious cranial nerve deficits. Motor grossly within normal limits. Five out of 5 muscle strength in the arms and legs. Normal speech. PSYCHIATRIC: Appropriate mood and affect; insight and judgment normal. Assessment and Plan Assessment and Plan RESPIRATORY FAILURE COPD CHF MORBID OBESITY O2 BIPAP BRONCHODILATOR THERAPYINCREASE ACTIVITY Bernadine,Bernadine Christie MD Jun 04, 2017 15:24
[2017-06-04] MEDS: PRAVASTATIN SOD 40 MG TAB PO SCH (21:16)
[2017-06-05] VITALS (12 sets, daily range): BP systolic 114–158; BP diastolic 57–91; PULSE 70–107; RESP 18–24; TEMP 97.5–98.8; O2SAT 94–100
[2017-06-05] MEDS: RESP: ALBUTEROL 1.25 MG/3 ML NEB (SCH) NEB ×7 (00:17→23:50)
[2017-06-05] MEDS: RESP: IPRATROPIUM 0.5 MG/2.5 ML NEB NEB SCH ×7 (00:17→23:50)
[2017-06-05] MEDS: ARTIFICIAL TEARS OPTH SOLN 15 ML BTL EACH EYE SCH ×3 (05:26→21:09)
[2017-06-05] MEDS: HEPARIN SODIUM - SQ 10,000 UNITS/ML VIAL SQ SCH ×3 (05:26→21:01)
[2017-06-05 05:41] LABS: HEMATOCRIT 38.9 % (39.0-51.0); HEMOGLOBIN 12.7 GM/DL (13.0-17.0); MEAN CELL VOLUME 101.4 FL (80.0-100.0); MEAN CORPUSCULAR HEMOGLOBIN 33.2 PG (27.0-34.0); MEAN CORPUSCULAR HGB CONC 32.8 % (32.0-36.0); MEAN PLATELET VOLUME 9.4 FL (7.0-11.0); PLATELET COUNT 149 TH/MM3 (150-450); RED BLOOD COUNT 3.83 MIL/MM3 (4.50-5.90); RED CELL DISTRIBUTION WIDTH 14.7 % (11.6-17.2); WHITE BLOOD COUNT 11.7 TH/MM3 (4.0-11.0)
[2017-06-05] MEDS: RESP: BUDESONIDE 0.5 MG/2 ML NEB NEB SCH ×2 (07:50→19:43)
[2017-06-05] MEDS: CHLORHEXIDINE 0.12% (ORAL KIT) 15 ML CUP MT SCH ×2 (08:00→20:00)
[2017-06-05] MEDS: SODIUM CHLORIDE 0.9% FLUSH 10 ML FLUSH IV FLUSH SCH ×3 (09:00→21:02)
[2017-06-05] MEDS: ASPIRIN 81 MG CHEW TAB CHEW SCH (09:47)
[2017-06-05] MEDS: SENNOSIDES SYRUP 8.8 MG/5 ML CUP NG SCH ×2 (09:48→21:00)
[2017-06-05] MEDS: cloNIDine HCL 0.1 MG TAB PO SCH ×2 (09:48→21:01)
[2017-06-05] MEDS: DOCUSATE SODIUM 100 MG/10 ML UDC PO SCH ×2 (09:49→21:00)
[2017-06-05] MEDS: predniSONE 10 MG TAB PO SCH (09:51)
[2017-06-05] MEDS: ALLOPURINOL 100 MG TAB PO SCH (09:51)
[2017-06-05] MEDS: FUROSEMIDE 20 MG TAB PO SCH ×2 (09:51→21:01)
[2017-06-05] MEDS: PANTOPRAZOLE SOD 40 MG DELAYED RELEASE TAB PO SCH (09:51)
[2017-06-05] MEDS: CARVEDILOL 12.5 MG TAB PO SCH ×2 (09:51→21:01)
[2017-06-05] MEDS: CLOPIDOGREL 75 MG TAB PO SCH (09:51)
[2017-06-05] MEDS ORDERED: FUROSEMIDE 20 MG TAB PO ONE (11:15)
--- NOTE | 2017-06-05 11:20 | HHI.PR ---
Subjective Remarks The pt said he was feeling. He worked with physical therapy earlier. He had some shortness of breath but is better now. Tolerated breakfast. Discussed with nursing. Objective Vitals Vital Signs Date Time Temp Pulse Resp B/P (MAP) Pulse Ox O2 Delivery O2 Flow Rate FiO2 06/05/17 08:12 98.7 107 22 137/83 (101) 94 06/05/17 07:54 Nasal Cannula 4.00 06/05/17 04:48 97.5 86 18 129/57 (81) 98 06/05/17 04:00 88 06/05/17 00:30 95 40 06/05/17 00:14 97.8 88 20 143/63 (89) 100 06/05/17 00:00 70 06/05/17 00:00 Nasal Cannula 4.00 Humidified 06/04/17 22:00 95 40 06/04/17 20:35 Nasal Cannula 4.00 06/04/17 20:00 102 06/04/17 20:00 97.1 87 20 150/84 (106) 94 06/04/17 20:00 Nasal Cannula 4.00 Humidified 06/04/17 18:00 Nasal Cannula 4.00 06/04/17 17:00 103 06/04/17 16:00 97.1 89 20 125/69 (87) 94 06/04/17 12:00 90 06/04/17 12:00 98.3 100 20 109/69 (82) 95 06/04/17 11:53 Nasal Cannula 4.00 I/O 06/04/17 06/04/17 06/04/17 06/05/17 06/05/17 06/05/17 07:00 15:00 23:00 07:00 15:00 23:00 Intake Total 200 ml 480 ml Balance 200 ml 480 ml Intake Oral 200 ml 480 ml # Voids 5 6 4 # Bowel Movements 1 1 1 Result Diagram: 06/05/17 0510 06/04/17 0656 Imaging Last Impressions Chest X-Ray 06/04/17 0600 Signed Impressions: Service Date/Time: Sunday, June 04, 2017 04:26 - CONCLUSION: No significant change has occurred. Car Fletcher MD Renal Ultrasound 05/26/17 0000 Signed Impressions: Service Date/Time: May 16:38 - CONCLUSION: Left kidney nonvisualized. Right kidney unremarkable. Tulio Thomas MD Lower Extremity Ultrasound 05/24/17 0000 Signed Impressions: Service Date/Time: Wednesday, May 24, 2017 18:29 - CONCLUSION: 1. Negative for deep venous thrombosis. Arnie Oswald MD Objective Remarks GENERAL: Obese male in NAD. SKIN: Warm and dry. No rash HEAD: Atraumatic. Normocephalic. EYES: Pupils equal and round about 3 mm bilaterally and reactive. No scleral icterus. No injection or drainage. ENT: No nasal bleeding or discharge. Mucous membranes pink and moist. NECK: Trachea midline. No JVD. CARDIOVASCULAR: IRR. S1, S2 no S4. RESPIRATORY: B/l equal air entry, distant. No wheezing. Bilateral crackles. GASTROINTESTINAL: Abdomen soft, non-tender, obese. Hypoactive bowel sounds appreciated MUSCULOSKELETAL: General anasarca. No obvious deformities. NEUROLOGICAL: Awake. Cranial nerves II through XII grossly intact. Strength equal symmetric. Normal sensation. PSYCH: Mood and affect appropriate. Procedures Intubation/ extubation Medications and IVs Current Medications Medications (Trade) Dose Ordered Sig/Pratima Route Start Time Stop Time Status Last Admin (NS Flush) 2 ml UNSCH PRN IV FLUSH 05/24/17 17:45 (NS Flush) 2 ml BID IV FLUSH 05/24/17 21:00 06/05/17 09:47 (Narcan Inj) 0.4 mg UNSCH PRN IV PUSH 05/24/17 17:45 (Zyloprim) 100 mg DAILY PO 05/25/17 09:00 06/05/17 09:51 (Pravachol) 40 mg HS PO 05/24/17 21:00 06/04/17 21:16 (Atrovent Neb) 0.5 mg Q2HR NEB PRN NEB 05/24/17 18:45 05/25/17 02:10 Miscellaneous Information Patient in critical care unit? Ass... Q361D .XX 05/24/17 20:45 05/24/17 20:45 (Peridex 0.12% Liq) 15 ml BID@08,20 MT 05/26/17 20:00 05/30/17 08:00 (Atrovent Neb) 0.5 mg Q4HR NEB NEB 05/26/17 16:00 06/05/17 07:50 (NS Flush) DAILY IV FLUSH 05/27/17 09:00 06/02/17 09:07 (NS Flush) UNSCH PRN IV FLUSH 05/26/17 14:45 (Pulmicort Respule Neb) 0.5 mg Q12HR NEB NEB 05/26/17 20:00 06/05/17 07:50 (Tears Naturale Opth Soln) 1 drop Q8HR EACH EYE 05/26/17 22:00 06/05/17 05:26 (Brethine Inj) 1 mg UNSCH PRN SQ 05/26/17 15:30 (D50w (Vial) Inj) 50 ml UNSCH PRN IV PUSH 05/26/17 15:45 (Glucagon Inj) 1 mg UNSCH PRN OTHER 05/26/17 15:45 (Tylenol 650 Mg/ 20 ml Liq) 650 mg Q6H PRN PO 05/26/17 15:45 (Colace Liq) 100 mg Q12HR PO 05/29/17 21:00 06/05/17 09:49 (Senna Liq) 8.8 mg BID NG 05/29/17 21:00 06/05/17 09:48 (Catapres) 0.1 mg Q12HR PO 05/30/17 11:00 06/05/17 09:48 (Coreg) 12.5 mg Q12HR PO 05/30/17 11:00 06/05/17 09:51 (Trandate Inj) 10 mg Q1HR PRN IV PUSH 05/30/17 09:45 05/30/17 10:43 (Apresoline Inj) 10 mg Q1HR PRN IV PUSH 05/30/17 09:45 06/03/17 08:13 (Nitroglycerin 2% Oint) 2 inch Q6HR PRN TOPICAL 05/30/17 09:45 (Protonix) 40 mg DAILY PO 06/02/17 09:00 06/05/17 09:51 (Aspirin Chew) 81 mg DAILY CHEW 06/02/17 09:00 06/05/17 09:47 (Heparin Inj) 5,000 units Q8HR SQ 06/01/17 14:00 06/05/17 05:26 (Plavix) 75 mg DAILY PO 06/02/17 09:00 06/05/17 09:51 (Albuterol Neb) 1.25 mg Q4HR NEB NEB 06/02/17 12:00 06/05/17 07:50 (Levaquin) 500 mg Q24H PO 06/03/17 14:00 06/04/17 15:07 (Deltasone) 10 mg DAILY PO 06/04/17 09:00 06/05/17 09:51 (Lasix) 40 mg DAILY PO 06/06/17 09:00 UNV (Lasix) 20 mg ONCE ONCE PO 06/05/17 11:15 06/05/17 11:16 UNV Date of Insertion: May 26, 2017 Date of Removal: Jun 02, 2017 Line: Central Venous Catheter Side: Right Location: Internal, Jugular A/P Assessment and Plan Acute systolic CHF Evaluated by Dr. Falk/cardiology. Echo showed EF 50-55%. Currently still with anasarca. - Currently on clonidine 0.1 mg twice a day, carvedilol 12.5 milligrams twice a day (Home medications clonidine 0.2 mg twice a day, carvedilol 25 mg twice a day , lisinopril/hydrochlorothiazide 20/25 one tablet daily). - Heparin drip held on 05/31 as patient does not wish to be on systemic anticoagulation with VKA or NOAC. No fits and risks discussed. At higher risk for CVA however has history of prior bleeding does not want this to recur. On aspirin 81 mg daily clopidogrel 75 mg daily. - continue Lasix. Increase to 40 mg PO BID. - follow up with cardiology. - telemetry. Acute hypercapnic respiratory failure/ COPD exacerbation S/p intubation. Likely has YUKI. Pulmonology consult appreciated. - BiPAP 15/5 at night. - Continue with oxygen keep sat >92%. - Albuterol aerosols 1.25 mg/ipratropium 0.5 mg nebs every 4 hours with ipratropium aerosols every 2 hours. - On low-dose prednisone 10 mg by mouth daily. - PT/ OT. - IS. - repeat CXR 06/05. Acute renal failure resolving Renal has been following. Creatinine improved. - Currently on furosemide 40 mg by mouth BID. - follow up with nephrology. PNA Currently on levofloxacin for possible infectious etiology. Discontinued vancomycin and piperacillin/tazobactam. Sputum culture with normal jay. - Stop date of Levaquin 06/07. PPx: SCD/heparin subcutaneous Javad Brito DO Jun 05, 2017 11:20
--- NOTE | 2017-06-05 12:36 | RADRPT ---
EXAM DATE/TIME: 06/05/2017 11:36 [place] COMPARISON: CHEST SINGLE AP, June 04, 2017, 4:26. INDICATIONS : Shortness of breath for 2 days. MEDICAL HISTORY : Chronic obstructive pulmonary disease. Hypertension SURGICAL HISTORY : None. ENCOUNTER: Subsequent ACUITY: 2 days PAIN SCORE: 0/10 LOCATION: Bilateral chest FINDINGS: A single view of the chest demonstrates cardiomegaly and bibasilar densities greater right lower lobe and probable small pleural effusions. Slight volume loss on the right. Osseous structures are intact . CONCLUSION: 1. Cardiomegaly with bibasilar densities and probable pleural effusions. Corby Garcia MD on June 05, 2017 at 12:34 Board Certified Radiologist. This report was verified electronically.
[2017-06-05] MEDS: LEVOFLOXACIN 500 MG TAB PO SCH (14:26)
--- NOTE | 2017-06-05 19:28 | HHI.PR ---
Subjective Remarks alert no distress sat 95% on o2 N/C [facility] Objective Vital Signs Date Time Temp Pulse Resp B/P (MAP) Pulse Ox O2 Delivery O2 Flow Rate FiO2 06/05/17 17:56 71 06/05/17 16:12 98.8 91 22 158/77 (104) 97 06/05/17 14:07 94 Nasal Cannula 4.00 Humidified 06/05/17 12:12 98.8 95 22 142/91 (108) 99 06/05/17 12:00 74 06/05/17 08:12 98.7 107 22 137/83 (101) 94 06/05/17 08:00 103 06/05/17 07:54 Nasal Cannula 4.00 06/05/17 04:48 97.5 86 18 129/57 (81) 98 06/05/17 04:00 88 06/05/17 00:30 95 40 06/05/17 00:14 97.8 88 20 143/63 (89) 100 06/05/17 00:00 70 06/05/17 00:00 Nasal Cannula 4.00 Humidified 06/04/17 22:00 95 40 06/04/17 20:35 Nasal Cannula 4.00 06/04/17 20:00 102 06/04/17 20:00 97.1 87 20 150/84 (106) 94 06/04/17 20:00 Nasal Cannula 4.00 Humidified I/O 06/04/17 06/04/17 06/04/17 06/05/17 06/05/17 06/05/17 07:00 15:00 23:00 07:00 15:00 23:00 Intake Total 200 ml 480 ml 420 ml Balance 200 ml 480 ml 420 ml Intake Oral 200 ml 480 ml 420 ml # Voids 5 6 4 3 # Bowel Movements 1 1 1 2 Result Diagram: 06/05/17 0510 06/04/17 0656 Procedures BiPAP. Objective Remarks GENERAL: SKIN: Warm and dry. HEAD: Atraumatic. Normocephalic. EYES: Pupils equal and round. No scleral icterus. No injection or drainage. ENT: No nasal bleeding or discharge. Mucous membranes pink and moist. NECK: Trachea midline. No JVD. CARDIOVASCULAR: Regular rate and rhythm. RESPIRATORY: No accessory muscle use. Clear to auscultation. Breath sounds equal bilaterally. GASTROINTESTINAL: Abdomen soft, non-tender, nondistended. Hepatic and splenic margins not palpable. MUSCULOSKELETAL: Extremities without clubbing, cyanosis, or edema. No obvious deformities. NEUROLOGICAL: Awake and alert. No obvious cranial nerve deficits. Motor grossly within normal limits. Five out of 5 muscle strength in the arms and legs. Normal speech. PSYCHIATRIC: Appropriate mood and affect; insight and judgment normal. Assessment and Plan Assessment and Plan RESPIRATORY FAILURE COPD CHF MORBID OBESITY O2 BIPAP BRONCHODILATOR THERAPYINCREASE ACTIVITY Bernadine,Bernadine Christie MD Jun 05, 2017 19:28
[2017-06-05] MEDS: PRAVASTATIN SOD 40 MG TAB PO SCH (21:01)
[2017-06-06] VITALS (12 sets, daily range): BP systolic 99–139; BP diastolic 62–84; PULSE 69–98; RESP 18–20; TEMP 97.5–98.3; O2SAT 94–98
[2017-06-06] MEDS: RESP: IPRATROPIUM 0.5 MG/2.5 ML NEB NEB SCH ×6 (03:45→23:53)
[2017-06-06] MEDS: RESP: ALBUTEROL 1.25 MG/3 ML NEB (SCH) NEB ×5 (03:45→19:34)
[2017-06-06] MEDS: ARTIFICIAL TEARS OPTH SOLN 15 ML BTL EACH EYE SCH ×3 (05:41→22:39)
[2017-06-06] MEDS: HEPARIN SODIUM - SQ 10,000 UNITS/ML VIAL SQ SCH ×3 (05:41→22:29)
[2017-06-06] MEDS: RESP: BUDESONIDE 0.5 MG/2 ML NEB NEB SCH ×2 (07:31→19:33)
[2017-06-06] MEDS: CHLORHEXIDINE 0.12% (ORAL KIT) 15 ML CUP MT SCH ×2 (08:00→20:00)
[2017-06-06 08:46] LABS: HEMATOCRIT 37.8 % (39.0-51.0); HEMOGLOBIN 12.4 GM/DL (13.0-17.0); MEAN CELL VOLUME 100.9 FL (80.0-100.0); MEAN CORPUSCULAR HEMOGLOBIN 33.2 PG (27.0-34.0); MEAN CORPUSCULAR HGB CONC 32.9 % (32.0-36.0); MEAN PLATELET VOLUME 9.2 FL (7.0-11.0); PLATELET COUNT 157 TH/MM3 (150-450); RED BLOOD COUNT 3.74 MIL/MM3 (4.50-5.90); RED CELL DISTRIBUTION WIDTH 14.3 % (11.6-17.2); WHITE BLOOD COUNT 13.1 TH/MM3 (4.0-11.0)
[2017-06-06] MEDS ORDERED: FUROSEMIDE 20 MG TAB PO SCH (09:00)
[2017-06-06] MEDS: SODIUM CHLORIDE 0.9% FLUSH 10 ML FLUSH IV FLUSH SCH ×3 (09:00→22:29)
[2017-06-06] MEDS: DOCUSATE SODIUM 100 MG/10 ML UDC PO SCH ×2 (09:00→21:00)
[2017-06-06] MEDS: SENNOSIDES SYRUP 8.8 MG/5 ML CUP NG SCH ×2 (09:00→21:00)
[2017-06-06] MEDS: PANTOPRAZOLE SOD 40 MG DELAYED RELEASE TAB PO SCH (09:02)
[2017-06-06] MEDS: CARVEDILOL 12.5 MG TAB PO SCH ×2 (09:02→22:28)
[2017-06-06] MEDS: FUROSEMIDE 20 MG TAB PO SCH ×2 (09:02→22:27)
[2017-06-06] MEDS: predniSONE 10 MG TAB PO SCH (09:02)
[2017-06-06] MEDS: cloNIDine HCL 0.1 MG TAB PO SCH ×2 (09:02→22:28)
[2017-06-06] MEDS: ALLOPURINOL 100 MG TAB PO SCH (09:02)
[2017-06-06] MEDS: CLOPIDOGREL 75 MG TAB PO SCH (09:03)
[2017-06-06] MEDS: ASPIRIN 81 MG CHEW TAB CHEW SCH (09:06)
[2017-06-06 09:25] LABS: BICARBONATE 37.1 MEQ/L (21.0-32.0); CALCIUM 9.1 MG/DL (8.5-10.1); CREATININE 0.88 MG/DL (0.60-1.30); MAGNESIUM 2.1 MG/DL (1.5-2.5)
--- NOTE | 2017-06-06 11:45 | HHI.PR ---
Subjective Remarks The patient said that he was working with physical therapy. He said he has been having bowel movements. He watched the Super Bowl last night. He had no acute complaints. Discussed with nursing. Objective Vitals Vital Signs Date Time Temp Pulse Resp B/P (MAP) Pulse Ox O2 Delivery O2 Flow Rate FiO2 06/06/17 08:00 98.3 86 20 139/71 (93) 97 06/06/17 08:00 87 06/06/17 07:44 Nasal Cannula 4.00 Humidified 06/06/17 05:00 97.6 69 18 99/64 (76) 98 06/06/17 04:10 94 40 06/06/17 04:01 Bi-Pap 06/06/17 04:00 81 06/06/17 00:59 97.8 74 18 103/62 (76) 98 06/06/17 00:16 96 40 06/06/17 00:03 74 06/06/17 00:00 Bi-Pap 06/05/17 21:00 Nasal Cannula 4.00 Humidified 06/05/17 20:00 100 06/05/17 20:00 98.3 89 24 114/71 (85) 99 06/05/17 19:47 Nasal Cannula 4.00 06/05/17 17:56 71 06/05/17 16:12 98.8 91 22 158/77 (104) 97 06/05/17 14:07 94 Nasal Cannula 4.00 Humidified 06/05/17 12:12 98.8 95 22 142/91 (108) 99 06/05/17 12:00 74 I/O 06/05/17 06/05/17 06/05/17 06/06/17 06/06/17 06/06/17 07:00 15:00 23:00 07:00 15:00 23:00 Intake Total 420 ml 240 ml Balance 420 ml 240 ml Intake Oral 420 ml 240 ml # Voids 4 3 2 # Bowel Movements 1 2 Result Diagram: 06/06/1771106/06/17 07 Imaging Last Impressions Chest X-Ray 06/05/17 0000 Signed Impressions: Service Date/Time: Monday, June 05, 2017 11:36 - CONCLUSION: 1. Cardiomegaly with bibasilar densities and probable pleural effusions. Corby Garcia MD Renal Ultrasound 05/26/17 0000 Signed Impressions: Service Date/Time: May 16:38 - CONCLUSION: Left kidney nonvisualized. Right kidney unremarkable. Tulio Thomas MD Lower Extremity Ultrasound 05/24/17 0000 Signed Impressions: Service Date/Time: Wednesday, May 24, 2017 18:29 - CONCLUSION: 1. Negative for deep venous thrombosis. Arnie Oswald MD Objective Remarks GENERAL: Obese male in NAD. SKIN: Warm and dry. No rash HEAD: Atraumatic. Normocephalic. EYES: Pupils equal and round about 3 mm bilaterally and reactive. No scleral icterus. No injection or drainage. ENT: No nasal bleeding or discharge. Mucous membranes pink and moist. NECK: Trachea midline. No JVD. CARDIOVASCULAR: IRR. S1, S2 no S4. RESPIRATORY: B/l equal air entry, distant. No wheezing. Bilateral crackles. GASTROINTESTINAL: Abdomen soft, non-tender, obese. Hypoactive bowel sounds appreciated MUSCULOSKELETAL: General anasarca. No obvious deformities. NEUROLOGICAL: Awake. Cranial nerves II through XII grossly intact. Strength equal symmetric. Normal sensation. PSYCH: Mood and affect appropriate. Procedures Intubation/ extubation Medications and IVs Current Medications Medications (Trade) Dose Ordered Sig/Pratima Route Start Time Stop Time Status Last Admin (NS Flush) 2 ml UNSCH PRN IV FLUSH 05/24/17 17:45 (NS Flush) 2 ml BID IV FLUSH 05/24/17 21:00 06/06/17 09:06 (Narcan Inj) 0.4 mg UNSCH PRN IV PUSH 05/24/17 17:45 (Zyloprim) 100 mg DAILY PO 05/25/17 09:00 06/06/17 09:02 (Pravachol) 40 mg HS PO 05/24/17 21:00 06/05/17 21:01 (Atrovent Neb) 0.5 mg Q2HR NEB PRN NEB 05/24/17 18:45 05/25/17 02:10 Miscellaneous Information Patient in critical care unit? Ass... Q361D .XX 05/24/17 20:45 05/24/17 20:45 (Peridex 0.12% Liq) 15 ml BID@08,20 MT 05/26/17 20:00 05/30/17 08:00 (Atrovent Neb) 0.5 mg Q4HR NEB NEB 05/26/17 16:00 06/06/17 11:28 (NS Flush) DAILY IV FLUSH 05/27/17 09:00 06/02/17 09:07 (NS Flush) UNSCH PRN IV FLUSH 05/26/17 14:45 (Pulmicort Respule Neb) 0.5 mg Q12HR NEB NEB 05/26/17 20:00 06/06/17 07:31 (Tears Naturale Opth Soln) 1 drop Q8HR EACH EYE 05/26/17 22:00 06/05/17 21:09 (Brethine Inj) 1 mg UNSCH PRN SQ 05/26/17 15:30 (D50w (Vial) Inj) 50 ml UNSCH PRN IV PUSH 05/26/17 15:45 (Glucagon Inj) 1 mg UNSCH PRN OTHER 05/26/17 15:45 (Tylenol 650 Mg/ 20 ml Liq) 650 mg Q6H PRN PO 05/26/17 15:45 (Colace Liq) 100 mg Q12HR PO 05/29/17 21:00 06/05/17 09:49 (Senna Liq) 8.8 mg BID NG 05/29/17 21:00 06/05/17 09:48 (Catapres) 0.1 mg Q12HR PO 05/30/17 11:00 06/06/17 09:02 (Coreg) 12.5 mg Q12HR PO 05/30/17 11:00 06/06/17 09:02 (Trandate Inj) 10 mg Q1HR PRN IV PUSH 05/30/17 09:45 05/30/17 10:43 (Apresoline Inj) 10 mg Q1HR PRN IV PUSH 05/30/17 09:45 06/03/17 08:13 (Nitroglycerin 2% Oint) 2 inch Q6HR PRN TOPICAL 05/30/17 09:45 (Protonix) 40 mg DAILY PO 06/02/17 09:00 06/06/17 09:02 (Aspirin Chew) 81 mg DAILY CHEW 06/02/17 09:00 06/06/17 09:06 (Heparin Inj) 5,000 units Q8HR SQ 06/01/17 14:00 06/06/17 05:41 (Plavix) 75 mg DAILY PO 06/02/17 09:00 06/06/17 09:03 (Levaquin) 500 mg Q24H PO 06/03/17 14:00 06/05/17 14:26 (Deltasone) 10 mg DAILY PO 06/04/17 09:00 06/06/17 09:02 (Lasix) 40 mg BID PO 06/05/17 21:00 06/06/17 09:02 (Albuterol Neb) 1.25 mg Q4HR NEB NEB 06/06/17 12:00 UNV Date of Insertion: May 26, 2017 Date of Removal: Jun 02, 2017 Line: Central Venous Catheter Side: Right Location: Internal, Jugular A/P Assessment and Plan Acute systolic CHF Evaluated by Dr. Falk/cardiology. Echo showed EF 50-55%. Currently still with anasarca. - Currently on clonidine 0.1 mg twice a day, carvedilol 12.5 milligrams twice a day (Home medications clonidine 0.2 mg twice a day, carvedilol 25 mg twice a day , lisinopril/hydrochlorothiazide 20/25 one tablet daily). - Heparin drip held on 05/31 as patient does not wish to be on systemic anticoagulation with VKA or NOAC. No fits and risks discussed. At higher risk for CVA however has history of prior bleeding does not want this to recur. On aspirin 81 mg daily clopidogrel 75 mg daily. - continue Lasix. Increase to 40 mg PO BID. - follow up with cardiology. - telemetry. Acute hypercapnic respiratory failure/ COPD exacerbation S/p intubation. Likely has YUKI. Pulmonology consult appreciated. Repeat chest x -ray with bibasilar densities and likely pleural effusions. - BiPAP 15/5 at night. - Continue with oxygen keep sat >92%. - Albuterol aerosols 1.25 mg/ipratropium 0.5 mg nebs every 4 hours with ipratropium aerosols every 2 hours. - On low-dose prednisone 10 mg by mouth daily. - PT/ OT. - IS. - Follow up with pulmonology. Acute renal failure resolving Renal has been following. Creatinine improved. - Currently on furosemide 40 mg by mouth BID. - follow up with nephrology. PNA Currently on levofloxacin for possible infectious etiology. Discontinued vancomycin and piperacillin/tazobactam. Sputum culture with normal jay. - Stop date of Levaquin 06/07. PPx: SCD/heparin subcutaneous Javad Brito DO Jun 06, 2017 11:45
[2017-06-06] MEDS ORDERED: METOLAZONE 5 MG TAB PO ONE (12:00)
[2017-06-06] MEDS: POTASSIUM CHLORIDE 10 MEQ CONTROLLED RELEASE TAB PO SCH (12:38)
[2017-06-06] MEDS: LEVOFLOXACIN 500 MG TAB PO SCH (14:36)
--- NOTE | 2017-06-06 17:27 | HHI.PR ---
Subjective Remarks NOT SEEN Objective Vitals Vital Signs Date Time Temp Pulse Resp B/P (MAP) Pulse Ox O2 Delivery O2 Flow Rate FiO2 06/06/17 16:00 98.2 91 20 136/84 (101) 97 06/06/17 12:24 Nasal Cannula 4.00 06/06/17 12:00 97.5 80 20 118/73 (88) 96 06/06/17 08:00 98.3 86 20 139/71 (93) 97 06/06/17 08:00 87 06/06/17 07:44 Nasal Cannula 4.00 Humidified 06/06/17 05:00 97.6 69 18 99/64 (76) 98 06/06/17 04:10 94 40 06/06/17 04:01 Bi-Pap 06/06/17 04:00 81 06/06/17 00:59 97.8 74 18 103/62 (76) 98 06/06/17 00:16 96 40 06/06/17 00:03 74 06/06/17 00:00 Bi-Pap 06/05/17 21:00 Nasal Cannula 4.00 Humidified 06/05/17 20:00 100 06/05/17 20:00 98.3 89 24 114/71 (85) 99 06/05/17 19:47 Nasal Cannula 4.00 06/05/17 17:56 71 I/O 06/05/17 06/05/17 06/05/17 06/06/17 06/06/17 06/06/17 07:00 15:00 23:00 07:00 15:00 23:00 Intake Total 420 ml 240 ml 360 ml Balance 420 ml 240 ml 360 ml Intake Oral 420 ml 240 ml 360 ml # Voids 4 3 2 2 # Bowel Movements 1 2 1 Result Diagram: 06/06/17 0712 06/06/17 0712 Imaging Last Impressions Chest X-Ray 06/05/17 0000 Signed Impressions: Service Date/Time: Monday, June 05, 2017 11:36 - CONCLUSION: 1. Cardiomegaly with bibasilar densities and probable pleural effusions. Corby Garcia MD Renal Ultrasound 05/26/17 0000 Signed Impressions: Service Date/Time: May 16:38 - CONCLUSION: Left kidney nonvisualized. Right kidney unremarkable. Tulio Thomas MD Lower Extremity Ultrasound 05/24/17 0000 Signed Impressions: Service Date/Time: Wednesday, May 24, 2017 18:29 - CONCLUSION: 1. Negative for deep venous thrombosis. Arnie Oswald MD Objective Remarks GENERAL: Obese male in NAD. SKIN: Warm and dry. No rash HEAD: Atraumatic. Normocephalic. EYES: Pupils equal and round about 3 mm bilaterally and reactive. No scleral icterus. No injection or drainage. ENT: No nasal bleeding or discharge. Mucous membranes pink and moist. NECK: Trachea midline. No JVD. CARDIOVASCULAR: IRR. S1, S2 no S4. RESPIRATORY: B/l equal air entry, distant. No wheezing. Bilateral crackles. GASTROINTESTINAL: Abdomen soft, non-tender, obese. Hypoactive bowel sounds appreciated MUSCULOSKELETAL: General anasarca. No obvious deformities. NEUROLOGICAL: Awake. Cranial nerves II through XII grossly intact. Strength equal symmetric. Normal sensation. PSYCH: Mood and affect appropriate. Procedures Intubation/ extubation Date of Insertion: May 26, 2017 Date of Removal: Jun 02, 2017 Line: Central Venous Catheter Side: Right Location: Internal, Jugular A/P Problem List: (1) CHF (congestive heart failure) ICD Code: I50.9 - Heart failure, unspecified Status: Acute (2) COPD with acute exacerbation ICD Code: J44.1 - Chronic obstructive pulmonary disease with (acute) exacerbation Status: Acute Assessment and Plan Acute systolic CHF Evaluated by Dr. Falk/cardiology. Echo showed EF 50-55%. Currently still with anasarca. - Currently on clonidine 0.1 mg twice a day, carvedilol 12.5 milligrams twice a day (Home medications clonidine 0.2 mg twice a day, carvedilol 25 mg twice a day , lisinopril/hydrochlorothiazide 20/25 one tablet daily). - Heparin drip held on 05/31 as patient does not wish to be on systemic anticoagulation with VKA or NOAC. No fits and risks discussed. At higher risk for CVA however has history of prior bleeding does not want this to recur. On aspirin 81 mg daily clopidogrel 75 mg daily. - continue Lasix. Increase to 40 mg PO BID. - follow up with cardiology. - telemetry. Acute hypercapnic respiratory failure/ COPD exacerbation S/p intubation. Likely has YUKI. Pulmonology consult appreciated. Repeat chest x -ray with bibasilar densities and likely pleural effusions. - BiPAP 15/5 at night. - Continue with oxygen keep sat >92%. - Albuterol aerosols 1.25 mg/ipratropium 0.5 mg nebs every 4 hours with ipratropium aerosols every 2 hours. - On low-dose prednisone 10 mg by mouth daily. - PT/ OT. - IS. - Follow up with pulmonology. Acute renal failure resolving Renal has been following. Creatinine improved. - Currently on furosemide 40 mg by mouth BID. - follow up with nephrology. PNA Currently on levofloxacin for possible infectious etiology. Discontinued vancomycin and piperacillin/tazobactam. Sputum culture with normal jay. - Stop date of Levaquin 06/07. PPx: SCD/heparin subcutaneous Problem Qualifiers (1) CHF (congestive heart failure): Qualified Codes: I50.9 - Heart failure, unspecified Lai Collins MD Jun 06, 2017 17:27
[2017-06-06] MEDS: PRAVASTATIN SOD 40 MG TAB PO SCH (22:28)
[2017-06-07] VITALS (13 sets, daily range): BP systolic 127–155; BP diastolic 69–92; PULSE 69–96; RESP 16–20; TEMP 97.4–97.9; O2SAT 96–98
[2017-06-07] MEDS: RESP: ALBUTEROL 1.25 MG/3 ML NEB (SCH) NEB ×6 (03:11→19:18)
[2017-06-07] MEDS: ARTIFICIAL TEARS OPTH SOLN 15 ML BTL EACH EYE SCH ×3 (06:10→22:00)
[2017-06-07] MEDS: HEPARIN SODIUM - SQ 10,000 UNITS/ML VIAL SQ SCH ×3 (06:10→22:08)
[2017-06-07] MEDS: RESP: IPRATROPIUM 0.5 MG/2.5 ML NEB NEB SCH ×4 (07:18→19:19)
[2017-06-07] MEDS: RESP: BUDESONIDE 0.5 MG/2 ML NEB NEB SCH ×2 (07:18→19:19)
[2017-06-07] MEDS: CHLORHEXIDINE 0.12% (ORAL KIT) 15 ML CUP MT SCH ×2 (08:00→20:00)
--- NOTE | 2017-06-07 08:31 | HHI.PR ---
Subjective Remarks alert no distress sat 95% on o2 N/C IN [facility] STARTED AMBULATING Objective Vital Signs Date Time Temp Pulse Resp B/P (MAP) Pulse Ox O2 Delivery O2 Flow Rate FiO2 06/07/17 07:15 98 Nasal Cannula 4.00 06/07/17 04:00 97.5 85 18 134/69 (90) 98 06/07/17 04:00 96 06/07/17 00:28 97 40 06/07/17 00:00 97.4 86 16 155/82 (106) 96 06/07/17 00:00 84 06/06/17 20:00 98.2 90 18 113/75 (88) 97 06/06/17 20:00 Nasal Cannula 4.00 Humidified 06/06/17 20:00 98 06/06/17 19:36 98 Nasal Cannula 4.00 06/06/17 16:04 93 06/06/17 16:00 98.2 91 20 136/84 (101) 97 06/06/17 12:24 Nasal Cannula 4.00 06/06/17 12:00 97.5 80 20 118/73 (88) 96 I/O 06/06/17 06/06/17 06/06/17 06/07/17 06/07/17 06/07/17 07:00 15:00 23:00 07:00 15:00 23:00 Intake Total 240 ml 360 ml Balance 240 ml 360 ml Intake Oral 240 ml 360 ml # Voids 2 2 4 # Bowel Movements 1 1 Result Diagram: 06/06/17 0712 06/06/17 0712 Procedures BiPAP. Objective Remarks GENERAL: SKIN: Warm and dry. HEAD: Atraumatic. Normocephalic. EYES: Pupils equal and round. No scleral icterus. No injection or drainage. ENT: No nasal bleeding or discharge. Mucous membranes pink and moist. NECK: Trachea midline. No JVD. CARDIOVASCULAR: Regular rate and rhythm. RESPIRATORY: No accessory muscle use. Clear to auscultation. Breath sounds equal bilaterally. GASTROINTESTINAL: Abdomen soft, non-tender, nondistended. Hepatic and splenic margins not palpable. MUSCULOSKELETAL: Extremities without clubbing, cyanosis, or edema. No obvious deformities. NEUROLOGICAL: Awake and alert. No obvious cranial nerve deficits. Motor grossly within normal limits. Five out of 5 muscle strength in the arms and legs. Normal speech. PSYCHIATRIC: Appropriate mood and affect; insight and judgment normal. Assessment and Plan Assessment and Plan RESPIRATORY FAILURE COPD CHF MORBID OBESITY ? YUKI O2 BIPAP INCREASE ACTIVITY Bernadine Colindres MD Jun 07, 2017 08:31
[2017-06-07] MEDS: ASPIRIN 81 MG CHEW TAB CHEW SCH (08:44)
[2017-06-07] MEDS: predniSONE 10 MG TAB PO SCH (08:44)
[2017-06-07] MEDS: PANTOPRAZOLE SOD 40 MG DELAYED RELEASE TAB PO SCH (08:44)
[2017-06-07] MEDS: POTASSIUM CHLORIDE 10 MEQ CONTROLLED RELEASE TAB PO SCH (08:44)
[2017-06-07] MEDS: CLOPIDOGREL 75 MG TAB PO SCH (08:45)
[2017-06-07] MEDS: ALLOPURINOL 100 MG TAB PO SCH (08:45)
[2017-06-07] MEDS: CARVEDILOL 12.5 MG TAB PO SCH ×2 (08:45→22:08)
[2017-06-07] MEDS: FUROSEMIDE 20 MG TAB PO SCH (08:45)
[2017-06-07] MEDS: SODIUM CHLORIDE 0.9% FLUSH 10 ML FLUSH IV FLUSH SCH ×3 (08:45→21:00)
[2017-06-07] MEDS: cloNIDine HCL 0.1 MG TAB PO SCH ×2 (08:45→22:08)
[2017-06-07] MEDS: SENNOSIDES SYRUP 8.8 MG/5 ML CUP NG SCH ×2 (09:00→21:00)
[2017-06-07] MEDS: DOCUSATE SODIUM 100 MG/10 ML UDC PO SCH ×2 (09:00→21:00)
[2017-06-07] MEDS ORDERED: LEVOFLOXACIN 500 MG PREMIX INJ 100 ML IV SCH (14:00)
[2017-06-07] MEDS: LEVOFLOXACIN 500 MG TAB PO SCH (14:19)
--- NOTE | 2017-06-07 14:23 | HHI.PR ---
Subjective Remarks Follow-up anasarca. Easily gets dyspneic even getting up. Not able to get out of bed and ambulate. Currently on 4 L uses 2 L at home. Discussed with RN Objective Vitals Vital Signs Date Time Temp Pulse Resp B/P (MAP) Pulse Ox O2 Delivery O2 Flow Rate FiO2 06/07/17 12:00 97.9 83 20 129/77 (94) 97 06/07/17 12:00 69 06/07/17 08:58 Nasal Cannula 4.00 06/07/17 08:00 97.4 76 20 138/92 (107) 98 06/07/17 08:00 77 06/07/17 07:15 98 Nasal Cannula 4.00 06/07/17 04:00 97.5 85 18 134/69 (90) 98 06/07/17 04:00 96 06/07/17 00:28 97 40 06/07/17 00:00 97.4 86 16 155/82 (106) 96 06/07/17 00:00 84 06/06/17 20:00 98.2 90 18 113/75 (88) 97 06/06/17 20:00 Nasal Cannula 4.00 Humidified 06/06/17 20:00 98 06/06/17 19:36 98 Nasal Cannula 4.00 06/06/17 16:04 93 06/06/17 16:00 98.2 91 20 136/84 (101) 97 I/O 06/06/17 06/06/17 06/06/17 06/07/17 06/07/17 06/07/17 07:00 15:00 23:00 07:00 15:00 23:00 Intake Total 240 ml 360 ml Balance 240 ml 360 ml Intake Oral 240 ml 360 ml # Voids 2 2 4 3 # Bowel Movements 1 1 1 Result Diagram: 06/06/17 0712 06/06/17 0712 Imaging Last Impressions Chest X-Ray 06/05/17 0000 Signed Impressions: Service Date/Time: Monday, June 05, 2017 11:36 - CONCLUSION: 1. Cardiomegaly with bibasilar densities and probable pleural effusions. Corby Garcia MD Renal Ultrasound 05/26/17 0000 Signed Impressions: Service Date/Time: May 16:38 - CONCLUSION: Left kidney nonvisualized. Right kidney unremarkable. Tulio Thomas MD Lower Extremity Ultrasound 05/24/17 0000 Signed Impressions: Service Date/Time: Wednesday, May 24, 2017 18:29 - CONCLUSION: 1. Negative for deep venous thrombosis. Arnie Oswald MD Objective Remarks GENERAL: Obese male in NAD. SKIN: Warm and dry. No rash CARDIOVASCULAR: S1, S2 no S4. RESPIRATORY: B/l equal air entry, distant. No wheezing. GASTROINTESTINAL: Abdomen soft, non-tender, obese. Normoactive bowel sounds appreciated MUSCULOSKELETAL: General anasarca. No obvious deformities. NEUROLOGICAL: Awake. Cranial nerves II through XII grossly intact. Strength equal symmetric. Normal sensation. PSYCH: Mood and affect appropriate. Procedures Intubation/ extubation Date of Insertion: May 26, 2017 Date of Removal: Jun 02, 2017 Line: Central Venous Catheter Side: Right Location: Internal, Jugular A/P Problem List: (1) CHF (congestive heart failure) ICD Code: I50.9 - Heart failure, unspecified Status: Acute (2) COPD with acute exacerbation ICD Code: J44.1 - Chronic obstructive pulmonary disease with (acute) exacerbation Status: Acute Assessment and Plan Acute systolic CHF Evaluated by Dr. Falk/cardiology. Echo showed EF 50-55%. Currently still with anasarca. - Currently on clonidine 0.1 mg twice a day, carvedilol 12.5 milligrams twice a day (Home medications clonidine 0.2 mg twice a day, carvedilol 25 mg twice a day , lisinopril/hydrochlorothiazide 20/25 one tablet daily). - Heparin drip held on 05/31 as patient does not wish to be on systemic anticoagulation with VKA or NOAC. No fits and risks discussed. At higher risk for CVA however has history of prior bleeding does not want this to recur. On aspirin 81 mg daily clopidogrel 75 mg daily. - Switch Lasix to IV 40 mg BID. - follow up with cardiology. - telemetry. Acute hypercapnic respiratory failure/ COPD exacerbation S/p intubation. Likely has YUKI. Pulmonology consult appreciated. Repeat chest x -ray with bibasilar densities and likely pleural effusions. - BiPAP 15/5 at night. - Continue with oxygen keep sat >92%. - Albuterol aerosols 1.25 mg/ipratropium 0.5 mg nebs every 4 hours with ipratropium aerosols every 2 hours. - On low-dose prednisone 10 mg by mouth daily. - PT/ OT. - IS. - Follow up with pulmonology. Acute renal failure resolving Renal has been following. Creatinine improved. - Currently on furosemide 40 mg BID. - follow up with nephrology. PNA Currently on levofloxacin for possible infectious etiology. Discontinued vancomycin and piperacillin/tazobactam. Sputum culture with normal jay. - Stop date of Levaquin 06/07. PPx: SCD/heparin subcutaneous Wound care Discharge Planning Needs diuresis Problem Qualifiers (1) CHF (congestive heart failure): Qualified Codes: I50.9 - Heart failure, unspecified Lai Collins MD Jun 07, 2017 14:23
[2017-06-07] MEDS ORDERED: FUROSEMIDE 40 MG/4 ML VIAL IV PUSH SCH (18:00)
[2017-06-07] MEDS: PRAVASTATIN SOD 40 MG TAB PO SCH (22:08)
[2017-06-08] VITALS (14 sets, daily range): BP systolic 120–143; BP diastolic 59–90; PULSE 82–97; RESP 18–21; TEMP 97.2–98.1; O2SAT 93–98
[2017-06-08] MEDS: RESP: ALBUTEROL 1.25 MG/3 ML NEB (SCH) NEB ×6 (01:23→19:17)
[2017-06-08] MEDS: RESP: IPRATROPIUM 0.5 MG/2.5 ML NEB NEB SCH ×6 (01:23→19:17)
[2017-06-08] MEDS: HEPARIN SODIUM - SQ 10,000 UNITS/ML VIAL SQ SCH ×3 (05:41→22:32)
[2017-06-08] MEDS: ARTIFICIAL TEARS OPTH SOLN 15 ML BTL EACH EYE SCH ×3 (05:41→22:32)
[2017-06-08 06:26] LABS: BICARBONATE 42.2 MEQ/L (21.0-32.0); CALCIUM 8.8 MG/DL (8.5-10.1); CREATININE 0.93 MG/DL (0.60-1.30); MAGNESIUM 1.8 MG/DL (1.5-2.5)
--- NOTE | 2017-06-08 07:18 | PD.CARD.PN ---
Subjective Subjective Remarks PT reports he is weak, increased frequency Objective Medications Current Medications Medications (Trade) Dose Ordered Sig/Pratima Route Start Time Stop Time Status Last Admin (NS Flush) 2 ml UNSCH PRN IV FLUSH 05/24/17 17:45 (NS Flush) 2 ml BID IV FLUSH 05/24/17 21:00 06/07/17 21:00 (Narcan Inj) 0.4 mg UNSCH PRN IV PUSH 05/24/17 17:45 (Zyloprim) 100 mg DAILY PO 05/25/17 09:00 06/07/17 08:45 (Pravachol) 40 mg HS PO 05/24/17 21:00 06/07/17 22:08 (Atrovent Neb) 0.5 mg Q2HR NEB PRN NEB 05/24/17 18:45 05/25/17 02:10 Miscellaneous Information Patient in critical care unit? Ass... Q361D .XX 05/24/17 20:45 05/24/17 20:45 (Peridex 0.12% Liq) 15 ml BID@08,20 MT 05/26/17 20:00 05/30/17 08:00 (Atrovent Neb) 0.5 mg Q4HR NEB NEB 05/26/17 16:00 06/08/17 03:27 (NS Flush) DAILY IV FLUSH 05/27/17 09:00 06/02/17 09:07 (NS Flush) UNSCH PRN IV FLUSH 05/26/17 14:45 (Pulmicort Respule Neb) 0.5 mg Q12HR NEB NEB 05/26/17 20:00 06/07/17 19:19 (Tears Naturale Opth Soln) 1 drop Q8HR EACH EYE 05/26/17 22:00 06/08/17 05:41 (Brethine Inj) 1 mg UNSCH PRN SQ 05/26/17 15:30 (D50w (Vial) Inj) 50 ml UNSCH PRN IV PUSH 05/26/17 15:45 (Glucagon Inj) 1 mg UNSCH PRN OTHER 05/26/17 15:45 (Tylenol 650 Mg/ 20 ml Liq) 650 mg Q6H PRN PO 05/26/17 15:45 (Colace Liq) 100 mg Q12HR PO 05/29/17 21:00 2/4/18 09:49 (Senna Liq) 8.8 mg BID NG 05/29/17 21:00 06/05/17 09:48 (Catapres) 0.1 mg Q12HR PO 05/30/17 11:00 06/07/17 22:08 (Coreg) 12.5 mg Q12HR PO 05/30/17 11:00 06/07/17 22:08 (Trandate Inj) 10 mg Q1HR PRN IV PUSH 05/30/17 09:45 05/30/17 10:43 (Apresoline Inj) 10 mg Q1HR PRN IV PUSH 05/30/17 09:45 06/03/17 08:13 (Nitroglycerin 2% Oint) 2 inch Q6HR PRN TOPICAL 05/30/17 09:45 (Protonix) 40 mg DAILY PO 06/02/17 09:00 06/07/17 08:44 (Aspirin Chew) 81 mg DAILY CHEW 06/02/17 09:00 06/07/17 08:44 (Heparin Inj) 5,000 units Q8HR SQ 06/01/17 14:00 06/08/17 05:41 (Plavix) 75 mg DAILY PO 06/02/17 09:00 06/07/17 08:45 (Levaquin) 500 mg Q24H PO 06/03/17 14:00 06/08/17 13:59 06/07/17 14:19 (Deltasone) 10 mg DAILY PO 06/04/17 09:00 06/07/17 08:44 (Albuterol Neb) 1.25 mg Q4HR NEB NEB 06/06/17 12:00 06/08/17 03:27 (KCl) 20 meq DAILY PO 06/06/17 12:00 06/07/17 08:44 (Lasix Inj) 40 mg BID@ IV PUSH 06/07/17 18:00 06/07/17 17:54 Vital Signs / I&O Vital Signs Date Time Temp Pulse Resp B/P (MAP) Pulse Ox O2 Delivery O2 Flow Rate FiO2 06/08/17 04:18 98.1 93 20 120/59 (79) 96 06/08/17 01:25 98 Nasal Cannula 4.00 06/08/17 00:10 97.2 97 20 136/86 (103) 96 06/08/17 00:00 Nasal Cannula 4.00 Humidified 06/07/17 23:43 85 06/07/17 22:19 98 40 06/07/17 21:06 Nasal Cannula 4.00 06/07/17 20:00 97.7 90 18 141/74 (96) 96 06/07/17 19:44 90 06/07/17 16:15 97.8 90 17 127/78 (94) 97 06/07/17 16:00 87 06/07/17 15:13 96 Nasal Cannula 4.00 06/07/17 12:00 97.9 83 20 129/77 (94) 97 06/07/17 12:00 69 06/07/17 08:58 Nasal Cannula 4.00 06/07/17 08:00 97.4 76 20 138/92 (107) 98 06/07/17 08:00 77 06/07/17 07:15 98 Nasal Cannula 4.00 I/O 06/07/17 06/07/17 06/07/17 06/08/17 06/08/17 06/08/17 07:00 15:00 23:00 07:00 15:00 23:00 Intake Total 480 ml 480 ml Balance 480 ml 480 ml Intake Oral 480 ml 480 ml # Voids 4 7 4 # Bowel Movements 1 3 0 Physical Exam GENERAL: Well developed, well nourished. No acute distress HEENT: Jugular venous pressure is normal. CHEST: Lungs very decreased clear to auscultation bilaterally. Unlabored respiratory effort. CARDIAC: irregular rate and rhythm without S3, S4, or murmur. ABDOMEN: Soft, nontender, no hepatosplenomegaly. Bowel sounds present. EXTREMITIES: No clubbing, cyanosis, +2 edema legs, 0.5+ thigh. Laboratory Laboratory Tests Test 06/08/17 05:30 Blood Urea Nitrogen 25 MG/DL Creatinine 0.93 MG/DL Random Glucose 102 MG/DL Calcium Level 8.8 MG/DL Magnesium Level 1.8 MG/DL Sodium Level 135 MEQ/L Potassium Level 3.5 MEQ/L Chloride Level 90 MEQ/L Carbon Dioxide Level 42.2 MEQ/L Anion Gap 3 MEQ/L Estimat Glomerular Filtration Rate 81 ML/MIN Assessment and Plan Problem List: (1) Edema ICD Codes: R60.9 - Edema, unspecified Plan: multifactorial - (2) CHF (congestive heart failure) ICD Codes: I50.9 - Heart failure, unspecified Status: Acute Plan: 7 kg weight loss, BUN/Cr remains high -change back to PO lasix, add fluid and sodium restrictions (3) Atrial fibrillation ICD Codes: I48.91 - Unspecified atrial fibrillation Plan: d/c coreg and start cardizem to help COPD (4) COPD with acute exacerbation ICD Codes: J44.1 - Chronic obstructive pulmonary disease with (acute) exacerbation Status: Acute (5) hypertension Status: Acute (6) Hyponatremia ICD Codes: E87.1 - Hypo-osmolality and hyponatremia Status: Acute Permanent Comment: Acute on chronic hyponatremia. Last Edited By: Km Bach on May 26, 2017 17:10 Problem Qualifiers (1) Edema: Qualified Codes: R60.0 - Localized edema (2) CHF (congestive heart failure): Qualified Codes: I50.9 - Heart failure, unspecified Yuki Falk MD Jun 08, 2017 07:18
[2017-06-08] MEDS: CHLORHEXIDINE 0.12% (ORAL KIT) 15 ML CUP MT SCH ×2 (08:00→20:00)
[2017-06-08] MEDS: RESP: BUDESONIDE 0.5 MG/2 ML NEB NEB SCH ×2 (08:44→19:17)
[2017-06-08] MEDS: SENNOSIDES SYRUP 8.8 MG/5 ML CUP NG SCH ×2 (09:00→20:17)
[2017-06-08] MEDS: DOCUSATE SODIUM 100 MG/10 ML UDC PO SCH ×2 (09:00→20:17)
[2017-06-08] MEDS: CLOPIDOGREL 75 MG TAB PO SCH (10:05)
[2017-06-08] MEDS: ALLOPURINOL 100 MG TAB PO SCH (10:05)
[2017-06-08] MEDS: predniSONE 5 MG TAB PO SCH (10:05)
[2017-06-08] MEDS: PANTOPRAZOLE SOD 40 MG DELAYED RELEASE TAB PO SCH (10:06)
[2017-06-08] MEDS: FUROSEMIDE 40 MG TAB PO SCH ×2 (10:06→18:00)
[2017-06-08] MEDS: DILTIAZEM-CD 180 MG CAP ER PO SCH (10:07)
[2017-06-08] MEDS: ASPIRIN 81 MG CHEW TAB CHEW SCH (10:07)
[2017-06-08] MEDS: POTASSIUM CHLORIDE 10 MEQ CONTROLLED RELEASE TAB PO SCH (10:07)
[2017-06-08] MEDS: SODIUM CHLORIDE 0.9% FLUSH 10 ML FLUSH IV FLUSH SCH ×3 (10:25→20:20)
[2017-06-08] MEDS ORDERED: FURO40TA PO (13:45)
[2017-06-08] MEDS ORDERED: ASPI81 CHEW (13:45)
[2017-06-08] MEDS ORDERED: Ipratropium Bromide NEB (13:45)
[2017-06-08] MEDS ORDERED: PANT40TA3 PO (13:45)
[2017-06-08] MEDS ORDERED: KLOR10TA PO (13:45)
[2017-06-08] MEDS ORDERED: PLAV75TA29 PO (13:45)
[2017-06-08] MEDS ORDERED: PRED5TAB PO (13:45)
[2017-06-08] MEDS ORDERED: SENNSYP NG (13:45)
[2017-06-08] MEDS ORDERED: CARD180C5 PO (13:45)
[2017-06-08] MEDS ORDERED: ALBU1.25 NEB (13:45)
--- NOTE | 2017-06-08 13:45 | HHI.DCPOC ---
Discharge Care Plan Diagnosis: (1) CHF (congestive heart failure) (2) COPD with acute exacerbation Your Health Problems Are: Difficulty with ADL Exercise Tolerance Goals to Promote Your Health * To prevent worsening of your condition and complications * To maintain your health at the optimal level Directions to Meet Your Goals Take your medications as prescribed Follow your dietary instruction Follow activity as directed Keep your appointments as scheduled Take your immunizations and boosters as scheduled If your symptoms worsen call your PCP, if no PCP go to Urgent Care Center or Emergency Room Smoking is Dangerous to Your Health. Avoid second hand smoke Call the 24-hour hour crisis hotline for domestic abuse at Lai Collins MD Jun 08, 2017 13:45
--- NOTE | 2017-06-08 13:52 | HHI.DS ---
Discharge Summary Admission Date May 24, 2017 at 17:04 Discharge Date: Jun 09, 2017 Admitting Diagnosis CHF, COPD, Hypoxia (1) CHF (congestive heart failure) ICD Code: I50.9 - Heart failure, unspecified Diagnosis: Principal Status: Acute (2) COPD with acute exacerbation ICD Code: J44.1 - Chronic obstructive pulmonary disease with (acute) exacerbation Diagnosis: Principal Status: Acute Procedures Intubation/ extubation Brief History - From Admission History of patient, ER physician to medication, and review of medical records. Patient's was also present at the bedside. The time of my arrival to emergency room, patient was in acute respiratory distress. RR 40s, BP 194/100 He was using respiratory accessory muscle, and is not able to complete sentences. Patient was immediately placed on BiPAP. History is obtained after placing him on BiPAP and talking to his at the bedside. Short of breath wirse in aweek no fever legs swelling - both, but worse on left could not walk, legs started oozing - never had that before no cough no sputum when he had attack of short of breath, had chest tightness, and took albuterol no fever no nasuea/ no vomiting no diarrhea no ruirnary symptoms no blood in urine or stool states now it is getting hard even to eat because of dyspnea was here last week on 05/12/17 with similar issues, but was so busy in ER that day, and was discharged home according to him and was told nothing was wrong with him on home oxygen 2L CBC/BMP: 06/06/17 0712 06/08/17 0530 Significant Findings Laboratory Tests Test 06/06/17 07:12 06/08/17 05:30 White Blood Count 13.1 TH/MM3 (4.0-11.0) Red Blood Count 3.74 MIL/MM3 (4.50-5.90) Hemoglobin 12.4 GM/DL (13.0-17.0) Hematocrit 37.8 % (39.0-51.0) Mean Corpuscular Volume 100.9 FL (80.0-100.0) Blood Urea Nitrogen 32 MG/DL (7-18) 25 MG/DL (7-18) Chloride Level 95 MEQ/L (98-107) 90 MEQ/L (98-107) Carbon Dioxide Level 37.1 MEQ/L (21.0-32.0) 42.2 MEQ/L (21.0-32.0) Estimat Glomerular Filtration Rate 86 ML/MIN (>89) 81 ML/MIN (>89) Sodium Level 135 MEQ/L (136-145) Anion Gap 3 MEQ/L (5-15) Imaging Last Impressions Chest X-Ray 06/05/17 0000 Signed Impressions: Service Date/Time: Monday, June 05, 2017 11:36 - CONCLUSION: 1. Cardiomegaly with bibasilar densities and probable pleural effusions. Corby Garcia MD Renal Ultrasound 05/26/17 0000 Signed Impressions: Service Date/Time: May 16:38 - CONCLUSION: Left kidney nonvisualized. Right kidney unremarkable. Tulio Thomas MD Lower Extremity Ultrasound 05/24/17 0000 Signed Impressions: Service Date/Time: Wednesday, May 24, 2017 18:29 - CONCLUSION: 1. Negative for deep venous thrombosis. Arnie Oswald MD PE at Discharge GENERAL: Obese male in NAD. SKIN: Warm and dry. No rash CARDIOVASCULAR: S1, S2 no S4. RESPIRATORY: B/l equal air entry, distant. No wheezing. GASTROINTESTINAL: Abdomen soft, non-tender, obese. Normoactive bowel sounds appreciated MUSCULOSKELETAL: General anasarca. No obvious deformities. NEUROLOGICAL: Awake. Cranial nerves II through XII grossly intact. Strength equal symmetric. Normal sensation. PSYCH: Mood and affect appropriate. Hospital Course Acute diastolic CHF with anasarca. Improving Evaluated by Dr. Falk/cardiology. Echo showed EF 50-55%. Improving anasarca diuresing and losing weight - Currently on clonidine 0.1 mg twice a day and Coreg 3.125 mg twice a (Home medications clonidine 0.2 mg twice a day, carvedilol 25 mg twice a day, lisinopril/hydrochlorothiazide 20/25 one tablet daily). - Heparin drip held on 05/31 as patient does not wish to be on systemic anticoagulation with VKA or NOAC. No fits and risks discussed. At higher risk for CVA however has history of prior bleeding does not want this to recur. On aspirin 81 mg daily clopidogrel 75 mg daily. - Switch Lasix to po 40 mg BID. Consider acetazolamide - follow up with cardiology. - telemetry. NSVT 16 beat run. EF preserved. TSH WNL. Refuses cardiac catheterization. Aggressive electrolyte replacement Cardiology has restarted Coreg Acute hypercapnic respiratory failure/ COPD exacerbation S/p intubation. Likely has YUKI. Pulmonology consult appreciated. Repeat chest x -ray with bibasilar densities and likely pleural effusions. - BiPAP 15/5 at night. Pulmonary recommending BiPAP to be continued outpatient - Continue with oxygen keep sat >92%. - Albuterol aerosols 1.25 mg/ipratropium 0.5 mg nebs every 4 hours with ipratropium aerosols every 2 hours. - On low-dose prednisone 5 mg by mouth daily. - PT/ OT. - IS. - Follow up with pulmonology. Acute renal failure resolving Renal has been following. Creatinine improved. - Currently on furosemide 40 mg BID. - follow up with nephrology. PNA Stable status post Levaquin, vancomycin and Zosyn sputum culture with normal jay. PPx: SCD/heparin subcutaneous Wound care Pt Condition on Discharge: Stable Discharge Disposition: Discharge to SNF Discharge Time: > 30 minutes Discharge Instructions DIET: Follow Instructions for: Heart Healthy Diet Additional Diet Instructions: 1.5 LITER FLUID RESTRICTION Activities you can perform: Regular-No Restrictions Activities to Avoid: Driving Follow up Referrals: Cardiology - 1 Week PCP Follow-up - 2-3 Days Pulmonology - 1 Week New Orders: BASIC METABOLIC PROF - 06/15/17 New Medications: Carvedilol (Coreg) 3.125 Mg Tab 3.125 MG PO BID for Regulate Heart Beat, #60 TAB 0 Refills Albuterol Neb (Albuterol Neb) 1.25 Mg/3 Ml Neb 1.25 MG NEB Q4HR NEB for Breathing Treatment, #180 NEBULE Aspirin (Tgt Aspirin) 81 Mg Chw 81 MG CHEW DAILY for Prevent Blood Clot, #30 EA Clopidogrel (Plavix) 75 Mg Tab 75 MG PO DAILY for Prevent Blood Clot, #30 TAB Diltiazem CD 24 HR (Cardizem CD 24 HR) 180 Mg Caper 180 MG PO DAILY for Regulate Heart Beat, #30 CAP Furosemide (Furosemide) 40 Mg Tab 40 MG PO BID@09,18 for Prevent Heart Failure, #60 TAB Pantoprazole (Pantoprazole) 40 Mg Tab 40 MG PO DAILY for Manage Heartburn, #30 TAB Potassium Chloride ER (Klor-Con 10) 10 Meq Tab 40 MEQ PO DAILY for Electrolyte Replacement, #120 TAB Prednisone (Prednisone) 5 Mg Tab 5 MG PO DAILY for Control Inflammation, #7 TAB Senna Liq (Senna Liq) 176 Mg/5 Ml Syp 8.8 MG NG BID for Prevent Constipation, #300 ML [Ipratropium [place]] () 0.5 MG/2.5 ML NEBU 0.5 MG NEB Q4HR NEB for Breathing Treatment, #180 ML Continued Medications: Allopurinol (Zyloprim) 100 Mg Tab 100 MG PO DAILY for Gout, #30 TAB 0 Refills Budesonide-Formoterol Inh (Symbicort Inh) 160-4.5 Mcg/Act Aero 1 PUFF INH Q12HR, #1 INHALER 0 Refills Lovastatin (Lovastatin) 40 Mg Tab 40 MG PO HS for Cholesterol Management, #30 TAB 0 Refills Oxygen tank (Oxygen tank) 1 Ea Tank 2 LITER DAMIEN.CANULA CONTINUOUS for HYPOXEMIA PREVENTION, #2 CYLINDER Oxygen Concentrator Portable Gaseous 2 L/min via Nasal Cannula Continuous For 99 months Tiotropium Inh (Spiriva Respimat Inh) 1.25 Mcg/Act Aero 2 PUFF INH DAILY for Asthma Management, #1 INHALER 0 Refills 1.25 mcg = 1 inhalation Discontinued Medications: Albuterol Neb (Albuterol Neb) 2.5 Mg/3 Ml Neb 2.5 MG NEB Q4HR NEB PRN for SHORTNESS OF BREATH, #60 NEBULE 0 Refills Carvedilol (Carvedilol) 25 Mg Tab 25 MG PO BID, #60 TAB 0 Refills Clonidine (Clonidine) 0.2 Mg Tab 0.2 MG PO BID for Blood Pressure Management, #60 TAB 0 Refills Furosemide (Lasix) 20 Mg Tab 20 MG PO DAILY, #30 TAB 0 Refills Lisinopril-Hctz (Lisinopril-Hctz) 20-12.5 Mg Tab 1 TAB PO DAILY for Blood Pressure Management, #30 TAB 0 Refills Additional Information Needs weekly BMP to monitor renal function and electrolytes Lai Collins MD Jun 08, 2017 13:52
--- NOTE | 2017-06-08 15:44 | HHI.PR ---
Subjective Remarks Follow-up heart failure. Improving shortness of breath. Better exercise tolerance was able to get out of bed and ambulate a few steps today. Dw RN Objective Vitals Vital Signs Date Time Temp Pulse Resp B/P (MAP) Pulse Ox O2 Delivery O2 Flow Rate FiO2 06/08/17 15:11 93 Nasal Cannula 4.00 06/08/17 12:12 97.4 96 21 143/90 (107) 93 06/08/17 08:50 96 Nasal Cannula 4.00 06/08/17 08:12 97.5 86 21 122/77 (92) 95 06/08/17 08:00 96 Nasal Cannula 4.00 40 06/08/17 08:00 86 06/08/17 04:18 98.1 93 20 120/59 (79) 96 06/08/17 03:44 88 06/08/17 01:25 98 Nasal Cannula 4.00 06/08/17 00:10 97.2 97 20 136/86 (103) 96 06/08/17 00:00 Nasal Cannula 4.00 Humidified 06/07/17 23:43 85 06/07/17 22:19 98 40 06/07/17 21:06 Nasal Cannula 4.00 06/07/17 20:00 97.7 90 18 141/74 (96) 96 06/07/17 19:44 90 06/07/17 16:15 97.8 90 17 127/78 (94) 97 06/07/17 16:00 87 I/O 06/07/17 06/07/17 06/07/17 06/08/17 06/08/17 06/08/17 06:59 14:59 22:59 06:59 14:59 22:59 Intake Total 480 ml 480 ml Balance 480 ml 480 ml Intake Oral 480 ml 480 ml # Voids 4 7 4 # Bowel Movements 1 3 0 Result Diagram: 06/06/17 0712 06/08/17 0530 Imaging Last Impressions Chest X-Ray 06/05/17 0000 Signed Impressions: Service Date/Time: Monday, June 05, 2017 11:36 - CONCLUSION: 1. Cardiomegaly with bibasilar densities and probable pleural effusions. Corby Garcia MD Renal Ultrasound 05/26/17 0000 Signed Impressions: Service Date/Time: May 16:38 - CONCLUSION: Left kidney nonvisualized. Right kidney unremarkable. Tulio Thomas MD Lower Extremity Ultrasound 05/24/17 0000 Signed Impressions: Service Date/Time: Wednesday, May 24, 2017 18:29 - CONCLUSION: 1. Negative for deep venous thrombosis. Arnie Oswald MD Objective Remarks GENERAL: Obese male in NAD. SKIN: Warm and dry. No rash CARDIOVASCULAR: S1, S2 no S4. RESPIRATORY: B/l equal air entry, distant. No wheezing. GASTROINTESTINAL: Abdomen soft, non-tender, obese. Normoactive bowel sounds appreciated MUSCULOSKELETAL: Improving bilateral lower extremity edema. No obvious deformities. NEUROLOGICAL: Awake. Cranial nerves II through XII grossly intact. Strength equal symmetric. Normal sensation. PSYCH: Mood and affect appropriate. Procedures Intubation/ extubation Date of Insertion: May 26, 2017 Date of Removal: Jun 02, 2017 Line: Central Venous Catheter Side: Right Location: Internal, Jugular A/P Problem List: (1) CHF (congestive heart failure) ICD Code: I50.9 - Heart failure, unspecified Status: Acute (2) COPD with acute exacerbation ICD Code: J44.1 - Chronic obstructive pulmonary disease with (acute) exacerbation Status: Acute Assessment and Plan Acute diastolic CHF Evaluated by Dr. Falk/cardiology. Echo showed EF 50-55%. Improving anasarca lost 7 kg overnight with worsening alkalosis - Currently on clonidine 0.1 mg twice a day. Card dc carvedilol 2/2 COPD and started CCB (Home medications clonidine 0.2 mg twice a day, carvedilol 25 mg twice a day, lisinopril/hydrochlorothiazide 20/25 one tablet daily). - Heparin drip held on 05/31 as patient does not wish to be on systemic anticoagulation with VKA or NOAC. No fits and risks discussed. At higher risk for CVA however has history of prior bleeding does not want this to recur. On aspirin 81 mg daily clopidogrel 75 mg daily. - Switch Lasix to po 40 mg BID. Consider acetazolamide - follow up with cardiology. - telemetry. Acute hypercapnic respiratory failure/ COPD exacerbation S/p intubation. Likely has YUKI. Pulmonology consult appreciated. Repeat chest x -ray with bibasilar densities and likely pleural effusions. - BiPAP 15/5 at night. Pulmonary recommending BiPAP to be continued outpatient - Continue with oxygen keep sat >92%. - Albuterol aerosols 1.25 mg/ipratropium 0.5 mg nebs every 4 hours with ipratropium aerosols every 2 hours. - On low-dose prednisone 5 mg by mouth daily. - PT/ OT. - IS. - Follow up with pulmonology. Acute renal failure resolving Renal has been following. Creatinine improved. - Currently on furosemide 40 mg BID. - follow up with nephrology. PNA Stable status post Levaquin, vancomycin and Zosyn sputum culture with normal jay. PPx: SCD/heparin subcutaneous Wound care 1810H NSVT 16 beat run. EF preserved. TSH WNL. Replace lce K and Mg. Cardiology has recommended to cancel discharge Problem Qualifiers (1) CHF (congestive heart failure): Qualified Codes: I50.9 - Heart failure, unspecified Lai Collins MD Jun 08, 2017 15:44
[2017-06-08] MEDS ORDERED: POTASSIUM CHLORIDE 20 MEQ CONTROLLED RELEASE TAB PO ONE (15:45)
[2017-06-08] MEDS ORDERED: MAGNESIUM SULFATE 1 GM PREMIX 100 ML IV ONE (16:00)
--- NOTE | 2017-06-08 16:20 | HHI.PR ---
Subjective Remarks alert no distress sat 95% on o2 N/C IN [facility] Objective Vital Signs Date Time Temp Pulse Resp B/P (MAP) Pulse Ox O2 Delivery O2 Flow Rate FiO2 06/08/17 15:11 93 Nasal Cannula 4.00 06/08/17 12:12 97.4 96 21 143/90 (107) 93 06/08/17 08:50 96 Nasal Cannula 4.00 06/08/17 08:12 97.5 86 21 122/77 (92) 95 06/08/17 08:00 96 Nasal Cannula 4.00 40 06/08/17 08:00 86 06/08/17 04:18 98.1 93 20 120/59 (79) 96 06/08/17 03:44 88 06/08/17 01:25 98 Nasal Cannula 4.00 06/08/17 00:10 97.2 97 20 136/86 (103) 96 06/08/17 00:00 Nasal Cannula 4.00 Humidified 06/07/17 23:43 85 06/07/17 22:19 98 40 06/07/17 21:06 Nasal Cannula 4.00 06/07/17 20:00 97.7 90 18 141/74 (96) 96 06/07/17 19:44 90 I/O 06/07/17 06/07/17 06/07/17 06/08/17 06/08/17 06/08/17 07:00 15:00 23:00 07:00 15:00 23:00 Intake Total 480 ml 480 ml Balance 480 ml 480 ml Intake Oral 480 ml 480 ml # Voids 4 7 4 # Bowel Movements 1 3 0 Result Diagram: 06/06/17 0712 06/08/17 0530 Procedures BiPAP. Objective Remarks GENERAL: SKIN: Warm and dry. HEAD: Atraumatic. Normocephalic. EYES: Pupils equal and round. No scleral icterus. No injection or drainage. ENT: No nasal bleeding or discharge. Mucous membranes pink and moist. NECK: Trachea midline. No JVD. CARDIOVASCULAR: Regular rate and rhythm. RESPIRATORY: No accessory muscle use. Clear to auscultation. Breath sounds equal bilaterally. GASTROINTESTINAL: Abdomen soft, non-tender, nondistended. Hepatic and splenic margins not palpable. MUSCULOSKELETAL: Extremities without clubbing, cyanosis, or edema. No obvious deformities. NEUROLOGICAL: Awake and alert. No obvious cranial nerve deficits. Motor grossly within normal limits. Five out of 5 muscle strength in the arms and legs. Normal speech. PSYCHIATRIC: Appropriate mood and affect; insight and judgment normal. Assessment and Plan Assessment and Plan RESPIRATORY FAILURE COPD CHF MORBID OBESITY ? YUKI O2 WILL ARRANGE FOR BIPAP UPON D/C INCREASE ACTIVITY Discharge Planning GENERAL: SKIN: Warm and dry. HEAD: Atraumatic. Normocephalic. EYES: Pupils equal and round. No scleral icterus. No injection or drainage. ENT: No nasal bleeding or discharge. Mucous membranes pink and moist. NECK: Trachea midline. No JVD. CARDIOVASCULAR: Regular rate and rhythm. RESPIRATORY: No accessory muscle use. Clear to auscultation. Breath sounds equal bilaterally. GASTROINTESTINAL: Abdomen soft, non-tender, nondistended. Hepatic and splenic margins not palpable. MUSCULOSKELETAL: Extremities without clubbing, cyanosis, or edema. No obvious deformities. NEUROLOGICAL: Awake and alert. No obvious cranial nerve deficits. Motor grossly within normal limits. Five out of 5 muscle strength in the arms and legs. Normal speech. PSYCHIATRIC: Appropriate mood and affect; insight and judgment normal. Bernadine Colindres MD Jun 08, 2017 16:20
[2017-06-08] MEDS: PRAVASTATIN SOD 40 MG TAB PO SCH (20:19)
--- NOTE | 2017-06-08 23:26 | PD.CARD.PN ---
Assessment and Plan Problem List: (1) Edema ICD Codes: R60.9 - Edema, unspecified (2) CHF (congestive heart failure) ICD Codes: I50.9 - Heart failure, unspecified Status: Acute (3) Atrial fibrillation ICD Codes: I48.91 - Unspecified atrial fibrillation (4) COPD with acute exacerbation ICD Codes: J44.1 - Chronic obstructive pulmonary disease with (acute) exacerbation Status: Acute (5) hypertension Status: Acute (6) Hyponatremia ICD Codes: E87.1 - Hypo-osmolality and hyponatremia Status: Acute Permanent Comment: Acute on chronic hyponatremia. Last Edited By: Km Bach on May 26, 2017 17:10 Assessment and Plan Asked to see the patient for consideration of ischemic evaluation, particularly cardiac catheterization by Dr. Falk due to NSVT. Patient had a 16 beat run of NSVT. Patient was asymptomatic during the event. Discussed about NSVT with the patient and his and consideration of cardiac catheterization. He does not want any other procedures and wants to try to get home soon. I explained the risk associated with this including but not limited to myocardial infarction, arrhythmia and . He understands this and does not want further work up. His was there for the conversation and agrees he should undergo further work up, but patient is adamant on no further procedures. Will follow up tomorrow to make sure he's set on his decision. Problem Qualifiers (1) Edema: Qualified Codes: R60.0 - Localized edema (2) CHF (congestive heart failure): Qualified Codes: I50.9 - Heart failure, unspecified Chema Hogue DO Jun 08, 2017 23:26
[2017-06-09] VITALS (7 sets, daily range): BP systolic 128–172; BP diastolic 70–95; PULSE 79–98; RESP 18–20; TEMP 97.8–98.9; O2SAT 95–97
[2017-06-09] MEDS: RESP: IPRATROPIUM 0.5 MG/2.5 ML NEB NEB SCH ×5 (00:55→15:05)
[2017-06-09] MEDS: RESP: ALBUTEROL 1.25 MG/3 ML NEB (SCH) NEB ×5 (00:55→15:05)
[2017-06-09] MEDS: ARTIFICIAL TEARS OPTH SOLN 15 ML BTL EACH EYE SCH (05:07)
[2017-06-09] MEDS: HEPARIN SODIUM - SQ 10,000 UNITS/ML VIAL SQ SCH (05:08)
[2017-06-09 07:27] LABS: BICARBONATE 44.7 MEQ/L (21.0-32.0); CALCIUM 9.1 MG/DL (8.5-10.1); CREATININE 0.86 MG/DL (0.60-1.30); MAGNESIUM 1.8 MG/DL (1.5-2.5)
[2017-06-09] MEDS: RESP: BUDESONIDE 0.5 MG/2 ML NEB NEB SCH (07:42)
[2017-06-09] MEDS: DOCUSATE SODIUM 100 MG/10 ML UDC PO SCH (09:00)
[2017-06-09] MEDS: SENNOSIDES SYRUP 8.8 MG/5 ML CUP NG SCH (09:00)
[2017-06-09] MEDS: ALLOPURINOL 100 MG TAB PO SCH (10:25)
[2017-06-09] MEDS: CLOPIDOGREL 75 MG TAB PO SCH (10:25)
[2017-06-09] MEDS: ASPIRIN 81 MG CHEW TAB CHEW SCH (10:26)
[2017-06-09] MEDS: POTASSIUM CHLORIDE 10 MEQ CONTROLLED RELEASE TAB PO SCH (10:26)
[2017-06-09] MEDS: DILTIAZEM-CD 180 MG CAP ER PO SCH (10:26)
[2017-06-09] MEDS: FUROSEMIDE 40 MG TAB PO SCH (10:26)
[2017-06-09] MEDS: predniSONE 5 MG TAB PO SCH (10:26)
[2017-06-09] MEDS: PANTOPRAZOLE SOD 40 MG DELAYED RELEASE TAB PO SCH (10:26)
--- NOTE | 2017-06-09 12:17 | PD.CARD.PN ---
Subjective Subjective Remarks No events overnight Plan discharge today per the patient Objective Medications Current Medications Medications (Trade) Dose Ordered Sig/Pratima Route Start Time Stop Time Status Last Admin (NS Flush) 2 ml UNSCH PRN IV FLUSH 05/24/17 17:45 (NS Flush) 2 ml BID IV FLUSH 05/24/17 21:00 06/08/17 20:20 (Narcan Inj) 0.4 mg UNSCH PRN IV PUSH 05/24/17 17:45 (Zyloprim) 100 mg DAILY PO 05/25/17 09:00 06/09/17 10:25 (Pravachol) 40 mg HS PO 05/24/17 21:00 06/08/17 20:19 (Atrovent Neb) 0.5 mg Q2HR NEB PRN NEB 05/24/17 18:45 05/25/17 02:10 Miscellaneous Information Patient in critical care unit? Ass... Q361D .XX 05/24/17 20:45 05/24/17 20:45 (Peridex 0.12% Liq) 15 ml BID@08,20 MT 05/26/17 20:00 05/30/17 08:00 (Atrovent Neb) 0.5 mg Q4HR NEB NEB 05/26/17 16:00 06/09/17 07:42 (NS Flush) DAILY IV FLUSH 05/27/17 09:00 06/08/17 10:25 (NS Flush) UNSCH PRN IV FLUSH 05/26/17 14:45 (Pulmicort Respule Neb) 0.5 mg Q12HR NEB NEB 05/26/17 20:00 06/09/17 07:42 (Tears Naturale Opth Soln) 1 drop Q8HR EACH EYE 05/26/17 22:00 06/09/17 05:07 (Brethine Inj) 1 mg UNSCH PRN SQ 05/26/17 15:30 (D50w (Vial) Inj) 50 ml UNSCH PRN IV PUSH 05/26/17 15:45 (Glucagon Inj) 1 mg UNSCH PRN OTHER 05/26/17 15:45 (Tylenol 650 Mg/ 20 ml Liq) 650 mg Q6H PRN PO 05/26/17 15:45 (Colace Liq) 100 mg Q12HR PO 05/29/17 21:00 06/05/17 09:49 (Senna Liq) 8.8 mg BID NG 05/29/17 21:00 06/05/17 09:48 (Trandate Inj) 10 mg Q1HR PRN IV PUSH 05/30/17 09:45 05/30/17 10:43 (Apresoline Inj) 10 mg Q1HR PRN IV PUSH 05/30/17 09:45 06/03/17 08:13 (Protonix) 40 mg DAILY PO 06/02/17 09:00 06/09/17 10:26 (Aspirin Chew) 81 mg DAILY CHEW 06/02/17 09:00 06/09/17 10:26 (Heparin Inj) 5,000 units Q8HR SQ 06/01/17 14:00 06/09/17 05:08 (Plavix) 75 mg DAILY PO 06/02/17 09:00 06/09/17 10:25 (Albuterol Neb) 1.25 mg Q4HR NEB NEB 06/06/17 12:00 06/09/17 07:42 (KCl) 20 meq DAILY PO 06/06/17 12:00 06/09/17 10:26 (Cardizem Cd) 180 mg DAILY PO 06/08/17 09:00 06/09/17 10:26 (Lasix) 40 mg BID@ PO 06/08/17 09:00 06/09/17 10:26 (Deltasone) 5 mg DAILY PO 06/08/17 09:00 06/13/17 08:59 06/09/17 10:26 Vital Signs / I&O Vital Signs Date Time Temp Pulse Resp B/P (MAP) Pulse Ox O2 Delivery O2 Flow Rate FiO2 06/09/17 08:00 97.8 98 20 162/88 (112) 95 06/09/17 07:44 Nasal Cannula 4.00 06/09/17 06:45 98.0 82 18 128/70 (89) 96 06/09/17 04:44 97 BiPAP 40 06/09/17 04:40 97 40 06/09/17 04:00 Bi-Pap 06/09/17 03:40 79 06/09/17 01:00 97 40 06/09/17 00:00 Bi-Pap 06/08/17 23:42 93 06/08/17 21:12 97.7 82 18 129/71 (90) 96 06/08/17 19:45 89 06/08/17 19:32 90 06/08/17 19:00 96 Nasal Cannula 4.00 06/08/17 16:12 98.0 85 21 121/77 (92) 94 06/08/17 15:11 93 Nasal Cannula 4.00 06/08/17 12:12 97.4 96 21 143/90 (107) 93 I/O 06/08/17 06/08/17 06/08/17 06/09/17 06/09/17 06/09/17 07:00 15:00 23:00 07:00 15:00 23:00 Intake Total 480 ml 220 ml 240 ml Output Total 900 ml Balance 480 ml -680 ml 240 ml Intake Oral 480 ml 120 ml 240 ml IV Total 100 ml Output Urine Total 900 ml # Voids 4 3 # Bowel Movements 0 2 Physical Exam GENERAL: NAD, AAOx3 SKIN: Warm and dry. HEAD: Atraumatic. Normocephalic. EYES: Pupils equal and round. No scleral icterus. No injection or drainage. ENT: No nasal bleeding or discharge. Mucous membranes pink and moist. NECK: Trachea midline. No JVD. CARDIOVASCULAR: Regular rate and rhythm. RESPIRATORY: No accessory muscle use. Decreased breath sounds bilaterally GASTROINTESTINAL: Abdomen soft, non-tender, nondistended. Hepatic and splenic margins not palpable. MUSCULOSKELETAL: Extremities without clubbing, cyanosis, or edema. No obvious deformities. NEUROLOGICAL: Awake and alert. No obvious cranial nerve deficits. Motor grossly within normal limits. Five out of 5 muscle strength in the arms and legs. Normal speech. PSYCHIATRIC: Appropriate mood and affect; insight and judgment normal. Laboratory Laboratory Tests Test 06/09/17 05:55 Blood Urea Nitrogen 23 MG/DL Creatinine 0.86 MG/DL Random Glucose 92 MG/DL Calcium Level 9.1 MG/DL Magnesium Level 1.8 MG/DL Sodium Level 135 MEQ/L Potassium Level 3.2 MEQ/L Chloride Level 85 MEQ/L Carbon Dioxide Level 44.7 MEQ/L Anion Gap 5 MEQ/L Estimat Glomerular Filtration Rate 88 ML/MIN Assessment and Plan Problem List: (1) Edema ICD Codes: R60.9 - Edema, unspecified (2) CHF (congestive heart failure) ICD Codes: I50.9 - Heart failure, unspecified Status: Acute (3) Atrial fibrillation ICD Codes: I48.91 - Unspecified atrial fibrillation (4) COPD with acute exacerbation ICD Codes: J44.1 - Chronic obstructive pulmonary disease with (acute) exacerbation Status: Acute (5) hypertension Status: Acute (6) Hyponatremia ICD Codes: E87.1 - Hypo-osmolality and hyponatremia Status: Acute Permanent Comment: Acute on chronic hyponatremia. Last Edited By: Km Bach on May 26, 2017 17:10 Assessment and Plan 1) NSVT on telemetry Patient asymptomatic Discussed with the patient and his about ischemic evaluation, patient is adement about no further procedures at this time, will reconsider when seeing Dr. MCKEON in the office outpt, but wants to get over his acute illness Understands BB was stopped due to concern for respiratory status, but would restart on Coreg for BB therapy due to NSVT, will need to watch BP/HR and respiratory status at rehab 2) Respiratory failure with CO2 retention Extubated 3) CHF Most likely small component of multi-factorial respiratory failure EF 50-55% 4) Afib Controlled on current medications CHADS-VASc = 3 Once again discussed with the patient and now with his , he is afraid of bleeding as he had problems before on Coumadin Wants to continue ASA/Plavix as before, and once stable will further discuss outpatient with Dr. MCKEON 5) HTN Restarted on BP medications 6) No further cardiovascular work up at this time Can follow up with Dr. Falk on discharge Problem Qualifiers (1) Edema: Qualified Codes: R60.0 - Localized edema (2) CHF (congestive heart failure): Qualified Codes: I50.9 - Heart failure, unspecified Chema Hogue DO Jun 09, 2017 12:17
[2017-06-09] MEDS ORDERED: CARV3.125 PO (12:31)
[2017-06-09] MEDS ORDERED: KLOR10TA PO (12:31)
[2017-06-09] MEDS ORDERED: CARVEDILOL 3.125 MG TAB PO SCH (13:00)
[2017-06-09] MEDS ORDERED: POTASSIUM CHLORIDE 20 MEQ CONTROLLED RELEASE TAB PO ONE (13:15)
[2017-06-10] MEDS ORDERED: POTASSIUM CHLORIDE 10 MEQ CONTROLLED RELEASE TAB PO SCH (09:00)
== END 2017-06-09 15:11 | DRG 207 ==
LOC: NEPE 14:30 → NEDA 17:04 → HIMW 20:20 → N04A 06-03 11:25
PROVIDERS: ADMIT Internal Medicine; ATTEND Internal Medicine
PROC: 3E0F7GC Introduction of Other Therapeutic Substance into Respiratory Tract, Via Natural or Artificial Opening (ICD-10-PCS; 2017-05-24)
PROC: 5A09357 Assistance with Respiratory Ventilation, Less than 24 Consecutive Hours, Continuous Positive Airway Pressure (ICD-10-PCS; 2017-05-24)
PROC: 5A1955Z Respiratory Ventilation, Greater than 96 Consecutive Hours (ICD-10-PCS; principal; 2017-05-26)
PROC: 0BH17EZ Insertion of Endotracheal Airway into Trachea, Via Natural or Artificial Opening (ICD-10-PCS; 2017-05-26)
PROC: 05HM33Z Insertion of Infusion Device into Right Internal Jugular Vein, Percutaneous Approach (ICD-10-PCS; 2017-05-26)
DX: J96.21 Acute and chronic respiratory failure with hypoxia (principal); I50.31 Acute diastolic (congestive) heart failure; N17.9 Acute kidney failure, unspecified; I47.2 Ventricular tachycardia; J18.9 Pneumonia, unspecified organism; I95.9 Hypotension, unspecified; I11.0 Hypertensive heart disease with heart failure; E87.1 Hypo-osmolality and hyponatremia; J44.1 Chronic obstructive pulmonary disease with (acute) exacerbation; J44.0 Chronic obstructive pulmonary disease with (acute) lower respiratory infection; I16.1 Hypertensive emergency; E66.01 Morbid (severe) obesity due to excess calories; I07.1 Rheumatic tricuspid insufficiency; Z99.81 Dependence on supplemental oxygen; I48.91 Unspecified atrial fibrillation; K21.9 Gastro-esophageal reflux disease without esophagitis; I45.10 Unspecified right bundle-branch block; G47.33 Obstructive sleep apnea (adult) (pediatric); Z91.19 Patient's noncompliance with other medical treatment and regimen; Z96.653 Presence of artificial knee joint, bilateral; Z96.641 Presence of right artificial hip joint; R25.1 Tremor, unspecified; Z87.891 Personal history of nicotine dependence; E78.5 Hyperlipidemia, unspecified; R74.8 Abnormal levels of other serum enzymes; J96.02 Acute respiratory failure with hypercapnia; D53.9 Nutritional anemia, unspecified
CPT/HCPCS: 36556; 36600; 36620; 71045; 76775; 76937; 80048; 80053; 80069; 80202; 81001; 82533; 82550; 82570; 82805; 82948; 83735; 83880; 83930; 83935; 84100; 84132; 84295; 84300; 84443; 84478; 84484; 84550; 85007; 85025; 85027; 85610; 85730; 87040; 87070; 87205; 87449; 87641; 93005; 93306; 93970; 94002; 94003; 94150; 94640; 94664; 96374; J0360; J1120; J1644; J1940; J1956; J2543; J2920; J2930; J2997; J3370; J3475; J3480; J7030; J7040; J7050; J7512; J7613; J7626; J7644

== ENCOUNTER 2017-06-23 10:50 | Inpatient (IN) | payer OTHER, MEDICARE ==
[~2017-06-23] VITALS: Ht 180.3 cm; Wt 94.0 kg
[2017-06-23] VITALS (23 sets, daily range): BP systolic 64–169; BP diastolic 41–89; PULSE 60–95; RESP 16–22; TEMP 97.1–97.9; O2SAT 94–100
[~2017-06-23 10:50] MED LIST changes: -ALBU0.08 NEB; +ALBU1.25 NEB; +ASPI81 CHEW; +CARD180C5 PO; -CARV25TA PO; +CARV3.125 PO; -CLON0.2T PO; -FURO1TAB62 PO; +FURO40TA PO; +Ipratropium Bromide NEB; +KLOR10TA PO; -LISI20TA PO; +PANT40TA3 PO; +PLAV75TA29 PO; +PRED5TAB PO; +SENNSYP NG; +SYMB160A INH
--- NOTE | 2017-06-23 11:02 | PD ---
HPI Chief Complaint: respiratory distress Time Seen by Provider: 11:01 Travel History International Travel<30 days: No Contact w/Intl Traveler<30days: No Traveled to known affect area: No History of Present Illness HPI 71-year-old male was brought in from group home for respiratory distress. Patient developed it this morning. As per EMS during transportation he was very combative when they tried to put a BiPAP since his oxygen saturation was 50 % on room air and to the 80s on nonrebreather. They brought him on nonrebreather. Upon arrival patient seemed to be tired and altered mental status. His response was minimal to just turning his head and looking at me upon calling his name. He was nonverbal and tachypnea. Patient has history of congestive heart failure as per EMS. History was mostly obtained from the paramedics. Patient was in no condition to give any meaningful history. [facility] Past Medical History Narrative Medical List of his past medical, surgical, social and family history is reviewed from the nursing note. Hx Anticoagulant Therapy: Yes AAA: Yes Arthritis: Yes Asthma: No Atrial Fibrillation: Yes Heart Rhythm Problems: Yes Cancer: No Cardiovascular Problems: Yes (HTN) High Cholesterol: Yes Chest Pain: No Congestive Heart Failure: Yes COPD: Yes Coronary Artery Disease: No Diabetes: No Diminished Hearing: No Diverticulitis: Yes Endocrine: No GERD: No Genitourinary: Yes (ENLARGED CKD STAGE II ) Hepatitis: No Hiatal Hernia: No Hypertension: Yes Immune Disorder: No Implanted Vascular Access Dvce: Yes Kidney Stones: No Musculoskeletal: Yes (RIGHT HIP PAIN; ARTHRITIS ) Neurologic: No Psychiatric: No Reproductive: No Respiratory: Yes (COPD) Myocardial Infarction: Yes Renal Failure: No Sleep Apnea: No Thyroid Disease: Yes Ulcer: No Past Surgical History Abdominal Surgery: No AICD: No Body Medical Devices: JACKELIN KNEES; RIGHT HIP Cardiac Surgery: No Ear Surgery: No Endocrine Surgery: No Eye Surgery: Yes (JACKELIN CATARACT EXTRACTION WITH LENS IMPLANT ) Genitourinary Surgery: No Joint Replacement: Yes (JACKELIN KNEES; RIGHT HIP ) Oral Surgery: No Pacemaker: No Thoracic Surgery: No Other Surgery: Yes Social History Alcohol Use: No (FORMER) Tobacco Use: No (QUIT 2011) Substance Use: No Allergies-Medications (Allergen,Severity, Reaction): Coded Allergies: No Known Allergies (Verified Allergy, Unknown, 05/24/17) Comments No known drug allergies. Reported Meds & Prescriptions Reported Meds & Active Scripts Active Coreg (Carvedilol) 3.125 Mg Tab 3.125 Mg PO BID Tgt Aspirin (Aspirin) 81 Mg Chw 81 Mg CHEW DAILY Plavix (Clopidogrel Bisulfate) 75 Mg Tab 75 Mg PO DAILY Albuterol Neb (Albuterol Sulfate) 1.25 Mg/3 Ml Neb 1.25 Mg NEB Q4HR NEB Oxygen tank (Oxygen) 1 Ea Tank 2 Liter DAMIEN.CANULA CONTINUOUS Oxygen Concentrator Portable Gaseous 2 L/min via Nasal Cannula Continuous For 99 months Spiriva Respimat Inh (Tiotropium Inh) 1.25 Mcg/Act Aero 2 Puff INH DAILY 1.25 mcg = 1 inhalation Reported Ipratropium Neb (Ipratropium [place]) 0.5 Mg/2.5 Ml Amp 2.5 Ml NEB Q4HR Zocor (Simvastatin) 20 Mg Tab 20 Mg PO DAILY Sennosides 8.6 Mg Tab 8.6 Mg PO BID Saline Nasal [place] (Sodium Chloride) 0.65% [place] 1 [place] EACH NARE Q2HR PRN Resident may self-administer Potassium Chloride ER (Potassium Chloride) 20 Meq Tab 40 Meq PO DAILY Milk of Magnesia Liq (Magnesium Hydroxide) 400 Mg/5 Ml Susp 30 Ml PO HS PRN [Medihoney Paste] 1 Applic TOPICAL DAILY Apply medihoney wound/burn drsg paste to lt buttocks & rt upper back after nss wash then cover w/dry dsg every evening shift and as needed Lasix (Furosemide) 40 Mg Tab 80 Mg PO BID STOP DATE: 06/24/2017 Enema Disposable (Sodium Phosphates) 19 Gram-7 Gram/118 Ml Daphne 1 Applic RECTAL IN THE AM PRN Dulcolax Supp (Bisacodyl) 10 Mg Supp 10 Mg RECTAL IN THE AM PRN Citroma Liq (Magnesium Citrate) 300 Ml Liq 296 Ml PO IN THE AM PRN Cardizem LA (Diltiazem ER 24 HR) 240 Mg Delbert 240 Mg PO DAILY Tylenol (Acetaminophen) 325 Mg Tab 650 Mg PO Q4H PRN Symbicort Inh (Budesonide/Formoterol Fumarate) 160-4.5 Mcg/Act Aero 1 Puff INH Q12HR Zyloprim (Allopurinol) 100 Mg Tab 100 Mg PO DAILY Lovastatin 40 Mg Tab 40 Mg PO HS Narrative Medication List of his home medications reviewed from the nursing note. Review of Systems ROS Limitations: Altered Mental Status Except as stated in HPI: all other systems reviewed are Neg Respiratory: Positive: Shortness of Breath Physical Exam Narrative GENERAL: Altered mental status, significant distress, morbidly obese SKIN: Focused skin assessment warm/dry. Generalized ecchymosis HEAD: Atraumatic. Normocephalic. EYES: Pupils equal and round. No scleral icterus. No injection or drainage. ENT: No nasal bleeding or discharge. Mucous membranes pink and moist. NECK: Trachea midline. No JVD. CARDIOVASCULAR: Regular rate and rhythm. No murmur appreciated. RESPIRATORY: Diminished air entry bilaterally. Air entry on the left is poor than the right. Left side of his chest seems more swollen and inflated than the right GASTROINTESTINAL: Abdomen soft, non-tender, nondistended. Hepatic and splenic margins not palpable. MUSCULOSKELETAL: No obvious deformities. No clubbing. No cyanosis. Bilateral pedal edema NEUROLOGICAL: GCS of 10. No obvious cranial nerve deficits. Motor grossly within normal limits. Normal speech. PSYCHIATRIC: Unable to assess Data Data Last Documented VS Orders Orders Etomidate Inj (Amidate Inj) (06/23/17 11:14) Succinylcholine Inj (Quelicin Inj) (06/23/17 11:14) Succinylcholine Inj (Quelicin Inj) (06/23/17 11:18) Electrocardiogram (06/23/17 11:26) Complete Blood Count With Diff (06/23/17 11:26) Comprehensive Metabolic Panel (06/23/17 11:26) Creatine Kinase (Cpk) (06/23/17 11:26) Prothrombin Time / Inr (Pt) (06/23/17 11:26) Troponin I (06/23/17 11:26) Thyroid Stimulating Hormone (06/23/17 11:26) Urinalysis - C+S If Indicated (06/23/17 11:26) Lactic Acid Sepsis Protocol (06/23/17 11:26) Blood Culture (06/23/17 11:26) Chest, Single Ap (06/23/17 11:26) Blood Glucose (06/23/17 11:26) Ecg Monitoring (06/23/17 11:26) Iv Access Insert/Monitor (06/23/17 11:26) Oximetry (06/23/17 11:26) Sodium Chloride 0.9% Flush (Ns Flush) (06/23/17 11:30) Midazolam 100 Mg/100 Ml Inj (Versed Inj) (06/23/17 11:30) Succinylcholine Inj (Quelicin Inj) (06/23/17 11:30) Etomidate Inj (Amidate Inj) (06/23/17 11:30) Urinary Catheter Insert/Apply (06/23/17 11:26) Tayler-Gastric Tube Insert/Mon (06/23/17 11:26) Midazolam Inj (Versed Inj) (06/23/17 11:53) Chest, Single Ap (06/23/17 ) Piperacil-Tazo 4.5 Gm Premix (Zosyn 4.5 (06/23/17 12:15) Vancomycin Inj (Vancomycin Inj) (06/23/17 12:15) Sodium Chlor 0.9% 1000 Ml Inj (Ns 1000 M (06/23/17 12:30) Dopamine Inj Premix (Dopamine Inj Premix (06/23/17 12:30) Terbutaline Inj (Brethine Inj) (06/23/17 12:30) Admit Order (Ed Use Only) (06/23/17 13:05) Sodium Chlor 0.9% 1000 Ml Inj (Ns 1000 M (06/23/17 13:15) ^ Infusion (06/23/17 ) Norepinephrine-Dextrose Drip (Levophed-D (06/23/17 13:15) Terbutaline Inj (Brethine Inj) (06/23/17 13:15) Lactic Acid Sepsis Protocol (06/23/17 13:05) Labs Laboratory Tests Test 06/23/17 10:10 06/23/17 11:40 06/23/17 12:05 Prothrombin Time 12.7 SEC Prothromb Time International Ratio 1.3 RATIO White Blood Count 16.9 TH/MM3 Red Blood Count 4.32 MIL/MM3 Hemoglobin 14.3 GM/DL Hematocrit 44.7 % Mean Corpuscular Volume 103.3 FL Mean Corpuscular Hemoglobin 33.1 PG Mean Corpuscular Hemoglobin Concent 32.1 % Red Cell Distribution Width 15.2 % Platelet Count 463 TH/MM3 Mean Platelet Volume 8.4 FL Neutrophils (%) (Auto) 82.3 % Lymphocytes (%) (Auto) 5.0 % Monocytes (%) (Auto) 12.3 % Eosinophils (%) (Auto) 0.0 % Basophils (%) (Auto) 0.4 % Neutrophils # (Auto) 13.9 TH/MM3 Lymphocytes # (Auto) 0.8 TH/MM3 Monocytes # (Auto) 2.1 TH/MM3 Eosinophils # (Auto) 0.0 TH/MM3 Basophils # (Auto) 0.1 TH/MM3 CBC Comment AUTO DIFF Differential Comment AUTO DIFF CONFIRMED Urine Color YELLOW Urine Turbidity CLEAR Urine pH 5.0 Urine Specific [place] 1.015 Urine Protein TRACE mg/dL Urine Glucose (UA) NEG mg/dL Urine Ketones NEG mg/dL Urine Occult Blood NEG Urine Nitrite NEG Urine Bilirubin NEG Urine Urobilinogen 2.0 MG/DL Urine Leukocyte Esterase NEG Urine RBC 1 /hpf Urine WBC 1 /hpf Urine Squamous Epithelial Cells <1 /hpf Urine Hyaline Casts 28 /lpf Urine Mucus MOD /lpf Microscopic Urinalysis Comment CATH-CULT NOT IND Blood Urea Nitrogen 17 MG/DL Creatinine 1.26 MG/DL Random Glucose 115 MG/DL Total Protein 7.0 GM/DL Albumin 3.2 GM/DL Calcium Level 9.1 MG/DL Alkaline Phosphatase 141 U/L Aspartate Amino Transf (AST/SGOT) 34 U/L Alanine Aminotransferase (ALT/SGPT) 33 U/L Total Bilirubin 1.0 MG/DL Sodium Level 133 MEQ/L Potassium Level 4.4 MEQ/L Chloride Level 88 MEQ/L Carbon Dioxide Level 38.3 MEQ/L Anion Gap 7 MEQ/L Estimat Glomerular Filtration Rate 57 ML/MIN Total Creatine Kinase 56 U/L Troponin I 0.08 NG/ML Thyroid Stimulating Hormone 3rd Gen 1.250 uIU/ML Lactic Acid Level 2.1 mmol/L [facility] Medical Decision Making Medical Screen Exam Complete: Yes Emergency Medical Condition: Yes Medical Record Reviewed: Yes Interpretation(s) Twelve-lead EKG was reviewed by me. Atrial fibrillation, right bundle branch block, left axis deviation. Heart rate of 83 bpm. Differential Diagnosis Congestive heart failure, pneumonia, pleural effusion, PE Narrative Course 12:35 PM chest x-ray shows a complete white-out off the right lung. Given his severe respiratory distress and altered mental status does I decided to intubate him. Patient tolerated the procedure well. Please refer to my procedure note. He was also a very difficult IV access. There was only 1 peripheral access and I decided to put a central line. Please refer to my procedure note. Currently patient is unable or said drip and the nurse just called me to let me know that his blood pressure 63/43. I've ordered 1 L of IV fluid bolus and a dopamine drip. Blood test results are pending. Awaiting for the mountain or glacier guide to call back. Patient has been started preemptively on antibiotics to cover for sepsis. I have ordered IV Zosyn and vancomycin. 1:17 PM case was discussed with the mountain or glacier guide who has accepted the patient. Critical Care Narrative Aggregate critical care time was 60 minutes. Time to perform other separately billable procedures was not included in the critical care time. My time did not include minutes spent treating any other patients simultaneously or on activities that did not directly contribute to the patient's treatment. The services I provided to this patient were to treat and/or prevent clinically significant deterioration that could result in: Respiratory failure, ventilator management, hypotension, altered mental status I provided critical care services requiring my management, as noted below: Chart data review, documentation time, medication orders and management, vital sign assessments/reviewing monitor data, ordering and reviewing lab tests, ordering and interpreting/reviewing x-rays and diagnostic studies, care of the patient and discussion of the patient with the admitting physicians. Procedures Procedure Narrative After the risks and benefits were discussed the following procedure was performed: INTUBATION: The patient was put in optimal position for the procedure. Rapid sequence intubation was initiated by me using 30 milligrams of etomidate IV and 150 milligrams of succinylcholine IV. The patient was intubated with a 8.0 cuffed endotracheal tube. Tube placement was confirmed by visualization of the tube and balloon passing through the cords, capnometry and subsequent chest x-ray. Breath sounds were equal and well aerated bilaterally postintubation. No breath sounds over stomach. Patient tolerated procedure well. CENTRAL VENOUS LINE: The site was prepped with Betadine and sterilely draped. It was infiltrated with 1% lidocaine plain. The deep vein was cannulated using normal Seldinger technique. A triple lumen central line was placed in the right subclavian site and secured with simple interrupted suture. The site was sterilely dressed. The patient tolerated the procedure well. EKG Prior to Arrival: No Physician Communication Physician Communication Dr. Mora Diagnosis Primary Impression: Respiratory failure Qualified Codes: J96.00 - Acute respiratory failure, unspecified whether with hypoxia or hypercapnia Additional Impressions: Pneumonia Qualified Codes: J18.9 - Pneumonia, unspecified organism Altered mental status Qualified Codes: R40.1 - Stupor Hypotension Qualified Codes: I95.9 - Hypotension, unspecified Sepsis Qualified Codes: A41.9 - Sepsis, unspecified organism Admitting Information Admitting Physician Requests: Jabari Pulido MD Jun 23, 2017 11:02
[2017-06-23] MEDS ORDERED: ETOMIDATE 40 MG/20 ML VIAL ONE (11:14)
[2017-06-23] MEDS ORDERED: SUCCINYLCHOLINE CHLORIDE 200 MG/10 ML VIAL ONE ×2 (11:14→11:18)
[2017-06-23] MEDS ORDERED: SUCCINYLCHOLINE CHLORIDE 100 MG/5 ML SYRINGE IV PUSH ONE (11:30)
[2017-06-23] MEDS ORDERED: SODIUM CHLORIDE 0.9% FLUSH 10 ML FLUSH IV FLUSH PRN (11:30)
[2017-06-23] MEDS ORDERED: ETOMIDATE 20 MG/10 ML VIAL IV PUSH ONE (11:30)
[2017-06-23] MEDS ORDERED: MIDAZOLAM HCL 5 MG/ML VIAL (1 ML) ONE (11:53)
--- NOTE | 2017-06-23 11:58 | RADRPT ---
EXAM DATE/TIME: 06/23/2017 11:36 [place] COMPARISON: CHEST SINGLE AP, June 05, 2017, 11:36. INDICATIONS : Post intubation and OG tube placement. MEDICAL HISTORY : Chronic obstructive pulmonary disease. Hypertension SURGICAL HISTORY : None. ENCOUNTER: Initial ACUITY: 1 day PAIN SCORE: Non-responsive. LOCATION: Bilateral chest FINDINGS: Endotracheal tube tip is well above the gurvinder. Interval development of complete white out of the ri ght hemithorax and mediastinal shift towards the right. No definite infiltrates in the left lung. G astric tube traverses the [id number] CONCLUSION: 1. ET tube tip in good position. 2. Interval development of complete white out of the right hemithorax. A Zia Badillo MD on June 23, 2017 at 11:55 Board Certified Radiologist. This report was verified electronically.
[2017-06-23] MEDS ORDERED: SALI0.653 EACH NARE (12:09)
[2017-06-23] MEDS ORDERED: DULC10SU3 RECTAL (12:09)
[2017-06-23] MEDS ORDERED: IPRA0.02 NEB (12:09)
[2017-06-23] MEDS ORDERED: [UNRECOGNIZED DRUG - SUPPLY] TOPICAL (12:09)
[2017-06-23] MEDS ORDERED: MILKSUS PO (12:09)
[2017-06-23] MEDS ORDERED: ENEMENE5 RECTAL (12:09)
[2017-06-23] MEDS ORDERED: FURO1TAB60 PO (12:09)
[2017-06-23] MEDS ORDERED: CITRSOL4 PO (12:09)
[2017-06-23] MEDS ORDERED: DILT1TAB2 PO (12:09)
[2017-06-23] MEDS ORDERED: SENN8.6T81 PO (12:09)
[2017-06-23] MEDS ORDERED: ZOCO20TA PO (12:09)
[2017-06-23] MEDS ORDERED: POTA-163 PO (12:09)
[2017-06-23] MEDS ORDERED: TYLE325T PO (12:09)
[2017-06-23] MEDS ORDERED: VANCOMYCIN INJ 1,000 MG in SODIUM CHLOR 0.9% 250 ML INJ 250 ML IV ONE (12:15)
[2017-06-23] MEDS ORDERED: PIPERACIL-TAZO 4.5 GM PREMIX 100 ML IV ONE (12:15)
[2017-06-23] MEDS ORDERED: SODIUM CHLOR 0.9% 1000 ML INJ 1,000 ML IV ONE ×2 (12:30→13:15)
[2017-06-23] MEDS ORDERED: TERBUTALINE INJ 1 MG/ML AMP SQ PRN ×2 (12:30→13:15)
[2017-06-23 12:33] LABS: AUTOMATED NEUTROPHIL # 13.9 TH/MM3 (1.8-7.7); BASOPHIL # 0.1 TH/MM3 (0-0.2); BASOPHIL % 0.4 % (0.0-2.0); HEMATOCRIT 44.7 % (39.0-51.0); HEMOGLOBIN 14.3 GM/DL (13.0-17.0); LYMPHOCYTE # 0.8 TH/MM3 (1.0-4.8); MEAN CELL VOLUME 103.3 FL (80.0-100.0); MEAN CORPUSCULAR HEMOGLOBIN 33.1 PG (27.0-34.0); MEAN CORPUSCULAR HGB CONC 32.1 % (32.0-36.0); MEAN PLATELET VOLUME 8.4 FL (7.0-11.0); MONO % 12.3 % (0.0-8.0); MONOCYTE # 2.1 TH/MM3 (0-0.9); NEUT % 82.3 % (16.0-70.0); PLATELET COUNT 463 TH/MM3 (150-450); RED BLOOD COUNT 4.32 MIL/MM3 (4.50-5.90); RED CELL DISTRIBUTION WIDTH 15.2 % (11.6-17.2); WHITE BLOOD COUNT 16.9 TH/MM3 (4.0-11.0)
[2017-06-23 12:38] LABS: BILIRUBIN, URINE NEG (NEG); BLOOD, URINE NEG (NEG); GLUCOSE,URINE NEG (NEG); HYALINE CAST, URINE 28 /lpf (RARE); KETONE, URINE NEG (NEG); MUCUS URINE MOD /lpf (OCC); NITRITE,URINE NEG (NEG); SQUAMOUS EPITHELIAL CELL URINE <1 /hpf (0-5); URINE COLOR YELLOW (YELLW/STRAW); URINE LEUKOCYTE ESTERASE NEG (NEG)
[2017-06-23 12:39] LABS: INTERNATIONAL NORMALIZED RATIO 1.3 RATIO; PROTHROMBIN TIME - PATIENT 12.7 SEC (9.8-11.6)
[2017-06-23 12:49] LABS: LACTIC ACID SEPSIS PROTOCOL 2.1 mmol/L (0.4-2.0)
[2017-06-23 12:54] LABS: ALBUMIN 3.2 GM/DL (3.4-5.0); ALT (GPT) 33 U/L (12-78); AST (GOT) 34 U/L (15-37); BICARBONATE 38.3 MEQ/L (21.0-32.0); BLOOD UREA NITROGEN 17 MG/DL (7-18); CALCIUM 9.1 MG/DL (8.5-10.1); CHLORIDE 88 MEQ/L (98-107); CREATININE 1.26 MG/DL (0.60-1.30); GLOMERULAR FILTRATION RATE 57 ML/MIN (>89); GLUCOSE,RANDOM 115 MG/DL (74-106); SODIUM (NA) 133 MEQ/L (136-145)
[2017-06-23] MEDS: MIDAZOLAM 100 MG/100 ML INJ 100 ML IV PRN (13:03)
[2017-06-23] MEDS: DOPamine INJ PREMIX 500 ML IV PRN ×2 (13:05→13:07)
--- NOTE | 2017-06-23 13:05 | RADRPT ---
EXAM DATE/TIME: 06/23/2017 12:36 [facility] COMPARISON: CHEST SINGLE AP, June 23, 2017, 11:36. INDICATIONS : Post central line placement MEDICAL HISTORY : Chronic obstructive pulmonary disease. Hypertension SURGICAL HISTORY : None. ENCOUNTER: Subsequent ACUITY: 1 day PAIN SCORE: Non-responsive. LOCATION: Bilateral chest FINDINGS: The examination demonstrates a complete whiteout of the right chest. This is unchanged from previous. There is an endotracheal tube present in satisfactory position. There is a new right subclavian central line. The catheters in good position. The osseous structures are grossly intact. CONCLUSION: 1. Complete opacification of the right hemithorax. 2. New right central line in satisfactory position Laurent Bazan MD on June 23, 2017 at 13:02 Board Certified Radiologist. This report was verified electronically.
[2017-06-23 13:07] LABS: ALKALINE PHOSPHATASE 141 U/L (45-117); TROPONIN I 0.08 NG/ML (0.02-0.05)
[2017-06-23] MEDS ORDERED: CHLORHEXIDINE GLUCONATE 2 % 1 PACK (2 CLOTHS) TOP PRN (13:15)
[2017-06-23] MEDS ORDERED: MISCELLANEOUS NURSING INFORMATION XX SCH (13:15)
[2017-06-23] MEDS: NOREPINEPHRINE-DEXTROSE DRIP 250 ML IV PRN (13:53)
--- NOTE | 2017-06-23 14:55 | HHI.HP ---
[facility] Service Critical Care Medicine Primary Care Physician Marcos Walton MD Admission Diagnosis respiratory failure, sepsis, hypotension Diagnosis: (1) Respiratory failure Diagnosis: Principal (2) Altered mental status (3) Hypotension Chief Complaint: Respiratory distress, altered mental status Travel History International Travel<30 Days: No Contact w/Intl Traveler <30 Da: No Traveled to Known Affected Are: No History of Present Illness 71-year-old gentleman, [facility] resident, with extensive past medical history remarkable for atrial fibrillation, ischemic cardiomyopathy, last EF 50- 55%, CKD, hyperlipidemia, COPD, obesity, recently admitted to [facility] in May discharged at the beginning of June after ICU admission for respiratory failure and COPD exacerbation, now sent from [facility] for evaluation of respiratory distress. On EMS arrival patient had O2 sat in the 50s, he was placed on nonrebreather mask with some improvement in his O2. BiPAP was attempted but the patient was too agitated and did not wear it. On ED arrival, patient hypoxic and encephalopathic therefore he was immediately intubated and placed on mechanical ventilation. Shortly post intubation patient developed hypotension with systolic in the 60s for which he received 2 L fluid bolus and he was started on dopamine drip. In addition he was also given broad-spectrum antibiotics with vancomycin and pip/tazo and [facility] was consulted for ICU admission. Patient was seen in ED intubated sedated, unresponsive. No family at bedside. Review of Systems ROS Limitations: Altered Mental Status, Unresponsive Past Family Social History Allergies: Coded Allergies: No Known Allergies (Verified Allergy, Unknown, 05/24/17) Past Medical History Atrial fibrillation, cardiomyopathy, hyperlipidemia, obesity, COPD, CKD, NSVT Past Surgical History Bilateral total knee replacements Right total hip replacement Reported Medications Reported Meds & Active Scripts Active Coreg (Carvedilol) 3.125 Mg Tab 3.125 Mg PO BID Tgt Aspirin (Aspirin) 81 Mg Chw 81 Mg CHEW DAILY Plavix (Clopidogrel Bisulfate) 75 Mg Tab 75 Mg PO DAILY Albuterol Neb (Albuterol Sulfate) 1.25 Mg/3 Ml Neb 1.25 Mg NEB Q4HR NEB Oxygen tank (Oxygen) 1 Ea Tank 2 Liter DAMIEN[employer] CONTINUOUS Oxygen Concentrator Portable Gaseous 2 L/min via Nasal Cannula Continuous For 99 months Spiriva Respimat Inh (Tiotropium Inh) 1.25 Mcg/Act Aero 2 Puff INH DAILY 1.25 mcg = 1 inhalation Reported Ipratropium Neb (Ipratropium [place]) 0.5 Mg/2.5 Ml Amp 2.5 Ml NEB Q4HR Zocor (Simvastatin) 20 Mg Tab 20 Mg PO DAILY Sennosides 8.6 Mg Tab 8.6 Mg PO BID Saline Nasal Carson (Sodium Chloride) 0.65% Carson 1 Carson EACH NARE Q2HR PRN Resident may self-administer Potassium Chloride ER (Potassium Chloride) 20 Meq Tab 40 Meq PO DAILY Milk of Magnesia Liq (Magnesium Hydroxide) 400 Mg/5 Ml Susp 30 Ml PO HS PRN [Medihoney Paste] 1 Applic TOPICAL DAILY Apply [employer] wound/burn drsg paste to lt buttocks & rt upper back after nss wash then cover w/dry dsg every evening shift and as needed Lasix (Furosemide) 40 Mg Tab 80 Mg PO BID STOP DATE: 06/24/2017 Enema Disposable (Sodium Phosphates) 19 Gram-7 Gram/118 Ml Daphne 1 Applic RECTAL IN THE AM PRN Dulcolax Supp (Bisacodyl) 10 Mg Supp 10 Mg RECTAL IN THE AM PRN Citroma Liq (Magnesium Citrate) 300 Ml Liq 296 Ml PO IN THE AM PRN Cardizem LA (Diltiazem ER 24 HR) 240 Mg Delbert 240 Mg PO DAILY Tylenol (Acetaminophen) 325 Mg Tab 650 Mg PO Q4H PRN Symbicort Inh (Budesonide/Formoterol Fumarate) 160-4.5 Mcg/Act Aero 1 Puff INH Q12HR Zyloprim (Allopurinol) 100 Mg Tab 100 Mg PO DAILY Lovastatin 40 Mg Tab 40 Mg PO HS Active Ordered Medications Current Medications Medications (Trade) Dose Ordered Sig/Pratima Route Start Time Stop Time Status Last Admin (NS Flush) 2 ml UNSCH PRN IV FLUSH 06/23/17 11:30 Midazolam HCl 100 ml @ 2 mls/hr TITRATE PRN IV 06/23/17 11:30 06/23/17 13:03 Dopamine HCl/ Dextrose 500 ml @ 0 mls/hr TITRATE PRN IV 06/23/17 12:30 06/23/17 13:07 (Brethine Inj) 1 mg UNSCH PRN SQ 06/23/17 12:30 Norepinephrine Bitartrate 250 ml @ 7.5 mls/hr TITRATE PRN IV 06/23/17 13:15 06/23/17 13:53 (Brethine Inj) 1 mg UNSCH PRN SQ 06/23/17 13:15 (Pepcid Inj) 20 mg Q12HR IV PUSH 06/23/17 21:00 (Duoneb Neb) 1 ampule Q6HR NEB INH 06/23/17 16:00 (Lovenox Inj) 40 mg Q24H SQ 06/23/17 15:00 Miscellaneous Information 1 Q361D XX 06/23/17 13:15 (Chlorhexidine 2% Cloth) 3 pack Taper DAILY@04 TOP 06/24/17 04:00 06/20/18 03:59 (Chlorhexidine 2% Cloth) 3 pack UNSCH PRN TOP 06/23/17 13:15 (Peridex 0.12% Liq) 15 ml BID@08,20 MT 06/23/17 20:00 UNV Pharmacy Profile Note 0 ml @ 0 mls/hr UNSCH OTHER 06/23/17 15:00 UNV Family History Unobtainable, patient is intubated Social History senior living resident, rest unobtainable since patient is intubated Physical Exam Vital Signs Vital Signs Date Time Temp Pulse Resp B/P (MAP) Pulse Ox O2 Delivery O2 Flow Rate FiO2 06/23/17 14:31 60 16 100/58 (72) 99 Auto-Vent 06/23/17 14:15 65 16 122/73 (89) 99 Auto-Vent 06/23/17 13:53 63 113/57 06/23/17 13:45 65 16 113/57 (75) 100 Auto-Vent 06/23/17 13:07 60 87/51 06/23/17 13:05 60 16 87/41 (56) 99 Auto-Vent 06/23/17 12:47 69 16 97/61 (73) 99 Auto-Vent 06/23/17 12:20 65 16 64/43 (50) 99 Auto-Vent 06/23/17 12:00 69 16 109/65 (80) 99 Auto-Vent 06/23/17 11:44 100 06/23/17 11:35 96 100 06/23/17 11:34 94 06/23/17 11:26 93 18 111/69 (83) 99 06/23/17 11:19 95 22 169/83 (111) Non-Rebreather 06/23/17 11:19 89 22 100 Non-Rebreather 15.00 06/23/17 11:04 97.9 92 22 168/89 (115) 99 Physical Exam General -elderly gentleman, intubated and sedated, unresponsive, ill-appearing HEENT - pupils unequal, sluggishly reactive, sclerae anicteric, neck supple, no nuchal rigidity, neck veins not distended, no carotid bruit, + ETT CV - regular S1, S2, no murmurs Chest -coarse breath sounds bilateral, decreased air entry over the right thorax , no wheezes, right subclavian line (06/23) - site clean Abdomen - soft, obese, non-tender, BS decreased, unable to appreciate hepatomegaly or splenomegaly Skin - no rashes appreciated Extremities - warm, 3+ edema, + peripheral pulses, no clubbing Neuro -intubated and sedated, grimaces to painful stimuli, does not follow commands does not move extremities, pupils are unequal right slightly larger than left, sluggishly reactive Laboratory Laboratory Tests Test 06/23/17 10:10 06/23/17 11:40 06/23/17 12:05 Prothrombin Time 12.7 Prothromb Time International Ratio 1.3 White Blood Count 16.9 Red Blood Count 4.32 Hemoglobin 14.3 Hematocrit 44.7 Mean Corpuscular Volume 103.3 Mean Corpuscular Hemoglobin 33.1 Mean Corpuscular Hemoglobin Concent 32.1 Red Cell Distribution Width 15.2 Platelet Count 463 Mean Platelet Volume 8.4 Neutrophils (%) (Auto) 82.3 Lymphocytes (%) (Auto) 5.0 Monocytes (%) (Auto) 12.3 Eosinophils (%) (Auto) 0.0 Basophils (%) (Auto) 0.4 Neutrophils # (Auto) 13.9 Lymphocytes # (Auto) 0.8 Monocytes # (Auto) 2.1 Eosinophils # (Auto) 0.0 Basophils # (Auto) 0.1 CBC Comment AUTO DIFF Differential Comment AUTO DIFF CONFIRMED Urine Color YELLOW Urine Turbidity CLEAR Urine pH 5.0 Urine Specific Avery 1.015 Urine Protein TRACE Urine Glucose (UA) NEG Urine Ketones NEG Urine Occult Blood NEG Urine Nitrite NEG Urine Bilirubin NEG Urine Urobilinogen 2.0 Urine Leukocyte Esterase NEG Urine RBC 1 Urine WBC 1 Urine Squamous Epithelial Cells <1 Urine Hyaline Casts 28 Urine Mucus MOD Microscopic Urinalysis Comment CATH-CULT NOT IND Blood Urea Nitrogen 17 Creatinine 1.26 Random Glucose 115 Total Protein 7.0 Albumin 3.2 Calcium Level 9.1 Alkaline Phosphatase 141 Aspartate Amino Transf (AST/SGOT) 34 Alanine Aminotransferase (ALT/SGPT) 33 Total Bilirubin 1.0 Sodium Level 133 Potassium Level 4.4 Chloride Level 88 Carbon Dioxide Level 38.3 Anion Gap 7 Estimat Glomerular Filtration Rate 57 Total Creatine Kinase 56 Troponin I 0.08 Thyroid Stimulating Hormone 3rd Gen 1.250 Lactic Acid Level 2.1 Date/Time Source Procedure Growth Status 06/23/17 12:05 Blood Peripheral Aerobic Blood Culture Pending Received 06/23/17 12:05 Blood Peripheral Anaerobic Blood Culture Pending Received Result Diagram: 06/23/17 1140 06/23/17 1140 Imaging Last Impressions Chest X-Ray 06/23/17 1126 Signed Impressions: Service Date/Time: June 11:36 - CONCLUSION: 1. ET tube tip in good position. 2. Interval development of complete white out of the right hemithorax. A Zia Badillo MD [place] VTE Risk Assessment Caprini VTE Risk Assessment: Mod/High Risk (score >= 2) Caprini Risk Assessment Model Point Value = 1 Point Value = 2 Point Value = 3 Point Value = 5 Age 41-60 Minor surgery BMI > 25 kg/m2 Swollen legs Varicose veins or History of unexplained or recurrent spontaneous Oral contraceptives or hormone replacement Sepsis (< 1 month) Serious lung disease, including pneumonia (< 1 month) Abnormal pulmonary function Acute myocardial infarction Congestive heart failure (< 1 month) History of inflammatory bowel disease Medical patient at bed rest Age 61-74 Arthroscopic surgery Major open surgery (> 45 min) Laparoscopic surgery (> 45 min) Malignancy Confined to bed (> 72 hours) Immobilizing plaster cast Central venous access Age >= 75 History of VTE Family history of VTE Factor V Leiden Prothrombin [id number] Lupus anticoagulant Anticardiolipin antibodies Elevated serum homocysteine Heparin-induced thrombocytopenia Other congenital or acquired thrombophilia Stroke (< 1 month) Elective arthroplasty Hip, pelvis, or leg fracture Acute spinal cord injury (< 1 month) Prophylaxis Regimen Total Risk Factor Score Risk Level Prophylaxis Regimen 0-1 Low Early ambulation 2 Moderate Order ONE of the following: *Sequential Compression Device (SCD) *Heparin 5000 units SQ BID 3-4 Higher Order ONE of the following medications: *Heparin 5000 units SQ TID *Enoxaparin/Lovenox 40 mg SQ daily (WT < 150 kg, CrCl > 30 mL/min) *Enoxaparin/Lovenox 30 mg SQ daily (WT < 150 kg, CrCl > 10-29 mL/min) *Enoxaparin/Lovenox 30 mg SQ BID (WT < 150 kg, CrCl > 30 mL/min) AND/OR *Sequential Compression Device (SCD) 5 or more Highest Order ONE of the following medications: *Heparin 5000 units SQ TID (Preferred with Epidurals) *Enoxaparin/Lovenox 40 mg SQ daily (WT < 150 kg, CrCl > 30 mL/min) *Enoxaparin/Lovenox 30 mg SQ daily (WT < 150 kg, CrCl > 10-29 mL/min) *Enoxaparin/Lovenox 30 mg SQ BID (WT < 150 kg, CrCl > 30 mL/min) AND *Sequential Compression Device (SCD) Assessment and Plan Assessment and Plan 1. Acute hypoxic respiratory failure 2. Acute encephalopathy 3. Right-sided pneumonia 4. Circulatory shock, likely septic 5. Complete opacification of right hemithorax 6. COPD 7. History of A. fib 8. Probable OHS/YUKI 1. Admit to ICU 2. CT head to rule out any acute pathology and CT chest to better evaluate pleural effusion/parapneumonic effusion/mucous plug 3. Check CVP, if below 8 continue fluid resuscitation 4. Start norepinephrine to keep map above 65 and wean dopamine to off 5. Send blood cultures, sputum culture, urine culture, influenza PCR, legionella urinary antigen 6. Start broad-spectrum antibiotics with vancomycin and cefepime 7. Continue PRVC with decreased tidal volume to 450, check ABG now 8. Vent bundle and bronchodilators 9. Place NG tube 10. Strict I/O 11. Check central venous O2 sat 12. Restart home aspirin and Plavix if CT head negative for bleed 13. Hold home antihypertensives and diuretics 14. Serial cardiac enzymes and repeat echo 15. Serial lactic acid 16. GI/DVT prophylaxis Patient is critically ill with acute hypoxic respiratory failure, circulatory shock requiring vasopressors, pneumonia, acute encephalopathy and he is at very high risk for further evaluation. No family was present at bedside. I spent 45 minutes of critical care time excluding procedures, managing fluids, pressors, ventilator, antibiotics, reviewing data and ordering tests. Problem Qualifiers (1) Respiratory failure: Qualified Codes: J96.01 - Acute respiratory failure with hypoxia (2) Altered mental status: Qualified Codes: R40.1 - Stupor (3) Hypotension: Qualified Codes: I95.9 - Hypotension, unspecified Alexis Mora MD Jun 23, 2017 14:55
[2017-06-23] MEDS ORDERED: Vancomycin Consult Pharmacy 1 EA OTHER SCH (15:00)
[2017-06-23] MEDS: ENOXAPARIN SODIUM 40 MG/0.4 ML SYRINGE SQ SCH (15:41)
[2017-06-23] MEDS: RESP: ALBUTEROL 2.5 MG/IPRATROPIUM 0.5 MG NEB (SCH) INH ×2 (16:00→20:16)
[2017-06-23] MEDS: CEFEPIME INJ 2,000 MG in SODIUM CHLORIDE 0.9% INJ 100 ML IV SCH (16:16)
--- NOTE | 2017-06-23 16:52 | RADRPT ---
EXAM DATE/TIME: 06/23/2017 16:43 [facility] COMPARISON: No previous studies available for comparison. INDICATIONS : Altered mental status, vented. RADIATION DOSE: 66.34 CTDIvol (mGy) MEDICAL HISTORY : Cardiovascular disease. Hypertension. Chronic obstructive pulmonary disease.Diabetes. SURGICAL HISTORY : None. ENCOUNTER: Initial ACUITY: 1 day PAIN SCALE: Non-responsive LOCATION: Bilateral cranial TECHNIQUE: Multiple contiguous axial images were obtained of the head. Using automated exposure control and adj ustment of the mA and/or kV according to patient size, radiation dose was kept as low as reasonably a chievable to obtain optimal diagnostic quality images. DICOM format image data is available electro nically for review and comparison. FINDINGS: CEREBRUM: The ventricles are normal for age. No evidence of midline shift, mass lesion, hemorrhage or acute in farction. No extra-axial fluid collections are seen. POSTERIOR FOSSA: The cerebellum and brainstem are intact. The 4th ventricle is midline. The cerebellopontine angle i s unremarkable. EXTRACRANIAL: Air-fluid levels in both sphenoid sinuses, posterior ethmoids and in the right maxillary sinus. The visualized portion of the orbits is intact. SKULL: The calvaria is intact. No evidence of skull fracture. CONCLUSION: 1. No acute findings in the brain. 2. Air-fluid levels in the sinuses in a ventilated patient. Zia Badillo MD on June 23, 2017 at 16:50 Board Certified Radiologist. This report was verified electronically.
[2017-06-23] MEDS ORDERED: ROCURONIUM INJ 50 MG/5 ML VIAL IV ONE (17:15)
--- NOTE | 2017-06-23 17:15 | RADRPT ---
EXAM DATE/TIME: 06/23/2017 16:46 [facility] COMPARISON: CHEST SINGLE AP, June 23, 2017, 12:36. INDICATIONS : Short of breath, vented. RADIATION DOSE: 21.52 CTDIvol (mGy) MEDICAL HISTORY : Cardiovascular disease. Hypertension. Diabetes mellitus type 2. COPD. SURGICAL HISTORY : None. ENCOUNTER: Initial ACUITY: 1 day PAIN SCALE: Non-responsive LOCATION: Bilateral chest TECHNIQUE: Volumetric scanning of the chest was performed. Using automated exposure control and adjustment of t he mA and/or kV according to patient size, radiation dose was kept as low as reasonably achievable to obtain optimal diagnostic quality images. DICOM format image data is available electronically for r eview and comparison. Follow-up recommendations for detected pulmonary nodules are based at a minimum on nodule size and pa tient risk factors according to Fleischner Society Guidelines. FINDINGS: LUNGS: The right lung is almost completely consolidated with minimal residual aeration anteriorly aerated th ere is surrounding pleural fluid. The contralateral left lung is clear with exception of minimal dolly -fissural and posterior left base atelectasis. PLEURAE: Small volume of effusion surrounding consolidated right lung. MEDIASTINUM: The heart and great vessels demonstrate no acute abnormality. There is no mediastinal or hilar lymph adenopathy. Coronary calcifications. AXILLAE: Within normal limits. No lymphadenopathy. MUSCULOSKELETAL: Within normal limits for patient age. MISCELLANEOUS: Nasogastric tube coils in the stomach and extends into the proximal duodenum. Mild concentric wall th ickening involving the visualized transverse colon with a diverticular air-containing outpouching inv olving the mid transverse region which is conspicuous for its large size. No surrounding inflammatory changes. CONCLUSION: Extensive right lung consolidation and surrounding pleural effusion. The right mainstem bronchus is o pacified, presumably by secretions. Minimal parenchymal opacity in the contralateral left lung. Harsha Mosqueda MD on June 23, 2017 at 16:57 Board Certified Radiologist. This report was verified electronically.
[2017-06-23] MEDS ORDERED: fentaNYL CITRATE 250 MCG/5 ML AMP IV PUSH ONE (17:30)
--- NOTE | 2017-06-23 17:56 | PD.PROCEDR ---
Procedure Note Procedure Procedure: Diagnostic and therapeutic bronchoscopy Indication consolidation and collapse of the right lung Description of procedure: Patient was already on propofol infusion. Additional sedation and neuromuscular paralysis with 50 mcg IV fentanyl, rocuronium 50 mg IV 1. Fiberoptic bronchoscope was introduced through the ET tube, right lung was examined first. Right main bronchus was completely obstructed by thick yellow secretions. This was suctioned out with multiple saline lavages. Bronchoscope was introduced into the right bronchus intermedius. The right bronchus intermedius and right lower lung segmental bronchi were completely obstructed with thick yellow secretions. With multiple lavages this secretions were removed. BAL was performed and specimen collected for studies from right lower lobe. Right middle lobe also had moderate secretions which were suctioned out. Right upper lobe did not have significant secretions. After this bronchoscope was introduced into the left lung ramsey. Left main bronchus left lower lobe subsegmental bronchi, left upper lobe and lingular segmental bronchi were devoid of any major secretions. Patient tolerated the procedure well Konrad Mcleod MD Jun 23, 2017 17:56
--- NOTE | 2017-06-23 18:10 | RADRPT ---
EXAM DATE/TIME: 06/23/2017 17:52 [facility] COMPARISON: CHEST SINGLE AP, June 23, 2017, 12:36. INDICATIONS : Status post bronch. MEDICAL HISTORY : Cardiovascular disease. Hypertension. Diabetes mellitus type 2. COPD. SURGICAL HISTORY : None. ENCOUNTER: Initial ACUITY: 1 day PAIN SCORE: Non-responsive. LOCATION: Bilateral chest FINDINGS: Stable ETT, right IJ central line and NGT coursing beyond the GE junction. Marked improved aeration o f the right lung with persistent right lower lung zone pleural-parenchymal disease. Minimal left basi lar airspace disease. No significant pneumothorax. Remainder of exam is unchanged. CONCLUSION: 1. Significant improved aeration of the right lung following bronchoscopy. No pneumothorax. Jeyson Juarez MD on June 23, 2017 at 18:08 Board Certified Radiologist. This report was verified electronically.
[2017-06-23] MEDS: CHLORHEXIDINE 0.12% (ORAL KIT) 15 ML CUP MT SCH (20:00)
[2017-06-23] MEDS ORDERED: BUDESONIDE-FORMOTEROL 160/4.5 MCG INHALER INH SCH (21:00)
[2017-06-23] MEDS: VANCOMYCIN INJ 2,000 MG in SODIUM CHLORID 0.9% 500 ML INJ 500 ML IV SCH (21:49)
[2017-06-23] MEDS: FAMOTIDINE 20 MG/2 ML VIAL IV PUSH SCH (21:49)
[2017-06-24] VITALS (18 sets, daily range): BP systolic 74–153; BP diastolic 42–83; PULSE 77–108; RESP 0–16; TEMP 96.7–101.3; O2SAT 97–100
[2017-06-24] MEDS ORDERED: SODIUM CHLOR 0.9% 1000 ML INJ 1,000 ML IV ONE ×3 (00:30→09:15)
[2017-06-24] MEDS: CHLORHEXIDINE GLUCONATE 2 % 1 PACK (2 CLOTHS) TOP SCH ×2 (03:19→22:45)
[2017-06-24] MEDS: CEFEPIME INJ 2,000 MG in SODIUM CHLORIDE 0.9% INJ 100 ML IV SCH ×3 (03:30→20:29)
[2017-06-24] MEDS: MIDAZOLAM 100 MG/100 ML INJ 100 ML IV PRN (03:30)
[2017-06-24] MEDS: RESP: ALBUTEROL 2.5 MG/IPRATROPIUM 0.5 MG NEB (SCH) INH ×4 (03:59→19:32)
[2017-06-24] MEDS: NOREPINEPHRINE-DEXTROSE DRIP 250 ML IV PRN ×2 (04:31→15:02)
[2017-06-24 05:33] LABS: BASOPHIL # 0.1 TH/MM3 (0-0.2); BASOPHIL % 0.5 % (0.0-2.0); EOSINOPHIL % 0.1 % (0.0-4.0); HEMOGLOBIN 13.3 GM/DL (13.0-17.0); LYMPH % 7.6 % (9.0-44.0); LYMPHOCYTE # 1.1 TH/MM3 (1.0-4.8); MEAN CELL VOLUME 99.3 FL (80.0-100.0); MEAN CORPUSCULAR HEMOGLOBIN 32.9 PG (27.0-34.0); MEAN CORPUSCULAR HGB CONC 33.1 % (32.0-36.0); MEAN PLATELET VOLUME 8.4 FL (7.0-11.0); MONO % 10.4 % (0.0-8.0); MONOCYTE # 1.5 TH/MM3 (0-0.9); NEUT % 81.4 % (16.0-70.0); PLATELET COUNT 404 TH/MM3 (150-450); RED BLOOD COUNT 4.03 MIL/MM3 (4.50-5.90); RED CELL DISTRIBUTION WIDTH 14.9 % (11.6-17.2); WHITE BLOOD COUNT 14.7 TH/MM3 (4.0-11.0)
[2017-06-24 06:03] LABS: ALBUMIN 2.4 GM/DL (3.4-5.0); BICARBONATE 33.9 MEQ/L (21.0-32.0); BLOOD UREA NITROGEN 23 MG/DL (7-18); CALCIUM 8.6 MG/DL (8.5-10.1); CHLORIDE 94 MEQ/L (98-107); CREATININE 1.45 MG/DL (0.60-1.30); GLOMERULAR FILTRATION RATE 48 ML/MIN (>89); GLUCOSE,RANDOM 104 MG/DL (74-106); MAGNESIUM 1.6 MG/DL (1.5-2.5); SODIUM (NA) 136 MEQ/L (136-145)
[2017-06-24 06:09] LABS: ALKALINE PHOSPHATASE 128 U/L (45-117); ALT (GPT) 21 U/L (12-78); AST (GOT) 21 U/L (15-37); PHOSPHORUS 2.1 MG/DL (2.5-4.9); TOTAL BILIRUBIN ADULT 1.4 MG/DL (0.2-1.0); TOTAL PROTEIN 5.3 GM/DL (6.4-8.2)
--- NOTE | 2017-06-24 06:29 | RADRPT ---
EXAM DATE/TIME: 06/24/2017 05:08 [facility] COMPARISON: CHEST SINGLE AP, June 23, 2017, 17:52. INDICATIONS : Evaluate for infiltrate MEDICAL HISTORY : Cardiovascular disease. Hypertension. Diabetes mellitus type 2. COPD. SURGICAL HISTORY : None. ENCOUNTER: Subsequent ACUITY: 3 days PAIN SCORE: Non-responsive. LOCATION: Bilateral chest FINDINGS: Right greater than left basilar consolidation and effusions noted, worsening on the right and new on the left. No pneumothorax. Mild cardiomegaly again noted. Endotracheal tube tip is approximately 4.5 cm above the gurvinder. Nasogastric tube courses into the sto mach. There is a right subclavian central venous catheter with tip in the superior vena cava. CONCLUSION: Right greater then left basilar consolidation with small effusions worsening. Harsha Murphy MD on June 24, 2017 at 6:27 Board Certified Radiologist. This report was verified electronically.
[2017-06-24 07:42] LABS: BANDS 20 % (0-6); LYMPHOCYTES 8 % (9-44); METAMYELOCYTES 2 % (0-1); MONOCYTES 5 % (0-8); MYELOCYTES 2 % (0-0); NEUTROPHIL # MANUAL DIFF 12.8 TH/MM3 (1.8-7.7); POLYS (SEG NEUTROPHILS) 63 % (16-70)
[2017-06-24] MEDS: BUDESONIDE-FORMOTEROL 160/4.5 MCG INHALER INH SCH ×2 (08:20→19:32)
[2017-06-24] MEDS: CLOPIDOGREL 75 MG TAB PO SCH (08:20)
[2017-06-24] MEDS: ASPIRIN 81 MG CHEW TAB CHEW SCH (08:20)
[2017-06-24] MEDS: FAMOTIDINE 20 MG/2 ML VIAL IV PUSH SCH ×2 (08:20→20:30)
[2017-06-24] MEDS: PRAVASTATIN SOD 40 MG TAB PO SCH (08:20)
[2017-06-24] MEDS: CHLORHEXIDINE 0.12% (ORAL KIT) 15 ML CUP MT SCH ×2 (08:28→20:00)
--- NOTE | 2017-06-24 08:57 | HHI.CCPN ---
Subjective Remarks/Hospital Course 71-year-old gentleman, detention resident, with extensive past medical history remarkable for atrial fibrillation, ischemic cardiomyopathy, last EF 50- 55%, CKD, hyperlipidemia, COPD, obesity, recently admitted to [facility] in May discharged at the beginning of June after ICU admission for respiratory failure and COPD exacerbation, now sent from detention for evaluation of respiratory distress. On EMS arrival patient had O2 sat in the 50s, he was placed on nonrebreather mask with some improvement in his O2. BiPAP was attempted but the patient was too agitated and did not wear it. On ED arrival, patient hypoxic and encephalopathic therefore he was immediately intubated and placed on mechanical ventilation. Shortly post intubation patient developed hypotension with systolic in the 60s for which he received 2 L fluid bolus and he was started on dopamine drip. In addition he was also given broad-spectrum antibiotics with vancomycin and pip/tazo and [facility] was consulted for ICU admission. Patient was seen in ED intubated sedated, unresponsive. No family at bedside. SUBJ 06/24: Remains intubated and sedated on Levophed at 6 mcg/min for hypertension. CT of the chest yesterday shows right lung consolidation and volume loss from right mainstem bronchus obstruction. Had bronchoscopy yesterday large amount of thick secretions obstructing right main bronchus and removed. Remains on broad-spectrum antibiotics vancomycin and cefepime Flagyl added. Cefepime increased to 2 g IV every 8 hours Objective Vital Signs Date Time Temp Pulse Resp B/P (MAP) Pulse Ox O2 Delivery O2 Flow Rate FiO2 06/24/17 08:40 99 45 06/24/17 06:00 91 06/24/17 04:31 82/52 06/24/17 04:00 100.9 16 06/23/17 16:03 Auto-Vent 06/23/17 11:19 15.00 Intake and Output 06/24/17 06/24/17 06/25/17 08:00 16:00 00:00 Intake Total 2928 ml Output Total 150 ml Balance 2778 ml Result Diagram: 06/24/17 0500 06/24/17 0500 Other Results Microbiology Date/Time Source Procedure Growth Status 06/23/17 11:40 Urine Catheterized Urine Legionella Antigen - Final PRESUMPTIVE NEGATIVE FOR LEGIONELLA P... Complete Laboratory Tests Test 06/23/17 18:16 06/24/17 01:08 Blood Gas Puncture Site LT RADIAL LT RADIAL Blood Gas Patient Temperature 98.6 98.6 Blood Gas HCO3 37 mmol/L (22-26) 32 mmol/L (22-26) Blood Gas Base Excess 11.7 mmol/L (-2-2) 8.9 mmol/L (-2-2) Blood Gas Oxygen Saturation 89 % (90-100) 96 % (90-100) Arterial Blood pH 7.44 (7.380-7.420) 7.55 (7.380-7.420) Arterial Blood Partial Pressure CO2 55 mmHg (38-42) 37 mmHg (38-42) Arterial Blood Partial Pressure O2 59 mmHg (61-120) 94 mmHg (61-120) Arterial Blood Oxygen Content 16.3 Vol % (12.0-20.0) 17.5 Vol % (12.0-20.0) Arterial Blood Carboxyhemoglobin 1.2 % (0-4) 1.1 % (0-4) Arterial Blood Methemoglobin 1.2 % (0-2) 1.1 % (0-2) Blood Gas Hemoglobin 13.0 G/DL (12.0-16.0) 13.0 G/DL (12.0-16.0) Oxygen Delivery Device VENTILATOR VENTILATOR Blood Gas Ventilator Setting PC/AC RATE 16,IP 32 SEE COMMENTS Blood Gas Inspired Oxygen 60 % 70 % Imaging Last Impressions Chest X-Ray 06/23/17 1126 Signed Impressions: Service Date/Time: June 11:36 - CONCLUSION: 1. ET tube tip in good position. 2. Interval development of complete white out of the right hemithorax. Rupali Badillo MD Objective Remarks General -elderly gentleman, intubated and sedated, unresponsive, ill-appearing HEENT - pupils unequal, sluggishly reactive, neck supple, no nuchal rigidity, neck veins not distended, no carotid bruit, + ETT CV - regular S1, S2, no murmurs Chest -coarse breath sounds bilateral, decreased air entry bilateral bases, no wheezes, right subclavian line (06/23) - site clean Abdomen - soft, obese, non-tender, BS decreased, unable to appreciate hepatomegaly or splenomegaly Skin - no rashes appreciated Extremities - warm, 2+ edema, + peripheral pulses, no clubbing Neuro -intubated and sedated, grimaces to painful stimuli, opens eyes. does not follow commands localizes to pain, pupils are sluggishly reactive Urinary Catheter: Yes Assessment to: Continue Vascular Central Line Catheter: Yes Assessment to: Continue A/P Assessment and Plan 1. Acute hypoxic respiratory failure 2. Acute encephalopathy 3. Right-sided pneumonia 4. Right lung collapse status post bronchoscopy 5. Septic shock 6. COPD 7. History of A. fib 8. Probable OHS/YUKI 9. Morbid obesity Plan: Neuro: -Sedation with Versed -Daily sedation medication as tolerated Resp: -Status post bronchoscopy yesterday showed complete obstruction of right mainstem bronchus -Near-total reexpansion of right lung after bronchoscopy, persistent basilar opacities most likely secondary to pneumonia -Continue broad-spectrum antibiotics with vancomycin, cefepime increase cefepime to every 8 hours dosing, add Flagyl 500 mg every 8 hours -PC/AC vent mode, change to PRVC/AC -F/u sputum culture -Start IV Solu-Medrol 60 mg every 12 hours CVS: -Norepinephrine to keep map above 65 -IV normal saline 1 L bolus and 84 mL/h -Trend lactic acid -Continue home aspirin and Plavix if CT head negative for bleed -Hold home antihypertensives and diuretics -Serial cardiac enzymes and repeat echo GI: -NG tube in place, start tube feeds with Jevity -IV famotidine : -Continue Vance -Strict intake output ID: -Continue broad-spectrum antibiotics with vancomycin and cefepime. Add Flagyl -F/U BAL, blood and urine culture ENDO: -Electrolyte replacement per protocol PROPH: -Lovenox, Heparin, SCD Patient is critically ill with acute hypoxic respiratory failure, circulatory shock requiring vasopressors, pneumonia, acute encephalopathy and he is at very high risk for further evaluation. No family was present at bedside. I spent 40 minutes of critical care time excluding procedures Konrad Mcleod MD Jun 24, 2017 08:57
[2017-06-24] MEDS ORDERED: NON-FORMULARY DRUG (Simvastatin (Zocor) 20 MG) PO SCH (09:00)
[2017-06-24] MEDS: methylPREDNISolone SOD SUCC 125 MG/2 ML VIAL IV PUSH SCH ×2 (09:45→20:30)
[2017-06-24] MEDS: metroNIDAZOLE 500 MG INJ 100 ML IV SCH ×2 (09:45→17:05)
[2017-06-24] MEDS: SODIUM CHLOR 0.9% 1000 ML INJ 1,000 ML IV SCH ×2 (09:53→20:28)
[2017-06-24] MEDS: ENOXAPARIN SODIUM 40 MG/0.4 ML SYRINGE SQ SCH (14:34)
--- NOTE | 2017-06-24 14:42 | EKG ---
Date Performed: 06/23/2017 Time Performed: 11:19:36 PTAGE: 71 years EKG: ATRIAL FIBRILLATION RIGHT BUNDLE BRANCH BLOCK LEFT ANTERIOR FASCICULAR BLOCK PROBABLE SEPTA L MYOCARDIAL INFARCTION ABNORMAL ECG PREVIOUS TRACING : 05/24/2017 23.32 Since the prior tracing, there has been no significant encarnacion DOCTOR: Rosa M Carrillo Interpretating Date/Time 06/24/2017 14:37:40
[2017-06-24] MEDS: VANCOMYCIN INJ 2,000 MG in SODIUM CHLORID 0.9% 500 ML INJ 500 ML IV SCH (15:01)
[2017-06-24 16:11] LABS: MAGNESIUM 1.8 MG/DL (1.5-2.5)
[2017-06-24] MEDS ORDERED: MAGNESIUM SULFATE 1 GM PREMIX 100 ML IV ONE (17:00)
[2017-06-25] VITALS (20 sets, daily range): BP systolic 115–158; BP diastolic 59–89; PULSE 99–112; RESP 16–30; TEMP 97.4–98.7; O2SAT 93–100
[2017-06-25] MEDS: metroNIDAZOLE 500 MG INJ 100 ML IV SCH ×3 (00:55→17:00)
[2017-06-25] MEDS: RESP: ALBUTEROL 2.5 MG/IPRATROPIUM 0.5 MG NEB (SCH) INH ×4 (03:19→21:53)
[2017-06-25] MEDS: CEFEPIME INJ 2,000 MG in SODIUM CHLORIDE 0.9% INJ 100 ML IV SCH ×2 (03:26→15:00)
[2017-06-25] MEDS: SODIUM CHLOR 0.9% 1000 ML INJ 1,000 ML IV SCH ×2 (03:26→21:10)
[2017-06-25 06:03] LABS: AUTOMATED NEUTROPHIL # 12.7 TH/MM3 (1.8-7.7); BASOPHIL % 0.2 % (0.0-2.0); HEMATOCRIT 36.4 % (39.0-51.0); HEMOGLOBIN 11.9 GM/DL (13.0-17.0); LYMPH % 3.6 % (9.0-44.0); LYMPHOCYTE # 0.5 TH/MM3 (1.0-4.8); MEAN CELL VOLUME 99.9 FL (80.0-100.0); MEAN CORPUSCULAR HEMOGLOBIN 32.7 PG (27.0-34.0); MEAN CORPUSCULAR HGB CONC 32.7 % (32.0-36.0); MEAN PLATELET VOLUME 8.9 FL (7.0-11.0); MONO % 6.1 % (0.0-8.0); MONOCYTE # 0.9 TH/MM3 (0-0.9); NEUT % 90.1 % (16.0-70.0); PLATELET COUNT 304 TH/MM3 (150-450); RED BLOOD COUNT 3.65 MIL/MM3 (4.50-5.90); RED CELL DISTRIBUTION WIDTH 15.3 % (11.6-17.2); WHITE BLOOD COUNT 14.1 TH/MM3 (4.0-11.0)
--- NOTE | 2017-06-25 06:03 | RADRPT ---
EXAM DATE/TIME: 06/25/2017 03:47 [facility] COMPARISON: CHEST SINGLE AP, June 24, 2017, 5:08. INDICATIONS : Shortness of breath, possible pulmonary disease. MEDICAL HISTORY : Cardiovascular disease. Hypertension Diabetes mellitus type II. COPD SURGICAL HISTORY : None. ENCOUNTER: Subsequent ACUITY: 2 days PAIN SCORE: Non-responsive. LOCATION: Bilateral chest FINDINGS: Right greater than left basilar consolidation with small effusions again noted and not significantly changed. No pneumothorax. Mild cardiomegaly is stable. Endotracheal tube tip is 4 cm above the gurvinder. There is a nasogastric tube coursing into the stomach . Right subclavian central venous catheter again noted, tip in the superior vena cava. CONCLUSION: No significant change. Harsha Murphy MD on June 25, 2017 at 6:02 Board Certified Radiologist. This report was verified electronically.
[2017-06-25 06:12] LABS: ALKALINE PHOSPHATASE 104 U/L (45-117); ALT (GPT) 18 U/L (12-78); AST (GOT) 15 U/L (15-37); BICARBONATE 32.8 MEQ/L (21.0-32.0); BLOOD UREA NITROGEN 34 MG/DL (7-18); CALCIUM 8.3 MG/DL (8.5-10.1); CHLORIDE 97 MEQ/L (98-107); CREATININE 2.12 MG/DL (0.60-1.30); GLOMERULAR FILTRATION RATE 31 ML/MIN (>89); GLUCOSE,RANDOM 149 MG/DL (74-106); SODIUM (NA) 137 MEQ/L (136-145); TOTAL BILIRUBIN ADULT 0.9 MG/DL (0.2-1.0); TOTAL PROTEIN 4.9 GM/DL (6.4-8.2)
[2017-06-25 07:55] LABS: BANDS 9 % (0-6); LYMPHOCYTES 2 % (9-44); METAMYELOCYTES 1 % (0-1); MONOCYTES 1 % (0-8); MYELOCYTES 1 % (0-0); NEUTROPHIL # MANUAL DIFF 13.7 TH/MM3 (1.8-7.7); POLYS (SEG NEUTROPHILS) 86 % (16-70)
[2017-06-25] MEDS: CHLORHEXIDINE 0.12% (ORAL KIT) 15 ML CUP MT SCH ×2 (08:00→21:10)
[2017-06-25] MEDS: BUDESONIDE-FORMOTEROL 160/4.5 MCG INHALER INH SCH ×2 (08:30→21:00)
[2017-06-25] MEDS: ASPIRIN 81 MG CHEW TAB CHEW SCH (08:46)
[2017-06-25] MEDS: PRAVASTATIN SOD 40 MG TAB PO SCH (08:46)
[2017-06-25] MEDS: FAMOTIDINE 20 MG/2 ML VIAL IV PUSH SCH ×2 (08:46→21:13)
[2017-06-25] MEDS: CLOPIDOGREL 75 MG TAB PO SCH (08:46)
[2017-06-25] MEDS: methylPREDNISolone SOD SUCC 125 MG/2 ML VIAL IV PUSH SCH ×2 (08:47→21:13)
[2017-06-25] MEDS ORDERED: SODIUM CHLOR 0.9% 1000 ML INJ 1,000 ML IV ONE (09:00)
[2017-06-25] MEDS ORDERED: PHARMACY ORDERED LAB ONE (09:45)
[2017-06-25] MEDS: VANCOMYCIN INJ 2,000 MG in SODIUM CHLORID 0.9% 500 ML INJ 500 ML IV SCH (10:40)
--- NOTE | 2017-06-25 11:59 | HHI.CCPN ---
Subjective Remarks/Hospital Course 71-year-old gentleman, senior care resident, with extensive past medical history remarkable for atrial fibrillation, ischemic cardiomyopathy, last EF 50- 55%, CKD, hyperlipidemia, COPD, obesity, recently admitted to [facility] in May discharged at the beginning of June after ICU admission for respiratory failure and COPD exacerbation, now sent from senior care for evaluation of respiratory distress. On EMS arrival patient had O2 sat in the 50s, he was placed on nonrebreather mask with some improvement in his O2. BiPAP was attempted but the patient was too agitated and did not wear it. On ED arrival, patient hypoxic and encephalopathic therefore he was immediately intubated and placed on mechanical ventilation. Shortly post intubation patient developed hypotension with systolic in the 60s for which he received 2 L fluid bolus and he was started on dopamine drip. In addition he was also given broad-spectrum antibiotics with vancomycin and pip/tazo and [facility] was consulted for ICU admission. Patient was seen in ED intubated sedated, unresponsive. No family at bedside. SUBJ 06/24: Remains intubated and sedated on Levophed at 6 mcg/min for hypertension. CT of the chest yesterday shows right lung consolidation and volume loss from right mainstem bronchus obstruction. Had bronchoscopy yesterday large amount of thick secretions obstructing right main bronchus and removed. Remains on broad-spectrum antibiotics vancomycin and cefepime Flagyl added. Cefepime increased to 2 g IV every 8 hours 06/25: Patient remains intubated not tolerating CPAP trials due to tachypnea. Chest x-ray remains stable with bibasilar infiltrates. Creatinine has increased to 2.12 urine output minimal oliguric 340 mL in 24 hours. Nephrology consulted Objective Vital Signs Date Time Temp Pulse Resp B/P (MAP) Pulse Ox O2 Delivery O2 Flow Rate FiO2 06/25/17 11:14 100 40 06/25/17 10:00 107 06/25/17 08:00 97.8 28 137/78 (97) 06/23/17 16:03 Auto-Vent 06/23/17 11:19 15.00 Intake and Output 06/25/17 06/25/17 06/26/17 08:00 16:00 00:00 Intake Total 1200 ml 1100 ml Output Total 165 ml Balance 1035 ml 1100 ml Result Diagram: 06/25/17 0600 06/25/17 0500 Other Results Microbiology Date/Time Source Procedure Growth Status 06/23/17 11:40 Urine Catheterized Urine Legionella Antigen - Final PRESUMPTIVE NEGATIVE FOR LEGIONELLA P... Complete Imaging Last Impressions Chest X-Ray 06/23/17 1126 Signed Impressions: Service Date/Time: June 11:36 - CONCLUSION: 1. ET tube tip in good position. 2. Interval development of complete white out of the right hemithorax. A Zia Badillo MD Objective Remarks General -elderly gentleman, intubated and sedated, unresponsive, ill-appearing HEENT - pupils unequal, sluggishly reactive, neck supple, no nuchal rigidity, neck veins not distended, no carotid bruit, + ETT CV - regular S1, S2, no murmurs Chest -coarse breath sounds bilateral, decreased air entry bilateral bases, no wheezes, right subclavian line (06/23) - site clean Abdomen - soft, obese, non-tender, BS decreased, unable to appreciate hepatomegaly or splenomegaly Skin - no rashes appreciated Extremities - warm, 2+ edema, + peripheral pulses, no clubbing Neuro -intubated and sedated, opens eyes. follow commands. no focal deficits Urinary Catheter: Yes Assessment to: Continue A/P Assessment and Plan Assessment: Acute hypoxic respiratory failure Acute encephalopathy Right-sided pneumonia Right lung collapse status post bronchoscopy Septic shock Acute oliguric renal failure COPD History of A. fib Probable OHS/YUKI Morbid obesity Plan: Neuro: -Sedation with Versed -Daily sedation medication as tolerated Resp: -Status post bronchoscopy 06/23 showed complete obstruction of right mainstem bronchus -Near-total reexpansion of right lung after bronchoscopy, persistent basilar opacities most likely secondary to pneumonia -On broad-spectrum antibiotics with vancomycin, cefepime, Flagyl 500 mg every 8 hours. DC vanc today due to worsening renal failure. Star Zyvox -PRVC/AC. failed CPAP today -F/u sputum culture -Solu-Medrol 60 mg every 12 hours CVS: -Norepinephrine to keep map above 65 -Now off -s/p IV normal saline 1 L bolus and 84 mL/h -Trend lactic acid -Continue home aspirin and Plavix -Hold home antihypertensives and diuretics -Serial cardiac enzymes v mildly elevated and repeat echo pending GI: -NG tube in place, start tube feeds with Jevity -IV famotidine -Bowel regimen : -Continue Vance -Strict intake output -Renal ultrasound, continue IV fluids -Nephrology consulted for acute renal failure ID: -On broad-spectrum antibiotics with vancomycin and cefepime, Flagyl. DC vanc -F/U BAL, blood and urine culture ENDO: -Electrolyte replacement per protocol PROPH: -Lovenox, Famotidine, SCD Patient is critically ill with acute hypoxic respiratory failure, circulatory shock requiring vasopressors, pneumonia, acute encephalopathy and he is at very high risk for further evaluation. No family was present at bedside. I spent 40 minutes of critical care time excluding procedures Patient remains critically ill, persistent respiratory failure failing weaning. Now with acute renal failure and oliguria nephrology consult Konrad Mcleod MD Jun 25, 2017 11:59
[2017-06-25] MEDS: ENOXAPARIN SODIUM 40 MG/0.4 ML SYRINGE SQ SCH (14:59)
[2017-06-25] MEDS: PROPOFOL 1000 MG/100 ML INJ 100 ML IV PRN (15:00)
--- NOTE | 2017-06-25 16:03 | RADRPT ---
EXAM DATE/TIME: 06/25/2017 15:25 [facility] COMPARISON: US KIDNEY/RENAL/BLADDER, May 26, 2017, 16:38. EXTERNAL COMPARISON : [facility], US KIDNEY, BILATERAL, May 14, 2014 INDICATIONS : Abnormal labs. MEDICAL HISTORY : Myocardial infarction. Congestive heart failure. Aneurysm, abdominal. Thyroid disease. HTN. Coronary artery disease. Hypercholesterolemia. Afib. HTN. COPD. Emphysema. Dyspnea. Diverticulitis. Chronic ki dney disease Stage III. Arthritis. SURGICAL HISTORY : Bilateral cataract extraction with lens implants. Bilateral knee replacements. Right hip replacment. ENCOUNTER: Subsequent ACUITY: 1 day PAIN SCORE: Nonresponsive. LOCATION: Bilateral flank MEASUREMENTS: RIGHT KIDNEY: 9.7 x 4.4 x 6.1 cm LEFT KIDNEY: 9.9 x 5.1 x 6.4 cm FINDINGS: RIGHT KIDNEY: Renal cortex is normal in thickness and echotexture. No hydronephrosis, stone, or mass. LEFT KIDNEY: There is limited visualization of the left kidney. However, the renal cortex is normal in thickness a nd echotexture. No hydronephrosis, stone, or mass. BLADDER: Decompressed. The findings are not significantly changed compared to the prior examination.. CONCLUSION: No evidence of hydronephrosis. Stable ultrasound of the kidneys. Alexander Agarwal MD on June 25, 2017 at 16:00 Board Certified Radiologist. This report was verified electronically.
[2017-06-25] MEDS: FUROSEMIDE 40 MG/4 ML VIAL IV PUSH SCH (17:00)
--- NOTE | 2017-06-25 17:36 | MB ---
cc: INGA ROSALES MD DATE OF CONSULTATION 06/25/17 REASON FOR CONSULTATION Acute renal failure management. HISTORY OF PRESENT ILLNESS This is a 71-year-old male who lives in a retirement and has had previous history of atrial fibrillation, cardiomyopathy, dyslipidemia, obesity, COPD and non-sustained V-tach in the past. The patient apparently has an EF of 50-55% and recently was admitted with COPD exacerbation. The patient presented from the retirement on June 23 with presentation of respiratory distress. He was intubated and placed on a non-rebreather initially and then was intubated. The patient had hypotension with a systolic blood pressure in the 60s. He received IV fluids and had been on pressor support and pressors were weaned off today. The patient is being treated for sepsis with findings of pneumonia. He was initially given vancomycin as well as Zosyn for treatment of this and now is on cefepime, Flagyl and Zyvox. Regarding his renal function, the patient recently had a creatinine level of 0.8 on June 09. He presented here with a creatinine of 1.2, which has steadily risen to a level of 2.1 today. His urine output dropped from 1.1 liters over 24 hours to 340 mL of urine output today. The patient currently is intubated. He does open his eyes. He is otherwise awake and no signs of distress. Nephrology was consulted for further evaluation of renal failure. The patient has been receiving IV fluids and received a one liter bolus of normal saline earlier today. REVIEW OF SYSTEMS Unobtainable as the patient is intubated. PAST MEDICAL HISTORY 1. Atrial fibrillation, 2. Cardiomyopathy with 58-55% EF 3. Dyslipidemia 4. Obesity 5. Chronic obstructive pulmonary disease 6. Non-sustained V-tach in the past PAST SURGICAL HISTORY 1. Bilateral total knee replacements 2. Right hip replacement. ALLERGIES NO KNOWN DRUG ALLERGIES. MEDICATIONS At home include 1. Coreg. 2. Aspirin. 3. Plavix. 4. Albuterol 5. Oxygen 6. Spiriva 7. Zocor 8. KCl. 9. Lasix 40 mg tablets 80 mg p.o. b.i.d. 10. Cardizem. 11. Symbicort. 12. Lovastatin. FAMILY HISTORY Unobtainable. The patient is intubated. SOCIAL HISTORY The patient lives in a retirement. No known history of tobacco, alcohol or drug use. PHYSICAL EXAMINATION At time of evaluation, GENERAL: The patient intubated, is awake. HEENT/NECK: Soft supple. LUNGS: Coarse rhonchi bilaterally, decreased air sounds at bases. ABDOMEN: Soft, nontender, nondistended. EXTREMITIES: 3+ edema. CARDIAC: Regular rate and rhythm. LABORATORY FINDINGS Sodium 137, potassium 3.7, chloride 97, bicarb 32.8, BUN of 34, creatinine 2.1, glucose of 149. White count 14.1, hemoglobin 11.9, hematocrit 36.4 with platelet count 304. Urinalysis with trace protein, otherwise, negative. Blood cultures negative to date. Bronchial cultures pending status post bronchoscopy. ASSESSMENT/PLAN 1. Acute kidney injury. The patient had a creatinine of 0.8 on June 09. He presented here with a creatinine of 1.2 which has risen steadily to a level of 2.1 today. His urine output has declined from 1.1 liters over 24 hours to only 340 mL of urine output today. At this point, the patient likely has acute kidney injury secondary to sepsis and hypotension and may have developed some progressive ATN at this point. The patient had systolic blood pressure in the 60s upon presentation here. At this point, he has been weaned off pressors and his systolic blood pressure has improved to the 160s. The patient has diffuse anasarca with a history of CHF, may have a component of a cardiorenal syndrome here. He was aggressively resuscitated with fluids earlier in the setting of sepsis. At this point, we will try diuretics and we will try with Lasix 40 mg IV b.i.d. Continue to monitor for any improvement in urine output. Should the urine output remained minimal, he may need further dialysis support. However, continue to monitor at this point and may consider titrating diuretics to a drip as necessary. Continue to follow with primary team. There is no acute indications for hemodialysis at this point, however, it may be necessary should the patient have ongoing diminished urine output. 2. Congestive heart failure. The patient has a history of 50-55% EF. We will start with Lasix 20 mg IV b.i.d. and monitor for response. Unclear if he will be able to renally excrete fluids given possible ATN. Continue to monitor at this point. 3. Respiratory failure. The patient is intubated. We will try diuresis. Continue to monitor. 4. Sepsis with pneumonia. The patient had recent bronchoscopy. Continue to follow cultures. He is on broad-spectrum antibiotics and currently is on cefepime, Flagyl and Zyvox. He had previously been on vancomycin which was held given his renal failure. At this point, continue to monitor antibiotics and renal dose as needed. MD PARTH CrandallP/ /1:32 PM /5:04 PM MTDD
[2017-06-26] VITALS (18 sets, daily range): BP systolic 98–131; BP diastolic 58–83; PULSE 96–113; RESP 10–20; TEMP 98.4–98.9; O2SAT 96–99
[2017-06-26] MEDS: metroNIDAZOLE 500 MG INJ 100 ML IV SCH ×3 (00:26→16:17)
[2017-06-26] MEDS: CHLORHEXIDINE GLUCONATE 2 % 1 PACK (2 CLOTHS) TOP SCH (03:33)
[2017-06-26] MEDS: CEFEPIME INJ 2,000 MG in SODIUM CHLORIDE 0.9% INJ 100 ML IV SCH ×2 (03:33→16:15)
[2017-06-26] MEDS: PROPOFOL 1000 MG/100 ML INJ 100 ML IV PRN ×2 (03:34→20:37)
[2017-06-26] MEDS: RESP: ALBUTEROL 2.5 MG/IPRATROPIUM 0.5 MG NEB (SCH) INH ×4 (03:45→20:54)
[2017-06-26] MEDS: BUDESONIDE-FORMOTEROL 160/4.5 MCG INHALER INH SCH ×2 (07:59→20:55)
[2017-06-26] MEDS: CHLORHEXIDINE 0.12% (ORAL KIT) 15 ML CUP MT SCH ×2 (08:00→19:47)
[2017-06-26 08:33] LABS: AUTOMATED NEUTROPHIL # 16.1 TH/MM3 (1.8-7.7); BASOPHIL % 0.1 % (0.0-2.0); HEMATOCRIT 38.5 % (39.0-51.0); HEMOGLOBIN 12.5 GM/DL (13.0-17.0); LYMPH % 2.6 % (9.0-44.0); LYMPHOCYTE # 0.5 TH/MM3 (1.0-4.8); MEAN CELL VOLUME 100.9 FL (80.0-100.0); MEAN CORPUSCULAR HEMOGLOBIN 32.9 PG (27.0-34.0); MEAN CORPUSCULAR HGB CONC 32.6 % (32.0-36.0); MEAN PLATELET VOLUME 9.2 FL (7.0-11.0); MONO % 6.6 % (0.0-8.0); MONOCYTE # 1.2 TH/MM3 (0-0.9); NEUT % 90.7 % (16.0-70.0); PLATELET COUNT 330 TH/MM3 (150-450); RED BLOOD COUNT 3.81 MIL/MM3 (4.50-5.90); RED CELL DISTRIBUTION WIDTH 15.3 % (11.6-17.2); WHITE BLOOD COUNT 17.8 TH/MM3 (4.0-11.0)
[2017-06-26] MEDS: ASPIRIN 81 MG CHEW TAB CHEW SCH (08:34)
[2017-06-26] MEDS: FUROSEMIDE 40 MG/4 ML VIAL IV PUSH SCH (08:34)
[2017-06-26] MEDS: methylPREDNISolone SOD SUCC 125 MG/2 ML VIAL IV PUSH SCH ×2 (08:35→20:38)
[2017-06-26] MEDS: PRAVASTATIN SOD 40 MG TAB PO SCH (08:35)
[2017-06-26] MEDS: CLOPIDOGREL 75 MG TAB PO SCH (08:35)
[2017-06-26] MEDS: FAMOTIDINE 20 MG/2 ML VIAL IV PUSH SCH ×2 (08:35→20:38)
--- NOTE | 2017-06-26 08:45 | RADRPT ---
EXAM DATE/TIME: 06/26/2017 08:16 [facility] COMPARISON: CHEST SINGLE AP, June 25, 2017, 3:47. INDICATIONS : Respiratory disease. MEDICAL HISTORY : Myocardial infarction. Congestive heart failure. Aneurysm, abdominal. HTN. Coronary artery disease. A fib. COPD. Emphysema. Dyspnea. Chronic kidney disease Stage III. SURGICAL HISTORY : Bilateral knee replacements. Right hip replacement. ENCOUNTER: Subsequent ACUITY: 3 days PAIN SCORE: Non-responsive. LOCATION: Bilateral chest FINDINGS: The ET tube, NG tube, and right subclavian line are well placed. The heart size is enlarged. There is hazy density seen in the mid and lower lungs bilaterally. There some further linear increased densit y in the left perihilar region. CONCLUSION: 1. Cardiomegaly 2. Increased density bases bilaterally likely related to moderate effusions being worse on the right. Some degree of accompanying atelectasis and/or consolidation at the bases also should be considered. 3. Linear consolidation or atelectasis at the left perihilar region. Harsha Arauz MD on June 26, 2017 at 8:42 Board Certified Radiologist. This report was verified electronically.
[2017-06-26 09:05] LABS: ALBUMIN 2.2 GM/DL (3.4-5.0); ALKALINE PHOSPHATASE 106 U/L (45-117); ALT (GPT) 20 U/L (12-78); AST (GOT) 16 U/L (15-37); BICARBONATE 31.2 MEQ/L (21.0-32.0); BLOOD UREA NITROGEN 53 MG/DL (7-18); CALCIUM 8.6 MG/DL (8.5-10.1); CHLORIDE 100 MEQ/L (98-107); CREATININE 2.81 MG/DL (0.60-1.30); GLOMERULAR FILTRATION RATE 22 ML/MIN (>89); GLUCOSE,RANDOM 148 MG/DL (74-106); SODIUM (NA) 139 MEQ/L (136-145); TOTAL BILIRUBIN ADULT 0.7 MG/DL (0.2-1.0)
[2017-06-26 09:09] LABS: BANDS 19 % (0-6); LYMPHOCYTES 3 % (9-44); MONOCYTES 3 % (0-8); MYELOCYTES 1 % (0-0); NEUTROPHIL # MANUAL DIFF 16.7 TH/MM3 (1.8-7.7); POLYS (SEG NEUTROPHILS) 74 % (16-70)
--- NOTE | 2017-06-26 10:03 | HHI.CCPN ---
Subjective Remarks/Hospital Course 71-year-old gentleman, detention resident, with extensive past medical history remarkable for atrial fibrillation, ischemic cardiomyopathy, last EF 50- 55%, CKD, hyperlipidemia, COPD, obesity, recently admitted to [facility] in May discharged at the beginning of June after ICU admission for respiratory failure and COPD exacerbation, now sent from detention for evaluation of respiratory distress. On EMS arrival patient had O2 sat in the 50s, he was placed on nonrebreather mask with some improvement in his O2. BiPAP was attempted but the patient was too agitated and did not wear it. On ED arrival, patient hypoxic and encephalopathic therefore he was immediately intubated and placed on mechanical ventilation. Shortly post intubation patient developed hypotension with systolic in the 60s for which he received 2 L fluid bolus and he was started on dopamine drip. In addition he was also given broad-spectrum antibiotics with vancomycin and pip/tazo and [facility] was consulted for ICU admission. Patient was seen in ED intubated sedated, unresponsive. No family at bedside. SUBJ 06/24: Remains intubated and sedated on Levophed at 6 mcg/min for hypertension. CT of the chest yesterday shows right lung consolidation and volume loss from right mainstem bronchus obstruction. Had bronchoscopy yesterday large amount of thick secretions obstructing right main bronchus and removed. Remains on broad-spectrum antibiotics vancomycin and cefepime Flagyl added. Cefepime increased to 2 g IV every 8 hours 06/25: Patient remains intubated not tolerating CPAP trials due to tachypnea. Chest x-ray remains stable with bibasilar infiltrates. Creatinine has increased to 2.12 urine output minimal oliguric 340 mL in 24 hours. Nephrology consulted 06/26: Continue to fail CPAP, chest x-ray shows increasing infiltrate/effusion dominantly right side. No much response to IV Lasix, Creat increased to 2.8, urine output approximately 350 mL in 24 hours. Discontinue Lasix and start Bumex infusion, discussed with Dr. Mcnair nephrology. Also a CT of the chest today to evaluate effusion/infiltrate Objective Vital Signs Date Time Temp Pulse Resp B/P (MAP) Pulse Ox O2 Delivery O2 Flow Rate FiO2 06/26/17 09:45 40 06/26/17 08:00 98.6 109 19 131/83 (99) 99 06/23/17 16:03 Auto-Vent 06/23/17 11:19 15.00 Intake and Output 06/26/17 06/26/17 06/27/17 08:00 16:00 00:00 Intake Total 206 ml Output Total 175 ml Balance 31 ml Result Diagram: 06/26/17 0750 06/26/17 0750 Other Results Microbiology Date/Time Source Procedure Growth Status 06/23/17 17:42 Bronchial Washings Right Lower Lobe Gram Stain - Final Complete 06/23/17 17:42 Bronchial Washings Right Lower Lobe Bronchial Culture - Final HEAVY GROWTH NORMAL RESPIRATORY EVITA Complete 06/23/17 11:40 Urine Catheterized Urine Legionella Antigen - Final PRESUMPTIVE NEGATIVE FOR LEGIONELLA P... Complete Imaging Last Impressions Chest X-Ray 06/23/17 1126 Signed Impressions: Service Date/Time: June 11:36 - CONCLUSION: 1. ET tube tip in good position. 2. Interval development of complete white out of the right hemithorax. A Zia Badillo MD Objective Remarks General -elderly gentleman, intubated and sedated, ill-appearing HEENT - pupils unequal, sluggishly reactive, neck supple, no nuchal rigidity, neck veins not distended, no carotid bruit, + ETT CV - regular S1, S2, no murmurs Chest -coarse breath sounds bilateral, decreased air entry bilateral bases, no wheezes, right subclavian line (06/23) - site clean Abdomen - soft, obese, non-tender, BS decreased, unable to appreciate hepatomegaly or splenomegaly Skin - no rashes appreciated Extremities - warm, 2+ edema, + peripheral pulses, no clubbing Neuro -intubated and sedated, opens eyes. follow commands. no focal deficits A/P Assessment and Plan Assessment: Acute hypoxic respiratory failure Acute encephalopathy Right-sided pneumonia Right lung collapse status post bronchoscopy Septic shock Acute oliguric renal failure COPD History of A. fib Probable OHS/YUKI Morbid obesity Plan: Neuro: -Sedation with Versed -Daily sedation medication as tolerated Resp: -Status post bronchoscopy 06/23 showed complete obstruction of right mainstem bronchus -Near-total reexpansion of right lung after bronchoscopy, persistent basilar opacities most likely secondary to pneumonia -On broad-spectrum antibiotics with cefepime, Flagyl 500 mg every 8 hours. -PRVC/AC. failed CPAP today -Repeat CT chest to rule out worsening effusion/infiltrate/collapse -Solu-Medrol 60 mg every 12 hours CVS: -IV Fluid discontinued -Discontinue Lasix and start Bumex infusion at 1 mg/h -Continue home aspirin and Plavix -Hold home antihypertensives and diuretics -Serial cardiac enzymes v mildly elevated and repeat echo pending GI: -NG tube in place, Tube feeds with Nepro -IV famotidine -Bowel regimen, Having BM : -Continue Vance -Strict intake output -Renal ultrasound, -Nephrology Dr. Mcnair, started IV Lasix not much response -Lasix discontinued, start Bumex infusion 1 mg/h 06/26/17 -May need hemodialysis ID: -On broad-spectrum antibiotics with cefepime, Flagyl. -F/U BAL, blood and urine culture. All cultures negative today ENDO: -Electrolyte replacement per protocol PROPH: -Lovenox-changed to heparin 5000 units subcu every 8 due to renal failure, Famotidine, SCD Patient is critically ill with acute hypoxic respiratory failure, circulatory shock requiring vasopressors, pneumonia, acute encephalopathy and he is at very high risk for further deterioration. updated at the bedside. Renal failure is worsening and patient may need hemodialysis I spent 40 minutes of critical care time excluding procedures Konrad Mcleod MD Jun 26, 2017 10:03
[2017-06-26] MEDS: BUMETANIDE INJ 100 ML IV SCH (10:55)
--- NOTE | 2017-06-26 11:05 | HHI.NPPN ---
Subjective Additional Remarks Intubated, awake and opens eyes Failed CPAP trials earlier Objective Data Data Vital Signs Date Time Temp Pulse Resp B/P (MAP) Pulse Ox O2 Delivery O2 Flow Rate FiO2 06/26/17 10:29 97 40 06/26/17 09:45 40 06/26/17 08:00 98.6 109 19 131/83 (99) 99 06/26/17 08:00 109 06/26/17 07:50 97 40 06/26/17 06:00 104 06/26/17 04:00 107 06/26/17 04:00 40 06/26/17 04:00 98.6 107 18 128/58 (81) 98 06/26/17 03:46 97 40 06/26/17 02:00 103 06/26/17 00:00 106 06/26/17 00:00 40 06/26/17 00:00 98.9 106 18 114/64 (81) 96 06/25/17 23:25 97 40 06/25/17 22:00 104 06/25/17 20:00 98.7 104 17 116/61 (79) 96 06/25/17 20:00 104 06/25/17 20:00 40 06/25/17 19:34 93 40 06/25/17 18:00 104 06/25/17 16:00 40 06/25/17 16:00 98.0 107 20 115/59 (77) 98 06/25/17 16:00 107 06/25/17 15:50 94 40 06/25/17 14:00 110 06/25/17 12:06 99 40 06/25/17 12:04 40 06/25/17 12:00 40 06/25/17 12:00 97.9 109 30 136/73 (94) 98 06/25/17 12:00 40 06/25/17 12:00 108 06/25/17 11:14 100 40 06/25/17 11:05 40 -: 06/26/17 0750 06/26/17 0750 Physical Exam General Appearance: Well Developed, Well Nourished Neck Neck Exam: Neck Supple Pulmonary Resp Exam: Decreased Bases, Diminished Breath Sounds Cardiology CV Exam: Regular Gastrointestinal/Abdomen GI Exam: Soft, Non-Tender, Bowel Sounds Present Integumentary Skin Exam: Dry, Intact Extremeties Extremities Exam: Pitting Edema Neurologic Neuro Exam: Awake Assessment/Plan Problem List: (1) Acute kidney insufficiency ICD Codes: N28.9 - Disorder of kidney and ureter, unspecified Status: Acute Plan: Creatinine of 0.8 on 2 TARA with apparent ATN secondary to sepsis/pneumonia Initial SBP in 60s - weaned off pressors now. Creatinine 2.1 -> 2.8 325cc UOP/ 24 hours on lasix 40 IV BID. Discussed with critical care - starting bumex 1mg/hour today Electrolytes otherwise stable. Patient failed weaning trials, increased pleural effusions on x-ray. If limited UOP, may need to consider dialysis for fluid removal to assist with weaning off ventilator. (2) Respiratory failure ICD Codes: J96.90 - Respiratory failure, unspecified, unspecified whether with hypoxia or hypercapnia Status: Acute Plan: Attempt bumex drip today, follow with weaning trials and follow UOP Hx CHF (3) Sepsis ICD Codes: A41.9 - Sepsis, unspecified organism Status: Acute (4) Pneumonia ICD Codes: J18.9 - Pneumonia, unspecified organism Status: Acute Plan: Recent bronchoscopy. Continue to follow cultures. He is on broad-spectrum antibiotics and currently is on cefepime, Flagyl. Continue to monitor antibiotics and renal dose as needed. Problem Qualifiers (1) Respiratory failure: Qualified Codes: J96.01 - Acute respiratory failure with hypoxia (2) Sepsis: Qualified Codes: A41.9 - Sepsis, unspecified organism (3) Pneumonia: Qualified Codes: J18.9 - Pneumonia, unspecified organism Laurent Mcnair MD Jun 26, 2017 11:05
--- NOTE | 2017-06-26 12:34 | RADRPT ---
EXAM DATE/TIME: 06/26/2017 11:42 [facility] COMPARISON: CT THORAX W/O CONTRAST, June 23, 2017, 16:46. INDICATIONS : Evalaute for effusion, infiltrate. RADIATION DOSE: 9.59 CTDIvol (mGy) ; Patient body habitus MEDICAL HISTORY : Cardiovascular disease. Congestive heart failure. Hypertension. Afib, AAA,Diabetes SURGICAL HISTORY : None. ENCOUNTER: Subsequent ACUITY: 3 days PAIN SCALE: Non-responsive LOCATION: chest TECHNIQUE: Volumetric scanning of the chest was performed. Using automated exposure control and adjustment of t he mA and/or kV according to patient size, radiation dose was kept as low as reasonably achievable to obtain optimal diagnostic quality images. DICOM format image data is available electronically for r eview and comparison. Follow-up recommendations for detected pulmonary nodules are based at a minimum on nodule size and pa tient risk factors according to Fleischner Society Guidelines. FINDINGS: LUNGS: Compared to the prior examination there has been definite improved aeration of the right upper lung. On the prior exam the right upper lung was collapsed. On today's examination there continues to be so me focal atelectasis in both lung bases, right greater than left. There are small bilateral pleural e ffusions, right greater than left. The left lung is otherwise grossly clear.. The endotracheal tube r emains in place. There is no pneumothorax. PLEURAE: Small bilateral effusions, right greater than left. MEDIASTINUM: The heart and great vessels demonstrate no acute abnormality. There is no mediastinal or hilar lymph adenopathy. Heart size is enlarged but stable. AXILLAE: Within normal limits. No lymphadenopathy. MUSCULOSKELETAL: Stable degenerative changes. MISCELLANEOUS: The visualized upper abdominal organs demonstrate no acute abnormality. CONCLUSION: 1. There has been significant improved aeration of the right upper lung compared to the prior examina tion. 2. There continues to be atelectasis in both lung bases along with small bilateral pleural effusions, right greater than left. 3. Stable cardiomegaly. Alexander Agarwal MD on June 26, 2017 at 12:30 Board Certified Radiologist. This report was verified electronically.
[2017-06-26] MEDS ORDERED: fentaNYL CITRATE 250 MCG/5 ML AMP IV PUSH ONE (12:45)
[2017-06-26] MEDS ORDERED: ROCURONIUM INJ 50 MG/5 ML VIAL IV ONE (12:45)
[2017-06-26] MEDS: HEPARIN SODIUM - SQ 10,000 UNITS/ML VIAL SQ SCH ×2 (14:23→20:38)
--- NOTE | 2017-06-26 14:25 | PD.PROCEDR ---
Procedure Note Procedure Procedure: Diagnostic and therapeutic bronchoscopy Indication bibasilar atelectasis, persistent Description of procedure: Patient on propofol infusion. Additional sedation and neuromuscular paralysis with 100 mcg IV fentanyl, rocuronium 50 mg IV 1. Fiberoptic bronchoscope was introduced through the ET tube, right lung was examined first. Right main bronchus patent. The right bronchus intermedius and right lower lung segmental bronchi were devoid of significant secretion, only minimal but tenacious secretion. R lower lobe subsegmental bronchi appeared narrow with no significant inflammation. With multiple lavages secretions were removed. BAL was performed and specimen collected for studies from right lower lobe. Right middle lobe and Right upper lobe did not have significant secretions. After this bronchoscope was introduced into the left lung ramsey. Left main bronchus left lower lobe subsegmental bronchi, left upper lobe and lingular segmental bronchi were devoid of any major secretions. Patient tolerated the procedure well. Post Konrad Mcleod MD Jun 26, 2017 14:25
[2017-06-26 18:11] LABS: ALBUMIN 2.2 GM/DL (3.4-5.0); ALT (GPT) 25 U/L (12-78); AST (GOT) 27 U/L (15-37); BICARBONATE 30.7 MEQ/L (21.0-32.0); BLOOD UREA NITROGEN 62 MG/DL (7-18); CALCIUM 8.4 MG/DL (8.5-10.1); CHLORIDE 101 MEQ/L (98-107); CREATININE 2.94 MG/DL (0.60-1.30); GLOMERULAR FILTRATION RATE 21 ML/MIN (>89); GLUCOSE,RANDOM 140 MG/DL (74-106); SODIUM (NA) 140 MEQ/L (136-145)
[2017-06-26 18:13] LABS: ALKALINE PHOSPHATASE 132 U/L (45-117); TOTAL BILIRUBIN ADULT 0.7 MG/DL (0.2-1.0); TOTAL PROTEIN 5.3 GM/DL (6.4-8.2)
[2017-06-27] VITALS (20 sets, daily range): BP systolic 90–129; BP diastolic 51–75; PULSE 100–123; RESP 16–20; TEMP 97.3–100; O2SAT 94–99
[2017-06-27] MEDS: metroNIDAZOLE 500 MG INJ 100 ML IV SCH ×3 (00:26→17:00)
[2017-06-27] MEDS: CEFEPIME INJ 2,000 MG in SODIUM CHLORIDE 0.9% INJ 100 ML IV SCH (03:18)
[2017-06-27] MEDS: CHLORHEXIDINE GLUCONATE 2 % 1 PACK (2 CLOTHS) TOP SCH (03:18)
[2017-06-27] MEDS: RESP: ALBUTEROL 2.5 MG/IPRATROPIUM 0.5 MG NEB (SCH) INH ×3 (03:48→15:55)
--- NOTE | 2017-06-27 05:29 | RADRPT ---
EXAM DATE/TIME: 06/27/2017 03:19 [facility] COMPARISON: CHEST SINGLE AP, June 26, 2017, 8:16. INDICATIONS : Shortness of breath, possible pulmonary disease. MEDICAL HISTORY : Myocardial infarction. Congestive heart failure. Hypertension. Diabetes COPD SURGICAL HISTORY : Total knee replacement, left. Total knee replacement, right. Right hip arthroplasty ENCOUNTER: Subsequent ACUITY: 4 - 6 days PAIN SCORE: Non-responsive. LOCATION: Bilateral chest FINDINGS: Stable ETT, NGT, and right subclavian central line. Persistent small bilateral pleural effusions and associated lower lobe airspace disease. Cardiac silhouette remains enlarged. Remainder of the exam is unchanged. CONCLUSION: 1. Stable tubes and lines, as above. 2. Stable small bilateral pleural effusions and associated lower lobe airspace disease. Jeyson Juarez MD on June 27, 2017 at 5:28 Board Certified Radiologist. This report was verified electronically.
[2017-06-27] MEDS: PROPOFOL 1000 MG/100 ML INJ 100 ML IV PRN ×2 (05:32→18:16)
[2017-06-27] MEDS: BUMETANIDE INJ 100 ML IV SCH (05:33)
[2017-06-27 06:11] LABS: BASOPHIL % 0.2 % (0.0-2.0); HEMATOCRIT 42.2 % (39.0-51.0); HEMOGLOBIN 13.7 GM/DL (13.0-17.0); LYMPH % 2.5 % (9.0-44.0); LYMPHOCYTE # 0.6 TH/MM3 (1.0-4.8); MEAN CELL VOLUME 99.7 FL (80.0-100.0); MEAN CORPUSCULAR HEMOGLOBIN 32.3 PG (27.0-34.0); MEAN CORPUSCULAR HGB CONC 32.5 % (32.0-36.0); MEAN PLATELET VOLUME 9.6 FL (7.0-11.0); MONO % 7.7 % (0.0-8.0); MONOCYTE # 1.9 TH/MM3 (0-0.9); NEUT % 89.6 % (16.0-70.0); PLATELET COUNT 361 TH/MM3 (150-450); RED BLOOD COUNT 4.23 MIL/MM3 (4.50-5.90); RED CELL DISTRIBUTION WIDTH 15.3 % (11.6-17.2); WHITE BLOOD COUNT 24.6 TH/MM3 (4.0-11.0)
[2017-06-27] MEDS: HEPARIN SODIUM - SQ 10,000 UNITS/ML VIAL SQ SCH ×3 (06:14→21:27)
[2017-06-27 07:00] LABS: ALBUMIN 2.2 GM/DL (3.4-5.0); ALKALINE PHOSPHATASE 175 U/L (45-117); ALT (GPT) 43 U/L (12-78); AST (GOT) 60 U/L (15-37); BICARBONATE 27.4 MEQ/L (21.0-32.0); BLOOD UREA NITROGEN 75 MG/DL (7-18); CALCIUM 8.3 MG/DL (8.5-10.1); CHLORIDE 102 MEQ/L (98-107); CREATININE 3.49 MG/DL (0.60-1.30); GLOMERULAR FILTRATION RATE 18 ML/MIN (>89); GLUCOSE,RANDOM 183 MG/DL (74-106); SODIUM (NA) 140 MEQ/L (136-145); TOTAL BILIRUBIN ADULT 0.8 MG/DL (0.2-1.0); TOTAL PROTEIN 5.4 GM/DL (6.4-8.2)
[2017-06-27] MEDS: ASPIRIN 81 MG CHEW TAB CHEW SCH (07:48)
[2017-06-27] MEDS: PRAVASTATIN SOD 40 MG TAB PO SCH (07:48)
[2017-06-27] MEDS: FAMOTIDINE 20 MG/2 ML VIAL IV PUSH SCH ×2 (07:48→21:26)
[2017-06-27] MEDS: CLOPIDOGREL 75 MG TAB PO SCH (07:49)
[2017-06-27] MEDS: CHLORHEXIDINE 0.12% (ORAL KIT) 15 ML CUP MT SCH ×2 (07:49→16:00)
[2017-06-27] MEDS: BUDESONIDE-FORMOTEROL 160/4.5 MCG INHALER INH SCH ×2 (08:26→21:00)
[2017-06-27 08:50] LABS: BANDS 24 % (0-6); BLASTS 1 % (0-0); CORRECTED NUCLEATED RBC 4 /100 WBC (0-0); LYMPHOCYTES 4 % (9-44); METAMYELOCYTES 1 % (0-1); MONOCYTES 3 % (0-8); MYELOCYTES 2 % (0-0); NEUTROPHIL # MANUAL DIFF 22.6 TH/MM3 (1.8-7.7); NUCLEATED RED BLOOD CELL 4 (0-0); POLYS (SEG NEUTROPHILS) 65 % (16-70)
--- NOTE | 2017-06-27 09:21 | HHI.CCPN ---
Subjective Remarks/Hospital Course 71-year-old gentleman, [facility]dc resident, with extensive past medical history remarkable for atrial fibrillation, ischemic cardiomyopathy, last EF 50- 55%, CKD, hyperlipidemia, COPD, obesity, recently admitted to [facility] in May discharged at the beginning of June after ICU admission for respiratory failure and COPD exacerbation, now sent from [facility] for evaluation of respiratory distress. On EMS arrival patient had O2 sat in the 50s, he was placed on nonrebreather mask with some improvement in his O2. BiPAP was attempted but the patient was too agitated and did not wear it. On ED arrival, patient hypoxic and encephalopathic therefore he was immediately intubated and placed on mechanical ventilation. Shortly post intubation patient developed hypotension with systolic in the 60s for which he received 2 L fluid bolus and he was started on dopamine drip. In addition he was also given broad-spectrum antibiotics with vancomycin and pip/tazo and [facility] was consulted for ICU admission. Patient was seen in ED intubated sedated, unresponsive. No family at bedside. SUBJ 06/24: Remains intubated and sedated on Levophed at 6 mcg/min for hypertension. CT of the chest yesterday shows right lung consolidation and volume loss from right mainstem bronchus obstruction. Had bronchoscopy yesterday large amount of thick secretions obstructing right main bronchus and removed. Remains on broad-spectrum antibiotics vancomycin and cefepime Flagyl added. Cefepime increased to 2 g IV every 8 hours 06/25: Patient remains intubated not tolerating CPAP trials due to tachypnea. Chest x-ray remains stable with bibasilar infiltrates. Creatinine has increased to 2.12 urine output minimal oliguric 340 mL in 24 hours. Nephrology consulted 06/26: Continue to fail CPAP, chest x-ray shows increasing infiltrate/effusion dominantly right side. No much response to IV Lasix, Creat increased to 2.8, urine output approximately 350 mL in 24 hours. Discontinue Lasix and start Bumex infusion, discussed with Dr. Mcnair nephrology. Also a CT of the chest today to evaluate effusion/infiltrate 06/27: Patient remains intubated sedated heavily. Repeat bronchoscopy yesterday , chest x-ray remains unchanged with bibasilar infiltrates. Remains in atrial fibrillation with rapid ventricular response. Renal function is worsening urine output 500 mL in 24 hours. Creatinine is increased to 3.5. Discussed with Dr. Vazquez. Will plan for Vascath placement for Hemodialysis. Increasing WBC count may be secondary to steroids. Add Zyvox. Add Cardizem gtt for rate control Objective Vital Signs Date Time Temp Pulse Resp B/P (MAP) Pulse Ox O2 Delivery O2 Flow Rate FiO2 06/27/17 08:20 96 45 06/27/17 08:00 97.9 123 18 122/57 (78) 06/23/17 16:03 Auto-Vent 06/23/17 11:19 15.00 Intake and Output 06/27/17 06/27/17 06/28/17 08:00 16:00 00:00 Intake Total 868 ml Output Total 225 ml Balance 643 ml Result Diagram: 06/27/17 0545 06/27/17 0545 Imaging Last Impressions Chest X-Ray 06/23/17 1126 Signed Impressions: Service Date/Time: June 11:36 - CONCLUSION: 1. ET tube tip in good position. 2. Interval development of complete white out of the right hemithorax. Rupali Badillo MD Objective Remarks General -elderly gentleman, intubated and sedated, ill-appearing HEENT - pupils unequal, sluggishly reactive, neck supple, no nuchal rigidity, neck veins not distended, no carotid bruit, + ETT CV - regular S1, S2, no murmurs Chest -coarse breath sounds bilateral, decreased air entry bilateral bases, no wheezes, right subclavian line (06/23) - site clean Abdomen - soft, obese, non-tender, BS decreased, unable to appreciate hepatomegaly or splenomegaly Skin - no rashes appreciated Extremities - warm, 2+ edema, + peripheral pulses, no clubbing Neuro -intubated and sedated, opens eyes. follow commands. no focal deficits A/P Assessment and Plan Assessment: Acute hypoxic respiratory failure Acute encephalopathy Bibasilar pneumonia Right lung collapse status post bronchoscopy Septic shock, now with severe sepsis Acute oliguric renal failure, on CKD Acute COPD exacerbation Atrial fibrillation with RVR Chronic A. fib Probable OHS/YUKI Morbid obesity Plan: Neuro: -Sedation with Versed -Daily sedation medication as tolerated -Metabolic encephalopathy improving Resp: -Status post bronchoscopy 06/23 showed complete obstruction of right mainstem bronchus -Near-total reexpansion of right lung after bronchoscopy, persistent basilar opacities most likely secondary to pneumonia -Repeat CT chest 06/26 showed persistent right more than left lower lobe consolidations-status post repeat bronchoscopy and no significant secretions -On broad-spectrum antibiotics with cefepime, Flagyl 500 mg every 8 hours. Zyvox added -PRVC/AC. failed CPAP again today -Solu-Medrol 60 mg every 12 hours, Add Budesonide -DuoNeb q6 scheduled and every 2 hours as needed. Add Mucomyst inhaled every 6 hours for 2 days CVS: -IV Fluid discontinued -Start Cardizem for rate control -Continue Bumex infusion at 1 mg/h -Continue home aspirin and Plavix. Consider Heparin gtt after invasive procedures are done -Holding home antihypertensives and diuretics -Echo pending GI: -NG tube in place, Tube feeds with Nepro -IV famotidine -Bowel regimen, Having BM : -Continue Vance -Strict intake output -Nephrology Dr. Mcnair, Now Dr. Vazquez -Started Bumex infusion 1 mg/h 06/26/17, UO minimal -Start hemodialysis today-D/W Dr. Vazquez ID: -On broad-spectrum antibiotics with cefepime, Flagyl. Zyvox added due to persistent worsening leukocytosis -F/U BAL, blood and urine culture. All cultures negative todate. Urine for legionella antigen negative ENDO: -Electrolyte replacement per protocol PROPH: -Heparin 5000 units subcu every 8 due to renal failure, Famotidine, SCD Patient is critically ill with acute hypoxic respiratory failure, pneumonia, severe sepsis, now with worsening renal failure. Start hemodialysis today. Prognosis remains guarded due to multiorgan failure I spent 45 minutes of critical care time excluding procedures Konrad Mcleod MD Jun 27, 2017 09:21
[2017-06-27] MEDS: methylPREDNISolone SOD SUCC 125 MG/2 ML VIAL IV PUSH SCH ×2 (09:43→21:26)
--- NOTE | 2017-06-27 09:57 | HHI.NPPN ---
Subjective General Problems: Edema Renal Failure: Acute Interval History He is intubated, sedated. On 45% FiO2. 500 ml urine in past 24 hrs despite Bumex gtt. (Katelyn Kahn) Review of Systems General General Remarks unable to tolerate (Katelyn Kahn) Objective Data Data Vital Signs Date Time Temp Pulse Resp B/P (MAP) Pulse Ox O2 Delivery O2 Flow Rate FiO2 06/27/17 08:20 96 45 06/27/17 08:00 123 06/27/17 08:00 97.9 123 18 122/57 (78) 94 06/27/17 06:27 96 45 06/27/17 06:22 45 06/27/17 06:00 122 06/27/17 04:00 120 06/27/17 04:00 98.4 120 16 110/66 (81) 98 06/27/17 04:00 55 06/27/17 03:48 99 55 06/27/17 02:00 121 06/27/17 00:04 98 55 06/27/17 00:00 99.9 119 16 129/75 (93) 97 06/27/17 00:00 119 06/27/17 00:00 55 06/26/17 22:00 111 06/26/17 20:18 99 55 06/26/17 20:00 98.4 110 10 98/70 (79) 99 06/26/17 20:00 55 06/26/17 20:00 110 06/26/17 18:00 113 06/26/17 16:39 96 65 06/26/17 16:00 98.8 104 17 116/74 (88) 98 06/26/17 16:00 100 06/26/17 16:00 104 06/26/17 14:48 16 06/26/17 14:15 100 06/26/17 14:00 108 06/26/17 14:00 98 100 06/26/17 14:00 100 06/26/17 12:00 106 06/26/17 12:00 40 06/26/17 12:00 98.4 96 20 110/61 (77) 98 06/26/17 11:30 98 06/26/17 10:29 97 40 06/26/17 10:15 40 06/26/17 10:00 97 (Katelyn Kahn) -: 06/27/17 0545 06/27/17 0545 Microbiology 06/26/17 Acid Fast Stain, Received Pending 06/26/17 Mycobacterial Culture, Received Pending 06/26/17 Gram Stain - Final, Resulted 06/26/17 Bronchial Culture, Resulted Pending Imaging Last 72 hours Impressions Chest X-Ray 06/26/17 0000 Signed Impressions: Service Date/Time: Monday, June 26, 2017 08:16 - CONCLUSION: 1. Cardiomegaly 2. Increased density bases bilaterally likely related to moderate effusions being worse on the right. Some degree of accompanying atelectasis and/or consolidation at the bases also should be considered. 3. Linear consolidation or atelectasis at the left perihilar region. Harsha Arauz MD Chest CT 06/26/17 0000 Signed Impressions: Service Date/Time: Monday, June 26, 2017 11:42 - CONCLUSION: 1. There has been significant improved aeration of the right upper lung compared to the prior examination. 2. There continues to be atelectasis in both lung bases along with small bilateral pleural effusions, right greater than left. 3. Stable cardiomegaly. Alexander Agarwal MD Chest X-Ray 06/25/17 0600 Signed Impressions: Service Date/Time: Sunday, June 25, 2017 03:47 - CONCLUSION: No significant change. Harsha Murphy MD Renal Ultrasound 06/25/17 0000 Signed Impressions: Service Date/Time: Sunday, June 25, 2017 15:25 - CONCLUSION: No evidence of hydronephrosis. Stable ultrasound of the kidneys. Alexander Agarwal MD Tubes & Lines: Vance Tubes & Lines Comment TLC R SC Drip Comment bumex. (Katelyn Kahn) Physical Exam General Appearance: Well Developed, Well Nourished, Sleeping (Katelyn Kahn) Neck Neck Exam: Neck Supple (Katelyn Kahn) Pulmonary Resp Exam: Crackles, Decreased Bases, Diminished Breath Sounds (Katelyn Kahn) Cardiology CV Exam: Regular, Good Perfusion, Tachycardia (Katelyn Kahn) Gastrointestinal/Abdomen GI Exam: Soft, Non-Tender, Bowel Sounds Present (Katelyn Kahn) Musculoskeletal MS Exam: Normal Tone, Unable to Ambulate (Katelyn Kahn) Integumentary Skin Exam: Clear, Warm, Dry, Intact (Katelyn Kahn) Extremeties Extremities Exam: Pedal Pulses Palpable, Moderate Edema, Pitting Edema (Katelyn Kahn) Neurologic Neuro Exam: Unresponsive, Sedated (Katelyn Kahn) VTE Prophylaxis Device: SCDs (Katelyn Kahn) Assessment/Plan Assessment Summary: TARA/Acute Renal Failure, Fluid/Volume Overload Problem List: (1) Acute kidney insufficiency ICD Codes: N28.9 - Disorder of kidney and ureter, unspecified Status: Acute Plan: Creatinine of 0.8 on 06/09 TARA with apparent ATN secondary to sepsis/pneumonia. He was hypotensive, off pressors. BP improved. Fluid overload is present. Needs removal. Bumex gtt not effective. Stop bumex when HD is started. Dr. Mcleod to place temporary dialysis catheter. HD today, repeat labs tomorrow. Most likely will need additional treatment tomorrow. Orders entered. Monitor for signs of renal recovery. Follow urine output. His vancomycin trough level is high, dose accordingly. (2) Respiratory failure ICD Codes: J96.90 - Respiratory failure, unspecified, unspecified whether with hypoxia or hypercapnia Status: Acute Plan: Fluid removal with HD Vent weening, CPAP trial as tolerated. Known CHF, 2D echo pending. (3) Pneumonia ICD Codes: J18.9 - Pneumonia, unspecified organism Status: Acute Plan: Recent bronchoscopy. Continue to follow cultures. On Zyvox, Cefepime and Flagyl. Also on Solumedrol. Continue to monitor antibiotics and renal dose as needed. (4) Sepsis ICD Codes: A41.9 - Sepsis, unspecified organism Status: Acute Plan: Continue supportive care, see above. (Katelyn Kahn) Plan patient was seen and examined. Agree with above assessment and plan. Discussed with Dr. Mcleod. HD to be initiated from today. Monitor urine output and renal function. (Sergey Vazquez MD) Problem Qualifiers (1) Respiratory failure: Qualified Codes: J96.01 - Acute respiratory failure with hypoxia (2) Pneumonia: Qualified Codes: J18.9 - Pneumonia, unspecified organism (3) Sepsis: Qualified Codes: A41.9 - Sepsis, unspecified organism Katelyn Kahn Jun 27, 2017 09:57 Sergey Vazquez MD Jun 27, 2017 12:35
[2017-06-27] MEDS ORDERED: SODIUM CHLOR 0.9% 1000 ML INJ 1,000 ML IV PRN (09:58)
[2017-06-27] MEDS ORDERED: SODIUM CHLOR 0.9% 1000 ML INJ 1,000 ML OTHER PRN ×2 (09:58)
[2017-06-27] MEDS ORDERED: NITROGLYCERIN 0.4 MG SL 25 TABS/BTL SL PRN (10:00)
[2017-06-27] MEDS ORDERED: ONDANSETRON HCL 4 MG/2 ML VIAL IV PUSH PRN (10:00)
[2017-06-27] MEDS ORDERED: cloNIDine HCL 0.1 MG TAB PO PRN (10:00)
[2017-06-27] MEDS ORDERED: ACETAMINOPHEN 325 MG TAB PO PRN (10:00)
[2017-06-27] MEDS ORDERED: diphenhydrAMINE HCL 25 MG CAP PO PRN (10:00)
[2017-06-27] MEDS ORDERED: HEPARIN SODIUM - IV 10,000 UNITS/10 ML VIAL IV FLUSH PRN (10:00)
[2017-06-27] MEDS ORDERED: SODIUM CHLORIDE 0.9% FLUSH 10 ML FLUSH IV FLUSH PRN (10:00)
[2017-06-27] MEDS ORDERED: DILTIAZEM HCL 25 MG/5 ML VIAL IV PUSH ONE (10:00)
[2017-06-27] MEDS ORDERED: GELATIN 12 MM/7 MM FOAM TOP PRN (10:00)
[2017-06-27] MEDS: DILTIAZEM INJ 125 MG in SODIUM CHLORIDE 0.9% INJ 100 ML IV PRN (10:53)
[2017-06-27] MEDS ORDERED: RESP: ACETYLCYSTEINE 20% 10 ML NEB NEB SCH (11:00)
[2017-06-27] MEDS: LINEZOLID 600 MG PREMIX 300 ML IV SCH ×2 (11:06→21:27)
[2017-06-27] MEDS: RESP: BUDESONIDE 0.5 MG/2 ML NEB NEB SCH ×2 (12:19→20:53)
[2017-06-27 12:47] LABS: HEPATITIS A AB IGM NEGATIVE (NEGATIVE); HEPATITIS B CORE AB IGM NEGATIVE (NEGATIVE); HEPATITIS B SURFACE ANTIGEN NEGATIVE (NEGATIVE); HEPATITIS C AB IgG NEGATIVE (NEGATIVE)
--- NOTE | 2017-06-27 12:53 | PD.PROCEDR ---
Central Line Procedure REASON FOR PROCEDURE Central venous access PROCEDURE PERFORMED Central line placement: Right IJ Vas-Cath placement, ultrasound-guided CONSENT Informed consent for procedure was obtained from . The risks and benefits of the procedure were discussed to include but limited to bleeding, clot formation, infection, and even . ANESTHESIA Local injection of 1% Lidocaine DESCRIPTION OF THE PROCEDURE The patient was placed in supine, mild Trendelenburg position. The area was exposed and cleansed with ChloraPrep, times two. Large sterile drape was used to cover the patient, with the site exposed, under sterile conditions including cap, face mask, sterile gown, and sterile gloves. On single attempt, the introducer needle was inserted with negative pressure in syringe and venous flash was obtained. The guide wire was then advanced without any restriction and the needle was removed. The dilator was used without any complications. Using Seldinger technique the 20 CM 14F Double lumen catheter was advanced over the guide wire to a depth of 18 centimeters. The guide wire was removed. All ports were aspirated with dark venous blood return and flushed easily with sterile saline. All ports were capped. Antibiotic disc was placed around central line at puncture site. The central line was secured to the skin with two interrupted 2.0 silk sutures. The area was bandaged with sterile see- through central line bandage. RADIOLOGICAL DATA Ultrasound guidance was used to locate RIJ COMPLICATIONS: No apparent complications ESTIMATED BLOOD LOSS: Less than 3 cc. Konrad Mcleod MD Jun 27, 2017 12:53
--- NOTE | 2017-06-27 14:11 | RADRPT ---
EXAM DATE/TIME: 06/27/2017 13:08 [place] COMPARISON: CHEST SINGLE AP, June 27, 2017, 3:19. INDICATIONS : Evaluate vascath placement. MEDICAL HISTORY : Cardiovascular disease. Hypertension Diabetes mellitus type II. COPD SURGICAL HISTORY : None. ENCOUNTER: Subsequent ACUITY: 4 - 6 days PAIN SCORE: Non-responsive. LOCATION: Bilateral chest FINDINGS: Upright portable AP view of the chest demonstrates cardiac silhouette size is mildly enlarged. Endotr acheal tube, nasogastric tube, and right subclavian central line remain present. A right internal jug ular vein vascular catheter has been placed and the distal tip is in the midsuperior vena cava. No pn eumothorax is visualized. There are stable bibasilar pleural-parenchymal opacities. CONCLUSION: 1. The right internal jugular vascular catheter is in appropriate position with distal tip in the mid SVC. No pneumothorax is present. 2. Stable bibasilar opacities. Harsha Coker MD on June 27, 2017 at 14:09 Board Certified Radiologist. This report was verified electronically.
[2017-06-27] MEDS: RESP: ACETYLCYSTEINE 20% 30 ML NEB NEB SCH ×2 (16:00→21:14)
[2017-06-27] MEDS: ALBUMIN 25% INJ 100 ML IV PRN ×2 (18:49→18:50)
[2017-06-27] MEDS: MANNITOL 12.5 GM/50 ML VIAL IV PRN ×2 (18:49→18:50)
[2017-06-27] MEDS: HEPARIN SODIUM - IV 10,000 UNITS/10 ML VIAL PRN (18:49)
[2017-06-27] MEDS: GENTAMICIN SULFATE 20 MG/2 ML VIAL OTHER PRN (18:49)
[2017-06-27] MEDS: RESP: ALBUTEROL 2.5 MG/IPRATROPIUM 0.5 MG NEB (PRN) NEB (21:14)
[2017-06-28] VITALS (19 sets, daily range): BP systolic 94–158; BP diastolic 48–74; PULSE 96–121; RESP 16–20; TEMP 97.7–100.5; O2SAT 93–100
[2017-06-28] MEDS: metroNIDAZOLE 500 MG INJ 100 ML IV SCH ×3 (00:14→17:01)
[2017-06-28] MEDS: PROPOFOL 1000 MG/100 ML INJ 100 ML IV PRN ×2 (00:31→13:56)
[2017-06-28] MEDS: CHLORHEXIDINE GLUCONATE 2 % 1 PACK (2 CLOTHS) TOP SCH (04:00)
[2017-06-28] MEDS: CEFEPIME INJ 2,000 MG in SODIUM CHLORIDE 0.9% INJ 100 ML IV SCH (04:18)
[2017-06-28] MEDS: RESP: ACETYLCYSTEINE 20% 30 ML NEB NEB SCH (04:49)
[2017-06-28] MEDS: RESP: ALBUTEROL 2.5 MG/IPRATROPIUM 0.5 MG NEB (PRN) NEB (04:49)
[2017-06-28] MEDS: HEPARIN SODIUM - SQ 10,000 UNITS/ML VIAL SQ SCH (05:13)
[2017-06-28] MEDS: RESP: BUDESONIDE 0.5 MG/2 ML NEB NEB SCH ×2 (08:00→20:06)
--- NOTE | 2017-06-28 08:13 | HHI.NPPN ---
Subjective General Problems: Edema Renal Failure: Acute Interval History Dialysis initiated on 06/27. 1800 ml in UF. He is oliguric. Review of Systems General General Remarks unable to obtain Objective Data Data Vital Signs Date Time Temp Pulse Resp B/P (MAP) Pulse Ox O2 Delivery O2 Flow Rate FiO2 06/28/17 06:00 100 06/28/17 04:50 97 50 06/28/17 04:00 50 06/28/17 04:00 97.7 98 18 111/62 (78) 98 06/28/17 04:00 98 06/28/17 02:00 97 50 06/28/17 02:00 99 06/28/17 00:00 98.1 96 16 95/56 (69) 95 06/28/17 00:00 50 06/28/17 00:00 96 06/27/17 23:35 96 50 06/27/17 22:00 104 06/27/17 20:53 95 50 06/27/17 20:00 100 90/51 (64) 06/27/17 20:00 104 06/27/17 20:00 50 06/27/17 20:00 98.7 100 17 90/51 (64) 95 06/27/17 19:00 110 95/54 06/27/17 18:00 106 06/27/17 17:53 95 50 06/27/17 16:00 55 06/27/17 16:00 107 06/27/17 16:00 97.3 107 20 104/57 (73) 96 06/27/17 14:00 114 06/27/17 12:02 96 45 06/27/17 12:00 100.0 105 18 94/61 (72) 95 06/27/17 12:00 55 06/27/17 12:00 105 06/27/17 10:53 101 102/60 06/27/17 10:00 122 06/27/17 08:20 96 45 -: 06/27/17 0545 06/27/17 0545 Tubes & Lines: Vas-Cath, Vance Tubes & Lines Comment TLC R SC Drip Comment bumex. Physical Exam General Appearance: Well Developed, Well Nourished Neck Neck Exam: Neck Supple Pulmonary Resp Exam: Crackles, Decreased Bases, Diminished Breath Sounds Cardiology CV Exam: Regular, Good Perfusion, Tachycardia Gastrointestinal/Abdomen GI Exam: Soft, Bowel Sounds Present Musculoskeletal MS Exam: Normal Tone Integumentary Skin Exam: Clear, Warm, Dry, Intact Extremeties Extremities Exam: Pedal Pulses Palpable, Moderate Edema, Pitting Edema Neurologic Neuro Exam: Unresponsive, Sedated VTE Prophylaxis Device: SCDs Assessment/Plan Assessment Summary: TARA/Acute Renal Failure, Fluid/Volume Overload Problem List: (1) Acute kidney insufficiency ICD Codes: N28.9 - Disorder of kidney and ureter, unspecified Status: Acute Plan: Creatinine of 0.8 on 06/09 TARA with apparent ATN secondary to sepsis/pneumonia. He was hypotensive, off pressors. BP improved. Fluid overload is present. Needs removal. Bumex drip was not effective. Now on dialysis. Dialysis again today. HD today, repeat labs tomorrow. Most likely will need additional treatment tomorrow. Orders entered. Monitor for signs of renal recovery. Follow urine output. (2) Respiratory failure ICD Codes: J96.90 - Respiratory failure, unspecified, unspecified whether with hypoxia or hypercapnia Status: Acute Plan: Fluid removal with HD Vent weaning per assistant food service manager. Did not tolerate CPAP trial yesterday. (3) Pneumonia ICD Codes: J18.9 - Pneumonia, unspecified organism Status: Acute Plan: Recent bronchoscopy. Continue to follow cultures. On Zyvox, Cefepime and Flagyl. Also on Solumedrol. Dose medications appropriate to renal function. (4) Sepsis ICD Codes: A41.9 - Sepsis, unspecified organism Status: Acute Plan: Continue supportive care, see above. Problem Qualifiers (1) Respiratory failure: Qualified Codes: J96.01 - Acute respiratory failure with hypoxia (2) Pneumonia: Qualified Codes: J18.9 - Pneumonia, unspecified organism (3) Sepsis: Qualified Codes: A41.9 - Sepsis, unspecified organism Sergey Vazquez MD Jun 28, 2017 08:13
[2017-06-28] MEDS: CHLORHEXIDINE 0.12% (ORAL KIT) 15 ML CUP MT SCH ×2 (08:21→21:11)
[2017-06-28] MEDS: FAMOTIDINE 20 MG/2 ML VIAL IV PUSH SCH (08:21)
[2017-06-28] MEDS: PRAVASTATIN SOD 40 MG TAB PO SCH (08:22)
[2017-06-28] MEDS: CLOPIDOGREL 75 MG TAB PO SCH (08:22)
[2017-06-28] MEDS: ASPIRIN 81 MG CHEW TAB CHEW SCH (08:55)
[2017-06-28] MEDS: FAMOTIDINE 20 MG TAB NG SCH (09:00)
[2017-06-28] MEDS ORDERED: RESP: ALBUTEROL 2.5 MG/3 ML NEB (PRN) NEB (09:00)
--- NOTE | 2017-06-28 09:05 | HHI.CCPN ---
Subjective Remarks/Hospital Course 71-year-old gentleman, [facility] resident, with extensive past medical history remarkable for atrial fibrillation, ischemic cardiomyopathy, last EF 50- 55%, CKD, hyperlipidemia, COPD, obesity, recently admitted to [facility] in May discharged at the beginning of June after ICU admission for respiratory failure and COPD exacerbation, now sent from [facility] for evaluation of respiratory distress. On EMS arrival patient had O2 sat in the 50s, he was placed on nonrebreather mask with some improvement in his O2. BiPAP was attempted but the patient was too agitated and did not wear it. On ED arrival, patient hypoxic and encephalopathic therefore he was immediately intubated and placed on mechanical ventilation. Shortly post intubation patient developed hypotension with systolic in the 60s for which he received 2 L fluid bolus and he was started on dopamine drip. In addition he was also given broad-spectrum antibiotics with vancomycin and pip/tazo and [facility] was consulted for ICU admission. Patient was seen in ED intubated sedated, unresponsive. No family at bedside. 06/24: Remains intubated and sedated on Levophed at 6 mcg/min for hypertension. CT of the chest yesterday shows right lung consolidation and volume loss from right mainstem bronchus obstruction. Had bronchoscopy yesterday large amount of thick secretions obstructing right main bronchus and removed. Remains on broad-spectrum antibiotics vancomycin and cefepime Flagyl added. Cefepime increased to 2 g IV every 8 hours 06/25: Patient remains intubated not tolerating CPAP trials due to tachypnea. Chest x-ray remains stable with bibasilar infiltrates. Creatinine has increased to 2.12 urine output minimal oliguric 340 mL in 24 hours. Nephrology consulted 06/26: Continue to fail CPAP, chest x-ray shows increasing infiltrate/effusion dominantly right side. No much response to IV Lasix, Creat increased to 2.8, urine output approximately 350 mL in 24 hours. Discontinue Lasix and start Bumex infusion, discussed with Dr. Mcnair nephrology. Also a CT of the chest today to evaluate effusion/infiltrate 06/27: Patient remains intubated sedated heavily. Repeat bronchoscopy yesterday , chest x-ray remains unchanged with bibasilar infiltrates. Remains in atrial fibrillation with rapid ventricular response. Renal function is worsening urine output 500 mL in 24 hours. Creatinine is increased to 3.5. Discussed with Dr. Vazquez. Will plan for Vascath placement for Hemodialysis. Increasing WBC count may be secondary to steroids. Add Zyvox. Add Cardizem gtt for rate control Subjective 06/28: T-max 100. Currently afebrile. - 1800 cc the hemodialysis yesterday. Plan again for today. A.m. laboratories pending. Arousable on ventilator on sedation vacation and following commands appropriately. Objective Vital Signs Date Time Temp Pulse Resp B/P (MAP) Pulse Ox O2 Delivery O2 Flow Rate FiO2 06/28/17 06:00 100 06/28/17 04:50 97 50 06/28/17 04:00 97.7 18 111/62 (78) Intake and Output 06/28/17 06/28/17 06/29/17 08:00 16:00 00:00 Intake Total 863 ml Output Total 300 ml Balance 563 ml Result Diagram: 06/27/17 0545 06/27/17 0545 Other Results Microbiology Date/Time Source Procedure Growth Status 06/23/17 12:05 Blood Peripheral Aerobic Blood Culture - Preliminary NO GROWTH IN 4 DAYS Resulted 06/23/17 12:05 Blood Peripheral Anaerobic Blood Culture - Preliminary NO GROWTH IN 4 DAYS Resulted 06/26/17 14:15 Bronchial Washings Right Lower Lobe Acid Fast Stain Pending Received 06/26/17 14:15 Bronchial Washings Right Lower Lobe Mycobacterial Culture Pending Received 06/23/17 11:40 Urine Catheterized Urine Legionella Antigen - Final PRESUMPTIVE NEGATIVE FOR LEGIONELLA P... Complete Imaging Last Impressions Chest X-Ray 06/27/17 0600 Signed Impressions: Service Date/Time: Tuesday, June 27, 2017 03:19 - CONCLUSION: 1. Stable tubes and lines, as above. 2. Stable small bilateral pleural effusions and associated lower lobe airspace disease. Jeyson Juarez MD Chest CT 06/26/17 0000 Signed Impressions: Service Date/Time: Monday, June 26, 2017 11:42 - CONCLUSION: 1. There has been significant improved aeration of the right upper lung compared to the prior examination. 2. There continues to be atelectasis in both lung bases along with small bilateral pleural effusions, right greater than left. 3. Stable cardiomegaly. Alexander Agarwal MD Renal Ultrasound 06/25/17 0000 Signed Impressions: Service Date/Time: Sunday, June 25, 2017 15:25 - CONCLUSION: No evidence of hydronephrosis. Stable ultrasound of the kidneys. Alexander Agarwal MD Head CT 06/23/17 0000 Signed Impressions: Service Date/Time: June 16:43 - CONCLUSION: 1. No acute findings in the brain. 2. Air-fluid levels in the sinuses in a ventilated patient. Zia Badillo MD Objective Remarks GENERAL: 71-year-old male currently resting in bed orotracheally intubated SKIN: Warm and dry. Multiple ecchymoses bilateral upper extremities. HEAD: Atraumatic. Normocephalic. EYES: Pupils equal and round about 3 mm bilaterally and reactive. No scleral icterus. No injection or drainage. ENT: No nasal bleeding or discharge. Mucous membranes pink and moist. NECK: Trachea midline. No JVD. Right subclavian CVL and right IJ hemodialysis catheter clean dry intact without active bleeding CARDIOVASCULAR: Tachycardic, IR. S1, S2. No S4. 2/6 holosystolic murmur right sternal border RESPIRATORY: Diminished breath sounds at the posterior bases. No wheezing appreciated GASTROINTESTINAL: Abdomen obese, protuberant. Hypoactive bowel sounds are appreciated. MUSCULOSKELETAL: Bilateral 1+ upper and lower extremity edema noted NEUROLOGICAL: Awake and alert. No obvious cranial nerve deficits. Motor grossly within normal limits. Five out of 5 muscle strength in the arms and legs. Urinary Catheter: Yes Assessment to: Continue Vance insert reason: Prolonged Immobilization Vascular Central Line Catheter: Yes Assessment to: Continue Line: Central Venous Catheter Side: Right Location: Subclavian A/P Assessment and Plan Neuro/Psych: Acute toxic metabolic encephalopathy Bilateral cataract with IOC Currently on propofol drip at 20 mcg/kg/min for sedation while intubated Not on midazolam drip Goal of RASS -2 Daily sedation vacation -Daily sedation medication as tolerated Acetaminophen 650 mg by tube every 6 hours as needed fever Resp: Acute hypoxemic respiratory failure Bibasilar pneumonia Right lung collapse status post bronchoscopy COPD -2 L dependent at home Probable obstructive sleep apnea/obesity hypoventilation syndrome PRVC 18/600/1.05/09/44 Ventilator bundle Albuterol/e ipratropium r aerosols every 4 hours with albuterol aerosols every 2 hours as needed dyspnea Budesonide 0.5/2 1 inhalation twice daily Hypertonic saline aerosols every 4 hours as mucolytic Methylprednisolone succinate 40 mg IV every 12 hours -Status post bronchoscopy 06/23 showed complete obstruction of right mainstem bronchus -Near-total reexpansion of right lung after bronchoscopy, persistent basilar opacities most likely secondary to pneumonia -Repeat CT chest 06/26 showed persistent right more than left lower lobe consolidations-status post repeat bronchoscopy and no significant secretions Follow-up chest x-ray today 06/28 Patient is on tiotropium daily with scheduled albuterol and ipratropium aerosols every 4 hours at home Patient is on budesonide/formoterol 160/4.5 1 inhalation twice daily Consult Dr. Garcia/his home innovation analyst [facility]: A. fib with RVR Chronic atrial fibrillation Moderate TR History of hypertension Dyslipidemia History of MIGUEL History of right bundle branch block -IV Fluid discontinued Currently on diltiazem drip at 5 mg now for rate control. Previously on diltiazem 240 mg daily at home. Transition to diltiazem 30 mg 4 times daily attempt to wean off drip Holding Coreg 3.125 mg p.o. twice daily/medication Continue pravastatin 40 mg p.o. daily for dyslipidemia -Continue home aspirin 81 mg daily and clopidogrel bisulfate 75 mg daily Will start on heparin drip per protocol for atrial fibrillation Holding furosemide 80 mg twice daily while on hemodialysis -Echo 05/19 revealed EF 50-55%. Moderate TR. He had a normal stress test with preserved LV function and perfusion in April of 2016. GI: Elevated AST Hypoalbuminemia Gastroesophageal reflux disease -NG tube in place, Tube feeds with Nepro currently at goal 50 cc an hour Famotidine 20 mg by tube daily for GI prophylaxis Docusate sodium/senna 1 tablet twice daily for bowel regimen Renal/: Acute oliguric renal failure, on CKD stage II -Continue Vance -Strict intake output -Nephrology Dr. Mcnair, Now Dr. Vazquez Started on hemodialysis 06/27. -1.8 L ID: Pneumonia -On broad-spectrum antibiotics with cefepime, metronidazole and linezolid added due to persistent worsening leukocytosis Pertinent cultures 06/26 -BAL -pending 06/23 -BAL -no growth to date 06/23 - blood cultures 2 -no growth to date Negative urine Legionella antigen Check urine coccal antigen and influenza a and B today ENDO: Gout Hyperglycemia of critical illness Resume allopurinol 100 mg by mouth daily Sliding scale insulin Accu-Cheks to maintain euglycemia Novulin R every 6 hours low regimen Heme: Leukocytosis Monitor CBC daily. Follow trends Starting on heparin drip due to A. fib MSK Elevated BMI Weight loss encouraged PROPH: -Heparin drip provides DVT prophylaxis -Famotidine provide GI prophylaxis Access Right subclavian CVL unknown date when placed.. Will assume 06/23 Right hemodialysis catheter day #2 placed 06/27 Level 2 follow-up Sanket Reilly MD Jun 28, 2017 09:05
[2017-06-28] MEDS: DILTIAZEM INJ 125 MG in SODIUM CHLORIDE 0.9% INJ 100 ML IV PRN (09:12)
[2017-06-28] MEDS ORDERED: HEPARIN-D5W 25,000 U/250 ML 250 ML IV PRN (10:00)
[2017-06-28] MEDS ORDERED: DILTIAZEM HCL 30 MG TAB PO ONE (10:00)
[2017-06-28 10:03] LABS: HEMATOCRIT 38.3 % (39.0-51.0); HEMOGLOBIN 12.2 GM/DL (13.0-17.0); MEAN CELL VOLUME 101.2 FL (80.0-100.0); MEAN CORPUSCULAR HEMOGLOBIN 32.2 PG (27.0-34.0); MEAN CORPUSCULAR HGB CONC 31.8 % (32.0-36.0); MEAN PLATELET VOLUME 10.2 FL (7.0-11.0); PLATELET COUNT 233 TH/MM3 (150-450); RED BLOOD COUNT 3.79 MIL/MM3 (4.50-5.90); RED CELL DISTRIBUTION WIDTH 15.4 % (11.6-17.2); WHITE BLOOD COUNT 33.9 TH/MM3 (4.0-11.0)
[2017-06-28 10:13] LABS: INTERNATIONAL NORMALIZED RATIO 1.6 RATIO
[2017-06-28] MEDS ORDERED: TERBUTALINE INJ 1 MG/ML AMP SQ PRN (10:15)
[2017-06-28] MEDS ORDERED: DEXTROSE 50% IN WATER 50 ML VIAL(D50) IV PUSH PRN (10:15)
[2017-06-28] MEDS ORDERED: GLUCAGON 1 MG/ML VIAL OTHER PRN (10:15)
[2017-06-28] MEDS ORDERED: fentaNYL DRIP 250 ML IV PRN (10:15)
[2017-06-28] MEDS ORDERED: PHENYLEPHRINE INJ 160 MG in DEXTROSE 5% IN WATE 500 ML INJ 484 ML IV PRN ×2 (10:15)
[2017-06-28] MEDS ORDERED: ACETAMINOPHEN 650 MG/20.3 ML UDC OG-TUBE PRN (10:15)
[2017-06-28] MEDS: methylPREDNISolone SOD SUCC 125 MG/2 ML VIAL IV PUSH SCH ×2 (10:21→21:11)
[2017-06-28] MEDS: ALLOPURINOL 100 MG TAB PO SCH (10:21)
[2017-06-28] MEDS ORDERED: RASS Change Order XX ONE (10:30)
[2017-06-28] MEDS: LINEZOLID 600 MG PREMIX 300 ML IV SCH ×2 (11:19→21:11)
[2017-06-28] MEDS: RESP: ALBUTEROL 2.5 MG/IPRATROPIUM 0.5 MG NEB (SCH) NEB ×4 (11:53→23:27)
[2017-06-28] MEDS: INSULIN NovoLIN REGULAR SUPPLEMENTAL SCALE SQ SCH ×2 (12:00→18:00)
[2017-06-28] MEDS: RESP: SODIUM CHLORIDE 3% 4 ML NEB NEB SCH ×4 (12:00→23:27)
[2017-06-28] MEDS ORDERED: DILTIAZEM HCL 30 MG TAB PO SCH (12:00)
[2017-06-28] MEDS: ARTIFICIAL TEARS OPTH SOLN 15 ML BTL EACH EYE SCH ×2 (14:00→21:11)
[2017-06-28] MEDS: MANNITOL 12.5 GM/50 ML VIAL IV PRN ×3 (15:07→15:09)
[2017-06-28] MEDS: HEPARIN SODIUM - IV 10,000 UNITS/10 ML VIAL PRN (15:07)
[2017-06-28] MEDS: GENTAMICIN SULFATE 20 MG/2 ML VIAL OTHER PRN (15:07)
[2017-06-28] MEDS: ALBUMIN 25% INJ 100 ML IV PRN (15:08)
[2017-06-28] MEDS: guaiFENesin SOLUTION 200 MG/10 ML CUP NG SCH ×2 (15:16→21:11)
[2017-06-28] MEDS: DILTIAZEM HCL 30 MG TAB OG-TUBE SCH (17:57)
[2017-06-29] VITALS (12 sets, daily range): BP systolic 90–139; BP diastolic 59–85; PULSE 103–121; RESP 12–29; TEMP 98.3–98.9; O2SAT 94–96
[2017-06-29] MEDS: INSULIN NovoLIN REGULAR SUPPLEMENTAL SCALE SQ SCH ×3 (00:34→12:00)
[2017-06-29] MEDS: metroNIDAZOLE 500 MG INJ 100 ML IV SCH ×2 (00:34→08:24)
[2017-06-29] MEDS: DILTIAZEM HCL 30 MG TAB OG-TUBE SCH ×3 (00:34→12:07)
[2017-06-29] MEDS: RESP: ALBUTEROL 2.5 MG/IPRATROPIUM 0.5 MG NEB (SCH) NEB ×3 (03:44→11:09)
[2017-06-29] MEDS: RESP: SODIUM CHLORIDE 3% 4 ML NEB NEB SCH ×3 (03:44→11:09)
[2017-06-29] MEDS: CHLORHEXIDINE GLUCONATE 2 % 1 PACK (2 CLOTHS) TOP SCH (03:57)
[2017-06-29] MEDS: CEFEPIME INJ 2,000 MG in SODIUM CHLORIDE 0.9% INJ 100 ML IV SCH (03:57)
[2017-06-29 05:01] LABS: ALBUMIN 3.5 GM/DL (3.4-5.0); BICARBONATE 28.5 MEQ/L (21.0-32.0); CALCIUM 7.6 MG/DL (8.5-10.1); CREATININE 3.75 MG/DL (0.60-1.30); PHOSPHORUS 5.7 MG/DL (2.5-4.9)
[2017-06-29] MEDS: guaiFENesin SOLUTION 200 MG/10 ML CUP NG SCH (05:02)
[2017-06-29] MEDS: ARTIFICIAL TEARS OPTH SOLN 15 ML BTL EACH EYE SCH (05:03)
[2017-06-29 05:05] LABS: AUTOMATED NEUTROPHIL # 35.6 TH/MM3 (1.8-7.7); BASOPHIL # 0.1 TH/MM3 (0-0.2); BASOPHIL % 0.1 % (0.0-2.0); HEMATOCRIT 37.7 % (39.0-51.0); LYMPH % 3.5 % (9.0-44.0); LYMPHOCYTE # 1.4 TH/MM3 (1.0-4.8); MEAN CELL VOLUME 100.8 FL (80.0-100.0); MEAN CORPUSCULAR HGB CONC 31.8 % (32.0-36.0); MEAN PLATELET VOLUME 10.6 FL (7.0-11.0); MONO % 5.1 % (0.0-8.0); NEUT % 91.3 % (16.0-70.0); PLATELET COUNT 196 TH/MM3 (150-450); RED BLOOD COUNT 3.74 MIL/MM3 (4.50-5.90); RED CELL DISTRIBUTION WIDTH 15.9 % (11.6-17.2)
[2017-06-29] MEDS: RESP: BUDESONIDE 0.5 MG/2 ML NEB NEB SCH (07:28)
[2017-06-29 08:01] LABS: BANDS 15 % (0-6); CORRECTED NUCLEATED RBC 7 /100 WBC (0-0); LYMPHOCYTES 6 % (9-44); MONOCYTES 7 % (0-8); MYELOCYTES 4 % (0-0); NEUTROPHIL # MANUAL DIFF 33.9 TH/MM3 (1.8-7.7); NUCLEATED RED BLOOD CELL 7 (0-0); POLYS (SEG NEUTROPHILS) 68 % (16-70)
[2017-06-29] MEDS: CHLORHEXIDINE 0.12% (ORAL KIT) 15 ML CUP MT SCH (08:16)
[2017-06-29] MEDS: CLOPIDOGREL 75 MG TAB PO SCH (08:23)
[2017-06-29] MEDS: methylPREDNISolone SOD SUCC 125 MG/2 ML VIAL IV PUSH SCH (08:23)
[2017-06-29] MEDS: PRAVASTATIN SOD 40 MG TAB PO SCH (08:23)
[2017-06-29] MEDS: FAMOTIDINE 20 MG TAB NG SCH (08:23)
[2017-06-29] MEDS: ASPIRIN 81 MG CHEW TAB CHEW SCH (08:25)
[2017-06-29] MEDS: ALLOPURINOL 100 MG TAB PO SCH (09:00)
--- NOTE | 2017-06-29 10:37 | HHI.CCPN ---
Subjective Remarks/Hospital Course 71-year-old gentleman, [facility] resident, with extensive past medical history remarkable for atrial fibrillation, ischemic cardiomyopathy, last EF 50- 55%, CKD, hyperlipidemia, COPD, obesity, recently admitted to [facility] in May discharged at the beginning of June after ICU admission for respiratory failure and COPD exacerbation, now [facility] for evaluation of respiratory distress. On EMS arrival patient had O2 sat in the 50s, he was placed on nonrebreather mask with some improvement in his O2. BiPAP was attempted but the patient was too agitated and did not wear it. On ED arrival, patient hypoxic and encephalopathic therefore he was immediately intubated and placed on mechanical ventilation. Shortly post intubation patient developed hypotension with systolic in the 60s for which he received 2 L fluid bolus and he was started on dopamine drip. In addition he was also given broad-spectrum antibiotics with vancomycin and pip/tazo and [facility] was consulted for ICU admission. Patient was seen in ED intubated sedated, unresponsive. No family at bedside. 06/24: Remains intubated and sedated on Levophed at 6 mcg/min for hypertension. CT of the chest yesterday shows right lung consolidation and volume loss from right mainstem bronchus obstruction. Had bronchoscopy yesterday large amount of thick secretions obstructing right main bronchus and removed. Remains on broad-spectrum antibiotics vancomycin and cefepime Flagyl added. Cefepime increased to 2 g IV every 8 hours 06/25: Patient remains intubated not tolerating CPAP trials due to tachypnea. Chest x-ray remains stable with bibasilar infiltrates. Creatinine has increased to 2.12 urine output minimal oliguric 340 mL in 24 hours. Nephrology consulted 06/26: Continue to fail CPAP, chest x-ray shows increasing infiltrate/effusion dominantly right side. No much response to IV Lasix, Creat increased to 2.8, urine output approximately 350 mL in 24 hours. Discontinue Lasix and start Bumex infusion, discussed with Dr. Mcnair nephrology. Also a CT of the chest today to evaluate effusion/infiltrate 06/27: Patient remains intubated sedated heavily. Repeat bronchoscopy yesterday , chest x-ray remains unchanged with bibasilar infiltrates. Remains in atrial fibrillation with rapid ventricular response. Renal function is worsening urine output 500 mL in 24 hours. Creatinine is increased to 3.5. Discussed with Dr. Vazquez. Will plan for Vascath placement for Hemodialysis. Increasing WBC count may be secondary to steroids. Add Zyvox. Add Cardizem gtt for rate control 06/28: T-max 100. Currently afebrile. - 1800 cc the hemodialysis yesterday. Plan again for today. A.m. laboratories pending. Arousable on ventilator on sedation vacation and following commands appropriately. Subjective 06/29: Afebrile currently resting in bed in no acute distress. Currently on PSV trial and tolerating well. Will receive hemodialysis today. Objective Vital Signs Date Time Temp Pulse Resp B/P (MAP) Pulse Ox O2 Delivery O2 Flow Rate FiO2 06/29/17 07:32 95 45 06/29/17 06:00 107 06/29/17 06:00 99/65 (76) 06/29/17 04:00 98.3 16 Intake and Output 06/29/17 06/29/17 06/30/17 08:00 16:00 00:00 Intake Total 1199 ml Output Total 50 ml Balance 1149 ml Result Diagram: 06/29/17 0420 06/29/17 0420 Other Results Microbiology Date/Time Source Procedure Growth Status 06/23/17 12:05 Blood Peripheral Aerobic Blood Culture - Final NO GROWTH IN 5 DAYS Complete 06/23/17 12:05 Blood Peripheral Anaerobic Blood Culture - Final NO GROWTH IN 5 DAYS Complete 06/26/17 14:15 Bronchial Washings Right Lower Lobe Acid Fast Stain - Final NO ACID FAST BACILLI SEEN Resulted 06/26/17 14:15 Bronchial Washings Right Lower Lobe Mycobacterial Culture Pending Resulted 06/23/17 11:40 Urine Catheterized Urine Legionella Antigen - Final PRESUMPTIVE NEGATIVE FOR LEGIONELLA P... Complete Imaging Last Impressions Chest X-Ray 06/27/17 0600 Signed Impressions: Service Date/Time: Tuesday, June 27, 2017 03:19 - CONCLUSION: 1. Stable tubes and lines, as above. 2. Stable small bilateral pleural effusions and associated lower lobe airspace disease. Jeyson Juarez MD Chest CT 06/26/17 0000 Signed Impressions: Service Date/Time: Monday, June 26, 2017 11:42 - CONCLUSION: 1. There has been significant improved aeration of the right upper lung compared to the prior examination. 2. There continues to be atelectasis in both lung bases along with small bilateral pleural effusions, right greater than left. 3. Stable cardiomegaly. Alexander Agarwal MD Renal Ultrasound 06/25/17 0000 Signed Impressions: Service Date/Time: Sunday, June 25, 2017 15:25 - CONCLUSION: No evidence of hydronephrosis. Stable ultrasound of the kidneys. Alexander Agarwal MD Head CT 06/23/17 0000 Signed Impressions: Service Date/Time: June 16:43 - CONCLUSION: 1. No acute findings in the brain. 2. Air-fluid levels in the sinuses in a ventilated patient. Zia Badillo MD Objective Remarks GENERAL: 71-year-old male currently resting in bed orotracheally intubated SKIN: Warm and dry. Multiple ecchymoses bilateral upper extremities. HEAD: Atraumatic. Normocephalic. EYES: Pupils equal and round about 3 mm bilaterally and reactive. No scleral icterus. No injection or drainage. ENT: No nasal bleeding or discharge. Mucous membranes pink and moist. NECK: Trachea midline. No JVD. Right subclavian CVL and right IJ hemodialysis catheter clean dry intact without active bleeding CARDIOVASCULAR: Tachycardic, IR. S1, S2. No S4. 2/6 holosystolic murmur right sternal border RESPIRATORY: Diminished breath sounds at the posterior bases. No wheezing appreciated GASTROINTESTINAL: Abdomen obese, protuberant. Hypoactive bowel sounds are appreciated. MUSCULOSKELETAL: Bilateral 1+ upper and lower extremity edema noted NEUROLOGICAL: Awake and alert. No obvious cranial nerve deficits. Motor grossly within normal limits. Five out of 5 muscle strength in the arms and legs. Line: Central Venous Catheter Side: Right Location: Subclavian A/P Assessment and Plan Neuro/Psych: Acute toxic metabolic encephalopathy Bilateral cataract with IOC Currently on propofol drip at 20 mcg/kg/min for sedation while intubated Not on midazolam drip Goal of RASS -2 Daily sedation vacation -Daily sedation medication as tolerated Acetaminophen 650 mg by tube every 6 hours as needed fever Resp: Acute hypoxemic respiratory failure Bibasilar pneumonia Right lung collapse status post bronchoscopy COPD -2 L dependent at home Probable obstructive sleep apnea/obesity hypoventilation syndrome PRVC 18/600/1.05/09/44 Ventilator bundle Albuterol/e ipratropium r aerosols every 4 hours with albuterol aerosols every 2 hours as needed dyspnea Budesonide 0.5/2 1 inhalation twice daily Hypertonic saline aerosols every 4 hours as mucolytic Methylprednisolone succinate 40 mg IV every 12 hours -Status post bronchoscopy 06/23 showed complete obstruction of right mainstem bronchus -Near-total reexpansion of right lung after bronchoscopy, persistent basilar opacities most likely secondary to pneumonia -Repeat CT chest 06/26 showed persistent right more than left lower lobe consolidations-status post repeat bronchoscopy and no significant secretions Follow-up chest x-ray today 06/28 Patient is on tiotropium daily with scheduled albuterol and ipratropium aerosols every 4 hours at home Patient is on budesonide/formoterol 160/4.5 1 inhalation twice daily Consult Dr. Garcia/his home soda fountain [employer] [facility]: A. fib with RVR Chronic atrial fibrillation Moderate TR History of hypertension Dyslipidemia History of MIGUEL History of right bundle branch block -IV Fluid discontinued Currently on diltiazem drip at 5 mg now for rate control. Previously on diltiazem 240 mg daily at home. Transition to diltiazem 60 mg 4 times daily attempt to wean off drip Holding Coreg 3.125 mg p.o. twice daily/medication Continue pravastatin 40 mg p.o. daily for dyslipidemia -Continue home aspirin 81 mg daily and clopidogrel bisulfate 75 mg daily Will start on heparin drip per protocol for atrial fibrillation Holding furosemide 80 mg twice daily while on hemodialysis -Echo 05/19 revealed EF 50-55%. Moderate TR. He had a normal stress test with preserved LV function and perfusion in April of 2016. GI: Elevated AST Hypoalbuminemia Gastroesophageal reflux disease -NG tube in place, Tube feeds with Nepro currently at goal 50 cc an hour Famotidine 20 mg by tube daily for GI prophylaxis Docusate sodium/senna 1 tablet twice daily for bowel regimen Renal/: Acute oliguric renal failure, on CKD stage II -Continue Vance -Strict intake output -Nephrology Dr. Mcnair, Now Dr. Vazquez Started on hemodialysis 06/28. -5 L. Will attempt hemodialysis again today per nephrology ID: Pneumonia -On broad-spectrum antibiotics with cefepime, metronidazole and linezolid added due to persistent worsening leukocytosis Pertinent cultures 06/26 -BAL -pending 06/23 -BAL -no growth to date 06/23 - blood cultures 2 -no growth to date Negative urine Legionella antigen Check urine coccal antigen and influenza a and B today C/S ID w worsening leukocytosis ENDO: Gout Hyperglycemia of critical illness Resume allopurinol 100 mg by mouth daily Sliding scale insulin Accu-Cheks to maintain euglycemia Novulin R every 6 hours low regimen Heme: Leukocytosis Monitor CBC daily. Follow trends Starting on heparin drip due to A. fib MSK Elevated BMI Weight loss encouraged PROPH: -Heparin drip provides DVT prophylaxis -Famotidine provide GI prophylaxis Access Right subclavian CVL unknown date when placed.. Will assume 06/23 Right hemodialysis catheter day #2 placed 06/27 Level 2 follow-up Sanket Reilly MD Jun 29, 2017 10:37
--- NOTE | 2017-06-29 11:02 | HHI.NPPN ---
Subjective General Problems: Edema Renal Failure: Acute Interval History at bedside. He is intubated, eyes open. Creatinine is higher today. Extensive fluid overload, anuric. (Katelyn Kahn) Review of Systems General General Remarks unable to obtain (Katelyn Kahn) Objective Data Data Vital Signs Date Time Temp Pulse Resp B/P (MAP) Pulse Ox O2 Delivery O2 Flow Rate FiO2 06/29/17 07:32 95 45 06/29/17 07:32 45 06/29/17 06:00 107 06/29/17 06:00 107 99/65 (76) 06/29/17 04:00 98.3 104 16 90/59 (69) 94 06/29/17 04:00 104 06/29/17 04:00 45 06/29/17 03:44 94 45 06/29/17 02:00 112 06/29/17 01:14 95 45 06/29/17 00:00 45 06/29/17 00:00 98.5 115 18 117/70 (86) 95 06/29/17 00:00 115 06/28/17 22:00 116 06/28/17 21:58 95 45 06/28/17 20:02 96 45 06/28/17 20:00 101 06/28/17 20:00 98.3 101 16 115/59 (77) 96 06/28/17 20:00 45 06/28/17 19:00 103 99/48 (65) 06/28/17 17:00 99.6 100 16 94/50 (65) 93 06/28/17 16:04 96 45 06/28/17 16:00 121 06/28/17 16:00 45 06/28/17 14:00 121 06/28/17 12:00 45 06/28/17 12:00 98.6 121 20 158/74 (102) 100 06/28/17 12:00 40 06/28/17 12:00 121 06/28/17 11:50 40 06/28/17 11:49 94 45 (Katelyn Kahn) -: 06/29/17 0420 06/29/17 0420 Imaging Last 72 hours Impressions Chest X-Ray 06/27/17 0600 Signed Impressions: Service Date/Time: Tuesday, June 27, 2017 03:19 - CONCLUSION: 1. Stable tubes and lines, as above. 2. Stable small bilateral pleural effusions and associated lower lobe airspace disease. Jeyson Juarez MD Chest X-Ray 06/27/17 0000 Signed Impressions: Service Date/Time: Tuesday, June 27, 2017 13:08 - CONCLUSION: 1. The right internal jugular vascular catheter is in appropriate position with distal tip in the mid SVC. No pneumothorax is present. 2. Stable bibasilar opacities. Harsha Coker MD Tubes & Lines: Vas-Cath, Vance Tubes & Lines Comment TLC R SC (FemiKatelyn B. RETRIMMER) Physical Exam General Appearance: Well Developed, Well Nourished (Femi,Katelyn B. RETRIMMER) Neck Neck Exam: Neck Supple (FemiKatelyn B. RETRIMMER) Pulmonary Resp Exam: Crackles, Decreased Bases, Diminished Breath Sounds (Femi,Katelyn B. RETRIMMER) Cardiology CV Exam: Regular, Good Perfusion, Tachycardia (Femi,Katelyn B. RETRIMMER) Gastrointestinal/Abdomen GI Exam: Soft, Bowel Sounds Present (Femi,Katelyn B. RETRIMMER) Musculoskeletal MS Exam: Normal Tone (FemiKatelyn B. RETRIMMER) Integumentary Skin Exam: Clear, Warm, Dry, Intact (FemiKatelyn B. RETRIMMER) Extremeties Extremities Exam: Pedal Pulses Palpable, Moderate Edema, Pitting Edema (Femi,Katelyn B. RETRIMMER) Neurologic Neuro Exam: Unresponsive, Sedated (FemiKatelyn B. RETRIMMER) VTE Prophylaxis Device: SCDs (Femi,Katelyn B. RETRIMMER) Assessment/Plan Discussed Condition With: Spouse Assessment Summary: TARA/Acute Renal Failure, Acute Tubular Necrosis, Fluid/ Volume Overload Problem List: (1) Acute kidney insufficiency ICD Codes: N28.9 - Disorder of kidney and ureter, unspecified Status: Acute Plan: Creatinine of 0.8 on 06/09 TARA with apparent ATN secondary to sepsis/pneumonia. He is off pressors. BP acceptable. Fluid overload persists. HD again today, goal 4 liters. Repeat labs tomorrow. HD if needed. Monitor for signs of renal recovery. Follow urine output. Currently anuric. D/W . (2) Respiratory failure ICD Codes: J96.90 - Respiratory failure, unspecified, unspecified whether with hypoxia or hypercapnia Status: Acute Plan: Fluid removal with HD Vent weaning per team member. On CPAP currently (3) Pneumonia ICD Codes: J18.9 - Pneumonia, unspecified organism Status: Acute Plan: Recent bronchoscopy. Continue to follow cultures. On Zyvox and Solumedrol. Dose medications appropriate to renal function. (4) Sepsis ICD Codes: A41.9 - Sepsis, unspecified organism Status: Acute Plan: Continue supportive care, see above. (Katelyn Kahn) Plan patient was seen on 06/29/17 in the morning. He had high waste products. Oliguric. A decision was made to dialyze him again. Patient developed cardiac arrest during dialysis. Events noted. Patient . (Sergey Vazquez MD) Problem Qualifiers (1) Respiratory failure: Qualified Codes: J96.01 - Acute respiratory failure with hypoxia (2) Pneumonia: Qualified Codes: J18.9 - Pneumonia, unspecified organism (3) Sepsis: Qualified Codes: A41.9 - Sepsis, unspecified organism Katelyn Kahn Jun 29, 2017 11:02 Sergey Vazquez MD Jun 30, 2017 10:02
[2017-06-29] MEDS: LINEZOLID 600 MG PREMIX 300 ML IV SCH (11:51)
[2017-06-29] MEDS: ALBUMIN 25% INJ 100 ML IV PRN ×2 (13:54→13:55)
[2017-06-29] MEDS: MANNITOL 12.5 GM/50 ML VIAL IV PRN (13:54)
--- NOTE | 2017-06-29 14:09 | HHI.DS ---
Summary Note Date of : Jun 29, 2017 Time Of : 13:42 Admission Date Jun 23, 2017 at 13:09 Admitting Diagnosis respiratory failure, sepsis, hypotension Diagnosis at Time of : (1) Respiratory failure ICD Code: J96.90 - Respiratory failure, unspecified, unspecified whether with hypoxia or hypercapnia Diagnosis: Principal (2) Altered mental status ICD Code: R41.82 - Altered mental status, unspecified Diagnosis: Principal (3) Hypotension ICD Code: I95.9 - Hypotension, unspecified Diagnosis: Principal (4) Obesity ICD Code: E66.9 - Obesity, unspecified Diagnosis: Principal (5) COPD (chronic obstructive pulmonary disease) ICD Code: J44.9 - Chronic obstructive pulmonary disease, unspecified Diagnosis: Principal (6) V tach ICD Code: I47.2 - Ventricular tachycardia Diagnosis: Principal (7) Torsades de pointes ICD Code: I47.2 - Ventricular tachycardia Diagnosis: Principal (8) PEA (Pulseless electrical activity) ICD Code: I46.9 - Cardiac arrest, cause unspecified Diagnosis: Principal (9) [id number]-swgldwe renal failure ICD Code: N17.9 - Acute kidney failure, unspecified; N18.9 - Chronic kidney disease, unspecified Diagnosis: Principal Procedures Right IJ hemodialysis catheter 06/27 Brief History 71-year-old gentleman, senior living resident, with extensive past medical history remarkable for atrial fibrillation, ischemic cardiomyopathy, last EF 50- 55%, CKD, hyperlipidemia, COPD, obesity, recently admitted to [facility] in May discharged at the beginning of June after ICU admission for respiratory failure and COPD exacerbation, now sent from senior living for evaluation of respiratory distress. On EMS arrival patient had O2 sat in the 50s, he was placed on nonrebreather mask with some improvement in his O2. BiPAP was attempted but the patient was too agitated and did not wear it. On ED arrival, patient hypoxic and encephalopathic therefore he was immediately intubated and placed on mechanical ventilation. Shortly post intubation patient developed hypotension with systolic in the 60s for which he received 2 L fluid bolus and he was started on dopamine drip. In addition he was also given broad-spectrum antibiotics with vancomycin and pip/tazo and [facility] was consulted for ICU admission. Patient was seen in ED intubated sedated, unresponsive. No family at bedside. CBC/BMP: 06/29/17 0420 06/29/17 0420 Significant Findings Laboratory Tests Test 06/26/17 16:15 06/27/17 05:45 06/27/17 10:21 06/28/17 08:40 Blood Urea Nitrogen 62 MG/DL (7-18) 75 MG/DL (7-18) Creatinine 2.94 MG/DL (0.60-1.30) 3.49 MG/DL (0.60-1.30) Random Glucose 140 MG/DL (74-106) 183 MG/DL (74-106) Total Protein 5.3 GM/DL (6.4-8.2) 5.4 GM/DL (6.4-8.2) Albumin 2.2 GM/DL (3.4-5.0) 2.2 GM/DL (3.4-5.0) Calcium Level 8.4 MG/DL (8.5-10.1) 8.3 MG/DL (8.5-10.1) Alkaline Phosphatase 132 U/L (45-117) 175 U/L (45-117) Estimat Glomerular Filtration Rate 21 ML/MIN (>89) 18 ML/MIN (>89) White Blood Count 24.6 TH/MM3 (4.0-11.0) 33.9 TH/MM3 (4.0-11.0) Red Blood Count 4.23 MIL/MM3 (4.50-5.90) 3.79 MIL/MM3 (4.50-5.90) Neutrophils (%) (Auto) 89.6 % (16.0-70.0) Lymphocytes (%) (Auto) 2.5 % (9.0-44.0) Neutrophils # (Auto) 22.0 TH/MM3 (1.8-7.7) Lymphocytes # (Auto) 0.6 TH/MM3 (1.0-4.8) Monocytes # (Auto) 1.9 TH/MM3 (0-0.9) Band Neutrophils % 24 % (0-6) Lymphocytes % 4 % (9-44) Neutrophils # (Manual) 22.6 TH/MM3 (1.8-7.7) Myelocytes 2 % (0-0) Nucleated Red Blood Cells 4 /100 WBC (0-0) Blastocytes 1 % (0-0) Aspartate Amino Transf (AST/SGOT) 60 U/L (15-37) Hemoglobin 12.2 GM/DL (13.0-17.0) Hematocrit 38.3 % (39.0-51.0) Mean Corpuscular Volume 101.2 FL (80.0-100.0) Mean Corpuscular Hemoglobin Concent 31.8 % (32.0-36.0) Test 06/28/17 09:45 06/28/17 20:38 06/29/17 00:00 06/29/17 04:20 Prothrombin Time 16.0 SEC (9.8-11.6) Activated Partial Thromboplast Time 31.4 SEC (24.3-30.1) 136.8 SEC (24.3-30.1) 65.0 SEC (24.3-30.1) White Blood Count 39.0 TH/MM3 (4.0-11.0) Red Blood Count 3.74 MIL/MM3 (4.50-5.90) Hemoglobin 12.0 GM/DL (13.0-17.0) Hematocrit 37.7 % (39.0-51.0) Mean Corpuscular Volume 100.8 FL (80.0-100.0) Mean Corpuscular Hemoglobin Concent 31.8 % (32.0-36.0) Neutrophils (%) (Auto) 91.3 % (16.0-70.0) Lymphocytes (%) (Auto) 3.5 % (9.0-44.0) Neutrophils # (Auto) 35.6 TH/MM3 (1.8-7.7) Monocytes # (Auto) 2.0 TH/MM3 (0-0.9) Band Neutrophils % 15 % (0-6) Lymphocytes % 6 % (9-44) Neutrophils # (Manual) 33.9 TH/MM3 (1.8-7.7) Myelocytes 4 % (0-0) Nucleated Red Blood Cells 7 /100 WBC (0-0) Blood Urea Nitrogen 88 MG/DL (7-18) Creatinine 3.75 MG/DL (0.60-1.30) Random Glucose 179 MG/DL (74-106) Calcium Level 7.6 MG/DL (8.5-10.1) Phosphorus Level 5.7 MG/DL (2.5-4.9) Estimat Glomerular Filtration Rate 16 ML/MIN (>89) Test 06/29/17 06:17 06/29/17 10:31 Activated Partial Thromboplast Time 114.7 SEC (24.3-30.1) 32.7 SEC (24.3-30.1) Imaging Last Impressions Chest X-Ray 06/27/17 0600 Signed Impressions: Service Date/Time: Tuesday, June 27, 2017 03:19 - CONCLUSION: 1. Stable tubes and lines, as above. 2. Stable small bilateral pleural effusions and associated lower lobe airspace disease. Jeyson Juarez MD Chest CT 06/26/17 0000 Signed Impressions: Service Date/Time: Monday, June 26, 2017 11:42 - CONCLUSION: 1. There has been significant improved aeration of the right upper lung compared to the prior examination. 2. There continues to be atelectasis in both lung bases along with small bilateral pleural effusions, right greater than left. 3. Stable cardiomegaly. Alexander Agarwal MD Renal Ultrasound 06/25/17 0000 Signed Impressions: Service Date/Time: Sunday, June 25, 2017 15:25 - CONCLUSION: No evidence of hydronephrosis. Stable ultrasound of the kidneys. Alexander Agarwal MD Head CT 06/23/17 0000 Signed Impressions: Service Date/Time: June 16:43 - CONCLUSION: 1. No acute findings in the brain. 2. Air-fluid levels in the sinuses in a ventilated patient. Zia Badillo MD Hospital Course Neuro/Psych: Acute toxic metabolic encephalopathy Bilateral cataract with IOC Currently on propofol drip at 20 mcg/kg/min for sedation while intubated Goal of RASS -2 Daily sedation vacation -Daily sedation medication as tolerated Acetaminophen 650 mg by tube every 6 hours as needed fever Resp: Acute hypoxemic respiratory failure Bibasilar pneumonia Right lung collapse status post bronchoscopy COPD -2 L dependent at home Probable obstructive sleep apnea/obesity hypoventilation syndrome PRVC 18/600/1.05/09/44 Ventilator bundle Albuterol/e ipratropium r aerosols every 4 hours with albuterol aerosols every 2 hours as needed dyspnea Budesonide 0.5/2 1 inhalation twice daily Hypertonic saline aerosols every 4 hours as mucolytic Methylprednisolone succinate 40 mg IV every 12 hours -Status post bronchoscopy 06/23 showed complete obstruction of right mainstem bronchus -Near-total reexpansion of right lung after bronchoscopy, persistent basilar opacities most likely secondary to pneumonia -Repeat CT chest 06/26 showed persistent right more than left lower lobe consolidations-status post repeat bronchoscopy and no significant secretions Follow-up chest x-ray today 06/28 Patient is on tiotropium daily with scheduled albuterol and ipratropium aerosols every 4 hours at home Patient is on budesonide/formoterol 160/4.5 1 inhalation twice daily Consult Dr. Garcia/his home mounted police [facility]: A. fib with RVR Chronic atrial fibrillation Moderate TR History of hypertension Dyslipidemia History of MIGUEL History of right bundle branch block -IV Fluid discontinued Currently on diltiazem drip at 5 mg now for rate control. Previously on diltiazem 240 mg daily at home. Transition to diltiazem 60 mg 4 times daily attempt to wean off drip Holding Coreg 3.125 mg p.o. twice daily/medication Continue pravastatin 40 mg p.o. daily for dyslipidemia -Continue home aspirin 81 mg daily and clopidogrel bisulfate 75 mg daily Will start on heparin drip per protocol for atrial fibrillation Holding furosemide 80 mg twice daily while on hemodialysis -Echo 05/19 revealed EF 50-55%. Moderate TR. He had a normal stress test with preserved LV function and perfusion in April of 2016. GI: Elevated AST Hypoalbuminemia Gastroesophageal reflux disease -NG tube in place, Tube feeds with Nepro currently at goal 50 cc an hour Famotidine 20 mg by tube daily for GI prophylaxis Docusate sodium/senna 1 tablet twice daily for bowel regimen Renal/: Acute oliguric renal failure, on CKD stage II -Continue Vance -Strict intake output -Nephrology Dr. Mcnair, Now Dr. Vazquez Started on hemodialysis 06/28. -5 L ID: Pneumonia -On broad-spectrum antibiotics with cefepime, metronidazole and linezolid added due to persistent worsening leukocytosis Pertinent cultures 06/26 -BAL -pending 06/23 -BAL -no growth to date 06/23 - blood cultures 2 -no growth to date Negative urine Legionella antigen Check urine coccal antigen and influenza a and B today C/S ID w worsening leukocytosis ENDO: Gout Hyperglycemia of critical illness Resume allopurinol 100 mg by mouth daily Sliding scale insulin Accu-Cheks to maintain euglycemia Novulin R every 6 hours low regimen Heme: Leukocytosis Monitor CBC daily. Follow trends Starting on heparin drip due to A. luigi MSK Elevated BMI Weight loss encouraged PROPH: -Heparin drip provides DVT prophylaxis -Famotidine provide GI prophylaxis Access Right subclavian CVL unknown date when placed.. Will assume 06/23 Right hemodialysis catheter day #3 placed 06/27 During hemodialysis, patient became hypotensive and bradycardic. RN attempted to start norepinephrine the patient went to PA arrest approximately 1312. During the code, patient went into what appears to be V. tach, torsades and PEA. Patient received multiple doses of epinephrine, amiodarone bolus 300mg and 150 mg bolus along with a lidocaine drip. Chest compressions were performed the entire time with pulse oximetry between 84 and 90% throughout the code. Norepinephrine was at 20 mcg/min. Patient received normal saline bolus. Patient received 2 ampules of calcium chloride, 2 ampules of bicarbonate as well during the current situation. Patient went PEA code was called at 1342. Jessika was notified and she is at bedside. Dr. Garcia his mounted police was notified as well. Sanket Reilly MD Jun 29, 2017 14:09
== END 2017-06-29 13:42 | disposition expired | DRG 853 ==
LOC: NEPE 10:50 → NEDA 13:09 → HIME 17:05
PROVIDERS: ADMIT Internal Medicine Critical Care Medicine; ATTEND Internal Medicine Critical Care Medicine
PROC: 5A1955Z Respiratory Ventilation, Greater than 96 Consecutive Hours (ICD-10-PCS; principal; 2017-06-23)
PROC: 0B9F8ZX Drainage of Right Lower Lung Lobe, Via Natural or Artificial Opening Endoscopic, Diagnostic (ICD-10-PCS; 2017-06-23)
PROC: 0B9D8ZX Drainage of Right Middle Lung Lobe, Via Natural or Artificial Opening Endoscopic, Diagnostic (ICD-10-PCS; 2017-06-23)
PROC: 0BH17EZ Insertion of Endotracheal Airway into Trachea, Via Natural or Artificial Opening (ICD-10-PCS; 2017-06-23)
PROC: 05H533Z Insertion of Infusion Device into Right Subclavian Vein, Percutaneous Approach (ICD-10-PCS; 2017-06-23)
PROC: 0D9670Z Drainage of Stomach with Drainage Device, Via Natural or Artificial Opening (ICD-10-PCS; 2017-06-23)
PROC: 0T9B70Z Drainage of Bladder with Drainage Device, Via Natural or Artificial Opening (ICD-10-PCS; 2017-06-23)
PROC: 0B9F8ZX Drainage of Right Lower Lung Lobe, Via Natural or Artificial Opening Endoscopic, Diagnostic (ICD-10-PCS; 2017-06-26)
PROC: 05HM33Z Insertion of Infusion Device into Right Internal Jugular Vein, Percutaneous Approach (ICD-10-PCS; 2017-06-27)
PROC: 5A1D70Z Performance of Urinary Filtration, Intermittent, Less than 6 Hours Per Day (ICD-10-PCS; 2017-06-27)
DX: A41.9 Sepsis, unspecified organism (principal); J96.01 Acute respiratory failure with hypoxia; N17.0 Acute kidney failure with tubular necrosis; G92 Toxic encephalopathy; R65.21 Severe sepsis with septic shock; J18.9 Pneumonia, unspecified organism; I13.0 Hypertensive heart and chronic kidney disease with heart failure and stage 1 through stage 4 chronic kidney disease, or unspecified chronic kidney disease; J44.0 Chronic obstructive pulmonary disease with (acute) lower respiratory infection; T17.890A Other foreign object in other parts of respiratory tract causing asphyxiation, initial encounter; I50.9 Heart failure, unspecified; E66.2 Morbid (severe) obesity with alveolar hypoventilation; I48.2 Chronic atrial fibrillation; N18.2 Chronic kidney disease, stage 2 (mild); Z79.01 Long term (current) use of anticoagulants; M19.90 Unspecified osteoarthritis, unspecified site; E78.5 Hyperlipidemia, unspecified; I25.2 Old myocardial infarction; E07.9 Disorder of thyroid, unspecified; Z96.641 Presence of right artificial hip joint; Z96.653 Presence of artificial knee joint, bilateral; Z87.891 Personal history of nicotine dependence; I45.10 Unspecified right bundle-branch block; I25.5 Ischemic cardiomyopathy; M10.9 Gout, unspecified; K21.9 Gastro-esophageal reflux disease without esophagitis; E88.09 Other disorders of plasma-protein metabolism, not elsewhere classified; J98.09 Other diseases of bronchus, not elsewhere classified; R34 Anuria and oliguria; I46.9 Cardiac arrest, cause unspecified
CPT/HCPCS: 31500; 31624; 36556; 36600; 43753; 51702; 70450; 71045; 71250; 76775; 76937; 80053; 80069; 80074; 80202; 81001; 82550; 82805; 82948; 83605; 83735; 84100; 84132; 84443; 84484; 85007; 85025; 85027; 85610; 85730; 87015; 87040; 87070; 87102; 87116; 87205; 87206; 87449; 87641; 90935; 92950; 93005; 94002; 94003; 94640; 94664; 96365; 96368; 96374; 96375; J0330; J0692; J1265; J1580; J1644; J1650; J1940; J2020; J2150; J2250; J2543; J2930; J3010; J3370; J3475; J7030; J7040; J7050; J7608; J7626; P9047